=== PATIENT | male | born 1950 | race Caucasian/White ===

== ENCOUNTER 2025-05-24 04:13 | Emergency (ER) | payer MEDICARE, OTHER, SELFPAY ==
--- NOTE | ~2025-05-24 | XR_ITS ---
XR wrist LT min 3V 05/24/2025 06:44 Indication: Reduction left wrist fracture Procedure: 4 views left wrist Comparison: 05/24/2025 Findings: Slightly improved alignment of comminuted intra-articular fracture distal aspect of the radius status post reduction and placement of overlying cast. Ulnar styloid fracture present. No other fracture. Impression: 1: Partial reduction comminuted intra-articular fracture distal aspect of the radius with mild persistent dorsal displacement and angulation. 2: Ulnar styloid fracture. Reviewed, dictated and finalized at location O. Impression: 1: Partial reduction comminuted intra-articular fracture distal aspect of the r adius with mild persistent dorsal displacement and angulation. 2: Ulnar styloid fracture.
--- NOTE | ~2025-05-24 | CT_ITS ---
EXAMINATION: CT cervical spine wo con DATE: 05/24/2025 05:01 INDICATION: Status post fall. Neck pain. TECHNIQUE: Computed tomography (CT) of the cervical spine was performed without intravenous contrast. The dose-length product was 573 mGy-cm. Automated exposure control and iterative reconstruction technique were employed. COMPARISON: None FINDINGS: There are patchy groundglass opacities in the lung apices, most likely infectious/inflammatory. No significant pleural or pericardial effusion. Normal cervical alignment. Odontoid process is normal. Craniovertebral junction is normal. No evidence for perched facet. There is disc narrowing and endplate degenerative change at C5-6. There is mild-moderate multilevel uncinate and facet hypertrophy. There is carotid atherosclerosis. IMPRESSION: 1. No acute abnormality of the cervical spine. 2: Moderate cervical spondylosis. 3: Patchy groundglass opacities lung apices with areas of nodularity, most likely infectious/inflammatory. Recommend follow-up CT chest and 1-2 months to assess for resolution. Reviewed, dictated and finalized at location O. IMPRESSION: 1. No acute abnormality of the cervical spine. 2: Moderate cervical spondylosis. 3: Patchy groundglass opacities lung apices with areas of nodularity, most like ly infectious/inflammatory. Recommend follow-up CT chest and 1-2 months to asse ss for resolution.
--- NOTE | ~2025-05-24 | XR_ITS ---
XR wrist LT min 3V 05/24/2025 05:14 Indication: Left wrist pain Procedure: 3 views left wrist Comparison: No prior studies for comparison. Findings: There is a comminuted intra-articular fracture distal aspect of the radius with dorsal displacement and angulation. There is an ulnar styloid avulsion fracture. Mild soft tissue swelling. Impression: 1: Comminuted intra-articular fracture distal aspect of the radius with dorsal displacement and angulation. 2: Ulnar styloid avulsion. Reviewed, dictated and finalized at location O. Impression: 1: Comminuted intra-articular fracture distal aspect of the radius with dorsal displacement and angulation. 2: Ulnar styloid avulsion.
--- NOTE | ~2025-05-24 | CT_ITS ---
EXAMINATION: CT BRAIN W/O DATE: 05/24/2025 05:01 INDICATION: Head injury. TECHNIQUE: Computed tomography (CT) of the head was performed without intravenous contrast. The dose-length product was 681.00 mGy-cm. Automated exposure control and iterative reconstruction technique were employed. COMPARISON: No prior studies for comparison. FINDINGS: Normal brain parenchymal volume for age. Normal garcia-white differentiation. No acute intracranial hemorrhage, infarction, mass or mass effect. There is intracranial atherosclerosis. No ventriculomegaly or midline shift. Midline sagittal images demonstrate a normal corpus callosum, craniovertebral junction and sella turcica. Basilar cisterns are patent. Mild mucosal thickening of the maxillary and ethmoid sinuses. There are mucous retention cyst of the right maxillary sinus. Mastoids are pneumatized. No skull fractures. IMPRESSION: 1. No acute intracranial abnormality. Reviewed, dictated and finalized at location O.
[2025-05-24 04:24] VITALS: BP 101/67; PULSE 47; RESP 18; TEMP 36.7; O2SAT 94
--- OUTSIDE RECORDS SUMMARY | 2025-05-24 05:26 | XMS_ITS | Continuity of Care Document ---
Author Name [facility] Organization [facility] Care Team Providers Care Human Resources Officer Name Role Phone [facility] Unavailable Unavailable Medications Combined list of outpatient medications from Department of Defense and Veterans Affairs facilities.Medications provided include 1) outpatient medications from the last 15 months, and 2) patient-reported medications. Medication Details Route Status Patient Instructions Prescription Expires Prescription Number Last Dispense Date Ordering Provider Order Date Order Qty Source albuterol 90 mcg inhaler [8.5g] See Instruct ions, # 25.5 g, 1 total refill(s ), Soft Stop Ordered 5 2024 25.5 Ambulat ory Pharmac y allopurinol 300 mg tablet = 1 tab(s), Oral, Daily, # 90 EA, 3 total refill(s ), Soft Stop Oral (given by mouth) Ordered 5 2024 90.0 Ambulat ory Pharmac y allopurinol 300 mg tablet = 1 tab(s), Oral, Daily, # 90 EA, 3 total refill(s ), Hard Stop Oral (given by mouth) Discont inued 05/02/2025 5 2024 90.0 Ambulat ory Pharmac y allopurinol 300 mg tablet See Instruct ions, # 90 EA, 3 total refill(s ), Hard Stop Complet ed 03/10/2024 4 2023 90.0 Ambulat ory Pharmac y amLODIPine 5 mg tablet = 1 tab(s), Oral, Daily, # 90 EA, 3 total refill(s ), Hard Stop Oral (given by mouth) Complet ed 05/22/2025 5 2024 90.0 Ambulat ory Pharmac y AMOX TR-POTASSIU M CLAVULANATE (AMOXICILLI N/POTASSIUM CLAV), 875-125 MG, TABLET, ORAL, [employer], 20 ea. BOTTLE Cancele d [id number] : 2023 0 Pharmac y Data Transac tion Service Facilit y AMOX TR-POTASSIU M CLAVULANATE (AMOXICILLI N/POTASSIUM CLAV), 875-125 MG, TABLET, ORAL, [employer], 20 ea. BOTTLE Active [id number] 4 2023 20 Pharmac y Data Transac tion Service Facilit y apixaban 5 mg tablet = 1 tab(s), Oral, BID, # 180 EA, 3 total refill(s ), Soft Stop Oral (given by mouth) Ordered 5 2024 180.0 Ambulat ory Pharmac y apixaban 5 mg tablet = 1 tab(s), Oral, every 12 hr, # 180 EA, 0 total refill(s ), Soft Stop Oral (given by mouth) Discont inued 03/01/2025 5 2024 180.0 Ambulat ory Pharmac y diclofenac 1% gel [100g] See Instruct ions, # 100 g, 3 total refill(s ), Hard Stop Complet ed 07/31/2024 4 2023 100.0 Ambulat ory Pharmac y diclofenac 1% gel [100g] See Instruct ions, # 100 g, 3 total refill(s ), Hard Stop Ordered 08/27/2025 5 2024 100.0 Ambulat ory Pharmac y diclofenac 1% topical gel USE DOSING CARD TO APPLY 4 GRAMS TOPICALL Y FOUR TIMES A DAY DIRECTED , # 100 g, 1 total refill(s ), Acute Complet ed 05/25/2023 3 2022 100.0 Ambulat ory Pharmac y DOXYCYCLINE HYCLATE (doxycyclin e hyclate), 100 MG, CAPSULE, ORAL, [employer], 500 ea. BOTTLE Active [id number] 4 2023 20 Pharmac y Data Transac tion Service Facilit y empaglifloz in 10 mg tablet = 1 tab(s), Oral, Daily, # 90 EA, 3 total refill(s ), Soft Stop Oral (given by mouth) Discont inued 02/11/2025 5 2024 90.0 Ambulat ory Pharmac y empaglifloz in 25 mg tablet = 1 tab(s), Oral, Daily, # 90 EA, 3 total refill(s ), Soft Stop Oral (given by mouth) Ordered 5 2024 90.0 Ambulat ory Pharmac y escitalopra m 10 mg tablet = 1 tab(s), Oral, Daily, # 90 EA, 3 total refill(s ), Soft Stop Oral (given by mouth) Ordered 5 2024 90.0 Ambulat ory Pharmac y Fortesta 10 mg/0.5 g gel pump [60g] See Instruct ions, 0, # 120 g, 1 total refill(s ), Hard Stop Complet ed 01/28/2024 3 2023 120.0 Ambulat ory Pharmac y furosemide 40 mg tablet = 1 tab(s), Oral, Daily, # 90 EA, 3 total refill(s ), Soft Stop Oral (given by mouth) Ordered 5 2024 90.0 Ambulat ory Pharmac y gabapentin 300 mg capsule See Instruct ions, Oral, TID, # 270 EA, 3 total refill(s ), Hard Stop Oral (given by mouth) Complet ed 07/31/2024 4 2023 270.0 Ambulat ory Pharmac y gabapentin 300 mg capsule See Instruct ions, # 270 EA, 3 total refill(s ), Hard Stop Ordered 08/27/2025 5 2024 270.0 Ambulat ory Pharmac y gabapentin 300 mg capsule See Instruct ions, # 270 EA, 3 total refill(s ), Hard Stop Complet ed 03/10/2024 3 2023 270.0 Ambulat ory Pharmac y gabapentin 300 mg oral capsule TAKE ONE CAPSULE THREE TIMES DAILY NEEDED FOR PAIN, # 270 EA, 3 total refill(s ), Acute Complet ed 05/18/2023 2 2022 270.0 Ambulat ory Pharmac y hydroCHLORO thiazide 12.5 mg tablet See Instruct ions, # 90 EA, 3 total refill(s ), Hard Stop Discont inued 06/23/2023 3 2022 90.0 Ambulat ory Pharmac y Jardiance 10 mg tablet 10 mg, Oral, Daily, # 90 EA, 3 total refill(s ), Hard Stop Oral (given by mouth) Complet ed 12/25/2024 4 2024 90.0 Ambulat ory Pharmac y Jardiance 10 mg tablet See dose instruct ions in comments , # 90 EA, 3 total refill(s ), Acute Complet ed 12/22/2023 3 2023 90.0 Ambulat ory Pharmac y Jardiance 10 mg tablet 10 mg, Oral, Daily, # 90 EA, 3 total refill(s ), Hard Stop Oral (given by mouth) Complet ed 11/28/20242024 90.0 Ambulat ory Pharmac y magnesium oxide 400 mg tablet = 1 tab(s), Oral, Daily, # 90 EA, 3 total refill(s ), Soft Stop Oral (given by mouth) Ordered 5 2024 90.0 Ambulat ory Pharmac y magnesium oxide 400 mg tablet See Instruct ions, # 90 EA, 3 total refill(s ), Hard Stop Complet ed 03/10/2024 4 2023 90.0 Ambulat ory Pharmac y magnesium oxide 400 mg tablet See Instruct ions, # 90 EA, 3 total refill(s ), Hard Stop Discont inued 03/01/2025 5 2024 90.0 Ambulat ory Pharmac y metoprolol tartrate 50 mg tablet See Instruct ions, 0, 0, # 135 EA, 3 total refill(s ), Hard Stop Complet ed 03/10/2024 4 2023 135.0 Ambulat ory Pharmac y metoprolol tartrate 50 mg tablet See Instruct ions, 0, # 135 EA, 3 total refill(s ), Hard Stop Complet ed 03/26/2025 5 2024 135.0 Ambulat ory Pharmac y pantoprazol e EC 20 mg tablet 20 mg, Oral, Daily, # 90 EA, 0 total refill(s ), Hard Stop Oral (given by mouth) Discont inued 11/30/2023 4 2023 90.0 Ambulat ory Pharmac y pantoprazol e EC 20 mg tablet 20 mg, Oral, Daily, # 90 EA, 0 total refill(s ), Hard Stop Oral (given by mouth) Complet ed 08/28/2024 3 2023 90.0 Ambulat ory Pharmac y pantoprazol e EC 20 mg tablet = 1 tab(s), Oral, Daily, # 90 EA, 3 total refill(s ), Soft Stop Oral (given by mouth) Ordered 5 2024 90.0 Ambulat ory Pharmac y pantoprazol e EC 20 mg tablet 20 mg, Oral, Daily, # 90 EA, 3 total refill(s ), Hard Stop Oral (given by mouth) Complet ed 11/28/2024 4 2024 90.0 Ambulat ory Pharmac y pantoprazol e EC 20 mg tablet See Instruct ions, # 90 EA, 0 total refill(s ), Hard Stop Complet ed 05/24/2024 3 2023 90.0 Ambulat ory Pharmac y rOPINIRole 2 mg tablet = 2 tab(s), Oral, # 180 EA, 3 total refill(s ), Hard Stop Oral (given by mouth) Ordered 08/29/2025 5 2024 180.0 Ambulat ory Pharmac y rOPINIRole 2 mg tablet See Instruct ions, 0, # 135 EA, 3 total refill(s ), Hard Stop Complet ed 03/10/2024 4 2023 135.0 Ambulat ory Pharmac y rOPINIRole 2 mg tablet See Instruct ions, 0, # 135 EA, 3 total refill(s ), Hard Stop Complet ed 03/26/2025 4 2024 135.0 Ambulat ory Pharmac y rosuvastati n 10 mg tablet = 1 tab(s), Oral, Daily, # 90 EA, 3 total refill(s ), Hard Stop Oral (given by mouth) Discont inued 07/11/2024 4 2023 90.0 Ambulat ory Pharmac y rosuvastati n 20 mg tablet See Instruct ions, # 90 EA, 3 total refill(s ), Hard Stop Ordered 07/09/2025 5 2024 90.0 Ambulat ory Pharmac y rosuvastati n 5 mg tablet See Instruct ions, # 90 EA, 3 total refill(s ), Hard Stop Complet ed 03/10/2024 4 2023 90.0 Ambulat ory Pharmac y rosuvastati n 5 mg tablet See Instruct ions, # 90 EA, 3 total refill(s ), Hard Stop Discont inued 05/22/2024 4 2023 90.0 Ambulat ory Pharmac y sildenafil 100 mg oral tablet TAKE 1 TABLET BY MOUTH NEEDED FOR ERECTILE DYSFUNCT ION, # 30 EA, 1 total refill(s ), Acute Complet ed 08/24/2023 3 2022 30.0 Ambulat ory Pharmac y sildenafil 100 mg tablet See Instruct ions, # 30 EA, 2 total refill(s ), Hard Stop Complet ed 07/31/2024 4 2023 30.0 Ambulat ory Pharmac y testosteron e 10 mg/actuatio n transdermal gel PLACE 3 PUMPS ON THE SKIN DAILY, # 120 g, 1 total refill(s ), Acute Complet ed 06/20/2023 3 2022 120.0 Ambulat ory Pharmac y traMADol 50 mg tablet See Instruct ions, # 120 EA, 2 total refill(s ), Soft Stop Ordered 5 2024 120.0 Ambulat ory Pharmac y traMADol 50 mg tablet 100 mg, Oral, every 8 hr, # 120 EA, 2 total refill(s ), Hard Stop Oral (given by mouth) Discont inued 05/29/2024 4 2023 120.0 Ambulat ory Pharmac y traMADol 50 mg tablet See Instruct ions, Oral, # 120 EA, 2 total refill(s ), Soft Stop Oral (given by mouth) Discont inued 05/22/2025 5 2024 120.0 Ambulat ory Pharmac y traMADol 50 mg tablet See Instruct ions, # 120 EA, 0 total refill(s ), Hard Stop Complet ed 01/28/2024 3 2023 120.0 Ambulat ory Pharmac y traMADol 50 mg tablet 100 mg, Oral, every 8 hr, # 120 EA, 0 total refill(s ), Hard Stop Oral (given by mouth) Complet ed 03/20/2024 4 2023 120.0 Ambulat ory Pharmac y traMADol 50 mg tablet = 2 tab(s), Oral, every 8 hr, # 120 EA, 2 total refill(s ), Hard Stop Oral (given by mouth) Discont inued 11/15/2024 4 2024 120.0 Ambulat ory Pharmac y traMADol 50 mg tablet See Instruct ions, # 120 EA, 0 total refill(s ), Hard Stop Complet ed 02/25/2024 3 2023 120.0 Ambulat ory Pharmac y traMADol 50 mg tablet 100 mg, Oral, every 8 hr, # 120 EA, 2 total refill(s ), Hard Stop Oral (given by mouth) Complet ed 05/27/2024 4 2023 120.0 Ambulat ory Pharmac y traMADol 50 mg tablet = 2 tab(s), Oral, every 8 hr, # 120 EA, 2 total refill(s ), Hard Stop Oral (given by mouth) Discont inued 02/11/2025 5 2024 120.0 Ambulat ory Pharmac y traMADol 50 mg tablet See Instruct ions, # 120 EA, 2 total refill(s ), Hard Stop Discont inued 05/25/2023 3 2022 120.0 Ambulat ory Pharmac y traMADol 50 mg tablet 100 mg, Oral, every 8 hr, # 120 EA, 0 total refill(s ), Hard Stop Oral (given by mouth) Complet ed 05/05/2024 4 2023 120.0 Ambulat ory Pharmac y traMADol 50 mg tablet 100 mg, Oral, every 8 hr, # 120 EA, 0 total refill(s ), Hard Stop Oral (given by mouth) Complet ed 12/20/2023 3 2023 120.0 Ambulat ory Pharmac y traMADol 50 mg tablet See Instruct ions, # 120 EA, 0 total refill(s ), Hard Stop Discont inued 06/24/2023 3 2022 120.0 Ambulat ory Pharmac y Tramadol Hydrochlori de 50 mg Tablet, Oral (Major) May cause drowsine ss.Obtai n advice for OTCs.[place] law prohibit s transfer of prescrip tion. 08/14/2024 [id number] 4 2023 120 [employer] [facility] [place] [place] [place] TRULICITY (dulaglutid e), 3 MG/0.5ML, PEN INJCTR, SUBCUT, [employer] .5 ml SYRINGE Cancele d [id number] : 2023 0 Pharmac y Data Transac tion Service Facilit y Trulicity Pen 1.5 mg/0.5 mL [4EA=2mL] See dose instruct ions in comments , # 2 mL, 1 total refill(s ), Acute Complet ed 01/25/2024 3 2023 2.0 Ambulat ory Pharmac y Trulicity Pen 3 mg/0.5 mL [4EA=2mL] See Instruct ions, # 2 mL, 11 total refill(s ), Hard Stop Complet ed 04/17/2024 4 2023 2.0 Ambulat ory Pharmac y Trulicity Pen 3 mg/0.5 mL [4EA=2mL] See Instruct ions, # 2 mL, 11 total refill(s ), Hard Stop, NOEMY Notes: refriger ate Complet ed 05/22/2025 5 2024 2.0 Ambulat ory Pharmac y Trulicity Pen 3 mg/0.5 mL [4EA=2mL] See Instruct ions, # 2 mL, 11 total refill(s ), Hard Stop Notes: refriger ate Discont inued 06/20/2024 4 2023 2.0 Ambulat ory Pharmac y Allergies, Adverse Reactions, Alerts Combined list of allergies from Department of Defense and Veterans Affairs facilities. It does not include entries that were removed or entered in error. Substance Category Reaction Severity Reaction type Status Date Reported Comments Source No Known Allergies Drug allergy (disorder) active 04/19/2011 [facility] [place] [place] Immunizations Combined list of available immunizations from the Department of Defense and Veterans Affairs facilities. 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 (MOD) Not Given COVID-19, mRNA, LNP-S, PF, 100 mcg or 50 mcg dose DoD COVID Vaccine Moderna 2020 207 complet ed COVID Vaccine Moderna 07/27/21 Given Ambulat ory Pharmac y COVID-19, mRNA, LNP-S, PF, 100 mcg or 50 mcg dose 2020 QUIRIN, Modern[employer] (MOD) Not Given COVID-19, mRNA, LNP-S, PF, 100 mcg or 50 mcg dose DoD influenza, high-dose seasonal, quad, pf 2020 197 sanofi pasteur complet ed influenza , high-dose seasonal, quad, pf 06/22/21 Given Ambulat ory Pharmac y influenza, high-dose, quadrivalent 2020 BUCHHEIT, () Not Given influenza , high-dose , quadrival ent DoD COVID Vaccine Moderna 2020 207 complet ed COVID Vaccine Moderna 12/06/20 Given Ambulat ory Pharmac y COVID-19, mRNA, LNP-S, PF, 100 mcg or 50 mcg dose 2020 BRIGHT, Moderna [employer] (MOD) Not Given COVID-19, mRNA, LNP-S, PF, 100 mcg or 50 mcg dose DoD COVID Vaccine Moderna 2020 207 complet ed COVID Vaccine Moderna 11/08/20 Given Ambulat ory Pharmac y influenza, high-dose, quadrivalent 2019 ALUL, () Not Given influenza , high-dose , quadrival ent DoD influenza virus vaccine,split 2006 zzLef t Arm [id number] 15 GlaxoSmithK[employer] ne complet ed influenza virus vaccine,s plit 10/02/06 Given Ambulat ory Pharmac y influenza virus vaccine,split 2006 [id number] 15 [employer]oSmith[employer] ne complet ed influenza virus vaccine,s plit 10/02/06 Given Ambulat ory Pharmac y influenza virus vaccine, split virus (incl. purified surface antigen)-reti red CODE 1 2006 Unknown, Provider [id number] 15 [facility] ([facility]) complet ed influenza virus vaccine, split virus (incl. purified surface antigen)- retired CODE DoD varicella virus vaccine 2005 zzLef t Arm [id number] 21 [employer] Inc complet ed varicella virus vaccine 04/11/06 Given Ambulat ory Pharmac y varicella virus vaccine 2005 [id number] 21 [employer] Inc complet ed varicella virus vaccine 04/11/06 Given Ambulat ory Pharmac y varicella virus vaccine 1 2005 Unknown, Provider [id number] 21 Merck (MSD) complet ed varicella virus vaccine DoD typhoid vaccine, inactivated 2005 zzLef t Arm [id number] sanofi pasteur complet ed typhoid vaccine, inactivat ed 10/16/05 Given Ambulat ory Pharmac y tetanus-dipht h toxoids (Td) adult/adol 2005 zzLef t Arm [id number] 09 sanofi pasteur complet ed tetanus-d iphth toxoids (Td) adult/ado l 10/16/05 Given Ambulat ory Pharmac y typhoid vaccine, inactivated 2005 [id number] sanofi pasteur complet ed typhoid vaccine, inactivat ed 10/16/05 Given Ambulat ory Pharmac y tetanus-dipht h toxoids (Td) adult/adol 2005 [id number] 09 sanofi pasteur complet ed tetanus-d iphth toxoids (Td) adult/ado l 10/16/05 Given Ambulat ory Pharmac y tetanus and diphtheria toxoids, adsorbed, preservative free, for adult use (2 Lf of tetanus toxoid and 2 Lf of diphtheria toxoid) 2005 Unknown, Provider [id number] Sanofi Pasteur ([facility]) complet ed tetanus and diphtheri a toxoids, adsorbed, preservat sharita free, for adult use (2 Lf of tetanus toxoid and 2 Lf of diphtheri a toxoid) DoD typhoid vaccine, parenteral, other than acetone-kille d, dried 2005 Unknown, Provider [id number] Sanofi Pasteur ([facility]) complet ed typhoid vaccine, parentera l, other than acetone-k illed, dried DoD typhoid vaccine, inactivated 2005 Dima t Tito [id number] sanofi pasteur complet ed typhoid vaccine, inactivat ed 10/02/05 Given Ambulat ory Pharmac y tetanus-dipht h toxoids (Td) adult/adol 2005 Russelef t Arm [id number] 09 sanofi pasteur complet ed tetanus-d iphth toxoids (Td) adult/ado l 10/02/05 Given Ambulat ory Pharmac y typhoid vaccine, inactivated 2005 [id number] sanofi pasteur complet ed typhoid vaccine, inactivat ed 10/02/05 Given Ambulat ory Pharmac y tetanus-dipht h toxoids (Td) adult/adol 2005 [id number] 09 sanofi pasteur complet ed tetanus-d iphth toxoids (Td) adult/ado l 10/02/05 Given Ambulat ory Pharmac y tetanus and diphtheria toxoids, adsorbed, preservative free, for adult use (2 Lf of tetanus toxoid and 2 Lf of diphtheria toxoid) 2005 Unknown, Provider [id number] 09 Sanofi Pasteur ([facility]) complet ed tetanus and diphtheri a toxoids, adsorbed, preservat sharita free, for adult use (2 Lf of tetanus toxoid and 2 Lf of diphtheri a toxoid) DoD typhoid vaccine, parenteral, other than acetone-kille d, dried 1 2005 Unknown, Provider [id number] 41 Sanofi Pasteur ([facility]) complet ed typhoid vaccine, parentera l, other than acetone-k illed, dried DoD influenza virus vaccine,split 2004 zzLef t Arm [id number] 15 sanofi pasteur complet ed influenza virus vaccine,s plit 08/29/05 Given Ambulat ory Pharmac y influenza virus vaccine,split 2004 [id number] sanofi pasteur complet ed influenza virus vaccine,s plit 08/29/05 Given Ambulat ory Pharmac y influenza virus vaccine, split virus (incl. purified surface antigen)-reti red CODE 1 2004 Unknown, Provider [id number] 15 Sanofi Pasteur ([facility]) complet ed influenza virus vaccine, split virus (incl. purified surface antigen)- retired CODE DoD influenza virus vaccine, whole virus 2004 zzL t Arm [id number] 16 sanofi pasteur complet ed influenza virus vaccine, whole virus 11/14/04 Given Ambulat ory Pharmac y influenza virus vaccine, whole virus 2004 [id number] 16 sanofi pasteur complet ed influenza virus vaccine, whole virus 11/14/04 Given Ambulat ory Pharmac y influenza virus vaccine, whole virus 1 2004 Unknown, Provider [id number] 16 Sanofi Pasteur ([facility]) complet ed influenza virus vaccine, whole virus DoD influenza virus vaccine, whole virus 2004 [id number] [employer] comple t ed influenza virus vaccine, whole virus 10/03/04 Given Ambulat ory Pharmac y influenza virus vaccine, whole virus 1 2004 Unknown, Provider [id number] [employer] ([facility]) complet ed influenza virus vaccine, whole virus DoD [facility]rax [facility] [id number] [employer] complet ed anthrax vaccine 05/02/04 Given Ambulat ory Pharmac y anthrax vaccine 2003 [id number] [employer] complet ed anthrax vaccine 05/02/04 Given Ambulat ory Pharmac y anthrax vaccine 4 2003 Unknown, Provider [id number] [employer] ([facility]) complet ed anthrax vaccine DoD anthrax vaccine 2003 zzLef t Arm [id number] [employer] complet ed anthrax vaccine 11/19/03 Given Ambulat ory Pharmac y anthrax vaccine 3 2003 Unknown, Provider [id number] [employer] ([facility]) complet ed anthrax vaccine DoD anthrax vaccine 2003 zzLef t Arm [id number] [employer] complet ed anthrax vaccine 11/03/03 Given Ambulat ory Pharmac y anthrax vaccine 2003 [id number] [employer] complet ed anthrax vaccine 11/03/03 Given Ambulat ory Pharmac y anthrax vaccine 2 2003 Unknown, Provider [id number] [employer] ([facility]) complet ed anthrax vaccine DoD typhoid vaccine, inactivated 2003 zzLef t Arm [id number] sanofi pasteur complet ed typhoid vaccine, inactivat ed 10/19/03 Given Ambulat ory Pharmac y anthrax vaccine 2003 zzLef t Arm [id number] [employer] complet ed anthrax vaccine 10/19/03 Given Ambulat ory Pharmac y typhoid vaccine, inactivated 2003 [id number] sanofi pasteur complet ed typhoid vaccine, inactivat ed 10/19/03 Given Ambulat ory Pharmac y anthrax vaccine 2003 [id number] [employer] complet ed anthrax vaccine 10/19/03 Given Ambulat ory Pharmac y anthrax vaccine 1 2003 Unknown, Provider [id number] [employer] ([facility]) complet ed anthrax vaccine DoD typhoid vaccine, parenteral, other than acetone-kille d, dried 1 2003 Unknown, Provider [id number] Sanofi Pasteur ([facility]) complet ed typhoid vaccine, parentera l, other than acetone-k illed, dried DoD influenza virus vaccine, whole virus 2002 zzLef t Arm [id number] 16 sanofi pasteur complet ed influenza virus vaccine, whole virus 07/27/03 Given Ambulat ory Pharmac y influenza virus vaccine, whole virus 2002 [id number] 16 sanofi pasteur complet ed influenza virus vaccine, whole virus 07/27/03 Given Ambulat ory Pharmac y influenza virus vaccine, whole virus 1 2002 Unknown, Provider [id number] 16 Sanofi Pasteur ([facility]) complet ed influenza virus vaccine, whole virus DoD influenza virus vaccine, whole virus [facility] [id number] 16 sanofi pasteur complet ed influenza virus vaccine, whole virus 07/28/02 Given Ambulat ory Pharmac y influenza virus vaccine, whole virus 2001 [id number] 16 sanofi pasteur complet ed influenza virus vaccine, whole virus 07/28/02 Given Ambulat ory Pharmac y influenza virus vaccine, whole virus 1 2001 Unknown, Provider [id number] 16 Sanofi Pasteur ([facility]) complet ed influenza virus vaccine, whole virus DoD meningococcal polysaccharid e (MPSV4) [facility] [id number] 32 sanofi pasteur complet ed meningoco ccal polysacch aride (MPSV4) 06/30/02 Given Ambulat ory Pharmac y meningococcal polysaccharid e (MPSV4) 2001 [id number] 32 sanofi pasteur complet ed meningoco ccal polysacch aride (MPSV4) 06/30/02 Given Ambulat ory Pharmac y meningococcal polysaccharid e vaccine (MPSV4) 1 2001 Unknown, Provider [id number] 32 Sanofi Pasteur ([facility]) complet ed meningoco ccal polysacch aride vaccine (MPSV4) [facility] typhoid vaccine, inactivated 2001 [facility] t Arm [id number] sanofi pasteur complet ed typhoid vaccine, inactivat ed 10/29/01 Given Ambulat ory Pharmac y typhoid vaccine, inactivated 2001 [id number] sanofi pasteur complet ed typhoid vaccine, inactivat ed 10/29/01 Given Ambulat ory Pharmac y typhoid vaccine, parenteral, other than acetone-kille d, dried 1 2001 Unknown, Provider [id number] Sanofi Pasteur ([facility]) complet ed typhoid vaccine, parentera l, other than acetone-k illed, dried [facility] influenza virus vaccine, whole virus 2001 [facility] [id number] 16 sanofi pasteur complet ed influenza virus vaccine, whole virus 10/10/01 Given Ambulat ory Pharmac y influenza virus vaccine, whole virus 2001 [id number] 16 sanofi pasteur complet ed influenza virus vaccine, whole virus 10/10/01 Given Ambulat ory Pharmac y influenza virus vaccine, whole virus 1 2001 Unknown, Provider [id number] 16 [facility] ([facility]) complet ed influenza virus vaccine, whole virus DoD influenza virus vaccine, whole virus 2000 [id number] 16 [facility], whole virus 10/01/00 Given Ambulat ory Pharmac y influenza virus vaccine, whole virus 2000 [id number] 16 [facility] vaccine, whole virus 10/01/00 Given Ambulat ory Pharmac y influenza virus vaccine, whole virus 1 2000 Unknown, [facility] [id number] [facility], whole virus DoD yellow fever vaccine 1999 [id number] [facility] ed yellow fever vaccine 04/03/00 Given Ambulat ory Pharmac y yellow fever vaccine 1999 [id number] [facility] yellow fever vaccine 04/03/00 Given Ambulat ory Pharmac y yellow fever vaccine 1 1999 Unknown, Provider [id number] [facility] ed yellow fever vaccine DoD influenza virus vaccine, whole virus 1998 [id number] 16 [facility] influenza virus vaccine, whole virus 08/01/99 Given Ambulat ory Pharmac y influenza virus vaccine, whole virus 1 1998 Unknown, Provider [id number] 16 [facility] ed influenza virus vaccine, whole virus DoD typhoid vaccine, inactivated 1998 [id number] sanofi pasteur complet ed typhoid vaccine, inactivat ed 06/28/99 Given Ambulat ory Pharmac y typhoid vaccine, parenteral, other than acetone-kille d, dried 1 1998 Unknown, Provider [id number] Sanofi Pasteur ([facility]) complet ed typhoid vaccine, parentera l, other than acetone-k illed, dried DoD influenza virus vaccine, whole virus 1997 [id number] 16 [facility] complet ed influenza virus vaccine, whole virus 06/21/98 Given Ambulat ory Pharmac y influenza virus vaccine, whole virus 1997 [id number] 16 [facility] complet ed influenza virus vaccine, whole virus 06/21/98 Given Ambulat ory Pharmac y influenza virus vaccine, whole virus 1 1997 Unknown, Provider [id number] A 16 [facility] ([facility]) complet ed influenza virus vaccine, whole virus DoD influenza virus vaccine, whole virus [id number] [employer] complet ed influenza virus vaccine, whole virus 06/29/97 Given Ambulat ory Pharmac y influenza virus vaccine, whole virus [id number] P[employer] complet ed influenza virus vaccine, whole virus 06/29/97 Given Ambulat ory Pharmac y influenza virus vaccine, whole virus 2 1996 Unknown, Provider [id number] [employer] (Inactive) (ND) complet ed influenza virus vaccine, whole virus DoD hepatitis A adult vaccine [id number] [employer] complet ed hepatitis A adult vaccine 02/06/96 Given Ambulat ory Pharmac y hepatitis A adult vaccine [id number] 52 [employer] complet ed hepatitis A adult vaccine 02/06/96 Given Ambulat ory Pharmac y hepatitis A vaccine, adult dosage 2 1995 Unknown, Provider [id number] [employer] (Inactive) (ND) complet ed hepatitis A vaccine, adult dosage DoD typhoid, parenteral, AKD [id number] 53 P[employer] complet ed typhoid, parentera l, AKD 01/14/96 Given Ambulat ory Pharmac y typhoid, parenteral, AKD [id number] 53 P[employer] complet ed typhoid, parentera l, AKD 01/14/96 Given Ambulat ory Pharmac y typhoid vaccine, parenteral, acetone-kille d, dried ([place] ) 3 1995 Unknown, Provider [id number] [employer] (Inactive) (ND) complet ed typhoid vaccine, parentera l, acetone-k illed, dried ([place] ) [facility] meningococcal polysaccharid e (MPSV4) 1995 [id number] [facility] complet ed meningoco ccal polysacch aride (MPSV4) 11/05/95 Given Ambulat ory Pharmac y meningococcal polysaccharid e (MPSV4) 1995 [id number] [facility] complet ed meningoco ccal polysacch aride (MPSV4) 11/05/95 Given Ambulat ory Pharmac y meningococcal polysaccharid e vaccine (MPSV4) 1 1995 Unknown, Provider [id number] [place] (CON) complet ed meningoco ccal polysacch aride vaccine (MPSV4) DoD tetanus-dipht h toxoids (Td) adult/adol 1995 09 complet ed tetanus-d iphth toxoids (Td) adult/ado l 10/16/95 Given Ambulat ory Pharmac y tetanus and diphtheria toxoids, adsorbed, preservative free, for adult use (2 Lf of tetanus toxoid and 2 Lf of diphtheria toxoid) 3 1995 Unknown, Provider 09 () complet ed tetanus and diphtheri a toxoids, adsorbed, preservat sharita free, for adult use (2 Lf of tetanus toxoid and 2 Lf of diphtheri a toxoid) DoD influenza virus vaccine, whole virus 1993 16 complet ed influenza virus vaccine, whole virus 08/01/94 Given Ambulat ory Pharmac y influenza virus vaccine, whole virus 1 1993 Unknown, Provider 16 () complet ed influenza virus vaccine, whole virus DoD hepatitis B adult vaccine [id number] 43 [employer] complet ed hepatitis B adult vaccine 02/28/94 Given Ambulat ory Pharmac y hepatitis B adult vaccine [id number] 43 [employer] complet ed hepatitis B adult vaccine 02/28/94 Given Ambulat ory Pharmac y hepatitis B vaccine, adult dosage 3 1993 Unknown, Provider [id number] [employer] (Inactive) (ND) complet ed hepatitis B vaccine, adult dosage DoD immune globulin, unspecified formulation 1 1992 Unknown, Provider 14 () complet ed immune globulin, unspecifi ed formulati on DoD yellow fever vaccine [id number] 37 [employer] complet ed yellow fever vaccine 01/28/90 Given Ambulat ory Pharmac y yellow fever vaccine [id number] 37 [employer] complet ed yellow fever vaccine 01/28/90 Given Ambulat ory Pharmac y yellow fever vaccine 1 1989 Unknown, Provider [id number] [employer] (Inactive) (ND) complet ed yellow fever vaccine DoD measles/mumps /rubella virus vaccine 1987 03 complet ed measles/m umps/rube lla virus vaccine 07/04/88 Given Ambulat ory Pharmac y measles virus vaccine 1987 05 complet ed measles virus vaccine 07/04/88 Given Ambulat ory Pharmac y measles virus vaccine 1987 05 complet ed measles virus vaccine 07/04/88 Given Ambulat ory Pharmac y measles/mumps /rubella virus vaccine 1987 03 complet ed measles/m umps/rube lla virus vaccine 07/04/88 Given Ambulat ory Pharmac y measles virus vaccine 1 1987 Unknown, Provider 05 () complet ed measles virus vaccine DoD measles, mumps and rubella virus vaccine 1 1987 Unknown, Provider 03 () complet ed measles, mumps and rubella virus vaccine DoD poliovirus vaccine, live, oral 1984 02 complet ed polioviru s vaccine, live, oral 12/31/84 Given Ambulat ory Pharmac y poliovirus vaccine, live, oral 1984 02 complet ed polioviru s vaccine, live, oral 12/31/84 Given Ambulat ory Pharmac y trivalent poliovirus vaccine, live, oral 1 1984 Unknown, Provider 02 () complet ed trivalent polioviru s vaccine, live, oral DoD Encounters Combined list of: 1) Encounters from [facility] facilities going backup to the last 18 months, not all [place] inpatient encounters are included; 2) 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 Location Location Details Encounter Type Encounter Number Reason For Visit Attending Provider ADM Date DC Date Status Disposition Source [facility] Outpatient Encounter [id number] 07/04 [facility] Procedures Combined list of: 1) Procedures from Department of [facility] facilities going back up to thelast 18 months, not all [place] non-surgical procedures are included; 2) All procedures from the [facility] of Defense facilities. Procedure Procedure Type Code Date Perfomer Comments Sourc e No data available for this section Ambulatory Pharmacy CARDIOVASCULAR STRESS TEST USING MAXIMAL OR SUBMAXIMAL TREADMILL OR BICYCLE EXERCISE,CONTINUOUS ELECTROCARDIOGRAPHIC MONITORING,AND/OR PHARMACOLOGICAL STRESS;W SUPERVISION,INTERPRETATIO N AND REPORT 4 DoD Social History Combined list of available smoking, tobacco, and other social history from [facility] and [facility] facilities. Social History Type Response Date Comment Sour e This section is an empty social history section. DoD Assessment and Plan Combined list of future care activities from [facility] of Defense and [facility] facilities (e.g., assessment and plan notes, appointments, orders, and referrals). Additional future care activities may be listed in the Plan of Care section. Result Assessment and Plan Date Source Assessment and Plan No data available for this section 05/24/2025 Ambulatory Pharmacy Functional Status Combined list of recent functional and cognitive assessments recorded at [facility] ([place] Functional Fannin Measurement (FIM) Scale: 1 = Total Assistance (Subject = 0% +), 2 = Maximal Assistance (Subject = 25% +), 3 = Moderate Assistance (Subject = 50% +), 4 = Minimal Assistance (Subject = 75% +), 5 = Supervision, 6 = Modified Fannin (Device), 7 = Complete Fannin (Timely, Safely). Assessment Date/Time Source Assessment Type Assessment Skill Assessment Score Assessment Details No data available for this section
--- NOTE | 2025-05-24 05:28 | ED.GENADULT ---
HPI - General Adult General Chief complaint: Head Injury Stated complaint: Fall-head lac History of Present Illness HPI narrative: This is a 74-year-old male presenting after ground level fall. Patient said he and his got up to use the restroom in the middle night, they bumped into each other in the kitchen and he lost his balance falling backwards striking the back of his head. Patient states he takes blood thinners although he does not know which ones. He did not lose consciousness. He did land on his left wrist and has significant pain in his wrist. Related Data Allergies Allergy/AdvReac Type Severity Reaction Status Date / Time No Known Allergies Allergy Verified 05/24/25 05:50 Exam Narrative: APPEARANCE: No apparent distress. Head: 2 cm vertical laceration to posterior scalp requiring repair EYES: EOMI, NOSE: Atraumatic NECK: Trachea midline RESPIRATORY: No increased rate of breathing CARDIOVASCULAR: RRR, ABDOMINAL: Non-distended MUSCULOSKELETAl: No obvious deformities NEURO: Alert. Cranial nerves 2-12 grossly intact. Sensation light touch, motor function cerebellar function intact for 4 extremities. Gait exam was normal. SKIN:: Warm, dry. Normal color PSYCHIATRIC: Normal affect Course Vital Signs Vital signs: Vital Signs Temperature 98.0 F 05/24/25 04:24 Pulse Rate 47 L 05/24/25 04:24 Respiratory Rate 18 05/24/25 04:24 Blood Pressure 101/67 05/24/25 04:24 Pulse Oximetry 94 05/24/25 04:24 Oxygen Delivery Room Air 05/24/25 04:24 Temperature 98.0 F 05/24/25 04:24 Pulse Rate 47 L 05/24/25 04:24 Respiratory Rate 18 05/24/25 04:24 Blood Pressure 101/67 05/24/25 04:24 Pulse Oximetry 94 05/24/25 04:24 Oxygen Delivery Room Air 05/24/25 04:24 Procedures Laceration Laceration 1: Date: 05/24/25 Time: 05:31 Site: scalp Side (If applicable): left Size (cm): 2 Description: linear Depth: simple, single layer Local Anesthetic: lidocaine 1% Amount of anesthesia used (mL): 5 Pre-repair: wound explored and irrigated ====== Skin Level ====== Skin layer closed with: berenice Number of sutures: 5 ====== Subcutaneous Layer ====== ====== Muscle Layer ====== ====== Tendon Layer ====== Medical Decision Making MDM Narrative Medical decision making narrative: -Course: 74-year-old male presenting after a ground fall. Patient has 2 cm laceration to the posterior scalp was repaired with berenice. His left wrist shows comminuted intra-articular radial fracture. Hematoma block was performed and wrist was reduced and splinted. Patient will be given follow-up with Orthopedics. -DDX includes but is not limited to: Intracranial hemorrhage, closed head injury, scalp laceration, wrist fracture Vital Signs Vital Signs: Vital Signs Temperature 98.0 F 05/24/25 04:24 Pulse Rate 47 L 05/24/25 04:24 Respiratory Rate 18 05/24/25 04:24 Blood Pressure 101/67 05/24/25 04:24 Pulse Oximetry 94 05/24/25 04:24 Oxygen Delivery Room Air 05/24/25 04:24 Temperature 98.0 F 05/24/25 04:24 Pulse Rate 47 L 05/24/25 04:24 Respiratory Rate 18 05/24/25 04:24 Blood Pressure 101/67 05/24/25 04:24 Pulse Oximetry 94 05/24/25 04:24 Oxygen Delivery Room Air 05/24/25 04:24 Discharge Plan Discharge Clinical Impression: Laceration of scalp Patient Disposition: Home Condition: Stable Instructions: Antibiotic Form, Wrist Fracture in Adults (ED), Staple Care (ED) Additional Instructions: You were seen in the emergency department after a fall. The berenice in your scalp must be removed in 7 days by any medical professional. You also fractured her wrist. Please call the orthopedic clinic listed below and arrange follow-up within the next 3-5 days. If develops severe pain in her wrist or numbness your fingers please return emergency department immediately. Patient Language: Cape Verdean Prescriptions: New ibuprofen 800 mg tablet 800 mg PO TID PRN (Reason: pain) 7 Days Qty: 21 0RF acetaminophen 500 mg tablet 1,000 mg PO TID PRN (Reason: rachel) 7 Days Qty: 42 0RF tramadol 50 mg tablet 50 mg PO Q6H PRN (Reason: pain) Qty: 10 0RF Follow-up/Referrals: Manny Moreno MD [Physician, Orthopedics] - 1 Day Referral Note: Wrist fracture Tomi,ADIA Espinoza [Primary Care Provider, Unknown]
--- OUTSIDE RECORDS SUMMARY | 2025-05-24 05:28 | XMS_ITS | Patient Health Record ---
Author Organization [facility] As [employer] Address [address] [facility] [address] [place] [address] Care Team Providers Care Licensed Loan Officer Assistant Name Role Phone Butch Rai Unavailable [phone] Reason For Referral No Information Plan Of Treatment No Information Insurance Providers Payer Name Payer Address Payer Phone Subscriber Number Group Number Insured Name Patient Relationship to Insured Coverage Start Date Coverage End Date Medicare-I l Medicare [address] [place] [phone] [id number] JANE SORENSEN Self - patient is the insured
--- OUTSIDE RECORDS SUMMARY | 2025-05-24 05:28 | XMS_ITS | Encounter Summary ---
Author Organization [facility] Healthcare Address [address] [place] [address] Care Team Providers Care Production Support Engineer Name Role Phone Alexis Krishna Primary Care Provider [phone] Pedrito Liz MD Unavailable [phone] Brandon Jon DPEan Unavailable + [phone] Encounter Details Date Type Department Care Team (Late st Contact Info) Description 05/21/2025 Results Follow-Up [facility] Family Medicine at [address] [place] [address] Alexis Krishna PA [address] [place] [address] [address] [place], [place] [id number] Stool DNA - Cologuard Social History Tobacco Use Types Packs/Day Years Used Date Smoking Tobacco: Never Smokeless Tobacco: Never Alcohol Use Standard Drinks/Week Comments Never 0 (1 standard drink = 0.6 oz pur e alcohol) [facility] Utilities Answer Date Recorded In the past 12 months has e electric, gas, oil, or water company threatened to shut off services in your home? No 12/21/2024 Humiliation, Afraid, Rape, and Kick questionnair e Answer Date Recorded Within the last year, have y ou been afraid of your partner or ex-partner? No 02/01/2022 Within the last year, have y ou been humiliated or emotionally abused in other ways by your partner or ex-partner? No Within the last year, have y ou been kicked, hit, slapped, or otherwise physically hurt by your partner or ex-partner? No 02/01/2022 Within the last year, have y ou been raped or forced to have any kind of sexual activity by your partner or ex-partner? No 02/01/2022 Social Connection and Isolation Panel Answer Date Recorded In a typical week, how many times do you talk on the phone with family, friends, or neighbors? Once a week 12/22/19 How often do you get togethe r with friends or relatives? Once a week 12/21/2024 How often do you attend chur ch or anabaptist services? 1 to 4 times per year 12/21/2024 Do you belong to any clubs o r organizations such as congregation groups, unions, fraternal or athletic groups, or school groups? Yes 12/21/2024 How often do you attend meet ings of the clubs or organizations you belong to? 1 to 4 times per year 12/21/2024 Are you , , di vorced, , never , or living with a partner? 12/21/2024 Overall Financial Resource Strain (CARDIA) Answe r Date Recorded How hard is it for you to pa y for the very basics like food, housing, medical care, and heating? Not very hard 12/21/2024 PHQ-2 Answer Date Recorded PHQ-2 Total Score (If total score is 3 or more points, staff should administer the PHQ-9) 0 05/06/2025 [facility] - Occupational Stress Questionnaire Answer Date Recorded Do you feel stress - tense, restless, nervous, or anxious, or unable to sleep at night because your mind is troubled all the time - these days? Not at all 02/01/2022 Exercise Vital Sign Answer Date Recorde d On average, how many days pe r week do you engage in moderate to strenuous exercise (like a brisk walk)? 2 days 02/01/2022 On average, how many minutes do you engage in exercise at this level? 30 min 02/01/2022 Hunger Vital Sign Answer Date Recorded Within the past 12 months, y ou worried that your food would run out before you got the money to buy more. Never true 12/22/19 25 Within the past 12 months, t he food you bought just didn't last and you didn't have money to get more. Never true 12/21/2024 PRAPARE - Transportation Answer Date Re corded In the past 12 months, has l ack of transportation kept you from medical appointments or from getting medications? No 11/25 In the past 12 months, has l ack of transportation kept you from meetings, work, or from getting things needed for daily living? No 12/21/2024 Housing Stability Vital Sign Answer Bony e Recorded In the last 12 months, was t here a time when you were not able to pay the mortgage or rent on time? No 12/21/2024 In the past 12 months, how m any times have you moved where you were living? 0 12/21/2024 At any time in the past [address] [facility], were you homeless or living in a halfway (including now)? No 12/21/2024 AUDIT-C Answer Date Recorded Q1: How often do you have a drink containing alcohol? Never 05/14/2025 Q2: How many drinks containi ng alcohol do you have on a typical day when you are drinking? Patient does not drink Q3: How often do you have si x or more drinks on one occasion? Never 05/14/2025 Personal Safety Answer Date Recorded Have you ever been in or are you currently in a harmful physical or emotional relationship or is someone making you feel afraid or unsafe? 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 [place] [address] Consulting Physician Pulmonary Disease 08/17/23 Brandon Jon DPM [address] [place] [address] Consulting Physician Orthopedic Surgery 08/17/23 documented as of this encounter
--- OUTSIDE RECORDS SUMMARY | 2025-05-24 05:28 | XMS_ITS | Encounter Summary ---
Author Organization [facility] Facility Care Team Providers Care Computer Engineering Professor Name Role Phone Yonathan Vega MD Primary Care Provider [phone] Emy Sampson LPN Unavailable [phone] Alexis Krishna Primary Care Provider [phone] Pedrito Liz MD Unavailable [phone] Brandon Jon DPM Unavailable [phone] Minnie Jorge RN Unavailable Encounter Details Date Type Department Care Team (Latest Contact Info) Description 08/24/2016 Orders Only [facility]INCONV Provider, MD Rosi [address] [place] [id number] Social History Tobacco Use Types Packs/Day Years Used Date Smoking Tobacco: Never Assessed Sex and Gender Information Value Date Recorded Sex Assigned at Not on file 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 05/05/2020 05/13/2021 5:00 AM CDT COVID: Suspected 12/17/2024 12/17/2024 12/17/2024 10:13 AM CDT documented as of this encounter Care Teams Computer Engineering Professor Relationship Specialty Start Date End Date Yonathan Vega MD PCP - General 11/09/18 06/21/22 Alexis Krishna PA PCP - General Family Medicine 06/22/22 Emy Sampson LPN Special Machine Operator 05/08/20 05/08/20 Pedrito Liz MD [address] [facility] [address] [place] [address] Consulting Physician Pulmonary Disease 08/17/23 Brandon Jon DPM [address] [facility] [address] [place] [address] Consulting Physician Orthopedic Surgery 08/17/23 Minnie Jorge, RN [address] [place] [address] [address] [place] [address] Special Machine Operator 12/21/24 01/07/25 documented as of this encounter
--- OUTSIDE RECORDS SUMMARY | 2025-05-24 05:28 | XMS_ITS | Clinical Summary ---
Author Organization [address] Address [address] [place] [id number] Care Team Providers Care Readers' Advisory Service Librarian Name Role Phone Alexis Krishna Primary Care Provider [phone] Pedrito Liz MD Unavailable [phone] Brandon Jon DPM Unavailable [phone] Allergies Active Allergy Reactions Criticality Noted Date Comments Lisinopril Other (See comments) Medium 02/19/2020 hyperkalemia Olmesartan Other (See comments) Medium 05/06/2020 Hyperkalemia Medications cholecalciferol (VITAMIN D-3) 5,000 unit capsule Take 1 capsule (5,000 Units total) by mouth daily Active miscellaneous medical supply miscIndications:OS A (obstructive sleep apnea) Nasal pillows for cpap machine 1 each 1 10/07/19 22 Active sildenafiL (VIAGRA) 100 mg tabletIndications: Drug-induced erectile dysfunction Take 1 tablet (100 mg total) by mouth as needed for erectile dysfunction 30 tablet 2 08/01/20 23 Active Trulicity 3 mg/0.5 mL pen injectorIndication s:Type 2 DM with CKD stage 3 and hypertension (HCC) Inject 0.5 mL (3 mg total) under the skin once a week 6 mL 3 05/22/20 24 Active amLODIPine (NORVASC) 5 mg tabletIndications: Essential (primary) hypertension Take 1 tablet (5 mg total) by mouth daily 90 tablet 3 05/22/20 24 Active rosuvastatin (CRESTOR) 20 mg tablet Take 1 tablet (20 mg total) by mouth nightly 90 tablet 3 07/09/20 24 Active gabapentin (NEURONTIN) 300 mg capsuleIndications :Polyneuropathy, unspecified Take 1 capsule (300 mg total) by mouth 3 (three) times a day as needed (for pain) 270 capsule 3 08/27/20 24 Active rOPINIRole (Requip) 2 mg tabletIndications: RLS (restless legs syndrome) Take 2 tablets (4 mg total) by mouth nightly 180 tablet 3 08/29/20 24 Active escitalopram (LEXAPRO) 10 mg tabletIndications: Mild episode of recurrent major depressive disorder Take 1 tablet (10 mg total) by mouth daily 90 tablet 3 11/29/[address] (PROTONIX) 20 mg EC tabletIndications: Gastroesophageal reflux disease without esophagitis Take 1 tablet (20 mg total) by mouth daily 90 tablet 3 11/30/19 25 Active multivitamin tablet Take 1 tablet by mouth daily Active albuterol HFA (Ventolin HFA) 90 mcg/actuation inhalerIndications :Centrilobular emphysema (HCC) Inhale 2 puffs every 4 (four) hours as needed for wheezing or shortness of breath 3 each 1 12/25/19 25 Active metoprolol tartrate (LOPRESSOR) 25 mg immediate release tabletIndications: Atrial Arrhythmia Take 0.5 tablets (12.5 mg total) by mouth 2 (two) times a day Active cyclobenzaprine (FLEXERIL) 5 mg tablet Take 1 tablet (5 mg total) by mouth 3 (three) times a day as needed for muscle spasms 60 tablet 01/19/20 25 Active empagliflozin (JARDIANCE) 25 mg tabletIndications: Type 2 DM with CKD stage 3 and hypertension (HCC),Acute congestive heart failure, unspecified heart failure type (HCC) Take 1 tablet (25 mg total) by mouth daily 90 tablet 3 02/09/20 25 Active apixaban (ELIQUIS) 5 mg tabletIndications: atrial fibrillation Take 1 tablet (5 mg total) by mouth every 12 (twelve) hours 180 tablet 3 02/29/20 25 Active furosemide (LASIX) 40 mg tablet Take 1 tablet (40 mg total) by mouth daily 90 tablet 3 02/29/20 25 Active magnesium oxide (MAG-OX) 400 mg (241.3 mg elemental magnesium) tablet Take 1 tablet (400 mg total) by mouth daily 90 tablet 3 02/29/20 25 Active sodium bicarbonate 650 mg tablet TAKE 1 TABLET(650 MG) BY MOUTH DAILY 90 tablet 1 04/03/20 25 Active allopurinoL (ZYLOPRIM) 300 mg tabletIndications: Gout, unspecified cause, unspecified chronicity, unspecified site Take 1 tablet (300 mg total) by mouth daily 90 tablet 3 05/01/20 25 Active cephalexin (KEFLEX) 250 mg capsule Take 1 capsule (250 mg total) by mouth 4 (four) times a day for 10 days 40 capsule 05/14/20 25 025 Active metOLazone (ZAROXOLYN) 2.5 mg tabletIndications: Acute congestive heart failure, unspecified heart failure type (HCC) Take 1 tablet (2.5 mg total) by mouth daily for 7 days 7 tablet 05/14/20 25 Active mupirocin (BACTROBAN) 2 % ointment Apply topically 3 (three) times a day 22 g 05/15/20 25 Active traMADoL (ULTRAM) 50 mg tabletIndications: Primary osteoarthritis of both shoulders Take 1-2 tablets (50-100 mg total) by mouth every 8 (eight) hours as needed for pain 120 tablet 2 05/20/20 25 Active allopurinoL (ZYLOPRIM) 300 mg tabletIndications: Gout, unspecified cause, unspecified chronicity, unspecified site Take 1 tablet (300 mg total) by mouth daily 90 tablet 3 05/24/20 24 025 Discontinu ed(Reorder ) traMADoL (ULTRAM) 50 mg tabletIndications: Primary osteoarthritis of both shoulders Take 1-2 tablets (50-100 mg total) by mouth every 8 (eight) hours as needed for pain 120 tablet 2 02/09/20 25 025 Discontinu ed(Reorder ) doxycycline (VIBRAMYCIN) 100 mg capsule Take 1 tablet/capsule (100 mg total) by mouth 2 (two) times a day for 7 days 14 tablet/caps ule 04/23/20 25 025 mupirocin (BACTROBAN) 2 % ointment Apply topically 3 (three) times a day 22 g 04/23/20 25 025 Discontinu ed(Reorder ) clindamycin (CLEOCIN) 300 mg capsuleIndications :MRSA (methicillin resistant staph aureus) culture positive Take 1 capsule (300 mg total) by mouth 3 (three) times a day for 10 days 30 capsule 05/06/20 25 025 furosemide (LASIX) 40 mg tabletIndications: Acute congestive heart failure, unspecified heart failure type (HCC) Take 2 tablets (80 mg total) by mouth daily for 7 days 14 tablet 05/06/20 25 025 Discontinu ed(Therapy completed) potassium chloride ER (KLOR-CON) 10 mEq CR tabletIndications: Acute congestive heart failure, unspecified heart failure type (HCC) Take 1 tablet/capsule (10 mEq total) by mouth daily for 7 days 7 tablet/caps ule 05/06/20 25 025 Discontinu ed(Reorder ) potassium chloride ER (KLOR-CON) 10 mEq CR tabletIndications: Acute congestive heart failure, unspecified heart failure type (HCC) Take 1 tablet/capsule (10 mEq total) by mouth daily for 7 days 7 tablet/caps ule 05/14/20 25 025 Hospital, Clinic, or Other Facility Administered Medication Ordered Dose Route Frequency Start Date End Date Status cefTRIAXone (ROCEPHIN) 350 mg/mL intramuscular injection 1,000 mgIndications:Other (complete free text reason below) 1000 mg IM Once 05/06/2025 05/06/2025 Ended Active Problems Problem Noted Date Diagnosed Date Other spondylosis with radiculopathy, lumbar reg ion 03/05/2025 Persistent atrial fibrillation 12/24/2024 Acute congestive heart failu re, unspecified heart failure type 12/17/2024 Bilateral pneumonia 12/17/2024 Acute respiratory failure with hypoxia Bradycardia with 41-50 beats per minute 12/18/19 25 Mild episode of recurrent major depressive disor roosevelt 11/28/2024 Assessment & Plan (11/28/2024 10:03 AM ART EDUCATOR): Chronic not well controlled with increase stress of caring of severe autistic grandchild they care for. Start lexapro 10mg Renal cyst, left 10/01/2024 Assessment & Plan (10/01/2024 11:46 AM ART EDUCATOR): Chronic and slight worsening with internal septation and calification Refer to urology Avascular necrosis of bone of left hip 5 History of DVT (deep vein thrombosis) 02/16/2024 Hidradenitis axillaris 11/24/2022 Assessment & Plan (11/24/2022 10:58 AM ART EDUCATOR): Currently asymptomatic with no recent exacerbation or abscess will continue to monitor at this point. Gastroesophageal reflux disease without esophagi tis 08/25/2022 Assessment & Plan (03/28/2023 12:30 PM CDT): Chronic stable and well controlled Continue protonix Assessment & Plan (08/25/2022 10:42 AM ART EDUCATOR): Chronic stable and well controlled Continue and refill pantroprazole. Primary osteoarthritis of left shoulder 05/26/20 Assessment & Plan (05/26/2022 10:54 AM CDT): Chronic condition worsening Give initial injection left shoulder. RISKS AND BENEFITS OF PROCEDURE WERE EXPLAINED TO PATIENT AND CONSENT FORM WAS SIGNED. AREA WAS PREPPED WITH BETADINE TO SKIN AND DRAPED IN A STERILE MANOR. 1 1/2CC kenolog AND 1 1/2 CC LIDOCAINE WAS INJECTED INTO left shoulder JOINT WITH LATERAL APPROACH. PATIENT TOLERATED PROCEDURE WELL WITHOUT COMPLICATION. APPROPRIATE BANDAGE APPLIED. PATIENT ADVISED TO CALL WITH ANY CONCERNS/COMPLICATIONS. Other age-related cataract 02/01/2022 Hypogonadism male 02/01/2022 Assessment & Plan (11/17/2023 10:36 AM ART EDUCATOR): Chronic condition Continue testosterone topical Order testosterone CBC PSA in 3 months Assessment & Plan (05/26/2022 10:54 AM CDT): Chronic condition stable well controlled continue with testosterone injection at this point Assessment & Plan (04/01/2022 9:25 AM CDT): Chronic Elevated Reduce to 3 pumps a day Recheck testosterone cbc and psa in 3mo quest Assessment & Plan (02/01/2022 10:59 AM CDT): Chronic Uncontrolled Order testosterone level Start testosterone supplement Class 3 severe obesity due t o excess calories with serious comorbidity and body mass index (BMI) of 40.0 to 44.9 in adult 12/23/2021 Assessment & Plan (11/28/2024 10:19 AM ART EDUCATOR): Chronic uncontrolled, reduce processed carb/starch, exercise as mihir, whole foods Assessment & Plan (02/16/2024 9:57 AM CDT): Chronic uncontrolled, reduce processed carb/starch, exercise as mihir, whole foods Assessment & Plan (03/28/2023 12:44 PM CDT): Chronic uncontrolled, reduce processed carb/starch, exercise as mihir, whole foods Centrilobular emphysema 07/30/2020 Assessment & Plan (12/02/2021 3:11 PM ART EDUCATOR): The patient has Combivent/albuterol that he may use on a p.r.n. basis and up to 4 times a day as needed for symptom control. Assessment & Plan (03/11/2021 2:08 PM CDT): The patient was provided a prescription for Combivent 1 puff 4 times a day in replace of Anoro for treatment of COPD.. The patient also has an albuterol inhaler that he may use p.r.n. up to 4 times a day as needed for symptom control. Assessment & Plan (03/10/2021 11:33 AM CDT): Dr. Liz. Assessment & Plan (09/03/2020 2:20 PM ART EDUCATOR): I did give the patient a sample of Anoro to try to see if this will help with his breathing. The patient will continue to use his albuterol inhaler as needed 4 times a day for shortness of breath. If the patient does like the Anoro the patient will call back in for prescription. Assessment & Plan (09/03/2020 1:31 PM ART EDUCATOR): Dr. Liz. Albuterol inhaler. Assessment & Plan (08/12/2020 11:31 AM ART EDUCATOR): Start alb hfa rescue inhaler Continue f/u with dr liz Patient unable to tolerate maintenance therapy associated with Assessment & Plan (07/30/2020 2:02 PM ART EDUCATOR): I did give this patient a sample Brextri to try. Nonrheumatic aortic valve stenosis 05/22/2020 Assessment & Plan (03/10/2021 11:32 AM CDT): The echo Doppler 05/07/2020 showed normal ejection fraction. Mild aortic valve stenosis with a peak gradient 22, mean gradient 14, aortic valve area 1.56 centimeter squared. Assessment & Plan (09/02/2020 8:23 AM ART EDUCATOR): The echo Doppler 05/07/2020 showed normal ejection fraction. Mild aortic valve stenosis with a peak gradient 22, mean gradient 14, aortic valve area 1.56 centimeter squared. Assessment & Plan (05/22/2020 11:58 AM CDT): The echo Doppler on 05/07/2020 showed normal ejection fraction. Mild aortic valve stenosis with a peak gradient 22, mean gradient 14, aortic valve area 1.56 centimeter sq. Low magnesium level 05/12/2020 Type 2 DM with CKD stage 3 and hypertension 04/26 Assessment & Plan (11/28/2024 10:01 AM ART EDUCATOR): Chronic stable and A1c at goal Continue with jardiance and trulicity Continue low carb/starch diet Assessment & Plan (10/01/2024 11:52 AM ART EDUCATOR): Chronic stable and A1c at goal Continue with jardiance and trulicity Assessment & Plan (05/22/2024 10:25 AM CDT): Chronic stable and A1c at goal Continue with jardiance and trulicity Assessment & Plan (02/16/2024 9:58 AM CDT): Chronic stable and A1c at goal Continue with jardiance and trulicity Renal function stable Assessment & Plan (11/17/2023 10:35 AM ART EDUCATOR): Chronic stable and A1c at goal Continue with jardiance and trulicity Renal function stable GFR 43 Assessment & Plan (03/28/2023 12:39 PM CDT): Chronic stable and A1c at goal Continue with jardiance and trulicity Increase trulicity 3mg Assessment & Plan (11/24/2022 10:50 AM ART EDUCATOR): chornic worsening with a1c at 7.7 Start raisa Repeat a1c in 3 mo Assessment & Plan (05/26/2022 10:54 AM CDT): Chronic condition improved with the route improvement in A1c will continue with current regimen continue to monitor Assessment & Plan (04/01/2022 9:25 AM CDT): Order cmp, a1c quest 3mo Chronic conditon Stable and well controlled with a1c 7.1 Assessment & Plan (02/01/2022 11:03 AM CDT): Start jardiance 10mg Chronic and uncontrolled Assessment & Plan (12/30/2021 12:00 PM CDT): Chronic condition Uncontrolled recently with diet choices Patient to start with better diet and to get a1c Assessment & Plan (05/19/2021 11:58 AM CDT): Chronic condition Not well controlled Order hgba1c Assessment & Plan (03/11/2021 1:21 PM CDT): A1c 02/01/21 was 9.1. Assessment & Plan (02/16/2021 1:45 PM CDT): Chronic condition Stabl Order a1c, cmp quest. Assessment & Plan (11/18/2020 3:41 PM ART EDUCATOR): Chronic stable a1c 7.3% Continue current regimen Assessment & Plan (09/02/2020 8:24 AM ART EDUCATOR): A1c on 05/09/2020 was 7.2. Assessment & Plan (08/12/2020 11:42 AM ART EDUCATOR): Start janumet 50/500 mg every day hgba1c in 3mo Assessment & Plan (05/22/2020 11:36 AM CDT): The A1c was 7.2 on 05/09/2020. Exercise. Lose weight. Avoid sugars. Assessment & Plan (05/12/2020 11:10 AM CDT): New diagnosis patient will start lifestyle modifications with diet exercise. Will recheck in 3 months to determine need for medication. Hypertensive kidney disease with stage 3 chronic kidney disease 01/14/2020 Assessment & Plan (05/12/2020 10:58 AM CDT): Refer to nephrology Assessment & Plan (01/14/2020 9:32 AM CDT): Maintain hydration. Avoid processed foods. Recheck chem 7 as ordered. Patient aware Primary osteoarthritis of both shoulders 019 Assessment & Plan (08/27/2024 11:46 AM ART EDUCATOR): Chronic worsening with increaese activity Patient requesting injections as he has benefited from them yesterday RISKS AND BENEFITS OF PROCEDURE WERE EXPLAINED TO PATIENT AND CONSENT FORM WAS SIGNED. AREA WAS PREPPED WITH BETADINE TO SKIN AND DRAPED IN A STERILE MANOR. 1 1/2CC kenolog AND 1 1/2 CC LIDOCAINE WAS INJECTED INTO left shoulder JOINT WITH LATERAL APPROACH. PATIENT TOLERATED PROCEDURE WELL WITHOUT COMPLICATION. APPROPRIATE BANDAGE APPLIED. PATIENT ADVISED TO CALL WITH ANY CONCERNS/COMPLICATIONS. Assessment & Plan (02/16/2024 9:59 AM CDT): Chronic worsening with increaese activity Patient requesting injections as he has benefited from them yesterday RISKS AND BENEFITS OF PROCEDURE WERE EXPLAINED TO PATIENT AND CONSENT FORM WAS SIGNED. AREA WAS PREPPED WITH BETADINE TO SKIN AND DRAPED IN A STERILE MANOR. 1 1/2CC kenolog AND 1 1/2 CC LIDOCAINE WAS INJECTED INTO right and left shoulder JOINT WITH LATERAL APPROACH. PATIENT TOLERATED PROCEDURE WELL WITHOUT COMPLICATION. APPROPRIATE BANDAGE APPLIED. PATIENT ADVISED TO CALL WITH ANY CONCERNS/COMPLICATIONS. Assessment & Plan (11/24/2022 10:46 AM ART EDUCATOR): Chronic persistent Continue and refill tramadol Assessment & Plan (08/25/2022 10:40 AM ART EDUCATOR): Chronic persistent Continue and refill tramadol Assessment & Plan (05/26/2022 10:54 AM CDT): Chronic persistent Refill Voltaren gel. Assessment & Plan (12/30/2021 11:59 AM CDT): Chronic condition Stable but persistent symptoms Increase tramadol 120 per month Assessment & Plan (01/31/2020 10:58 AM CDT): Refill tramadol Assessment & Plan (11/01/2019 4:12 PM ART EDUCATOR): RISKS AND BENEFITS OF PROCEDURE WERE EXPLAINED TO PATIENT AND CONSENT FORM WAS SIGNED. AREA WAS PREPPED WITH BETADINE TO SKIN AND DRAPED IN A STERILE MANOR. 1 1/2CC kenolog AND 1 1/2 CC LIDOCAINE WAS INJECTED INTO right shoulder JOINT WITH LATERAL APPROACH. PATIENT TOLERATED PROCEDURE WELL WITHOUT COMPLICATION. APPROPRIATE BANDAGE APPLIED. PATIENT ADVISED TO CALL WITH ANY CONCERNS/COMPLICATIONS. Assessment & Plan (08/20/2019 11:46 AM ART EDUCATOR): RISKS AND BENEFITS OF PROCEDURE WERE EXPLAINED TO PATIENT AND CONSENT FORM WAS SIGNED. AREA WAS PREPPED WITH BETADINE TO SKIN AND DRAPED IN A STERILE MANOR. 1 1/2CC kenolog AND 1 1/2 CC LIDOCAINE WAS INJECTED INTO right shoulder JOINT WITH LATERAL APPROACH. PATIENT TOLERATED PROCEDURE WELL WITHOUT COMPLICATION. APPROPRIATE BANDAGE APPLIED. PATIENT ADVISED TO CALL WITH ANY CONCERNS/COMPLICATIONS. Assessment & Plan (05/21/2019 11:35 AM CDT): RISKS AND BENEFITS OF PROCEDURE WERE EXPLAINED TO PATIENT AND CONSENT FORM WAS SIGNED. AREA WAS PREPPED WITH BETADINE TO SKIN AND DRAPED IN A STERILE MANOR. 1 1/2CC kenolog AND 1 1/2 CC LIDOCAINE WAS INJECTED INTO right and left shoulder JOINT WITH LATERAL APPROACH. PATIENT TOLERATED PROCEDURE WELL WITHOUT COMPLICATION. APPROPRIATE BANDAGE APPLIED. PATIENT ADVISED TO CALL WITH ANY CONCERNS/COMPLICATIONS. RLS (restless legs syndrome) 01/29/2019 Assessment & Plan (04/03/2025 10:20 AM CDT): Due to ongoing symptoms, the patient is going to continue gabapentin 600 mg at bedtime. He is going to continue ropinirole 4 mg nightly. I did express concerns about the ropinirole being at 4 mg due to his complaints of augmentation of symptoms. Due to the recent research studies and recommendations from [employer], I have asked the patient to decrease the ropinirole slowly with the hopes of coming off that medication. The patient states he would like contact his primary care physician in regards to medication management. Primary care has ordered the medication recently. Assessment & Plan (03/28/2024 3:01 PM CDT): I have increase the Requip to 4 mg. The patient will continue with gabapentin 300 mg that is prescribed by his primary care provider. Assessment & Plan (01/05/2023 10:03 AM CDT): Patient continue to use Requip to 3 mg nightly. The patient is also taking Neurontin 300 mg as ordered by primary care. Assessment & Plan (06/30/2022 2:46 PM CDT): Patient continue to use Requip to 3 mg nightly. The patient is also taking Neurontin 300 mg as ordered by primary care. I have also ordered an iron and ferritin level. Assessment & Plan (12/02/2021 3:10 PM ART EDUCATOR): Due to the patient having symptoms, I have increased the Requip to 3 mg nightly. The patient is also taking Neurontin 300 mg as ordered by primary care. Assessment & Plan (03/11/2021 2:09 PM CDT): The patient will continue with Requip 2 mg p.o. at bedtime to treat restless legs syndrome. Essential (primary) hypertension 01/07/2016 Assessment & Plan (11/28/2024 9:58 AM ART EDUCATOR): Chronic stable and well controlled Continue metoprolol and amlodipine Assessment & Plan (10/01/2024 11:53 AM ART EDUCATOR): Chronic stable and well controlled Continue metoprolol and amlodipine Assessment & Plan (05/22/2024 10:22 AM CDT): Chronic not at goal Continue metoprolol Start amlodipine 5mg Assessment & Plan (02/16/2024 9:58 AM CDT): Chronic stable Well controlled at goal Continue metoprolol and hctz. Assessment & Plan (03/28/2023 12:32 PM CDT): Chronic stable Well controlled at goal Continue metoprolol and hctz. Assessment & Plan (08/25/2022 10:39 AM ART EDUCATOR): Chronic stable and well controlled continuewith metoprolol and hctz Assessment & Plan (04/01/2022 9:26 AM CDT): Chronic condition Stable with home reading today 136/80 Continue metoprolol Assessment & Plan (12/30/2021 11:59 AM CDT): Chronic condition Stable and well controlled Assessment & Plan (05/19/2021 11:58 AM CDT): Chronic condition stable and well controlled at goal Continue with metoprolol and hctz Assessment & Plan (03/11/2021 1:19 PM CDT): Salt restriction. Hydrochlorothiazide. Metoprolol. Blood pressure 126/70. Assessment & Plan (02/16/2021 1:39 PM CDT): Chronic condition stable and well controlled At goal Assessment & Plan (12/18/2020 3:12 PM CDT): Chronic condition well-controlled continue with metoprolol. Assessment & Plan (11/18/2020 3:38 PM ART EDUCATOR): Chronic condition Stable and continue current regimen Assessment & Plan (09/03/2020 1:31 PM ART EDUCATOR): Blood pressure 120/74. Salt restriction. Continue the current regimen. Assessment & Plan (08/12/2020 11:36 AM ART EDUCATOR): Well controlled on current regimen, no rx changes needed. Continue lifestyle modifications Assessment & Plan (05/22/2020 11:33 AM CDT): Blood pressure 108/70. Salt restriction. Continue the current regimen. Assessment & Plan (05/12/2020 11:10 AM CDT): DC hydralazine Start metoprolol tartrate 50 mg b.i.d.. Will have Nephrology consult Assessment & Plan (02/14/2020 10:50 AM CDT): Well controlled on current regimen, no rx changes needed. Continue lifestyle modifications Continue current regimen and await labs to be drawn tomorrow Assessment & Plan (01/31/2020 11:03 AM CDT): D/c hctz Start lisinopril 40mg Needs chem 7 in 10 days Assessment & Plan (01/14/2020 9:33 AM CDT): Increase metoprolol xl 100mg Advised patient to call in 2 weeks if bp not < 140/90 Assessment & Plan (01/10/2020 11:39 AM CDT): Typically well controlled. This is most likely secondary to pain and illness. Continue to monitor and call us if remains elevated Assessment & Plan (10/04/2019 10:09 AM ART EDUCATOR): Start metoprolol Start hctz Assessment & Plan (05/21/2019 11:36 AM CDT): Well controlled on current regimen, no rx changes needed. Continue lifestyle modifications Mixed hyperlipidemia 01/07/2016 Assessment & Plan (05/22/2024 10:21 AM CDT): Chronic not at goal Increase crestor 10mg Assessment & Plan (11/17/2023 10:35 AM ART EDUCATOR): Chronic conditon On crestor Order lipid panel LDL at goal less than 70 Assessment & Plan (12/30/2021 11:58 AM CDT): Chronic conditon On crestor Order lipid panel Assessment & Plan (03/10/2021 11:31 AM CDT): Dyslipidemia of diabetes mellitus. Low-fat low-cholesterol diet. Crestor. 11/07/2020 triglycerides 179, LDL 60. Assessment & Plan (11/18/2020 3:42 PM ART EDUCATOR): Well controlled on current regimen, no rx changes needed. Continue lifestyle modifications Chronic. Stable at goal Assessment & Plan (05/22/2020 11:35 AM CDT): Low-fat low-cholesterol diet. Crestor 5 mg bedtime daily per. LDL at target. Assessment & Plan (05/21/2019 11:36 AM CDT): Well controlled on current regimen, no rx changes needed. 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 Denied need for supplies. DME [facility] Assessment & Plan (03/28/2024 3:01 PM CDT): Patient continue to wear his CPAP at 10 cm water pressure while sleeping. His DME is [facility]. Assessment & Plan (01/05/2023 10:04 AM CDT): The patient will continue to wear CPAP at 10 cm water pressure while sleeping. His DME is [facility]. Assessment & Plan (06/30/2022 2:47 PM CDT): The patient will continue to wear CPAP at 10 cm water pressure while sleeping. His DME will be switched to [facility]. I did advise the patient that he can use [place] gel in his nasal passages to help with the dryness. Assessment & Plan (12/02/2021 3:11 PM ART EDUCATOR): The patient will resume CPAP therapy at 10 cm water pressure once his oral cavity heals from having teeth pulled. The patient will continue with positional therapy while healing. Patient received order for full set of supplies and an F 30 mask. DME [facility] Assessment & Plan (03/11/2021 2:08 PM CDT): The patient will continue with CPAP therapy at 10 cm water pressure to treat obstructive sleep apnea. The patient did receive an order for new supplies. DME [facility]. The patient is benefitting from CPAP therapy. Assessment & Plan (05/30/2020 9:16 AM CDT): The patient continues to benefit from CPAP at 10 cm water pressure and he states that he did get a new CPAP unit earlier this year. His AHI is 5.0. He uses [facility] as his DME. Assessment & Plan (02/14/2020 11:33 AM CDT): Compliant with cpap nightly and tolerating well. Recommend that she continue the use of cpap Polyneuropathy, unspecified 01/07/2016 Assessment & Plan (08/27/2024 11:19 PM ART EDUCATOR): Chronic persistent Continue gabapentin Start tramadol prn Order b1 b6 b12 iron panel tsh Resolved Problems Problem Noted Date Diagnosed Date Resolved Date H. pylori infection 02/01/2022 02/16/20 24 Assessment & Plan (02/01/2022 10:42 AM CDT): Advised to contact gi who completed egd and discuss pathology and treatment. Morbid (severe) obesity due to excess calories 12/23/2021 02/16/2024 Assessment & Plan (03/28/2023 12:44 PM CDT): Chronic uncontrolled, reduce processed carb/starch, exercise as mihir, whole foods Dysphasia 07/30/2020 02/16/2024 Assessment & Plan (07/30/2020 2:04 PM ART EDUCATOR): The patient states that he would like to hold off on a speech evaluation at this time. He he feels that he may not be chewing his food well. He will call back in if he would like an evaluation ordered. Acute renal failure syndrome 05/12/2020 02/16/2024 Assessment & Plan (03/10/2021 11:37 AM CDT): Dr. Houston follows . Assessment & Plan (09/02/2020 8:21 AM ART EDUCATOR): Renal insufficiency with hyperkalemia 05/06/2020. Dr. Houston follows. Assessment & Plan (05/22/2020 11:33 AM CDT): Renal insufficiency with hyperkalemia 05/06/2020. Dr. Houston follows. Dyspnea 05/12/2020 02/16/2024 Assessment & Plan (03/10/2021 11:34 AM CDT): Negative cardiac workup. No cardiac explanation for the dyspnea. Probably related to the COPD and to the weight. Assessment & Plan (09/03/2020 1:31 PM ART EDUCATOR): The echo showed normal ejection fraction. The Lexiscan stress test April 2020 was negative for ischemia. No cardiac explanation for the dyspnea. Mostly weight related. Assessment & Plan (05/30/2020 9:17 AM CDT): The patient has dyspnea with walking short distances. I will start with full PFTs and a 6 minutes walk test. His chest CT was performed last month. I did recommend that he try to lose weight. Assessment & Plan (05/22/2020 11:39 AM CDT): Echo showed normal ejection fraction. Lexiscan stress test April 2020 was negative for ischemia. The today shows normal sinus rhythm, first-degree AV block, mild interval occur [place] delay, poor R progression from V1 to V4, T-wave changes. Acute deep vein thrombosis ( DVT) of popliteal vein of left lower extremity 10/04/2019 02/16/2024 Assessment & Plan (03/10/2021 11:33 AM CDT): Remote history of DVT and pulmonary embolism. Xarelto. The Xarelto could be discontinued. Assessment & Plan (09/03/2020 1:30 PM ART EDUCATOR): Remote history of DVT and pulmonary embolism. The Xarelto. One episode more than a year ago. Xarelto could be discontinued. I told him to discuss with his primary care provider. If he has another episode, he will require lifelong anticoagulation. Assessment & Plan (05/22/2020 11:32 AM CDT): Remote history of DVT and pulmonary embolism. Xarelto. Assessment & Plan (01/31/2020 11:02 AM CDT): Lasix 40mg every day kcl 10meq every day Both new start Send to naren Assessment & Plan (01/14/2020 9:36 AM CDT): Repeat left lower extremity venous Doppler for DVT Assessment & Plan (10/04/2019 10:09 AM ART EDUCATOR): Continue xarelto Hyperkalemia 10/04/2019 02/16/2024 Assessment & Plan (03/10/2021 11:35 AM CDT): Nephrology follows. Assessment & Plan (09/02/2020 8:23 AM ART EDUCATOR): Potassium on 05/06/2020 was 6.4. Nephrology following. Assessment & Plan (05/22/2020 11:34 AM CDT): Potassium 6.4 on 05/06/2020. Nephrology following. Assessment & Plan (05/12/2020 11:11 AM CDT): Recheck potassium in 2 weeks. Assessment & Plan (02/14/2020 10:50 AM CDT): Monitor with labs to be taken tomorrow Encounters Date Type Department Care Team Description 05/21/2025 Results Follow-Up [facility] Family Medicine at [address] [place] [address] Alexis rKishna PA Stool DNA - Cologuard 05/20/2025 Telephone [facility] Family Medicine at [address] [place] [address] Alexis Krishna PA Surgical Clearance 05/16/2025 Telephone [facility] Neurosurgery [address] [facility] [address] [place] [address] Alex Ashby PA 05/14/2025 2:30 PM CDT Office Visit [facility] at [address] [place] [address] Alexis Krishna PA Acute congestive heart failure, unspecified heart failure type (HCC) 05/14/2025 Nurse Triage [facility] at [address] [place] [address] Alexis Kirshna PA 05/07/2025 1:15 PM CDT - 05/07/2025 11:59 PM CDT Hospital Encounter [facility] Orthopedic [facility] MRI [address] [place] [address] Spinal stenosis of lumbar region, unspecified whether neurogenic claudication present; Spondylosis with myelopathy Discharge Disposition: Discharge to home or self care 05/07/2025 1:15 PM CDT - 05/07/2025 11:59 PM CDT Hospital Encounter [facility] Orthopedic [facility] MRI [address] [place] [address] Spondylosis with myelopathy Discharge Disposition: Discharge to home or self care 05/07/2025 Orders Only [facility] Family Medicine at [address] [address] Alexis Krishna PA 05/06/2025 3:55 PM CDT - 05/06/2025 11:59 PM CDT Hospital Encounter [facility] Medical Office Bld[address] OP Lab [address] [place] [address] MRSA (methicillin resistant staph aureus) culture positive Discharge Disposition: Discharge to home or self care 05/06/2025 2:30 PM CDT Office Visit [facility] at [address] [address] Alexis Krishna PA MRSA (methicillin resistant staph aureus) culture positive (Primary Dx); Colon cancer screening; Acute congestive heart failure, unspecified heart failure type (HCC) 04/23/2025 12:00 PM CDT Office Visit [facility] at [address] [address] Linda Todd PA Rash (Primary Dx) 04/10/2025 [facility] Accountable Care Organization [address] [place] [id number] Jesenia Morrow 04/03/2025 10:00 AM CDT Office Visit [facility] Pulmonology [address] [place] [phone] Linda Lewis NP DOLORES (obstructive sleep apnea) (Primary Dx); RLS (restless legs syndrome) 03/26/2025 10:00 AM CDT [facility] [address] [facility] [address] [place] [address] Alex Ashby PA Spondylosis with myelopathy (Primary Dx); Spinal stenosis of lumbar region, unspecified whether neurogenic claudication present 03/26/2025 9:06 AM CDT - 03/26/2025 11:59 PM CDT Hospital Encounter [facility] [address] [place] [address] [address] [place] [phone] Lumbar pain Discharge Disposition: Discharge to home or self care 03/26/2025 Telephone [facility] Medicine Neurosurgery [address] [place] [address] [address] [facility] [address] [place] [address] Alex Ashby PA 03/25/2025 Orders Only [facility] Medicine Neurosurgery [address] [place] [address] [address] [place] [address] Alex Ashby PA Lumbar pain (Primary Dx) 03/25/2025 Orders Only [facility] Medical Group Family Medicine at [address] [place] [address] Alexis Krishna PA 03/22/2025 Results Follow-Up [facility] Medical Group Family Medicine at [address] [place] [address] Alexis Krishna PA XR Knee Left 4 or More Views 03/22/2025 Telephone [facility] Medicine Scheduling [facility] [place] [address] Katty Gannon 03/20/2025 2:30 PM CDT - 03/20/2025 11:59 PM CDT Hospital Encounter [facility] Diagnostic Imaging [address] [place] [address] Chronic pain of left knee; Neck pain, chronic Discharge Disposition: Discharge to home or self care 03/12/2025 Results Follow-Up [facility] Medical Group Family Medicine at [address] [place] [address] Lumbar Spine WO Contrast 03/05/2025 9:00 AM CDT Office Visit [facility] Medical [facility] Family Medicine at [address] [place] [address] Alexis Krishna PA History of colon polyps (Primary Dx); Essential (primary) hypertension; Mixed hyperlipidemia; Type 2 DM with CKD stage 3 and hypertension (HCC); Neck pain, chronic; Chronic pain of left knee 02/23/2025 5:29 PM CDT - 02/23/2025 11:59 PM CDT Hospital Encounter [facility] [address] [place] [address] Lumbar spondylosis; Lumbar radiculopathy Discharge Disposition: Discharge to home or self care from Last 3 Months Immunizations Immunization Administration Dates Next Due Anthrax 05/02/2004, 4,11/03/2003,10/19 Gamma Globulin 05/09/1993 Hep A, Adult 02/06/1996 Hep B Vaccine 02/28/1994 Influenza, Quad, Adjuvantate d, Intramuscular 06/16/2023 Influenza, Quadrivalent, Hig h Dose, Preservative Free, Intrr 07/21/2022,06/22/2021,07/25/2020 Influenza, Split 10/02/2006,08/29/2005 Influenza, Trivalent, Adjuva nted, Intramuscular 10/23/2017 Influenza, Trivalent, High D ose, Split, Preservative Free, Intramuscular 10/24/2017,07/12/2016 Influenza, Unspecified 07/02/2024,06/16/2023 Influenza, Whole 11/14/2004, 5,07/27/2003,07/28,10/10/2001,10/01/2000,08/01/1999 ,06/21/1998,06/29/1997,08/01/1994 MMR 07/04/1988 Meningococcal Polysaccharide (Menomune) 06/30/2002,11/05/1995 Moderna SARS-CoV-2 Monovalen t Vaccination (12+ YRS) 11/08/2020 OPV 12/31/1984 Pneumococcal Conjugate PCV 13 07/20/2016 Pneumococcal Polysaccharide PPV23 10/24/2017 RSV, Bivalent, Protein Subun it Rsvpref, Diluent (Abrysvo) 06/16/2023 Td, adsorbed 10/16/2005,10/02/2005,10/16/1995 Typhoid H-P SQ/ID 10/16/2005,10/02/2005,06/28/19 99 Typhoid Inactivated 10/19/2003,10/29/2001 Typohid AKD SQ 01/14/1996 Varicella 04/11/2006 Yellow Fever 04/03/2000,01/28/1990 Surgical History Surgery Date Site/Laterality Comments HERNIA REPAIR BACK SURGERY SPINAL FUSION COLONOSCOPY CATARACT EXTRACTION Medical History Medical History Date Comments DOLORES (obstructive sleep apnea) Hypertension Hyperlipidemia ED (erectile dysfunction) Polyneuropathy Eustachian tube dysfunction, left Gout MRSA (methicillin resistant Staphylococcus aureu s) Neuropathy in diabetes Chronic kidney disease Broken toe Third toe on lef t foot COPD (chronic obstructive pulmonary disease) Type 2 diabetes mellitus Colon polyp Dysphagia Clotting disorder Arthritis Cataract Family History Medical History Relation Name Comments Alcohol abuse Brother 4 Myles COPD Brother 5 Chong Prasad No Known Problems Daughter Alcohol abuse Father Philip Prasad Arthritis Father Philip Prasad Gout Father Philip Prasad Heart disease Father Philip Prasad Arthritis Mother Catarina Prasad Cancer Mother Catarina Prasad Diabetes Mother Catarina Prasad Heart disease Mother Catarina Prasad Hypertension Mother Catarina Prasad Depression Sister 3 Emmy Camacho No Known Problems Son Relation Name Status Comments Brother 1 Brother 2 Brother 3 Brother 4 Myles Brother 5 Chong Prasad Alive Daughter Alive Father Philip Prasad Mother Catarina Prasad Sister 1 Sister 2 Sister 3 Emmy Sauer Alive Son Alive Social History Tobacco Use Types Packs/Day Years Used Date Smoking Tobacco: Never Smokeless Tobacco: Never Tobacco Cessation:Counseling Given: Not Answered Alcohol Use Standard Drinks/Week Comments Never 0 (1 standard drink = 0.6 oz pur e alcohol) [facility] Utilities Answer Date Recorded In the past 12 months has e electric, gas, oil, or water [employer] threatened to shut off services in your [...] often do you attend chur ch or orthodoxy services? 1 to 4 times per year 12/21/2024 Do you belong to any clubs o r organizations such as protestant groups, unions, fraternal or athletic groups, or [...] staff should administer the PHQ-9) 0 05/06/2025 [facility] Occupat ional Health - Occupational Stress Questionnaire Answer Date Recorded [...] any time in the past 12 m [facility], were you homeless or living in a penitentiary (including now)? No 12/21/2024 AUDIT-C Answer Date [...] on file Legal Sex Male 6:38 PM ART EDUCATOR Gender Identity Male 05/21/2020 12:59 PM CDT Sexual Orientation Straight 05/21/2020 12 :59 PM CDT Obstetrics History Last Filed Vital Signs Vital Sign Reading Time Taken Comments Blood Pressure 116/70 05/14/2025 3:11 PM CDT Pulse 56 05/14/2025 3:11 PM CDT Temperature 36.5 C (97.7 F) 05/14/2025 3:11 PM CDT Respiratory Rate 16 05/14/2025 3:11 PM CDT Oxygen Saturation 97% 05/14/2025 3:11 PM CDT Inhaled Oxygen Concentration - - Weight 106.4 kg (234 lb 9.6 oz) 05/14/2025 3:11 PM CDT Height 170.2 cm (5' 7) 05/14/2025 3:11 PM CDT Body Mass Index 36.74 05/14/2025 3:11 PM CDT Plan of Treatment Health Maintenance Due Date Last Done Comments Foot Exam 1950 DTaP/Tdap/Td Vaccine (1 - Tdap) 10/17/2005 10/16/2005, 10/02/2005, 10/16/1995 Zoster Vaccine (1 of 2) 06/06/2006 Covid-19 Vaccine (2023-2 5 season) 2024 06/16/2023, 09/05/2022, 01/13/2022, Additional history exists Colon Cancer Screening-Colonoscopy 11/17/2024 11/17/2021, 11/13/2021, 03/08/2016 Influenza Vaccine (#1) 2025 , 06/16/2023, 06/16/2023, Additional history exists Hemoglobin A1C 08/24/2025 02/21/2025, 10/27, 08/20/2024, Additional history exists Well Visit 65+ 08/27/2025 08/27/2024, 07/28, 02/01/2022, Additional history exists Albumin Creatinine Ratio, Urine 11/14/2025 11/14/2024, 11/14/2023, 11/19/2022, Additional history exists Fall Risk Assessment 12/20/2025 12/20/2024, 08/27/2024, 08/17/2023, Additional history exists Lipid Panel 02/21/2026 02/21/2025, 10/27, 08/20/2024, Additional history exists eGFR 02/21/2026 02/21/2025, 11/25, 12/19/2024, Additional history exists Dilated Eye Exam 04/30/2026 04/30/2025, , 11/01/2023, Additional history exists Depression Screening 05/06/2026 05/06/2025, 08/27/2024, 08/17/2023, Additional history exists Hepatitis B Screening Completed 02/28/1994 Pneumococcal vaccine 65+ Completed 10/24/2017, 06/27 Hepatitis C Screening Completed 09/05/2019 Colon Cancer Screening-CT Colonography Discontinued 11/17/2021, 03/08/2016 Colon Cancer Screening-Sigmoidoscopy Discontinued 11/17/2021, 03/08/2016 Prostate Cancer Screening-PSA Discontinued , 06/22/2022, 01/04/2022, Additional history exists Colon Cancer Screening-DNA Stool Discontinued 05/15/2025, 11/17/2021, 03/08/2016 Colon Cancer Screening-FIT Discontinued 05/15, 11/17/2021, 03/08/2016 Medical Devices Implanted Type Area Graphic Design Professor Device Identifier Shelf Expiration Date Model / Serial / Lot Quentin Other - see comments N/A: Back Procedures Procedure Name Priority Date/Time Associated Diagnosis Comments STOOL DNA COLOGUARD Routine 05/15/2025 1:00 PM CDT Colon cancer screening MRI LUMBAR SPINE WO CONTRAST Schedule Routine, Read Routine (OP Routine) 05/07/2025 3:00 PM CDT Spinal stenosis of lumbar region, unspecified whether neurogenic claudication present Spondylosis with myelopathy MRI CERVICAL SPINE WO CONTRAST Schedule Routine, Read Routine (OP Routine) 05/07/2025 2:25 PM CDT Spondylosis with myelopathy MSSA/MRSA (STAPHYLOCOCCUS AUREUS) CULTURE Routine 05/06/2025 3:42 PM CDT MRSA (methicillin resistant staph aureus) culture positive DIABETIC EYE EXAM Routine 04/30/2025 XR SCOLIOSIS 6 OR MORE VIEWS Schedule Routine, Read Routine (OP Routine) 03/26/2025 9:24 AM CDT Lumbar pain XR SPINE CERVICAL COMPLETE 4 OR 5 VW Schedule Routine, Read Routine (OP Routine) 03/20/2025 3:16 PM CDT Neck pain, chronic XR KNEE LEFT 4 OR MORE VIEWS Schedule Routine, Read Routine (OP Routine) 03/20/2025 3:16 PM CDT Chronic pain of left knee DIABETIC EYE EXAM Routine 03/19/2025 CT LUMBAR SPINE WO CONTRAST Schedule Routine, Read Routine (OP Routine) 02/23/2025 5:36 PM CDT Lumbar spondylosis Lumbar radiculopathy LIPID PANEL Routine 02/21/2025 7:13 AM CDT Persistent atrial fibrillation (HCC) Essential (primary) hypertension Type 2 DM with CKD stage 3 and hypertension (HCC) COMPREHENSIVE METABOLIC PANEL Routine 02/21/2025 7:13 AM CDT Persistent atrial fibrillation (HCC) Essential (primary) hypertension Type 2 DM with CKD stage 3 and hypertension (HCC) CBC WITH AUTO DIFFERENTIAL Routine 02/21/2025 7:13 AM CDT Persistent atrial fibrillation (HCC) Essential (primary) hypertension Type 2 DM with CKD stage 3 and hypertension (HCC) HEMOGLOBIN A1C Routine 02/21/2025 7:13 AM CDT Type 2 DM with CKD stage 3 and hypertension (HCC) PRO B-TYPE NATRIURETIC PEPTIDE Routine 02/21/2025 7:13 AM CDT Acute congestive heart failure, unspecified heart failure type (HCC) ALBUMIN CREATININE RATIO, URINE Routine 11/14/2024 8:09 AM ART EDUCATOR Type 2 DM with CKD stage 3 and hypertension (HCC) PSA SCREEN Routine 06/20/2023 8:22 AM CDT Prostate cancer screening COLONOSCOPY Routine 11/17/2021 HEPATITIS C ANTIBODY Routine 09/05/2019 8:47 AM ART EDUCATOR Need for hepatitis C screening test from Last 3 Months or Most Recently Relevant to Health Maintenance Results * (ABNORMAL) Stool DNA - Cologuard (05/15/2025 1:00 PM CDT) Stool DNA - Cologuard Positive( A) Negative [employer] (CLIA #:[id number]) Comment: The Cologuard (TM) test was performed on this specimen. POSITIVE TEST RESULT. A positive Cologuard result should be followed with a colonoscopy or visual examination of the colon. The normal value (reference range) for this assay is negative. TEST DESCRIPTION: Composite algorithmic analysis of stool DNA-biomarkers with hemoglobin immunoassay. Quantitative values of individual biomarkers are not reportable and are not associated with individual biomarker result reference ranges. Cologuard is intended for colorectal cancer screening of adults of either sex, 45 years or older, who are at average-risk for colorectal cancer (CRC). Cologuard has been approved for use by the U.S. FDA. The performance of Cologuard was established in a cross sectional study of average-risk adults aged 50-84. Cologuard performance in patients ages 45 to 49 years was estimated by sub-group analysis of near-age groups. Colonoscopies performed for a positive result may find as the most clinically significant lesion: colorectal cancer [4.0%], advanced adenoma (including sessile serrated polyps greater than or equal to 1cm diameter) [20%] or non- advanced adenoma [31%]; or no colorectal neoplasia [45%]. These estimates are derived from a prospective cross-sectional screening study of 10,000 individuals at average risk for colorectal cancer who were screened with both Cologuard and colonoscopy. (Azam Shankar al, N Engl J Med 2014;370(14):6088-4726.) Cologuard may produce a false negative or false positive result (no colorectal cancer or precancerous polyp present at colonoscopy follow up). A negative Cologuard test result does not guarantee the absence of CRC or advanced adenoma (pre-cancer). The current Cologuard screening interval is every 3 years. ([place] [employer] and U.S. Multi-Society Task Force). Cologuard performance data in a 10,000 patient pivotal study using colonoscopy as the reference method can be accessed at the following location: www.[employer]/results. Additional description of the Cologuard test process, warnings and precautions can be found at www.cologuard.com. Stool 05/15/2025 1:00 PM CDT 05/16/2025 12:39 PM CDT us Alexis [facility] BODY FLUIDS AND STOOLS CRESENCIO RUIZ Final Result [employer] (CLIA #:[id number]) [address] [place] [address] * MRI Lumbar Spine WO Contrast (05/07/2025 3:00 PM CDT) Anatomical Region Laterality Modality Spine N/A Magnetic Resonan ce 05/08/2025 9:19 AM CDT Narrative 05/08/2025 9:29 AM CDT EXAM DESCRIPTION: MRI LUMBAR SPINE WO CONTRAST REASON FOR STUDY: Low back pain, symptoms persist with > 6 wks treatment No injury; hx lumbar surgery 10 years ago; low back pain with pain radiating down into bilateral legs (L>R) x 20 years; TECHNIQUE: Sagittal and Axial imaging includes T1, T2, STIR sequences. COMPARISON: CT 02/23/2025. FINDINGS: SEGMENTATION: No transitional anatomy. The lowest well-developed disc space is labeled L5-S1. ALIGNMENT: Mild L1 on L2, L2 on L3 and L3 on L4 retrolisthesis. Grade 1 trace L5 on S1 anterolisthesis VERTEBRAE: Minimal type 1 L2-L3 Modic endplate change. No MR evidence for recent fracture or ligamentous injury grossly. Tinnitus clinical concern for fracture, CT could be performed. Few small chronic Schmorl's nodes are noted. DISC HEIGHT: Unchanged multilevel degenerative disc disease, severe at L1-L2 and moderate at L3-L4 HARDWARE: L4-L5 posterior instrumented fusion and laminectomy is redemonstrated. CORD/CAUDA: Normal in size and signal intensity. Conus at the T12-L1 level. LOWER THORACIC: Incompletely imaged. No stenosis seen. INDIVIDUAL DISC LEVELS: T11-12: Minimal disc bulge. Moderate right and mild left facet arthropathy. Mild bilateral neural foraminal stenosis. No significant spinal canal stenosis T12-L1: Minimal disc bulge. Mild bilateral facet arthropathy. No neural foraminal or spinal canal stenosis L1-2: Disc bulge with superimposed inferiorly extending central through subarticular disc extrusion. Moderate bilateral facet arthropathy with facet joint effusions. Ligamentum flavum thickening. Severe spinal canal stenosis. Moderate left and [id number] right neural foraminal stenosis L2-3: Disc bulge. Prominent dorsal epidural fat. Ligamentum flavum thickening. Moderate bilateral facet arthropathy. Moderate bilateral neural foraminal stenosis. Moderate to severe spinal canal stenosis L3-4: Disc bulge. Severe bilateral facet arthropathy.. Moderate left and moderate right neural foraminal stenosis. Moderate spinal canal stenosis with bilateral lateral recess stenosis. Ligamentum flavum thickening is present. L4-5: Disc bulge. Facet hypertrophy. Postoperative level.. Mild right neural foraminal stenosis. No significant spinal canal stenosis L5-S1: Disc bulge. Laminectomy. Severe right and moderate left facet arthropathy with right facet joint effusion. Moderate bilateral neural foraminal stenosis. No significant spinal canal stenosis. SACRUM: Visualized upper sacrum intact. VISUALIZED UPPER ABDOMEN: Partially visualized large cysts in the kidneys. Better evaluated on CT of 10/09/2024. OTHER: No other significant findings. IMPRESSION: 1. L4-L5 posterior instrumented fusion and laminectomy. 2. Multilevel degenerative disc and joint disease in the lumbar spine, as detailed level by level above. There is severe spinal canal stenosis at L1-L2, moderate to severe spinal canal stenosis at L2-L3 and moderate spinal canal stenosis at L3-L4 with lateral recess stenosis. Multilevel neural foraminal stenosis, up to moderate. THIS IS AN ELECTRONICALLY VERIFIED FINAL REPORT 05/08/2025 9:29 AM - Electronically signed by Sander FLOOD T: Report ID: [id number] Reading Location: [id number] Procedure Note Sander Mcarthur MD - 05/08/2025 EXAM DESCRIPTION: MRI LUMBAR SPINE WO CONTRAST REASON FOR STUDY: Low back pain, symptoms persist with > 6 wks treatment No injury; hx lumbar surgery 10 years ago; low back pain with painradiating down into bilateral legs (L>R) x 20 years; TECHNIQUE: Sagittal and Axial imaging includes T1, T2, STIR sequences. COMPARISON: CT 02/23/2025. FINDINGS: SEGMENTATION: No transitional anatomy. The lowestwell-developed disc space is labeled L5-S1. ALIGNMENT: Mild L1 on L2, L2 on L3 and L3 on L4 retrolisthesis. Grade 1 trace L5 on S1 anterolisthesis VERTEBRAE: Minimal type 1 L2-L3 Modic endplate change. No MR evidencefor recent fracture or ligamentous injury grossly. Tinnitus clinical concernfor fracture, CT could be performed. Few small chronic Schmorl's nodes arenoted. DISC HEIGHT: Unchanged multilevel degenerative disc disease, severe atL1-L2 and moderate at L3-L4 HARDWARE: L4-L5 posterior instrumented fusion and laminectomy is redemonstrated. CORD/CAUDA: Normal in size and signal intensity. Conus at the [id number]. LOWER THORACIC: Incompletely imaged. No stenosis seen. INDIVIDUAL DISC LEVELS: T11-12: Minimal disc bulge. Moderate right and mild left facetarthropathy. Mild bilateral neural foraminal stenosis. No significant spinal canal stenosis T12-L1: Minimal disc bulge. Mild bilateral facet arthropathy. No neural foraminal or spinal canal stenosis L1-2: Disc bulge with superimposed inferiorly extending central through subarticular disc extrusion. Moderate bilateral facet arthropathy withfacet joint effusions. Ligamentum flavum thickening. Severe spinal canalstenosis. Moderate left and chpi-nn-vedoyjzp right neural foraminal stenosis L2-3: Disc bulge. Prominent dorsal epidural fat. Ligamentum flavum thickening. Moderate bilateral facet arthropathy. Moderate bilateralneural foraminal stenosis. Moderate to severe spinal canal stenosis L3-4: Disc bulge. Severe bilateral facet arthropathy.. Moderate leftand moderate right neural foraminal stenosis. Moderate spinal canal stenosiswith bilateral lateral recess stenosis. Ligamentum flavum thickening ispresent. L4-5: Disc bulge. Facet hypertrophy. Postoperative level.. Mild right neural foraminal stenosis. No significant spinal canal stenosis L5-S1: Disc bulge. Laminectomy. Severe right and moderate left facet arthropathy with right facet joint effusion. Moderate bilateral neural foraminal stenosis. No significant spinal canal stenosis. SACRUM: Visualized upper sacrum intact. VISUALIZED UPPER ABDOMEN: Partially visualized large cysts in thekidneys. Better evaluated on CT of 10/09/2024. OTHER: No other significant findings. IMPRESSION: 1. L4-L5 posterior instrumented fusion and laminectomy. 2. 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 There is severe spinal canal stenosis atL1-L2, moderate to severe spinal canal stenosis at L2-L3 and moderate spinalcanal stenosis at L3-L4 with lateral recess stenosis. Multilevel neuralforaminal stenosis, up to moderate. THIS IS AN ELECTRONICALLY VERIFIED FINAL REPORT 05/08/2025 9:29 AM - Electronically signed by Sander FLOOD T: Report ID: [id number] Reading Location: [place] [id number] us Alex [facility] IM[facility] MRI PROCEDURES Fin al Result * MRI Cervical Spine WO Contrast (05/07/2025 2:25 PM CDT) Anatomical Region Laterality Modality Spine N/A Magnetic Resonan ce 05/08/2025 9:07 AM CDT Narrative 05/08/2025 9:27 AM CDT EXAM DESCRIPTION: MRI CERVICAL SPINE WO CONTRAST REASON FOR STUDY: Myelopathy, chronic, cervical spine Chronic neck pain, no surgery, no trauma. Neck pain with LT arm tingling x 6 months TECHNIQUE: Sagittal and Axial imaging includes T1, T2, STIR and gradient echo sequences. COMPARISON: Cervical spine radiographs 03/20/2025 FINDINGS: ALIGNMENT: Trace retrolisthesis C3-C4. Trace anterolisthesis C4-C5. VERTEBRAE: Normal vertebral body heights. Type 1 Modic endplate changes at C4-C5. STIR hyperintensity of the left C4-C5 facet joint may represent acute facet synovitis in the appropriate clinical setting. Type 2 Modic endplate changes of the T2 superior endplate. DISCS: Moderate disc space height loss C5-C6. Mild disc space height loss at the other levels. Disc desiccation. CORD: Normal in size and signal intensity. INDIVIDUAL LEVELS: C2-C3: The disc is normal in configuration. There is mild facet arthropathy. There is no uncovertebral joint disease. There is no neuroforaminal stenosis. There is no spinal canal stenosis. C3-C4: Posterior disc osteophyte complex. There is moderate bilateral facet arthropathy. There is mild bilateral uncovertebral joint disease. There is mild bilateral neuroforaminal stenosis. There is no spinal canal stenosis. C4-C5: Posterior disc osteophyte complex. There is severe left and moderate right facet arthropathy. There is mild bilateral uncovertebral joint disease. There is severe bilateral neuroforaminal stenosis. There is no spinal canal stenosis. C5-C6: Posterior disc osteophyte complex. There is severe right and moderate left facet arthropathy. There is moderate bilateral uncovertebral joint disease. There is severe right, mild left neuroforaminal stenosis. There is no spinal canal stenosis. C6-C7: Posterior disc osteophyte complex. There is moderate bilateral facet arthropathy. There is minimal bilateral uncovertebral joint disease. There is no neuroforaminal stenosis. There is no spinal canal stenosis. C7-T1: The disc is normal in configuration. There is no facet arthropathy. There is no uncovertebral joint disease. There is no neuroforaminal stenosis. There is no spinal canal stenosis. BASE OF BRAIN: No significant finding. UPPER THORACIC: Incompletely imaged. No significant spinal stenosis or foraminal stenosis. OTHER: No other significant finding. IMPRESSION: 1. Multilevel degenerative changes of the cervical spine, as described in detail above, with up to severe neural foraminal stenosis at C4-C5 and C5-C6. No significant spinal canal stenosis. 2. STIR hyperintensity of the left C4-C5 facet joint may represent acute facet synovitis in the appropriate clinical setting. THIS IS AN ELECTRONICALLY VERIFIED FINAL REPORT 05/08/2025 9:27 AM - Electronically signed by Hamilton Arce M.D. MM T: Report ID: [id number] Reading Location: [id number] Procedure Note Hamilton Arce MD - 05/08/2025 EXAM DESCRIPTION: MRI CERVICAL SPINE WO CONTRAST REASON FOR STUDY: Myelopathy, chronic, cervical spine Chronic neck pain, no surgery, no trauma. Neck pain with LT arm tinglingx 6 months TECHNIQUE: Sagittal and Axial imaging includes T1, T2, STIR and gradientecho sequences. COMPARISON: Cervical spine radiographs 03/20/2025 FINDINGS: ALIGNMENT: Trace retrolisthesis C3-C4. Trace anterolisthesis C4-C5. VERTEBRAE: Normal vertebral body heights. Type 1 Modic endplate changesat C4-C5. STIR hyperintensity of the left C4-C5 facet joint may representacute facet synovitis in the appropriate clinical setting. Type 2 Modicendplate changes of the T2 superior endplate. DISCS: Moderate disc space height loss C5-C6. Mild disc space heightloss at the other levels. Disc desiccation. CORD: Normal in size and signal intensity. INDIVIDUAL LEVELS: C2-C3: The disc is normal in configuration. There is mild facet arthropathy. There is no uncovertebral joint disease. There is no neuroforaminal stenosis. There is no spinal canal stenosis. C3-C4: Posterior disc osteophyte complex. There is moderate bilateral facet arthropathy. There is mild bilateral uncovertebral joint disease. There is mild bilateral neuroforaminal stenosis. There is no spinalcanal stenosis. C4-C5: Posterior disc osteophyte complex. There is severe left andmoderate right facet arthropathy. There is mild bilateral uncovertebral joint disease. There is severe bilateral neuroforaminal stenosis. There is no spinal canal stenosis. C5-C6: Posterior disc osteophyte complex. There is severe right and moderate left facet arthropathy. There is moderate bilateraluncovertebral joint disease. There is severe right, mild left neuroforaminal stenosis. There is no spinal canal stenosis. C6-C7: Posterior disc osteophyte complex. There is moderate bilateral facet arthropathy. There is minimal bilateral uncovertebral jointdisease. There is no neuroforaminal stenosis. There is no spinal canalstenosis. C7-T1: The disc is normal in configuration. There is no facetarthropathy. There is no uncovertebral joint disease. There is no neuroforaminal stenosis. There is no spinal canal stenosis. BASE OF BRAIN: No significant finding. UPPER THORACIC: Incompletely imaged. No significant spinal stenosis or foraminal stenosis. OTHER: No other significant finding. IMPRESSION: 1. Multilevel degenerative changes of the cervical spine, as describedin detail above, with up to severe neural foraminal stenosis at C4-C5 andC5-C6. No significant spinal canal stenosis. 2. STIR hyperintensity of the left C4-C5 facet joint may represent acute facet synovitis in the appropriate clinical setting. THIS IS AN ELECTRONICALLY VERIFIED FINAL REPORT 05/08/2025 9:27 AM - Electronically signed by Hamilton FortuneD. MM T: Report ID: [id number] Reading Location: [id number] [facility] MRI PROCEDURES Fin al Result * MSSA/MRSA (Staphylococcus aureus) Culture Nasal (05/06/2025 3:42 PM CDT) Report Final Report: Negative Comment:Testing performed by : [facility], [address] [place]., [address] Nasal 05/06/2025 3:42 PM CDT 05/06/2025 8:31 PM CDT Narrative [facility] 05/08/2025 5:06 PM CDT Testing performed by [facility] ([phone]). [facility] Final Result Performing Organization Address City/State/[facility] Co de Phone Number [facility] [address] [facility] Department [place] [address] * Diabetic Eye Exam (04/30/2025) Historical Provider HEALTH MAINTENANCE Final Result * XR Scoliosis 6 or More Views (03/26/2025 9:24 AM CDT) Anatomical Region Laterality Modality Spine N/A Computed Radiogr aphy 03/26/2025 5:33 PM CDT Impressions 03/26/2025 5:34 PM CDT 1. L4-L5 posterior decompression and instrumented fusion with moderate degenerative disc disease at the unfused lumbar segments and mild L3-L4 retrolisthesis. Dictated by: Mikael Barry MD The radiology attending physician has personally reviewed this study, and had reviewed and/or edited this written report and agrees with it. Electronically signed by: Du Farah M.D. Narrative 03/26/2025 5:34 PM CDT EXAMINATION: XR SCOLIOSIS 6 OR MORE VIEWS HISTORY: Lumbar pain COMPARISON: Radiograph 03/20/2025 FINDINGS: Upright frontal and lateral radiographs of the entire spine using the EOS system, with dedicated views of the lumbar spine are submitted for interpretation. There is normal coronal balance. There is mild anterior sagittal imbalance. There is minimal dextrocurvature of the cervicothoracic spine, and hyperkyphosis of the upper thoracic spine. There is no pelvic tilt. The left shoulder is raised above the right. Multilevel degenerative changes are seen in the imaged spine, predominantly involving the lower thoracic and thoracolumbar junction, with evidence of diffuse idiopathic skeletal hyperostosis. In the lumbar spine, there is multilevel facet arthropathy, and multilevel disc height loss, greatest and moderate at L1-L2. Postsurgical changes of instrumented spinal fusion and decompression from L4-L5 are noted. There is multilevel lumbar facet arthropathy. There is normal coronal alignment of the lumbar spine. There is mild fixed stepwise retrolisthesis L1-L4 on L4 with flexion and extension. There is bilateral hip osteoarthritis. Aortic atherosclerotic ossifications are noted. Procedure Note Du Farah MD - 03/26/2025 EXAMINATION: XR SCOLIOSIS 6 OR MORE VIEWS HISTORY: Lumbar pain COMPARISON: Radiograph 03/20/2025 FINDINGS: Upright frontal and lateral radiographs of the entire spine using the EOS system, with dedicated views of the lumbar spine are submitted for interpretation. There is normal coronal balance. There is mild anterior sagittal imbalance. There is minimal dextrocurvature of the cervicothoracic spine, and hyperkyphosis of the upper thoracic spine. There is no pelvic tilt. The left shoulder is raised above the right. Multilevel degenerative changes are seen in the imaged spine, predominantly involving the lower thoracic and thoracolumbar junction, with evidence of diffuse idiopathic skeletal hyperostosis. In the lumbar spine, there is multilevel facet arthropathy, and multilevel disc height loss, greatest and moderate at L1-L2. Postsurgical changes of instrumented spinal fusion and decompression from L4-L5 are noted. There is multilevel lumbar facet arthropathy. There is normal coronal alignment of the lumbar spine. There is mild fixed stepwise retrolisthesis L1-L4 on L4 with flexion and extension. There is bilateral hip osteoarthritis. Aortic atherosclerotic ossifications are noted. IMPRESSION: 1. L4-L5 posterior decompression and instrumented fusion with moderate degenerative disc disease at the unfused lumbar segments and mild L3-L4 retrolisthesis. Dictated by: Mikael Barry MD The radiology attending physician has personally reviewed this study, and had reviewed and/or edited this written report and agrees with it. Electronically signed by: Du Farah M.D. [facility] XR PROCEDURES Sasha l Result * XR Knee Left 4 or More Views (03/20/2025 3:16 PM CDT) Anatomical Region Laterality Modality Lower Extremities, Knee Left Computed Radiography 03/21/2025 10:3 2 PM CDT Narrative 03/21/2025 10:36 PM CDT EXAM DESCRIPTION: 1. XR KNEE LEFT 4 OR MORE VIEWS; 2. XR SPINE CERVICAL COMPLETE 4 OR 5 VW REASON FOR STUDY: Left knee and neck pain. Pain progressively worsening over past 6 months no injury FINDINGS: Four views left knee and four views cervical spine submitted without comparison. Cervical spine: No acute fracture. Mild anterolisthesis of C4-C6. Mild C3-C5 and acap-bd-yzusiwio C5-C6 degenerative disc disease. Severe bilateral mid cervical facet osteoarthritis. Right-sided C5-C6 and left-sided C3-C6 foraminal impingement. Left knee: No acute fracture. Alignment is normal. Severe medial predominant left knee osteoarthritis. Small knee effusion. Mild soft tissue swelling. IMPRESSION: 1. Mild C3-C5 and elyw-oz-tgvrpzfu C5-C6 degenerative disc disease with severe bilateral mid cervical facet osteoarthritis. 2. Right-sided C5-C6 and left-sided C3-C6 foraminal impingement. 3. Severe medial predominant left knee osteoarthritis with a small effusion. THIS IS AN ELECTRONICALLY VERIFIED FINAL REPORT 03/21/2025 10:36 PM - Electronically signed by Jaya Akins M.D. T: Report ID: [id number] Reading Location: [id number] Procedure Note Jaya Akins MD - 03/21/2025 EXAM DESCRIPTION: 1. XR KNEE LEFT 4 OR MORE VIEWS; 2. XR SPINE CERVICAL COMPLETE 4 OR 5 VW REASON FOR STUDY: Left knee and neck pain. Pain progressively worsening over past 6 months no injury FINDINGS: Four views left knee and four views cervical spine submittedwithout comparison. Cervical spine: No acute fracture. Mild anterolisthesis of C4-C6. Mild C3-C5 and wlvj-sl-xjbfszpk C5-C6 degenerative disc disease. Severe bilateral mid cervical facet osteoarthritis. Right-sided C5-C6 and left-sided C3-C6 foraminal impingement. Left knee: No acute fracture. Alignment is normal. Severe medial predominant leftknee osteoarthritis. Small knee effusion. Mild soft tissue swelling. IMPRESSION: 1. Mild C3-C5 and qvkl-cl-ydptkuga C5-C6 degenerative disc disease with severe bilateral mid cervical facet osteoarthritis. 2. Right-sided C5-C6 and left-sided C3-C6 foraminal impingement. 3. Severe medial predominant left knee osteoarthritis with a smalleffusion. THIS IS AN ELECTRONICALLY VERIFIED FINAL REPORT 03/21/2025 10:36 PM - Electronically signed by Jaya Akins M.D. T: Report ID: [id number] Reading Location: [id number] us Alex[facility] XR PROCEDURES Final Result * XR Spine Cervical Complete 4 or 5 Views (03/20/2025 3:16 PM CDT) Anatomical Region Laterality Modality Spine N/A Computed Radiogr aphy 03/21/2025 10:3 2 PM CDT Narrative 03/21/2025 10:36 PM CDT EXAM DESCRIPTION: 1. XR KNEE LEFT 4 OR MORE VIEWS; 2. XR SPINE CERVICAL COMPLETE 4 OR 5 VW REASON FOR STUDY: Left knee and neck pain. Pain progressively worsening over past 6 months no injury FINDINGS: Four views left knee and four views cervical spine submitted without comparison. Cervical spine: No acute fracture. Mild anterolisthesis of C4-C6. Mild C3-C5 and hztq-ba-ujcwhhyj C5-C6 degenerative disc disease. Severe bilateral mid cervical facet osteoarthritis. Right-sided C5-C6 and left-sided C3-C6 foraminal impingement. Left knee: No acute fracture. Alignment is normal. Severe medial predominant left knee osteoarthritis. Small knee effusion. Mild soft tissue swelling. IMPRESSION: 1. Mild C3-C5 and vwen-bq-kntgaajp C5-C6 degenerative disc disease with severe bilateral mid cervical facet osteoarthritis. 2. Right-sided C5-C6 and left-sided C3-C6 foraminal impingement. 3. Severe medial predominant left knee osteoarthritis with a small effusion. THIS IS AN ELECTRONICALLY VERIFIED FINAL REPORT 03/21/2025 10:36 PM - Electronically signed by Jaya Akins M.D. T: Report ID: [id number] Reading Location: [place] [id number] Procedure Note Jaya Akins MD - 03/21/2025 EXAM DESCRIPTION: 1. XR KNEE LEFT 4 OR MORE VIEWS; 2. XR SPINE CERVICAL COMPLETE 4 OR 5 VW REASON FOR STUDY: Left knee and neck pain. Pain progressively worsening over past 6 months no injury FINDINGS: Four views left knee and four views cervical spine submittedwithout comparison. Cervical spine: No acute fracture. Mild anterolisthesis of C4-C6. Mild C3-C5 and fhbv-bq-fquscisv C5-C6 degenerative disc disease. Severe bilateral mid cervical facet osteoarthritis. Right-sided C5-C6 and left-sided C3-C6 foraminal impingement. Left knee: No acute fracture. Alignment is normal. Severe medial predominant leftknee osteoarthritis. Small knee effusion. Mild soft tissue swelling. IMPRESSION: 1. Mild C3-C5 and gcyn-nx-ogkjfzpm C5-C6 degenerative disc disease with severe bilateral mid cervical facet osteoarthritis. 2. Right-sided C5-C6 and left-sided C3-C6 foraminal impingement. 3. Severe medial predominant left knee osteoarthritis with a smalleffusion. THIS IS AN ELECTRONICALLY VERIFIED FINAL REPORT 03/21/2025 10:36 PM - Electronically signed by Jaya Akins M.D. T: Report ID: [id number] Reading Location: [place] [id number] Alex[facility] XR PROCEDURES Final Result * Diabetic Eye Exam (03/19/2025) Historical Provider HEALTH MAINTENANCE Final Result * CT Lumbar Spine WO Contrast (02/23/2025 5:36 PM CDT) Anatomical Region Laterality Modality Spine N/A Computed Tomogra phy 03/11/2025 12:1 5 PM CDT Narrative 03/11/2025 8:38 PM CDT EXAM DESCRIPTION: CT LUMBAR SPINE WO CONTRAST REASON FOR STUDY: pain Previous back surgery- pain going down both legs Worse the past 2 months TECHNIQUE: Axial images acquired through the lumbar spine without intravenous contrast. Reconstructed coronal and sagittal MPR images reviewed. All images stored on PACS. Automated exposure control was used as a dose optimization technique for this examination. COMPARISON: Lumbar spine radiographs dated 02/15/2025 and relevant portions of the CT abdomen and pelvis dated 10/09/2024. FINDINGS: SEGMENTATION: 5 ytt-rlp-renlqsb lumbar type vertebral bodies. ALIGNMENT: Levoconvex curvature. Mild retrolisthesis of L1 on L2 through L3 on L4. VERTEBRAE: Unfused level endplate degenerative changes ranging up to moderate to severe. Few scattered Schmorl's nodes. The L3 vertebral body anterior margin focal sclerotic lesion is nonspecific and presumed to be a bone island in a patient without history of malignancy. DISC HEIGHT: Diffuse intervertebral disc height loss ranging up to moderate to severe. There are multiple levels of vacuum disc phenomenon. HARDWARE: Posterior instrumentation at L4-L5 with bilateral vertical rods and transpedicular screws as seen on the lumbar spine radiographs dated 02/15/2025. INDIVIDUAL DISC LEVELS: Suboptimally evaluated by non myelographic CT technique. L1-L2: Disc bulge with marginal spur formation. Focus of gas in the right subarticular zone could be a herniated disc with vacuum phenomenon or a complex synovial cyst. Thickened/calcified ligamentum flavum and facet arthropathy. Severe osseous spinal canal and lateral recess narrowing. Severe left and moderate to severe right osseous neural foraminal narrowing. L2-L3: Retrolisthesis of L2 on L3 with unroofing of the disc and marginal spur formation. Thickened ligamentum flavum and facet arthropathy. Proliferation of dorsal epidural fat. Moderate osseous spinal canal stenosis and lateral recess narrowing on both sides. Moderate osseous neural foraminal narrowing. L3-L4: Retrolisthesis of L3 on L4 with unroofing of the disc and marginal spur formation. Thickened ligamentum flavum and facet arthropathy. Moderate to severe osseous spinal canal stenosis and severe lateral recess narrowing. Severe osseous neural foraminal narrowing. L4-L5: Surgical level. Laminectomy related changes. The evaluation is limited by metal related artifact. Disc bulge with marginal spur formation or other postoperative change. Bilateral facet arthropathy. No significant osseous spinal canal stenosis. Lateral recess effacement on both sides. Moderate to severe proximal right and viwz-ib-pvxgnfsr left osseous neural foraminal narrowing. L5-S1: Surgical level. Previous laminectomy. Disc bulge with marginal spur formation. Bilateral facet arthropathy. No gross osseous spinal canal stenosis. Qjsz-mz-pobqfiyi osseous neural foraminal narrowing. SOFT TISSUES: The renal lesions are better assessed on the dedicated multiphasic CT abdomen and pelvis dated 10/09/2024. Nonobstructing right renal calculi are again seen. Calcified plaque in the abdominal aorta and major branch vessels. OTHER: Sacroiliac joints with degenerative changes of the partial osseous fusion on both sides. IMPRESSION: 1. The L4-L5 posterior instrumentation and L4-L5 and L5-S1 laminectomies as seen on the lumbar spine radiographs dated 02/15/2025. 2. Non operative level disc degeneration ranging up to moderate to severe with thickened ligamentum flavum and facet arthropathy as described. Osseous spinal canal stenosis is most noticeable at L1-L2, L2-L3 and L3-L4. 3. Osseous neural foraminal stenosis ranging up to severe and additional findings as above. THIS IS AN ELECTRONICALLY VERIFIED FINAL REPORT 03/11/2025 8:38 PM - Electronically signed by Chan Bolanos D.O. AP: AP Report ID: [id number] Reading Location: [id number] Procedure Note Chan Bolanos, DO - 03/11/2025 EXAM DESCRIPTION: CT LUMBAR SPINE WO CONTRAST REASON FOR STUDY: pain Previous back surgery- pain going down both legs Worse the past 2 months TECHNIQUE: Axial images acquired through the lumbar spine withoutintravenous contrast. Reconstructed coronal and sagittal MPR images reviewed. Allimages stored on PACS. Automated exposure control was used as a dose optimization technique forthis examination. COMPARISON: Lumbar spine radiographs dated 02/15/[address] the CT abdomen and pelvis dated 10/09/2024. FINDINGS: SEGMENTATION: 5 ljv-oty-xoxndgz lumbar type vertebral bodies. ALIGNMENT: Levoconvex curvature. Mild retrolisthesis of L1 on J4aakezch L3 on L4. VERTEBRAE: Unfused level endplate degenerative changes ranging up to moderate to severe. Few scattered Schmorl's nodes. The L3 vertebral body anterior margin focal sclerotic lesion is nonspecific and presumed to be a bone island in a patient without history of malignancy. DISC HEIGHT: Diffuse intervertebral disc height loss ranging up tomoderate to severe. There are multiple levels of vacuum disc phenomenon. HARDWARE: Posterior instrumentation at L4-L5 with bilateral verticalrods and transpedicular screws as seen on the lumbar spine radiographs dated 02/15/2025. INDIVIDUAL DISC LEVELS: Suboptimally evaluated by non myelographic CT technique. L1-L2: Disc bulge with marginal spur formation. Focus of gas in the right subarticular zone could be a herniated disc with vacuum phenomenon or a complex synovial cyst. Thickened/calcified ligamentum flavum and facet arthropathy. Severe osseous spinal canal and lateral recess narrowing. Severe left and moderate to severe right osseous neural foraminalnarrowing. L2-L3: Retrolisthesis of L2 on L3 with unroofing of the disc and marginalspur formation. Thickened ligamentum flavum and facet arthropathy.Proliferation of dorsal epidural fat. Moderate osseous spinal canal stenosis andlateral recess narrowing on both sides. Moderate osseous neural foraminalnarrowing. L3-L4: Retrolisthesis of L3 on L4 with unroofing of the disc and marginalspur formation. Thickened ligamentum flavum and facet arthropathy. Moderateto severe osseous spinal canal stenosis and severe lateral recess narrowing. Severe osseous neural foraminal narrowing. L4-L5: Surgical level. Laminectomy related changes. The evaluation is limited by metal related artifact. Disc bulge with marginal spurformation or other postoperative change. Bilateral facet arthropathy. No significant osseous spinal canal stenosis. Lateral recess effacement on both sides. Moderate to severe proximal right and [id number]-[id number] left osseous neural foraminal narrowing. L5-S1: Surgical level. Previous laminectomy. Disc bulge with marginalspur formation. Bilateral facet arthropathy. No gross osseous spinal canal stenosis. Rsnb-tn-vknezeuk osseous neural foraminal narrowing. SOFT TISSUES: The renal lesions are better assessed on the dedicated multiphasic CT abdomen and pelvis dated 10/09/2024. Nonobstructing right renal calculi are again seen. Calcified plaque in the abdominal aorta and major branch vessels. OTHER: Sacroiliac joints with degenerative changes of the partialosseous fusion on both sides. IMPRESSION: 1. The L4-L5 posterior instrumentation and L4-L5 and L5-S1 laminectomiesas seen on the lumbar spine radiographs dated 02/15/2025. 2. Non operative level disc degeneration ranging up to moderate tosevere with thickened ligamentum flavum and facet arthropathy as described.Osseous spinal canal stenosis is most noticeable at L1-L2, L2-L3 and L3-L4. 3. Osseous neural foraminal stenosis ranging up to severe and additional findings as above. THIS IS AN ELECTRONICALLY VERIFIED FINAL REPORT 03/11/2025 8:38 PM - Electronically signed by Chan Bolanos D.O. AP: AP Report ID: [id number] Reading Location: [place] [address] [address] PROCEDURES Final Result * (ABNORMAL) Pro B-type natriuretic peptide (02/21/2025 7:13 AM CDT) Pathologist [facility] NT PROBNP 512(H) <125 pg/mL [facility] Blood 02/21/2025 7:13 AM CDT 02/21/2025 7:13 AM CDT Narrative [facility] - 02/22/2025 8:20 AM CDT FASTING:YES FASTING: YES us Alexis CHEEK LAB BLOOD ORDERABLES Final Resu lt [facility] [address] [place] [address] * CBC with auto differential (02/21/2025 7:13 AM CDT) Pathologist [facility] WBC 7.9 3.8 - 10.8 Thousand/u L [facility] RBC, POC 4.97 4.20 - 5.80 Million/uL [facility] Hgb 14.7 13.2 - 17.1 g/dL [facility] Hct 45.7 38.5 - 50.0 % [facility] MCV 92.0 80.0 - 100.0 fL [facility] MCH 29.6 27.0 - 33.0 pg [facility] MCHC 32.2 32.0 - 36.0 g/dL [facility] Comment: For adults, a slight decrease in the calculated MCHC value (in the range of 30 to 32 g/dL) is most likely not clinically significant; however, it should be interpreted with caution in correlation with other red cell parameters and the patient's clinical condition. Rdw 13.9 11.0 - 15.0 % [facility] Platelets 224 140 - 400 Thousand/u L [facility] MPV 10.2 7.5 - 12.5 fL [facility] Neutrophils, abs 5,111 1,500 - 7,800 cells/uL [facility] Lymphocytes, abs 1,770 850 - 3,900 cells/uL [facility] Monocyte abs 798 200 - 950 cells/uL [facility] Eosinophils, abs 182 15 - 500 cells/uL [facility] Basophils, abs 40 0 - 200 cells/uL [facility] Neutrophils 64.7 % [facility] Lymphocyte pct 22.4 % [facility] Monocytes 10.1 % [facility] Eosinophils 2.3 % [facility] Basophils 0.5 % [facility] Blood 02/21/2025 7:13 AM CDT 02/21/2025 7:13 AM CDT Narrative [facility] - 02/22/2025 8:20 AM CDT FASTING:YES FASTING: YES us Alexis CHEEK LAB BLOOD ORDERABLES Final Resu lt [facility] [address] [place] [address] * (ABNORMAL) Hemoglobin A1c (02/21/2025 7:13 AM CDT) Hgb A1C 6.4(H) <5.7 % of total Hgb [facility] Comment: For someone without known diabetes, a hemoglobin A1c value between 5.7% and 6.4% is consistent with prediabetes and should be confirmed with a follow-up test. For someone with known diabetes, a value <7% indicates that their diabetes is well controlled. A1c targets should be individualized based on duration of diabetes, age, comorbid conditions, and other considerations. This assay result is consistent with an increased risk of diabetes. Currently, no consensus exists regarding use of hemoglobin A1c for diagnosis of diabetes for children. Blood 02/21/2025 7:13 AM CDT 02/21/2025 7:13 AM CDT Narrative [facility] - 02/22/2025 8:20 AM CDT FASTING:YES FASTING: YES us Alexis CHEEK LAB BLOOD ORDERABLES Final Resu lt [facility] [address] [place] [address] * Lipid panel (02/21/2025 7:13 AM CDT) [facility] Cholesterol 124 <200 mg/dL [facility] HDL 46 > OR = 40 mg/dL [facility] Triglycerides 126 <150 mg/dL [facility] LDL 57 mg/dL (calc) [facility] Comment: Reference range: <100 Desirable range <100 mg/dL for primary prevention; <70 mg/dL for patients with CHD or diabetic patients with > or = 2 CHD risk factors. LDL-C is now calculated using the Brendan-Aspen calculation, which is a validated novel method providing better accuracy than the Friedewald equation in the estimation of LDL-C. Brendan SS et al. NOHEMY. 2013;310(19): 9842-0180 (http://education.GOintegro.ShopSpot/faq/OUP382) Chol/HDL ratio 2.7 <5.0 (calc) [facility] Non-HDL, (LDL+VLDL) 78 <130 mg/dL (calc) [facility] Comment: For patients with diabetes plus 1 major ASCVD risk factor, treating to a non-HDL-C goal of <100 mg/dL (LDL-C of <70 mg/dL) is considered a therapeutic option. Blood 02/21/2025 7:13 AM CDT 02/21/2025 7:13 AM CDT Narrative [facility] - 02/22/2025 8:20 AM CDT FASTING:YES FASTING: YES Alexis CHEEK LAB BLOOD ORDERABLES Final Resu lt [facility] [address] [place] [address] * (ABNORMAL) Comprehensive metabolic panel (02/21/2025 7:13 AM CDT) Glucose 105(H) 65 - 99 mg/dL [facility] Comment: Fasting reference interval For someone without known diabetes, a glucose value between 100 and 125 mg/dL is consistent with prediabetes and should be confirmed with a follow-up test. BUN 26(H) 7 - 25 mg/dL [facility] Creatinine 1.85(H) 0.70 - 1.28 mg/dL [facility] eGFR 38(L) > OR = 60 mL/min/1.7 3m2 [facility] BUN/creat ratio 14 6 - 22 (calc) [facility] Sodium 140 135 - 146 mmol/L [facility] Potassium, pl 3.8 3.5 - 5.3 mmol/L [facility] Chloride 101 98 - 110 mmol/L [facility] CO2 28 20 - 32 mmol/L [facility] Calcium 9.7 8.6 - 10.3 mg/dL [facility] Protein, sr 6.8 6.1 - 8.1 g/dL [facility] Albumin 4.0 3.6 - 5.1 g/dL [facility] GLOBULIN 2.8 1.9 - 3.7 g/dL (calc) [facility] Alb/glob ratio 1.4 1.0 - 2.5 (calc) [facility] Bilirubin, total 0.8 0.2 - 1.2 mg/dL [facility] Alk phos 94 35 - 144 U/L [facility] AST 30 10 - 35 U/L [facility] ALT (SGPT) 22 9 - 46 U/L [facility] Blood 02/21/2025 7:13 AM CDT 02/21/2025 7:13 AM CDT Narrative [facility] - 02/22/2025 8:20 AM CDT FASTING:YES FASTING: YES us Alexis CHEEK LAB BLOOD ORDERABLES Final Resu lt [facility] [address] [place] [address] * (ABNORMAL) Albumin Creatinine Ratio, Urine (11/14/2024 8:09 AM ART EDUCATOR) Creatinine, ur 152 20 - 320 mg/dL [facility] Microalbumin, ur 32.6 See Note: mg/dL [facility] Comment: Reference Range: Reference Range Not established Results verified by repeat analysis on dilution. Microalbumin/creat ratio 214(H) <30 mg/g creat [facility] Comment: The ADA defines abnormalities in albumin excretion as follows: Albuminuria Category Result (mg/g creatinine) Normal to Mildly increased <30 Moderately increased 30-299 Severely increased > OR = 300 The ADA recommends that at least two of three specimens collected within a 3-6 month period be abnormal before considering a patient to be within a diagnostic category. Urine 11/14/2024 8:09 AM ART EDUCATOR 11/14/2024 8:10 AM ART EDUCATOR Narrative [facility] - 11/21/2024 5:03 PM ART EDUCATOR FASTING:YES FASTING: YES Alexis CHEEK LAB URINE ORDERABLES Final Resu lt [facility] [address] [address] [address] * PSA screen (06/20/2023 8:22 AM CDT) PSA 1.45 < OR = 4.00 ng/mL [facility] Comment: The total PSA value from this assay system is standardized against the WHO standard. The test result will be approximately 20% lower when compared to the equimolar-standardized total PSA (Keo [place]). Comparison of serial PSA results should be interpreted with this fact in mind. This test was performed using the Siemens chemiluminescent method. Values obtained from different assay methods cannot be used interchangeably. PSA levels, regardless of value, should not be interpreted as absolute evidence of the presence or absence of disease. Blood 06/20/2023 8:22 AM CDT 06/20/2023 8:23 AM CDT Alexis CHEEK LAB BLOOD ORDERABLES Final Resu lt [facility] [address] [place] [address] * Colonoscopy (11/17/2021) Anatomical Region Laterality Modality Other Historical Provider MD ENDOSCOPY PROCEDURES Edit ed Result - Final * Hepatitis C antibody (09/05/2019 8:47 AM ART EDUCATOR) Hep C Ab NON-REACT RICO NON-REACT RICO [facility] [place] SIGNAL TO CUT-OFF 0.01 <1.00 [facility] [place] Comment: HCV antibody was non-reactive. There is no laboratory evidence of HCV infection. In most cases, no further action is required. However, if recent HCV exposure is suspected, a test for HCV RNA (test code 38446) is suggested. For additional information please refer to http://education.CureTech/faq/WCX62n3 (This link is being provided for informational/ educational purposes only.) Blood specimen (specimen) 09/05/2019 8:47 AM ART EDUCATOR 09/05/2019 8:48 AM ART EDUCATOR Narrative [facility] - 09/06/2019 10:20 AM ART EDUCATOR FASTING:YES FASTING: YES Resulting Agency Comment Performing Organization Information: Site ID: [place] Name: [facility] Address: [address] [place] [address] Director: Jonathon Llanes D.O., MPH us Alexis CHEEK LAB MICROBIOLOGY - GENERAL CRESENCIO RUIZ Final Result [facility] LE[facility]O Ramos from Last 3 Months or Most Recently Relevant to Health Maintenance Insurance FOR LIFE [facility] MEDICARE ADVANTAGE [facility] Address: [facility] [address] [place] [address] FOR LIFE [facility] MEDICARE ADVANTAGE [facility] Address: [address] [address] [place] [address] FOR LIFE [facility] MEDICARE ADVANTAGE [facility]IC[facility] Address: [address] [address] [place] [address] Advance Directives For more information, please contact: [phone] Documents on File Type Date Recorded Patient Costume Shop Manager Expl anation ADVANCE DIRECTIVE 12/18/2024 11:17 AM Peter r of Brand Ambassador-Medical * Full Code (Latest Code Status on File) Date Activated Date Inactivated Comments 12/17/2024 12:51 PM 12/20/2024 8:31 PM Care Teams Readers' Advisory Service Librarian Relationship Specialty Start Date End Date Alexis Krishna PA PCP - General Family Medicine 06/22/22 Pedrito Liz MD [address] [place] [address] Consulting Physician Pulmonary Disease 08/17/23 Brandon Jon DPM [address] [place] [address] Consulting Physician Orthopedic Surgery 08/17/23
--- OUTSIDE RECORDS SUMMARY | 2025-05-24 05:28 | XMS_ITS | Clinical Summary ---
Author Organization [facility] [employer] Address [address] [place] [address] Care Team Providers Care Livestock Caretaker Name Role Phone Yonathan Vega MD Primary Care Provider [phone] Source Comments [facility] [employer],non-owned Affiliates and Associated Physician Practices is amultiple site organization consisting of ambulatory clinics and hospital sitesin [place], [place], [place] and [place]. This disclosure is being madepursuant to the Care Everywhere program and may not contain all information available regarding this patient. Last updated 18.[facility] [employer] Allergies No known active allergies Medications * Be aware that medications may not be up to date on this document. Alwaysverify current medications with the patient. pregabalin (LYRICA) 75 MG capsule 01/07/2016 Active LISINOPRIL PO Active ROPINIRole HCl (REQUIP PO) Active ALLOPURINOL PO Activ e SIMVASTATIN PO Activ e Active Problems No known active problems Social History Tobacco Use Types Packs/Day Years Used Date Smoking Tobacco: Never Smokeless Tobacco: Never Tobacco Cessation:Counseling Given: Yes Sex and Gender Information Value Date Recorded Sex Assigned at Male 01/02/2022 9:20 AM CDT Legal Sex Male 9:45 AM CDT Gender Identity Male 01/02/2022 9:20 AM CDT Sexual Orientation Straight 01/02/2022 9: 20 AM CDT Last Filed Vital Signs Vital Sign Reading Time Taken Comments Blood Pressure 108/54 06/25/2018 12:33 PM CDT Pulse 103 06/25/2018 12:33 PM CDT Temperature 36.7 C (98.1 F) 06/25/2018 12:33 PM CDT Respiratory Rate 20 06/25/2018 12:33 PM CDT Oxygen Saturation 98% 06/25/2018 12:33 PM CDT Inhaled Oxygen Concentration - - Weight 117.9 kg (260 lb) 06/25/2018 12:33 PM CDT Height 170.2 cm (5' 7) 06/25/2018 12:33 PM CDT Body Mass Index 40.72 06/25/2018 12:33 PM CDT Plan of Treatment Health Maintenance Due Date Last Done Comments COLOGUARD (AGES 45-75) - COL ON CA SCREENING 1950 COLON MONITORING 1950 COLONOSCOPY - COLON CA SCREENING 1950 CT COLONOGRAPHY - COLON CA SCREENING 1950 Colorectal Cancer Screening 1950 FIT - COLON CA SCREENING 1950 FLEX SIG - COLON CA SCREENING 1950 HEPATITIS C SCREENING 09/30/1968 DTAP/TDAP/TD VACCINES (1 - Tdap) 1969 PNEUMOCOCCAL VACCINE 50+ (1 of 1 - PCV) 2000 ZOSTER VACCINE (1 of 2) 2000 SCREENING FOR DIABETES 06/25/2018 COVID-19 VACCINE (1 - 2023-2 5 season) 2024 DEPRESSION SCREENING 09/26/2024 INFLUENZA VACCINE (#1) 2025 Respiratory Syncytial Virus (RSV) Vaccine Pt: or over 60 yrs (1 - 1-dose 75+ series) 2025 HEPATITIS B VACCINE Aged Out No longe r eligible based on patient's age to complete this topic HIB VACCINE Aged Out No longer eligi ble based on patient's age to complete this topic HPV VACCINE Aged Out No longer eligi ble based on patient's age to complete this topic MENINGOCOCCAL (Group B) VACC INE SHARED DECISION-MAKING Aged Out No longer eligibl e based on patient's age to complete this topic MENINGOCOCCAL GROUPS A/C/Y/W VACCINE Aged Out No longer eligible b ased on patient's age to complete this topic Insurance MEDICARE Care Teams Livestock Caretaker Relationship Specialty Start Date End Date Yonathan Vega MD [address] [place] [address] PCP - General Family Medicine 12/28/16
--- OUTSIDE RECORDS SUMMARY | 2025-05-24 05:28 | XMS_ITS | Encounter Summary ---
Author Organization [facility] Facility Care Team Providers Care Sas Programmer Analyst Name Role Phone Yonathan Vega MD Primary Care Provider [phone] Emy Sampson LPN Unavailable [phone] Alexis Krishna Primary Care Provider [phone] Pedrito Liz MD Unavailable [phone] Brandon Jon DPM Unavailable [phone] Minnie Jorge RN Unavailable Encounter Details Date Type Department Care Team (Latest Contact Info) Description 07/15/2018 Orders Only [facility] CLINCONV Provider, MD Rosi [address] [place] [address] Social History Tobacco Use Types Packs/Day Years Used Date Smoking Tobacco: Never Assessed Sex and Gender Information Value Date Recorded Sex Assigned at Not on file Legal Sex Male 6:38 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 us Historical Provider Final Res ult * SCAN - LABS (07/17/2018 12:00 AM CDT) Narrative 07/17/2018 12:00 AM CDT Ordered by an unspecified provider. 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 05/05/2020 05/13/2021 5:00 AM CDT COVID: Suspected 12/17/2024 12/17/2024 12/17/2024 10:13 AM CDT documented as of this encounter Care Teams Sas Programmer Analyst Relationship Specialty Start Date End Date Yonathan Vega MD PCP - General 11/09/18 06/21/22 Alexis Krishna PA PCP - General Family Medicine 06/22/22 Emy Sampson LPN President & Ceo 05/08/20 05/08/20 Pedrito Liz MD [address] [place] [address] Consulting Physician Pulmonary Disease 08/17/23 Brandon Jon DPM [address] [place] [address] Consulting Physician Orthopedic Surgery 08/17/23 Minnie Jorge RN [address] [place] [address] [address] [place] [address] President & Ceo 12/21/24 01/07/25 documented as of this encounter
--- OUTSIDE RECORDS SUMMARY | 2025-05-24 05:28 | XMS_ITS | Encounter Summary ---
Author Organization [facility] Facility Care Team Providers Care Hearing Therapist Name Role Phone Yonathan Vega MD Primary Care Provider [phone] Emy Sampson LPN Unavailable [phone] Alexis Krishna Primary Care Provider [phone] Pedrito Liz MD Unavailable [phone] Brandon Jon DPM Unavailable [phone] Minnie Jorge RN Unavailable [phone] Encounter Details Date Type Department Care Team (Latest Contact Info) Description 03/05/2016 Orders Only [facility] CLINCONV Provider, MD Rosi [address] [place] [address] Social History Tobacco Use Types Packs/Day Years Used Date Smoking Tobacco: Never Assessed Sex and Gender Information Value Date Recorded Sex Assigned at Not on file Legal Sex Male 6:38 PM [place] Gender Identity Male 05/21/2020 12:59 PM CDT Sexual Orientation Straight 05/21/2020 12 :59 PM CDT documented as of this encounter Plan of Treatment Not on file documented as of this encounter Procedures Procedure Name Priority Date/Time Associated Diagnosis Comments SCAN - PATHOLOGY 03/08/2016 12:0 0 AM CDT documented in this encounter Results * SCAN - PATHOLOGY (03/08/2016 12:00 AM CDT) Narrative 03/08/2016 12:00 AM CDT Ordered by an unspecified provider. 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 05/05/2020 05/13/2021 5:00 AM CDT COVID: Suspected 12/17/2024 12/17/2024 12/17/2024 10:13 AM CDT documented as of this encounter Care Teams Hearing Therapist Relationship Specialty Start Date End Date Yonathan Vega MD PCP - General 11/09/18 06/21/22 Alexis Krishna PA PCP - General Family Medicine 06/22/22 Emy Sampson LPN Carton Inspector 05/08/20 05/08/20 Pedrito Liz MD [address] [facility] [facility] [address] [place] [address] Consulting Physician Pulmonary Disease 08/17/23 Brandon Jon DPM [address] [address] [facility] [address] [facility] [address] [place] [address] Consulting Physician Orthopedic Surgery 08/17/23 Minnie Jorge, RN [address] [place] [address] [address] [place] [address] Carton Inspector 12/21/24 01/07/25 documented as of this encounter
--- OUTSIDE RECORDS SUMMARY | 2025-05-24 05:28 | XMS_ITS | Encounter Summary ---
Author Organization [facility] Facility Care Team Providers Care Bronc Buster Name Role Phone Yonathan Vega MD Primary Care Provider [phone] Emy Sampson LPN Unavailable [phone] Alexis Krishna Primary Care Provider [phone] Pedrito Liz MD Unavailable [phone] Brandon Jon DPM Unavailable [phone] Minnie Jorge RN Unavailable Encounter Details Date Type Department Care Team (Latest Contact Info) Description 06/28/2018 Orders Only [facility] CLINCONV Provider, MD Rosi [address] [place] [address] Social History Tobacco Use Types Packs/Day Years Used Date Smoking Tobacco: Never Assessed Sex and Gender Information Value Date Recorded Sex Assigned at Not on file 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 05/05/2020 05/13/2021 5:00 AM CDT COVID: Suspected 12/17/2024 12/17/2024 12/17/2024 10:13 AM CDT documented as of this encounter Care Teams Bronc Buster Relationship Specialty Start Date End Date Yonathan Vega MD PCP - General 11/09/18 06/21/22 Alexis Krishna PA PCP - General Family Medicine 06/22/22 Emy Sampson LPN Stripper And Opaquer Apprentice 05/08/20 05/08/20 Pedrito Liz MD [address] [place] [address] Consulting Physician Pulmonary Disease 08/17/23 Brandon Jon DPM [address] [place] [address] Consulting Physician Orthopedic Surgery 08/17/23 Minnie Jorge, RN [address] [place] [address] [address] [place] [address] Stripper And Opaquer Apprentice 12/21/24 01/07/25 documented as of this encounter
[2025-05-24] MEDS: HYDROcodone/acetaminophen (*CRX) 5-325 MG TABLET 1 TAB PO (05:43)
== END 2025-05-24 08:54 | disposition home or self-care (01) ==
PROVIDERS: Emergency Provider Emergency Medicine; PCP Physician Assistant Medical
DX: S01.01XA Laceration without foreign body of scalp, initial encounter (principal); S52.572A Other intraarticular fracture of lower end of left radius, initial encounter for closed fracture; S52.612A Displaced fracture of left ulna styloid process, initial encounter for closed fracture; M47.812 Spondylosis without myelopathy or radiculopathy, cervical region; R91.8 Other nonspecific abnormal finding of lung field; W03.XXXA Other fall on same level due to collision with another person, initial encounter
CPT/HCPCS: 12001; 25605; 70450; 72125; 73110; 99284; 99285; A4565; A9270

== ENCOUNTER 2025-05-31 03:14 | Day surgery (SDC) | payer MEDICARE, OTHER, SELFPAY ==
[2025-05-30 09:11] VITALS: BMI 38.9
--- NOTE | 2025-05-30 09:44 | PC.NURSE ---
Report to the Outpatient Waiting Room, entrance under the green pavilion located off [facility], at time ___10:00AM____ on date ___05/31/25____. Planned Procedure Time: ___12:00PM .? Time changes happen often and if your time is changed the preop area will call you the afternoon before. - You and your visitor will be asked to self-screen and do not enter if you have any COVID symptoms. Please call surgeon if you need to reschedule. - A mask is optional within the hospital at this time. Patients may have clear liquids (water, carbonated beverages, clear teas, apple juice) until 3 hours prior to surgery (9:00AM) with a maximum of 20 ounces. - No food from midnight until time of surgery and no smoking, or chewing tobacco (or any form of nicotine). No chewing gum, candy or mints. - Infants may have breast milk until 4 hours before surgery, infant formula 6 hours prior to surgery. - Children will be allowed to drink immediately following surgery.? If applicable, please bring a bottle or sippy cup to assist with drinking. Juice, water, soda, and popsicles are readily available.? For infants on formula, please bring formula the day of surgery.? Pacifiers are allowed. Take only the following medications with a SIP of water on the morning of surgery: ____AMLODIPINE, ESCITALOPRAM, GABAPENTIN, METOPROLOL, BACTRIM MAY TAKE TRAMADOL AND ALBUTEROL INHALER NEEDED DO NOT STOP ANY OF YOUR OTHER PRESCRIPTION MEDICATIONS PRIOR TO SURGERY EXCEPT THE FOLLOWING Hold all vitamins and supplements for 3 days per anesthesiologist.-STARTING NOW. Medications to discontinue per physician ___HOLD ELIQUIS AND NSAIDS (IBUPROFEN AND DICLOFENAC GEL) STARTING NOW____ Date to take last dose 05/30/25 Please no make-up, nail irish, hairspray, perfume, deodorant, or body powder the day of surgery.? No jewelry (including any body piercings) or valuables the day of surgery, leave them at home.? Please take a shower or bath the night before, or the morning of, surgery with an antibacterial soap.? Wear comfortable, loose fitting clothing.? Children are encouraged to wear pajamas. - Jewelry must be removed prior to entering the operating room.? Rings and piercings that are not removed may be cut off. - The hospital will not accept responsibility for valuables.? - Please leave all valuables, including medications, at home the day of surgery. If you are going home after surgery, a licensed ross carrier driver must drive you home.? - NO public transportation without another adult if you receive anesthesia. - We recommend that an adult stay with you for 24 hours following discharge. - We also recommend that you do not drive, make important decision, drink alcoholic beverages, or take any drugs that were not prescribed by your health care provider for at least 24 hours after your discharge time. For Pediatric surgeries, we recommend two adults accompany the child home. Follow any additional instructions given to you from your surgeon. Telephone instructions given to ____PATIENT and asked if any additional questions and then verbalized understanding. Patient advised to call surgeon office or pre surgery nurse liaison [phone] if any additional questions.
[2025-05-31] VITALS (11 sets, daily range): BP systolic 100–120; BP diastolic 55–72; PULSE 55–71; RESP 8–20; TEMP 36.6–36.9; O2SAT 92–99; BMI 40.8
--- NOTE | ~2025-05-31 | XR_ITS ---
XR surgery orthopedic Indication: ORIF left wrist fracture TECHNIQUE: Fluoroscopy used during ORIF left wrist fracture performed by [Manny Moreno MD] on 05/31/2025. 14 seconds of fluoroscopy with 3 fluoroscopic images captured. FINDINGS: Correlate with procedure note. IMPRESSION: Fluoroscopy used during ORIF left wrist fracture. Fracture fragments in near-anatomic alignment post reduction. Reviewed, dictated and finalized at location O. IMPRESSION: Fluoroscopy used during ORIF left wrist fracture. Fracture fragment s in near-anatomic alignment post reduction.
--- OUTSIDE RECORDS SUMMARY | 2025-05-31 03:19 | XMS_ITS | Encounter Summary ---
Author Organization [facility] Healthcare Address [address] [place] [address] Care Team Providers Care Mail Teller Name Role Phone Alexis Krishna Primary Care Provider [phone] Pedrito Liz MD Unavailable [phone] Brandon Jon DPEan Unavailable + [phone] Reason for Visit * Reason Onset Date Comments Appointment Request 05/24/2025 Encounter Details Date Type Department Care Team (Late st Contact Info) Description 05/24/2025 Telephone [facility] Family Medicine at [address] [place] [address] Alexis Krishna PA [address] [place] [address] Appointment Request Social History Tobacco Use Types Packs/Day Years Used Date Smoking Tobacco: Never Smokeless Tobacco: Never Alcohol Use Standard Drinks/Week Comments Never 0 (1 standard drink = 0.6 oz pur e alcohol) [facility] Utilities Answer Date Recorded In the [...] often do you attend chur ch or holiness services? 1 to 4 times per year 12/21/2024 Do you belong to any clubs o r organizations such as anglican groups, unions, fraternal or athletic groups, or [...] staff should administer the PHQ-9) 0 05/06/2025 [facility] - Occupational Stress Questionnaire Answer Date [...] any time in the past 12 m [facility], were you homeless or living in a senior living (including now)? 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 Please call pt to schedule an appt. FIRE INSPECTOR also informed him of RX sent topharmacy this morning. Does message need to be routed? Yes-Action Needed * Telephone Encounter - Analilia Rock - 05/28/2025 8:18 AM CDT Called could not LVM to schedule appt * Telephone Encounter - Lore Ayoub - 05/24/2025 2:31 PM CDT Appointment Request What visit type does the patient need? Visit Type: Established Patient What is the reason for the visit? Patient was seen in [facility] in [place]. He was seen for a fall, broken left wrist, and has laceration of left side of head. He has 5 berenice that must beremoved in 7 days. There are no appointments until 06/03/2025. Please call patient if office can accommodate his request to be seen sooner. What is the reason we were unable to schedule the appointment? Current appointment availability didnot meet patient's need. If applicable, were all members of the patient's PCP care team offered (e.g., nurse practioner(s), physician life enrichment assistant(s)) ? Yes Additional Comments: none Does message need to be routed? Yes-Action Needed documented in this encounter Plan of Treatment Not on file documented as of this encounter Visit Diagnoses Not on filedocumented in this encounter Care Teams Mail Teller Relationship Specialty Start Date End Date Alexis Krishna PA PCP - General Family Medicine 06/22/22 Pedrito Liz MD [address] [place] [address] Consulting Physician Pulmonary Disease 08/17/23 Brandon Jon DPM [address] [place] [address] Consulting Physician Orthopedic Surgery 08/17/23 documented as of this encounter
--- OUTSIDE RECORDS SUMMARY | 2025-05-31 03:19 | XMS_ITS | Encounter Summary ---
Author Organization [facility] Healthcare Address [address] [place] [address] Care Team Providers Care Hospice Social Worker Name Role Phone Alexis Krishna Primary Care Provider [phone] Pedrito Liz MD Unavailable [phone] Brandon Jon DPM Unavailable + [phone] Encounter Details Date Type Department Care Team (Late st Contact Info) Description 05/30/2025 Results Follow-Up [facility] Family Medicine at [address] [place] [address] Alexis Krishna PA [address] [place] [address] [address] [place], [place] [id number] SCAN - RADIOLOGY/IMAGING Social History Tobacco Use Types Packs/Day Years Used Date Smoking Tobacco: Never Smokeless Tobacco: Never Alcohol Use Standard Drinks/Week Comments Never 0 (1 standard drink = 0.6 oz pur e alcohol) [facility] Utilities Answer Date Recorded In the past [...] often do you attend chur ch or sikh services? 1 to 4 times per year 12/21/2024 Do you belong to any clubs o r organizations such as anabaptism groups, unions, fraternal or athletic groups, or [...] staff should administer the PHQ-9) 0 05/06/2025 [facility] - Occupational Stress Questionnaire Answer Date Recorded [...] any time in the past 12 m [facility], were you homeless or living in a snf (including now)? 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 Gender Identity Male 05/21/2020 12:59 PM CDT Sexual Orientation Straight 05/21/2020 12 :59 PM CDT documented as of this encounter Plan of Treatment Not on file documented as of this encounter Visit Diagnoses Not on filedocumented in this encounter Care Teams Hospice Social Worker Relationship Specialty Start Date End Date Alexis Krishna PA PCP - General Family Medicine 06/22/22 Pedrito Liz MD [address] [place] [address] Consulting Physician Pulmonary Disease 08/17/23 Brandon Jon DPM [address] [place] [address] Consulting Physician Orthopedic Surgery 08/17/23 documented as of this encounter
--- OUTSIDE RECORDS SUMMARY | 2025-05-31 03:19 | XMS_ITS | Encounter Summary ---
Author Organization [facility] Healthcare Address [address] [place] [address] Care Team Providers Care Car Servicer Name Role Phone Alexis Krishna Primary Care Provider [phone] Pedrito Liz MD Unavailable [phone] Brandon Jon DPEan Unavailable [phone] Encounter Details Date Type Department Care Team (Late st Contact Info) Description 05/21/2025 Results Follow-Up [facility] Medical [facility] Family Medicine at [address] [place] [address] Alexis Krishna PA [address] [place] [address] [address] [place], [place] [id number] Stool DNA - Cologuard Social History Tobacco Use Types Packs/Day Years Used Date Smoking Tobacco: Never Smokeless Tobacco: Never Alcohol Use Standard Drinks/Week Comments Never 0 (1 standard drink = 0.6 oz pur e alcohol) [facility] Utilities Answer Date Recorded In the past [...] often do you attend chur ch or rastafarian services? 1 to 4 times per year 12/21/2024 Do you belong to any clubs o r organizations such as roman catholic groups, unions, fraternal or athletic groups, or [...] staff should administer the PHQ-9) 0 05/06/2025 [facility] - Occupational Stress Questionnaire Answer Date [...] any time in the past 12 m [facility], were you homeless or living in a retirement (including now)? 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 Gender Identity Male 05/21/2020 12:59 PM CDT Sexual Orientation Straight 05/21/2020 12 :59 PM CDT documented as of this encounter Plan of Treatment Not on file documented as of this encounter Visit Diagnoses Diagnosis Positive colorectal cancer screening using Cologuard test- Primary documented in this encounter Care Teams Car Servicer Relationship Specialty Start Date End Date Alexis Krishna PA PCP - General Family Medicine 06/22/22 Pedrito Liz MD [address] [place] [address] Consulting Physician Pulmonary Disease 08/17/23 Brandon Jon DPM [address] [place] [address] Consulting Physician Orthopedic Surgery 08/17/23 documented as of this encounter
--- OUTSIDE RECORDS SUMMARY | 2025-05-31 03:19 | XMS_ITS | Encounter Summary ---
Author Organization [facility] Healthcare Address [address] [place] [address] Care Team Providers Care Restorer Paper And Prints Name Role Phone Alexis Krishna Primary Care Provider [phone] Pedrito Liz MD Unavailable [phone] Brandon Jon DPEan Unavailable [phone] Reason for Visit * Reason Onset Date Comments 1st No Show Letter sent to patient 05/30/2025 Encounter Details Date Type Department Care Team (Late st Contact Info) Description 05/30/2025 Telephone [facility] Medical [facility] Family Medicine at [address] [place] [address] Alexis Krishna PA [address] [place] [address] [address] [place] [address] 1st No Show Letter sent to patient Social History Tobacco Use Types Packs/Day Years Used Date Smoking Tobacco: Never Smokeless Tobacco: Never Alcohol Use Standard Drinks/Week Comments Never 0 (1 standard drink = 0.6 oz pur e alcohol) [facility] Utilities Answer Date Recorded In the past 12 months has e [employer], gas, oil, or water company threatened to [...] 12/21/2024 How often do you attend chur or zoroastrianism services? 1 to 4 times per year 12/21/2024 Do you belong to any clubs o r organizations such as restoration groups, unions, fraternal or athletic groups, or [...] staff should administer the PHQ-9) 0 05/06/2025 [facility] - Occupational Stress Questionnaire Answer [...] any time in the past 12 m [facility], were you homeless or living in a group home (including now)? 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 Gender Identity Male 05/21/2020 12:59 PM CDT Sexual Orientation Straight 05/21/2020 12 :59 PM CDT documented as of this encounter Miscellaneous Notes * Telephone Encounter - Vandana Tejeda - 05/30/2025 11:25 AM CDT 1st No Show Letter sent to patient documented in this encounter Plan of Treatment Not on file documented as of this encounter Visit Diagnoses Not on filedocumented in this encounter Care Teams Restorer Paper And Prints Relationship Specialty Start Date End Date Alexis Krishna PA PCP - General Family Medicine 06/22/22 Pedrito Liz MD [address] [facility] [place] [address] Consulting Physician Pulmonary Disease 08/17/23 Brandon Jon DPM [address] [place] [address] Consulting Physician Orthopedic Surgery 08/17/23 documented as of this encounter
--- OUTSIDE RECORDS SUMMARY | 2025-05-31 03:19 | XMS_ITS | Encounter Summary ---
Author Organization [facility] Care Team Providers Care Agency Sales Director Name Role Phone Yonathan Vega MD Primary Care Provider [phone] Emy Sampson LPN Unavailable [phone] Alexis Krishna Primary Care Provider [phone] Pedrito Liz MD Unavailable [phone] Brandon Jon DPM Unavailable + [phone] Minnie Jorge RN Unavailable Encounter Details Date Type Department Care Team (Latest Contact Info) Description 03/05/2016 Orders Only [facility] CLINCONV Provider, MD Rosi [address] [place] [id number] Social History Tobacco Use Types Packs/Day Years Used Date Smoking Tobacco: Never Assessed Sex and Gender Information Value Date Recorded Sex Assigned at Not on file Legal Sex Male 6:38 PM BSW Gender Identity Male 05/21/2020 12:59 PM CDT [...] documented as of this encounter Care Teams Agency Sales Director Relationship Specialty Start Date End Date Yonathan Vega MD PCP - General 11/09/18 06/21/22 Alexis Krishna PA PCP - General Family Medicine 06/22/22 Emy Sampson LPN Hide Examiner 05/08/20 05/08/20 Pedrito Liz MD [address] [place] [address] Consulting Physician Pulmonary Disease 08/17/23 Brandon Jon DPM [address] [place] [address] Consulting Physician Orthopedic Surgery 08/17/23 Minnie Jorge, RN [address] [place] [address] [address] [place] [address] Hide Examiner 12/21/24 01/07/25 documented as of this encounter
--- OUTSIDE RECORDS SUMMARY | 2025-05-31 03:19 | XMS_ITS | Encounter Summary ---
Author Organization [facility] Care Team Providers Care Support Specialist Name Role Phone Yonathan Vega MD Primary Care Provider [phone] Emy Sampson LPN Unavailable [phone] Alexis Krishna Primary Care Provider [phone] Pedrito Liz MD Unavailable [phone] Brandon Jon DPM Unavailable + [phone] Minnie Jorge RN Unavailable [phone] Encounter Details Date Type Department Care Team (Latest Contact Info) Description 07/15/2018 Orders Only [facility] Provider, MD Rosi [address] [place] [address] Social History Tobacco Use Types Packs/Day Years Used Date Smoking Tobacco: Never Assessed Sex and Gender Information Value Date Recorded Sex Assigned at Not on file 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 Gender Identity Male 05/21/2020 12:59 PM CDT [...] documented as of this encounter Care Teams Support Specialist Relationship Specialty Start Date End Date Yonathan Vega MD PCP - General 11/09/18 06/21/22 Alexis Krishna PA PCP - General Family Medicine 06/22/22 Emy Sampson LPN Press Feeder [place]roomcorn 05/08/20 05/08/20 Pedrito Liz MD [address] [facility] [address] [place] [address] Consulting Physician Pulmonary Disease 08/17/23 Brandon Jon DPM [address] [facility] [address] [place] [address] Consulting Physician Orthopedic Surgery 08/17/23 Minnie Jorge RN [address] [place] [address] [address] [place] [address] Press Feeder Broomcorn 12/21/24 01/07/25 documented as of this encounter
--- OUTSIDE RECORDS SUMMARY | 2025-05-31 03:19 | XMS_ITS | Encounter Summary ---
Author Organization [facility] Care Team Providers Care Inspector Crystal Name Role Phone Yonathan Vega MD Primary Care Provider [phone] Emy Sampson LPN Unavailable [phone] Alexis Krishna Primary Care Provider [phone] Pedrito Liz MD Unavailable [phone] Brandon Jon DPM Unavailable [phone] Minnie Jorge RN Unavailable Encounter Details Date Type Department Care Team (Latest Contact Info) Description 06/28/2018 Orders Only [facility] CLINCONV Provider, MD Rosi [address] [place] [address] Social History Tobacco Use Types Packs/Day Years Used Date Smoking Tobacco: Never Assessed Sex and Gender Information Value Date Recorded Sex Assigned at Not on file 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 Gender Identity Male 05/21/2020 12:59 PM CDT [...] documented as of this encounter Care Teams Inspector Crystal Relationship Specialty Start Date End Date Yonathan Vega MD PCP - General 11/09/18 06/21/22 Alexis Krishna PA PCP - General Family Medicine 06/22/22 Emy Sampson LPN Supervisor Prop Making 05/08/20 05/08/20 Pedrito Liz MD [address] [facility] [address] [place] [address] Consulting Physician Pulmonary Disease 08/17/23 Brandon Jon DPM [address] [facility] [address] [place] [address] Consulting Physician Orthopedic Surgery 08/17/23 Minnie Jorge, RN [address] [place] [address] [address] [place] [address] Supervisor Prop Making 12/21/24 01/07/25 documented as of this encounter
--- OUTSIDE RECORDS SUMMARY | 2025-05-31 03:19 | XMS_ITS | Encounter Summary ---
Author Organization [facility] Facility Care Team Providers Care Head Swamper Name Role Phone Yonathan Vega MD Primary Care Provider [phone] Emy Sampson LPN Unavailable [phone] Alexis Krishna Primary Care Provider [phone] Pedrito Liz MD Unavailable [phone] Brandon Jon DPM Unavailable [phone] Minnie Jorge RN Unavailable Encounter Details Date Type Department Care Team (Latest Contact Info) Description 08/24/2016 Orders Only [facility] CLINCONV Provider, MD Rosi [address] [place] [address] Social History Tobacco Use Types Packs/Day Years Used Date Smoking Tobacco: Never Assessed Sex and Gender Information Value Date Recorded Sex Assigned at Not on file Legal 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 05/05/2020 05/13/2021 5:00 AM CDT COVID: Suspected 12/17/2024 12/17/2024 12/17/2024 10:13 AM CDT documented as of this encounter Care Teams Head Swamper Relationship Specialty Start Date End Date Yonathan Vega MD PCP - General 11/09/18 06/21/22 Alexis Krishna PA PCP - General Family Medicine 06/22/22 Emy Sampson LPN Solar Electric Installer 05/08/20 05/08/20 Pedrito Liz MD [address] [facility] [address] [place] [address] Consulting Physician Pulmonary Disease 08/17/23 Brandon Jon DPM [address] [facility] [address] [place] [address] Consulting Physician Orthopedic Surgery 08/17/23 Minnie Jorge, RN [address] [place] [address] [address] [place] [address] Solar Electric Installer 12/21/24 01/07/25 documented as of this encounter
--- OUTSIDE RECORDS SUMMARY | 2025-05-31 03:19 | XMS_ITS | Patient Health Record ---
Author Organization [facility] Address [address] [facility] [address] [place] [address] [address] Team Prov[address] Care [address] Scientist Name Role Phone Butch Rai Unavailable [phone] Reason For Referral No Information Plan Of Treatment No Information Insurance Providers Payer Name Payer Address Payer Phone Subscriber Number Group Number Insured Name Patient Relationship to Insured Coverage Start Date Coverage End Date Medicare-I l Medicare [address] [place] [id number] JANE SORENSEN Self - patient is the insured
--- OUTSIDE RECORDS SUMMARY | 2025-05-31 03:19 | XMS_ITS | Clinical Summary ---
Author Organization [facility] Address [address] [place] [place] [address] Care Team Providers Care Claims Service Representative Name Role Phone Yonathan Vega MD Primary Care Provider [phone] Source Comments [facility],non-owned Affiliates and Associated Physician Practices is amultiple site organization consisting of ambulatory clinics and hospital sitesin [place], [place] and [place]. This disclosure is being madepursuant to the Care Everywhere program and may not contain all information available regarding this patient. Last updated 18.[facility] Allergies No known active allergies Medications * [...] of 2) 2000 SCREENING FOR DIABETES 06/25/2018 DEPRESSION SCREENING 09/26/2024 COVID-19 VACCINE (1 - 2023-2 5 season) 2025 INFLUENZA VACCINE (#1) 2025 Respiratory Syncytial Virus [...] complete this topic Insurance MEDICARE Care Teams Claims Service Representative Relationship Specialty Start Date End Date Yonathan Vega MD [address] [facility] [address] [place] [address] PCP - General Family Medicine 12/28/16
--- OUTSIDE RECORDS SUMMARY | 2025-05-31 03:19 | XMS_ITS | Clinical Summary ---
Author Organization [place] [id number] [facility] Address [address] [place] [phone] Care Team Providers Care Child Welfare Assistant Name Role Phone Alexis Krishna Primary Care Provider [phone] Pedrito Liz MD Unavailable [phone] Brandon Jon DPM Unavailable [phone] Allergies Active Allergy Reactions Criticality Noted Date [...] dysfunction 30 tablet 2 08/01/20 23 Active amLODIPine (NORVASC) 5 mg tabletIndications: Essential [...] daily 90 tablet 3 05/01/20 25 Active metOLazone (ZAROXOLYN) 2.5 mg tabletIndications: Acute [...] pain 120 tablet 2 05/20/20 25 Active sulfamethoxazole-t rimethoprim (BACTRIM DS) 800-160 mg per tablet Take 1 tablet by mouth 2 (two) times a day for 10 days 20 tablet 05/28/20 25 025 Active Trulicity 3 mg/0.5 mL pen injectorIndication s:Type 2 DM with CKD stage 3 and hypertension (HCC) Inject 0.5 mL (3 mg total) under the skin once a week 6 mL 3 05/30/20 25 Active Trulicity 3 mg/0.5 mL pen injectorIndication s:Type 2 DM with CKD stage 3 and hypertension (HCC) Inject 0.5 mL (3 mg total) under the skin once a week 6 mL 3 05/22/20 24 025 Discontinu ed(Reorder ) traMADoL (ULTRAM) 50 mg tabletIndications: Primary osteoarthritis of both shoulders Take 1-2 tablets (50-100 mg total) by mouth every 8 (eight) hours as needed for pain 120 tablet 2 02/09/20 25 025 Discontinu ed(Reorder ) mupirocin (BACTROBAN) 2 % ointment Apply topically [...] ule 05/06/20 25 025 Discontinu ed(Reorder ) cephalexin (KEFLEX) 250 mg capsule Take 1 capsule (250 mg total) by mouth 4 (four) times a day for 10 days 40 capsule 05/14/20 25 025 potassium chloride ER (KLOR-CON) 10 mEq CR [...] 11/28/2024 Assessment & Plan (11/28/2024 10:03 AM MED SURG NURSE): Chronic not well controlled with increase stress of caring of severe autistic grandchild they care for. Start lexapro 10mg Renal cyst, left 10/01/2024 Assessment & Plan (10/01/2024 11:46 AM MED SURG NURSE): Chronic and slight worsening with internal septation and calification Refer to urology Avascular necrosis of bone of left hip History of DVT (deep vein thrombosis) 02/16/2024 Hidradenitis axillaris 11/24/2022 Assessment & Plan (11/24/2022 10:58 AM MED SURG NURSE): Currently asymptomatic with no recent exacerbation or abscess will continue to monitor at this point. Gastroesophageal reflux disease without esophagi tis 08/25/2022 Assessment & Plan (03/28/2023 12:30 PM CDT): Chronic stable and well controlled Continue protonix Assessment & Plan (08/25/2022 10:42 AM MED SURG NURSE): Chronic stable and well controlled Continue and [...] 02/01/2022 Assessment & Plan (11/17/2023 10:36 AM MED SURG NURSE): Chronic condition Continue testosterone topical Order testosterone [...] 12/23/2021 Assessment & Plan (11/28/2024 10:19 AM MED SURG NURSE): Chronic uncontrolled, reduce processed carb/starch, exercise as mihir, whole foods Assessment & Plan (02/16/2024 9:57 AM CDT): Chronic uncontrolled, reduce processed carb/starch, exercise as mihir, whole foods Assessment & Plan (03/28/2023 12:44 PM CDT): Chronic uncontrolled, reduce processed carb/starch, exercise as mihir, whole foods Centrilobular emphysema 07/30/2020 Assessment & Plan (12/02/2021 3:11 PM MED SURG NURSE): The patient has Combivent/albuterol that he may [...] Liz. Assessment & Plan (09/03/2020 2:20 PM MED SURG NURSE): I did give the patient a sample of Anoro to try to see if this will help with his breathing. The patient will continue to use his albuterol inhaler as needed 4 times a day for shortness of breath. If the patient does like the Anoro the patient will call back in for prescription. Assessment & Plan (09/03/2020 1:31 PM MED SURG NURSE): Dr. Liz. Albuterol inhaler. Assessment & Plan (08/12/2020 11:31 AM MED SURG NURSE): Start alb hfa rescue inhaler Continue f/u with dr liz Patient unable to tolerate maintenance therapy associated with Assessment & Plan (07/30/2020 2:02 PM MED SURG NURSE): I did give this patient a sample Brextri to try. Nonrheumatic aortic valve stenosis 05/22/2020 Assessment & Plan (03/10/2021 11:32 AM CDT): The echo Doppler 05/07/2020 showed normal ejection fraction. Mild aortic valve stenosis with a peak gradient 22, mean gradient 14, aortic valve area 1.56 centimeter squared. Assessment & Plan (09/02/2020 8:23 AM MED SURG NURSE): The echo Doppler 05/07/2020 showed normal ejection [...] 04/26 Assessment & Plan (11/28/2024 10:01 AM MED SURG NURSE): Chronic stable and A1c at goal Continue with jardiance and trulicity Continue low carb/starch diet Assessment & Plan (10/01/2024 11:52 AM MED SURG NURSE): Chronic stable and A1c at goal Continue with jardiance and trulicity Assessment & Plan (05/22/2024 10:25 AM CDT): Chronic stable and A1c at goal Continue with jardiance and trulicity Assessment & Plan (02/16/2024 9:58 AM CDT): Chronic stable and A1c at goal Continue with jardiance and trulicity Renal function stable Assessment & Plan (11/17/2023 10:35 AM MED SURG NURSE): Chronic stable and A1c at goal Continue with jardiance and trulicity Renal function stable GFR 43 Assessment & Plan (03/28/2023 12:39 PM CDT): Chronic stable and A1c at goal Continue with jardiance and trulicity Increase trulicity 3mg Assessment & Plan (11/24/2022 10:50 AM MED SURG NURSE): chornic worsening with a1c at 7.7 Start [...] quest. Assessment & Plan (11/18/2020 3:41 PM MED SURG NURSE): Chronic stable a1c 7.3% Continue current regimen Assessment & Plan (09/02/2020 8:24 AM MED SURG NURSE): A1c on 05/09/2020 was 7.2. Assessment & Plan (08/12/2020 11:42 AM MED SURG NURSE): Start janumet 50/500 mg every day [id number] [...] 019 Assessment & Plan (08/27/2024 11:46 AM MED SURG NURSE): Chronic worsening with increaese activity Patient requesting [...] CONCERNS/COMPLICATIONS. Assessment & Plan (11/24/2022 10:46 AM MED SURG NURSE): Chronic persistent Continue and refill tramadol Assessment & Plan (08/25/2022 10:40 AM MED SURG NURSE): Chronic persistent Continue and refill tramadol Assessment & Plan (05/26/2022 10:54 AM CDT): Chronic persistent Refill Voltaren gel. Assessment & Plan (12/30/2021 11:59 AM CDT): Chronic condition Stable but persistent symptoms Increase tramadol 120 per month Assessment & Plan (01/31/2020 10:58 AM CDT): Refill tramadol Assessment & Plan (11/01/2019 4:12 PM MED SURG NURSE): RISKS AND BENEFITS OF PROCEDURE WERE EXPLAINED [...] CONCERNS/COMPLICATIONS. Assessment & Plan (08/20/2019 11:46 AM MED SURG NURSE): RISKS AND BENEFITS OF PROCEDURE WERE EXPLAINED [...] level. Assessment & Plan (12/02/2021 3:10 PM MED SURG NURSE): Due to the patient having symptoms, I have increased the Requip to 3 mg nightly. The patient is also taking Neurontin 300 mg as ordered by primary care. Assessment & Plan (03/11/2021 2:09 PM CDT): The patient will continue with Requip 2 mg p.o. at bedtime to treat restless legs syndrome. Essential (primary) hypertension 01/07/2016 Assessment & Plan (11/28/2024 9:58 AM MED SURG NURSE): Chronic stable and well controlled Continue metoprolol and amlodipine Assessment & Plan (10/01/2024 11:53 AM MED SURG NURSE): Chronic stable and well controlled Continue metoprolol [...] hctz. Assessment & Plan (08/25/2022 10:39 AM MED SURG NURSE): Chronic stable and well controlled continuewith metoprolol [...] metoprolol. Assessment & Plan (11/18/2020 3:38 PM MED SURG NURSE): Chronic condition Stable and continue current regimen Assessment & Plan (09/03/2020 1:31 PM MED SURG NURSE): Blood pressure 120/74. Salt restriction. Continue the current regimen. Assessment & Plan (08/12/2020 11:36 AM MED SURG NURSE): Well controlled on current regimen, no rx [...] elevated Assessment & Plan (10/04/2019 10:09 AM MED SURG NURSE): Start metoprolol Start hctz Assessment & Plan (05/21/2019 11:36 AM CDT): Well controlled on current regimen, no rx changes needed. Continue lifestyle modifications Mixed hyperlipidemia 01/07/2016 Assessment & Plan (05/22/2024 10:21 AM CDT): Chronic not at goal Increase crestor 10mg Assessment & Plan (11/17/2023 10:35 AM MED SURG NURSE): Chronic conditon On crestor Order lipid panel LDL at goal less than 70 Assessment & Plan (12/30/2021 11:58 AM CDT): Chronic conditon On crestor Order lipid panel Assessment & Plan (03/10/2021 11:31 AM CDT): Dyslipidemia of diabetes mellitus. Low-fat low-cholesterol diet. Crestor. 11/07/2020 triglycerides 179, LDL 60. Assessment & Plan (11/18/2020 3:42 PM MED SURG NURSE): Well controlled on current regimen, no rx [...] 6 Assessment & Plan (08/25/2022 10:43 AM MED SURG NURSE): Chronic Start viagra DOLORES (obstructive sleep apnea) 01/07/2016 Assessment & Plan (04/03/2025 10:19 AM CDT): Due to ongoing symptoms, the patient will continue CPAP at 10 cm water pressure. Denied need for supplies. DME [facility] Assessment & Plan (03/28/2024 3:01 PM CDT): Patient continue to wear his CPAP at 10 cm water pressure while sleeping. His DME is [facility]. Assessment & Plan (01/05/2023 10:04 [...] advise the patient that he can use Tolleson gel in his nasal passages to help with the dryness. Assessment & Plan (12/02/2021 3:11 PM MED SURG NURSE): The patient will resume CPAP therapy at 10 cm water pressure once his oral cavity heals from having teeth pulled. The patient will continue with positional therapy while healing. Patient received order for full set of supplies and an F 30 mask. DME Pets are family too [facility] Assessment & Plan (03/11/2021 2:08 PM CDT): The patient will continue with CPAP therapy at 10 cm water pressure to treat obstructive sleep apnea. The patient did receive an order for new supplies. DME Pets are family too [facility]. The patient is benefitting from CPAP therapy. Assessment & Plan (05/30/2020 9:16 AM CDT): The patient continues to benefit from CPAP at 10 cm water pressure and he states that he did get a new CPAP unit earlier this year. His AHI is 5.0. He uses [facility] as his DME. Assessment & Plan (02/14/2020 11:33 AM CDT): Compliant with cpap nightly and tolerating well. Recommend that she continue the use of cpap Polyneuropathy, unspecified 01/07/2016 Assessment & Plan (08/27/2024 11:19 PM MED SURG NURSE): Chronic persistent Continue gabapentin Start tramadol prn [...] 02/16/2024 Assessment & Plan (07/30/2020 2:04 PM MED SURG NURSE): The patient states that he would like [...] . Assessment & Plan (09/02/2020 8:21 AM MED SURG NURSE): Renal insufficiency with hyperkalemia 05/06/2020. Dr. Houston follows. Assessment & Plan (05/22/2020 11:33 AM CDT): Renal insufficiency with hyperkalemia 05/06/2020. Dr. Houston follows. Dyspnea 05/12/2020 02/16/2024 Assessment & Plan (03/10/2021 11:34 AM CDT): Negative cardiac workup. No cardiac explanation for the dyspnea. Probably related to the COPD and to the weight. Assessment & Plan (09/03/2020 1:31 PM MED SURG NURSE): The echo showed normal ejection fraction. The [...] discontinued. Assessment & Plan (09/03/2020 1:30 PM MED SURG NURSE): Remote history of DVT and pulmonary embolism. [...] DVT Assessment & Plan (10/04/2019 10:09 AM MED SURG NURSE): Continue xarelto Hyperkalemia 10/04/2019 02/16/2024 Assessment & Plan (03/10/2021 11:35 AM CDT): Nephrology follows. Assessment & Plan (09/02/2020 8:23 AM MED SURG NURSE): Potassium on 05/06/2020 was 6.4. Nephrology following. Assessment & Plan (05/22/2020 11:34 AM CDT): Potassium 6.4 on 05/06/2020. Nephrology following. Assessment & Plan (05/12/2020 11:11 AM CDT): Recheck potassium in 2 weeks. Assessment & Plan (02/14/2020 10:50 AM CDT): Monitor with labs to be taken tomorrow Encounters Date Type Department Care Team Description 05/30/2025 Results Follow-Up [facility] at [address] [place] [phone] Alexis Krishna PA SCAN - RADIOLOGY/IMAGING 05/30/2025 Telephone [facility] at [address] [place] [phone] Alexis Krishna PA 1st No Show Letter sent to patient 05/24/2025 Orders Only [facility] Health Information Management [address] [place] [address] Alexis Krishna PA 05/24/2025 Telephone [facility] at [address] [place] [phone] Alexis Krishna PA Recommendation Request 05/24/2025 Telephone [facility] at [address] [place] [phone] Alexis Krishna PA Appointment Request 05/21/2025 Results Follow-Up [facility] at [address] [place] [address] Alexis Krishna PA Stool DNA - Cologuard 05/20/2025 Telephone [facility] at [address] [place] [address] Alexis Krishna PA Surgical Clearance 05/16/2025 Telephone [facility] Neurosurgery [address] [facility] Medical Office Building [address] [place] [address] Alex Ashby PA 05/14/2025 2:30 PM CDT Office Visit [facility] at [address] [place] [address] Alexis Krishna PA Acute congestive heart failure, unspecified heart failure type (HCC) 05/14/2025 Nurse Triage [facility] at [address] [place] [address] Alexis Krishna PA 05/07/2025 1:15 PM CDT - 05/07/2025 11:59 PM CDT Hospital Encounter [facility] Orthopedic [facility] [address] [address] Spinal stenosis of lumbar region, unspecified whether neurogenic claudication present; Spondylosis with myelopathy Discharge Disposition: Discharge to home or self care 05/07/2025 1:15 PM CDT - 05/07/2025 11:59 PM CDT Hospital Encounter [facility] Orthopedic [facility] [address] [address] Spondylosis with myelopathy Discharge Disposition: Discharge to home or self care 05/07/2025 Orders Only [facility] at [address] [place] [phone] Alexis Krishna PA 05/06/2025 3:55 PM CDT - 05/06/2025 11:59 PM CDT Hospital Encounter [facility] Medical Office Bldg 3 OP Lab [address] [facility] [address] [place] [address] MRSA (methicillin resistant staph aureus) culture positive Discharge Disposition: Discharge to home or self care 05/06/2025 2:30 PM CDT Office Visit [facility] [place] [address] [facility] [address] [place] [address] Alexis Krishna PA MRSA (methicillin resistant staph aureus) culture positive (Primary Dx); Colon cancer screening; Acute congestive heart failure, unspecified heart failure type (HCC) 04/23/2025 12:00 PM CDT Office Visit [facility] [place] [address] [place] [phone] Linda Todd PA Rash (Primary Dx) 04/10/[address] [facility] Accountable Care Organization [address] [place] [phone] Jesenia Morrow 04/03/2025 10:00 AM CDT Office Visit [facility] Medical [facility] Pulmonology [address] [facility] [address] [place] [address] Linda Lewis NP DOLORES (obstructive sleep apnea) (Primary Dx); RLS (restless legs syndrome) 03/26/2025 10:00 AM CDT [facility] [facility] [address] [place] [phone] Alex Ashby PA Spondylosis with myelopathy (Primary Dx); Spinal stenosis of lumbar region, unspecified whether neurogenic claudication present 03/26/2025 9:06 AM CDT - 03/26/2025 11:59 PM CDT Hospital Encounter [facility] [address] [place] [address] [address] [place] [address] Lumbar pain Discharge Disposition: Discharge to home or self care 03/26/2025 [facility]phone [facility] [address] [place] [address] Medical Office Building [address] [place] [phone] Alex Ashby PA 03/25/2025 Orders Only [facility] [address] [facility] [address] [place] [phone] Alex Ashby PA Lumbar pain (Primary Dx) 03/25/2025 Orders Only [facility] at [address] [place] [address] Alexis Krishna PA 03/22/2025 Results Follow-Up [facility] at [address] [place] [address] Alexis Krishna PA XR Knee Left 4 or More Views 03/22/2025 Telephone [facility] Scheduling [address] [place] [address] Katty Gannon 03/20/2025 2:30 PM CDT - 03/20/2025 11:59 PM CDT Hospital Encounter [facility] Diagnostic Imaging [address] [place] [address] Chronic pain of left knee; Neck pain, chronic Discharge Disposition: Discharge to home or self care 03/12/2025 Results Follow-Up [facility] at [address] [place] [address] Lumbar Spine WO Contrast 03/05/2025 9:00 AM CDT Office Visit [facility] Medicine at [address] [place] [address] Alexis Krishna PA History of colon polyps (Primary Dx); Essential (primary) hypertension; Mixed hyperlipidemia; Type 2 DM with CKD stage 3 and hypertension (HCC); Neck pain, chronic; Chronic pain of left knee from Last 3 Months Immunizations Immunization Administration [...] Brother 4 Myles COPD Brother 5 Chong Prsaad No Known Problems Daughter Alcohol abuse Father Philip Prasad Arthritis Father Philip Prasad Gout Father Philip Prasad Heart disease Father Philip Prasad Arthritis Mother Catarina Prasad Cancer Mother Catarina Prasad Diabetes Mother Catarina Prasad Heart disease Mother Catarina Prasad Hypertension Mother Catarina Prasad Depression Sister 3 Emmy Sauer No Known Problems Son Relation Name Status [...] drink = 0.6 oz pur e alcohol) [facility] Utilities Answer Date Recorded In the past 12 months has e [place], gas, oil, or water Pets are family too threatened to shut off services in your [...] any clubs o r organizations such as scientology groups, unions, fraternal or athletic groups, or [...] staff should administer the PHQ-9) 0 05/06/2025 [facility] - Occupational Stress Questionnaire Answer Date Recorded [...] any time in the past 12 m [facility], were you homeless or living in a long-term (including now)? No 12/21/2024 AUDIT-C Answer Date [...] on file Legal Sex Male 6:38 PM MED SURG NURSE Gender Identity Male 05/21/2020 12:59 PM CDT [...] 10/16/1995 Zoster Vaccine (1 of 2) 06/06/2006 Colon Cancer Screening-Colonoscopy 11/17/2024 11/17/2021, 11/13/2021, 03/08/2016 Covid-19 Vaccine (2024-2 6 season) 2025 06/16/2023, 09/05/2022, 01/13/2022, Additional history exists Influenza Vaccine (#1) 2025 , 06/16/2023, 06/16/2023, [...] 11/17/2021, 03/08/2016 Medical Devices Implanted Type Area Coining Press Operator Device Identifier Shelf Expiration Date Model / Serial / Lot Quentin Other - see comments N/A: Back Procedures Procedure Name Priority Date/Time Associated Diagnosis Comments XR WRIST LEFT 3 OR MORE VIEWS Schedule Routine, Read Routine (OP Routine) 05/28/2025 8:42 AM CDT SCAN - RADIOLOGY/IMAGING 05/24/2025 STOOL DNA COLOGUARD Routine 05/15/2025 1:00 PM [...] left knee DIABETIC EYE EXAM Routine 03/19/2025 COMPREHENSIVE METABOLIC PANEL Routine 02/21/2025 7:13 AM CDT Persistent atrial fibrillation (HCC) Essential (primary) hypertension Type 2 DM with CKD stage 3 and hypertension (HCC) HEMOGLOBIN A1C Routine 02/21/2025 7:13 AM CDT Type 2 DM with CKD stage 3 and hypertension (HCC) LIPID PANEL Routine 02/21/2025 7:13 AM CDT Persistent atrial fibrillation (HCC) Essential (primary) hypertension Type 2 DM with CKD stage 3 and hypertension (HCC) ALBUMIN CREATININE RATIO, URINE Routine 11/14/2024 8:09 AM MED SURG NURSE Type 2 DM with CKD stage 3 and hypertension (HCC) PSA SCREEN Routine 06/20/2023 8:22 AM CDT Prostate cancer screening COLONOSCOPY Routine 11/17/2021 HEPATITIS C ANTIBODY Routine 09/05/2019 8:47 AM MED SURG NURSE Need for hepatitis C screening test from Last 3 Months or Most Recently Relevant to Health Maintenance Results * XR Wrist Left 3 or More Views (05/28/2025 8:42 AM CDT) Anatomical Region Laterality Modality Upper Extremities, Wrist Left Radiogr aphic Imaging Historical Provider IMLashae XR PROCEDURES Final R esult * SCAN - RADIOLOGY/IMAGING (05/24/2025) Anatomical Region Laterality Modality Other Alexis CHEEK Edited Result - Final * (ABNORMAL) Stool DNA - Cologuard (05/15/2025 1:00 PM CDT) Stool DNA - Cologuard Positive( A) Negative [facility] (CLIA #:[id number]) Comment: The Cologuard (TM) test was performed [...] (Azam Shankar al, N Engl J Med 2014;370(14):6573-0060.) Cologuard may produce a false negative or false positive result (no colorectal cancer or precancerous polyp present at colonoscopy follow up). A negative Cologuard test result does not guarantee the absence of CRC or advanced adenoma (pre-cancer). The current Cologuard screening interval is every 3 years. ([employer] and U.S. Multi-Society Task Force). Cologuard performance data in a 10,000 patient pivotal study using colonoscopy as the reference method can be accessed at the following location: www.[employer]results. Additional description of the Cologuard test process, warnings and precautions can be found at [email or web address] [email or web address]. Stool 05/15/2025 1:00 PM CDT 05/16/2025 12:39 PM CDT us Alexis CHEEK LAB BODY FLUIDS AND STOOLS CRESENCIO RUIZ Final Result [email or web address] (CLIA #:[id number]) [address] [place] [address] * MRI Lumbar Spine WO Contrast (05/07/2025 [...] Severe spinal canal stenosis. Moderate left and srte-qq-ttwblizk right neural foraminal stenosis L2-3: Disc bulge. [...] 9:29 AM - Electronically signed by Sander Mcarthur M.D. MZ T: Report ID: [id number] Reading Location: [id number] Procedure Note Sander Mcarthur MD - 05/08/2025 [...] size and signal intensity. Conus at the [id number]. LOWER THORACIC: Incompletely imaged. No stenosis seen. [...] thickening. Severe spinal canalstenosis. Moderate left and sfqu-wx-yciwrivg right neural foraminal stenosis L2-3: Disc bulge. [...] 9:29 AM - Electronically signed by Sander Mcarthur M.D. MZ T: Report ID: [id number] Reading Location: [place] [address] us Alex CHEEK IMG MRI PROCEDURES Fin [...] Hamilton Arce M.D. MM T: Report ID: [id number] Reading Location: [id number] Procedure Note Hamilton Arce MD - 05/08/2025 [...] Hamilton Arce M.D. MM T: Report ID: [id number] Reading Location: [id number] us Alex CHEEK IMG MRI PROCEDURES Fin al Result * MSSA/MRSA (Staphylococcus aureus) Culture Nasal (05/06/2025 3:42 PM CDT) Report Final Report: Negative Comment:Testing performed by : [facility], [address] [facility] [place]., [address] Nasal 05/06/2025 3:42 PM CDT 05/06/2025 8:31 PM CDT Narrative LILIBETH - 05/08/2025 5:06 PM CDT Testing performed by [facility] Laboratory ([phone]). us Alexis CHEEK LAB MICROBIOLOGY - GENERAL CRESENCIO RUIZ Final Result LILIBETH [address] [facility] Department [place] [address] * Diabetic Eye Exam (04/30/2025) us Historical Provider [facility] Final Result * XR Scoliosis 6 or [...] it. Electronically signed by: Du Farah M.D. us Alex CHEEK IMG XR PROCEDURES Sasha l Result [...] Mild anterolisthesis of C4-C6. Mild C3-C5 and nioz-cj-czcquars C5-C6 degenerative disc disease. Severe bilateral mid cervical facet osteoarthritis. Right-sided C5-C6 and left-sided C3-C6 foraminal impingement. Left knee: No acute fracture. Alignment is normal. Severe medial predominant left knee osteoarthritis. Small knee effusion. Mild soft tissue swelling. IMPRESSION: 1. Mild C3-C5 and ssoq-lo-nnthhbje C5-C6 degenerative disc disease with severe bilateral mid cervical facet osteoarthritis. 2. Right-sided C5-C6 and left-sided C3-C6 foraminal impingement. 3. Severe medial predominant left knee osteoarthritis with a small effusion. THIS IS AN ELECTRONICALLY VERIFIED FINAL REPORT 03/21/2025 10:36 PM - Electronically signed by Jaya Akins M.D. T: Report ID: [id number] Reading Location: [id number] Procedure Note Jaya Akins MD - 03/21/2025 [...] Mild anterolisthesis of C4-C6. Mild C3-C5 and ktig-ja-uyinndfg C5-C6 degenerative disc disease. Severe bilateral mid cervical facet osteoarthritis. Right-sided C5-C6 and left-sided C3-C6 foraminal impingement. Left knee: No acute fracture. Alignment is normal. Severe medial predominant leftknee osteoarthritis. Small knee effusion. Mild soft tissue swelling. IMPRESSION: 1. Mild C3-C5 and fwdn-yh-fwafewqh C5-C6 degenerative disc disease with severe bilateral mid cervical facet osteoarthritis. 2. Right-sided C5-C6 and left-sided C3-C6 foraminal impingement. 3. Severe medial predominant left knee osteoarthritis with a smalleffusion. THIS IS AN ELECTRONICALLY VERIFIED FINAL REPORT 03/21/2025 10:36 PM - Electronically signed by Jaya Akins M.D. T: Report ID: [id number] Reading Location: [id number] Alexis ANDRES XR PROCEDURES Final Result * XR Spine [...] Mild anterolisthesis of C4-C6. Mild C3-C5 and pgnt-bv-fkxsnzwu C5-C6 degenerative disc disease. Severe bilateral mid cervical facet osteoarthritis. Right-sided C5-C6 and left-sided C3-C6 foraminal impingement. Left knee: No acute fracture. Alignment is normal. Severe medial predominant left knee osteoarthritis. Small knee effusion. Mild soft tissue swelling. IMPRESSION: 1. Mild C3-C5 and iyxt-yg-pjvawzyz C5-C6 degenerative disc disease with severe bilateral mid cervical facet osteoarthritis. 2. Right-sided C5-C6 and left-sided C3-C6 foraminal impingement. 3. Severe medial predominant left knee osteoarthritis with a small effusion. THIS IS AN ELECTRONICALLY VERIFIED FINAL REPORT 03/21/2025 10:36 PM - Electronically signed by Jaya Akins M.D. T: Report ID: [id number] Reading Location: [place] [address] Procedure Note Jaya Akins MD - 03/21/2025 [...] Mild anterolisthesis of C4-C6. Mild C3-C5 and rjin-ab-lhipptpd C5-C6 degenerative disc disease. Severe bilateral mid cervical facet osteoarthritis. Right-sided C5-C6 and left-sided C3-C6 foraminal impingement. Left knee: No acute fracture. Alignment is normal. Severe medial predominant leftknee osteoarthritis. Small knee effusion. Mild soft tissue swelling. IMPRESSION: 1. Mild C3-C5 and bfhj-ld-mxkzebtw C5-C6 degenerative disc disease with severe bilateral mid cervical facet osteoarthritis. 2. Right-sided C5-C6 and left-sided C3-C6 foraminal impingement. 3. Severe medial predominant left knee osteoarthritis with a smalleffusion. THIS IS AN ELECTRONICALLY VERIFIED FINAL REPORT 03/21/2025 10:36 PM - Electronically signed by Jaya Akins M.D. T: Report ID: [id number] Reading Location: [place] [address] Alexis CHEEK IMG XR PROCEDURES Final Result * Diabetic Eye Exam (03/19/2025) Historical Provider HEALTH MAINTENANCE Final Result * (ABNORMAL) Hemoglobin A1c (02/21/2025 7:13 AM CDT) Hgb A1C 6.4(H) <5.7 % of total Hgb [facility] Comment: For someone without known diabetes, a [...] CHEEK LAB BLOOD ORDERABLES Final Resu lt [facility] [address] [place] [address] * Lipid panel (02/21/2025 7:13 AM CDT) Cholesterol 124 <200 mg/dL [facility] HDL 46 > OR = 40 mg/dL [facility] Triglycerides 126 <150 mg/dL [facility] LDL 57 mg/dL (calc) [facility] Comment: Reference range: <100 Desirable range <100 mg/dL for primary prevention; <70 mg/dL for patients with CHD or diabetic patients with > or = 2 CHD risk factors. LDL-C is now calculated using the Reid calculation, which is a validated novel method providing better accuracy than the Friedewald equation in the estimation of LDL-C. Brendan DIEHL et al. NOHEMY. 2013;310(19): 3541-2485 (http://education.Regen/faq/WNL043) Chol/HDL ratio 2.7 <5.0 (calc) [facility] Non-HDL, (LDL+VLDL) 78 <130 mg/dL (calc) [facility] Comment: For patients with diabetes plus 1 major ASCVD risk factor, treating to a non-HDL-C goal of <100 mg/dL (LDL-C of <70 mg/dL) is considered a therapeutic option. Blood 02/21/2025 7:13 AM CDT 02/21/2025 7:13 AM CDT Narrative [facility] - 02/22/2025 8:20 AM CDT FASTING:YES FASTING: YES us Alexis CHEEK LAB BLOOD ORDERABLES Final Resu lt [facility] [address] [place] [address] * (ABNORMAL) Comprehensive metabolic panel (02/21/2025 7:13 AM CDT) Glucose 105(H) 65 - 99 mg/dL [facility] Comment: Fasting reference interval For someone without known diabetes, a glucose value between 100 and 125 mg/dL is consistent with prediabetes and should be confirmed with a follow-up test. BUN 26(H) 7 - 25 mg/dL [facility] Creatinine 1.85(H) 0.70 - 1.28 mg/dL [facility] eGFR 38(L) > OR = 60 mL/min/1.7 3m2 [facility] BUN/creat ratio 14 6 - 22 (calc) [facility] Sodium 140 135 - 146 mmol/L [facility] Potassium, pl 3.8 3.5 - 5.3 mmol/L [facility] Chloride 101 98 - 110 mmol/L [facility] CO2 28 20 - 32 mmol/L [facility] Calcium 9.7 8.6 - 10.3 mg/dL [facility] [employer] Protein, sr 6.8 6.1 - 8.1 g/dL [facility] Albumin 4.0 3.6 - 5.1 g/dL [facility] GLOBULIN 2.8 1.9 - 3.7 g/dL (calc) [facility] Alb/glob ratio 1.4 1.0 - 2.5 (calc) [facility] [facility] Bilirubin, total 0.8 0.2 - 1.2 mg/dL [facility] Alk phos 94 35 - 144 U/L [facility] AST 30 10 - 35 U/L [facility] ALT (SGPT) 22 9 - 46 U/L [facility] Blood 02/21/2025 7:13 AM CDT 02/21/2025 7:13 AM CDT Narrative [facility] - 02/22/2025 8:20 AM CDT FASTING:YES FASTING: YES us Alexis CHEEK LAB BLOOD ORDERABLES Final Resu lt [facility] [address] [place] [address] * (ABNORMAL) Albumin Creatinine Ratio, Urine (11/14/2024 8:09 AM MED SURG NURSE) Creatinine, ur 152 20 - 320 mg/dL [facility] Microalbumin, ur 32.6 See Note: mg/dL [facility] Comment: Reference Range: Reference Range Not established Results verified by repeat analysis on dilution. Microalbumin/creat ratio 214(H) <30 mg/g creat [facility] Comment: The ADA defines abnormalities in albumin excretion as follows: Albuminuria Category Result (mg/g creatinine) Normal to Mildly increased <30 Moderately increased 30-299 Severely increased > OR = 300 The ADA recommends that at least two of three specimens collected within a 3-6 month period be abnormal before considering a patient to be within a diagnostic category. Urine 11/14/2024 8:09 AM MED SURG NURSE 11/14/2024 8:10 AM MED SURG NURSE Narrative [facility] - 11/21/2024 5:03 PM MED SURG NURSE FASTING:YES FASTING: YES Alexis CHEEK LAB URINE ORDERABLES Final Resu lt Performing Organization Address [facility] Co de Phone Number [facility] [address] [place] [address] * PSA screen (06/20/2023 8:22 AM CDT) Pathologist [facility] PSA 1.45 < OR = 4.00 ng/mL [facility] Comment: The total PSA value from this assay system is standardized against the WHO standard. The test result will be approximately 20% lower when compared to the equimolar-standardized total PSA (Keo Demetris). Comparison of serial PSA results should be interpreted with this fact in mind. This test was performed using the Siemens chemiluminescent method. Values obtained from different assay methods cannot be used interchangeably. PSA levels, regardless of value, should not be interpreted as absolute evidence of the presence or absence of disease. Blood 06/20/2023 8:22 AM CDT 06/20/2023 8:23 AM CDT us Alexis CHEEK LAB BLOOD ORDERABLES Final Resu lt Performing Organization Address [facility] Co de Phone Number [facility] [address] [place] [address] * Colonoscopy (11/17/2021) Anatomical Region Laterality Modality Other [facility] Provider MD ENDOSCOPY PROCEDURES Edit ed Result - Final * Hepatitis C antibody (09/05/2019 8:47 AM MED SURG NURSE) Hep C Ab NON-REACT RICO NON-REACT RICO [facility] [place] SIGNAL TO CUT-OFF 0.01 <1.00 [facility] [place] Comment: HCV antibody was non-reactive. There is no laboratory evidence of HCV infection. In most cases, no further action is required. However, if recent HCV exposure is suspected, a test for HCV RNA (test code 72601) is suggested. For additional information please refer to http://education.Treehouse/faq/XNI13f8 (This link is being provided for informational/ educational purposes only.) Blood specimen (specimen) 09/05/2019 8:47 AM MED SURG NURSE 09/05/2019 8:48 AM MED SURG NURSE Narrative [facility] - 09/06/2019 10:20 AM MED SURG NURSE FASTING:YES FASTING: YES Resulting Agency Comment Performing Organization Information: Site ID: [id number] Name: Jewel Jones Address: [address] [place] [address] LEANDRO [place] [address] Director: Jonathon Llanes D.O., MPH Alexis [facility] LAB MICROBIOLOGY - GENERAL CRESNECIO RUIZ Final Result [facility] Ramos from Last 3 Months or Most Recently Relevant to Health Maintenance Insurance [employer] [facility] [place] [address] FOR LIFE [facility] [place] [address] FOR LIFE [employer] MEDICARE ADVANTAGE Advance Directives For more information, please contact: [phone] Documents on File Type Date Recorded Patient Doper Expl anation ADVANCE DIRECTIVE 12/18/2024 11:17 AM Peter r of Director Of Accounts Receivable-Medical * Full Code (Latest Code Status on File) Date Activated Date Inactivated Comments 12/17/2024 12:51 PM 12/20/2024 8:31 PM Care Teams Child Welfare Assistant Relationship Specialty Start Date End Date Alexis Krishna PA PCP - General Family Medicine 06/22/22 Pedrito Liz MD [address] [facility] [address] [place] [address] Consulting Physician Pulmonary Disease 08/17/23 Brandon Jon DPM [address] [facility] [address] [place] [address] Consulting Physician Orthopedic Surgery 08/17/23
--- OUTSIDE RECORDS SUMMARY | 2025-05-31 03:19 | XMS_ITS | Encounter Summary ---
Author Organization [facility] Address [address] [place] [address] Care Team Providers Care Systems Software Specialist Name Role Phone Alexis Krishna Primary Care Provider [phone] Pedrito Liz MD Unavailable [phone] Brandon Jon DPEan Unavailable + [phone] Reason for Referral * Consultation (Urgent) - Authorized Specialty Diagnoses / Procedures Referred By Contac t Referred To Contact Orthopedic Surgery Diagnoses Closed nondisplaced fracture of styloid process of left ulna, initial encounter Other closed intra-articular fracture of distal end of left radius, initial encounter Alexis Krishna PA [address] [place] [address] [address] [place] [address] Phone: tel: fax: Rima Gutierrez MD [address] [place] [address] [address] [place] [address] Phone: tel: fax: Referral ID Status Reason Start Date Expiration Date Visits Requested Visits Authorized [id number] Authorized Specialty Services Required 05/29/2025 06/28/2026 1 1 Question Answer Please select the performing region: [facility] [[id number]] Please select the performing department: [facility] [[id number]] To Provider NOTE: we will do our best to honor your provider preference, but scheduling the patient in a timely manner in our clinic will take precedence. RIMA GUTIERREZ [[id number]] # of visits: 1 Reason for Visit * Reason Onset Date Comments Recommendation Request 05/24/2025 Encounter Details Date Type Department Care Team (Late st Contact Info) Description 05/24/2025 Telephone [facility] Family Medicine at [address] [place] [address] Alexis Krishna PA [address] [place] [address] [address] [place] [address] Recommendation Request Social History Tobacco Use Types Packs/Day Years Used Date Smoking Tobacco: Never Smokeless Tobacco: Never Alcohol Use Standard Drinks/Week Comments Never 0 (1 standard drink = 0.6 oz pur e alcohol) [facility] Utilities Answer Date Recorded In the past 12 months has e [employer], gas, oil, or water [employer] threatened to shut off services in your [...] week 12/21/2024 How often do you attend [facility] or quaker services? 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 Please see how quickly Dr. Gutierrez only can see patient. * Telephone Encounter - Alexis Krishna PA - 05/28/2025 9:45 PM CDT [facility] * Telephone Encounter - Lore Ayoub - 05/24/2025 2:36 PM CDT Recommendation Request Note: This request is for a specialty recommendation, not an insurance referral. Specialty: Orthopedist Why does the patient want to go to this specialist? Patient was seen in [facility] for a fall yesterday. He has a broken left wrist and would like a recommendation to see Ortho. Additional Comments/Concerns: none Does message need to be routed? Yes-Action Needed documented in this encounter Plan of Treatment Scheduled Referrals Name Type Priority Associated Diagnoses Orde r Schedule Ambulatory referral to Orthopedic Hand Outpatient Referral Urgent Closed nondisplaced fracture of styloid process of left ulna, initial encounter Other closed intra-articular fracture of distal end of left radius, initial encounter Expected: 05/29/2025 (Approximate), Expires: 05/29/2026 documented as of this encounter Procedures Procedure Name Priority Date/Time Associated Diagnosis Comments XR WRIST LEFT 3 OR MORE VIEWS Schedule Routine, Read Routine (OP Routine) 05/28/2025 8:42 AM CDT documented in this encounter Results * XR Wrist Left 3 or More Views (05/28/2025 8:42 AM CDT) Anatomical Region Laterality Modality Upper Extremities, Wrist Left Radiogr aphic Imaging us Historical Provider IMLashae XR PROCEDURES Final R esult documented in this encounter Visit Diagnoses Diagnosis Closed nondisplaced fracture of styloid process of left ulna, initial encounter- Primary Other closed intra-articular fracture of distal end of left radius, initial encounter documented in this encounter Care Teams Systems Software Specialist Relationship Specialty Start Date End Date Alexis Krishna PA PCP - General Family Medicine 06/22/22 Pedrito Liz MD [address] [facility] [address] [place] [address] Consulting Physician Pulmonary Disease 08/17/23 Brandon Jon DPM [address] [facility] [address] [place] [address] Consulting Physician Orthopedic Surgery 08/17/23 documented as of this encounter
--- NOTE | 2025-05-31 05:53 | ECG_ITS ---
Test Date: 2025-05-31 10:58:27 Measurements Intervals [place] Rate: 56 P: 0 AL: 0 QRS: -9 QRSD: 125 T: 70 QT: 465 QTc: 450 Interpretive Statements ATRIAL FIBRILLATION WITH SLOW VENTRICULAR RESPONSE INFERIOR MYOCARDIAL INFARCTION , PROBABLY OLD [40+ ms Q WAVE AND/OR ST/T ABNORMALITY IN II/aVF] No previous ECG available for comparison Electronically Signed On 05-31-2025 12:43:15 CDT by Yared Fitch M.D.
[2025-05-31 10:52] LABS: INR 1.4; Prothrombin Time 17.0 Seconds (11.1-14.7)
[2025-05-31 10:53] LABS: Partial Thromboplastin Time 44.3 Seconds (22.3-36.8)
[2025-05-31 10:58] LABS: Anion Gap 9 mmol/L (4-12); Blood Urea Nitrogen 38 mg/dL (9-20); Calcium 9.4 mg/dL (8.4-10.2); Carbon Dioxide 29 mmol/L (22-30); Chloride 98 mmol/L (98-107); Estimated CRCL calculation 32 ml/min; Estimated Glomerular Filt Rate 30; Glucose 109 mg/dL (65-110); Potassium 3.0 mmol/L (3.4-5.0); Sodium 136 mmol/L (137-145)
[2025-05-31] MEDS: ACETAMINOPHEN 500 MG TABLET 1000 MG PO (11:16)
[2025-05-31] MEDS: KETOROLAC 15 MG/ML VIAL (*BKC) IV PUSH (11:16)
--- NOTE | 2025-05-31 11:59 | WPDANESEPPF ---
Anes - Initial Pre Proc Eval Procedure: Operation Date: 05/31/25 12:00 Proposed Procedures p Open Reduction Internal Fixation Left Wrist Fracture - Manny Moreno MD Date/Time: 05/31/25 11:59 Surgeon: Manny Moreno MD Pre Op Diagnosis: Left Wrist Fx Patient Data Age: 74 Gender: M Height: 1.7 m Weight: 118.2 kg Last Vital Signs Temp 98.4 F 05/31/25 11:12 Pulse 64 05/31/25 11:12 BP 120/61 05/31/25 11:12 Pulse Ox 94 05/31/25 11:12 O2 Del Method Room Air 05/31/25 11:12 Allergies Allergy/AdvReac Type Severity Reaction Status Date / Time lisinopril AdvReac Unknown HYPERKALCEM Verified 05/31/25 09:50 IA olmesartan AdvReac HYPERKALCEM Verified 05/31/25 09:50 IA Home Medications ?Medication ?Instructions ?Recorded ?Confirmed ?Type acetaminophen 500 mg tablet 1,000 mg (2 x 500 mg) PO TID PRN 05/24/25 05/30/25 Rx pain 7 days #42 tabs tramadol 50 mg tablet 50 mg PO Q6H PRN pain #10 tabs 05/24/25 05/30/25 Rx albuterol sulfate 90 mcg/actuation 2 puff inhalation Q6-8H PRN 05/30/25 05/30/25 History aerosol inhaler shortness of breath or wheezing allopurinol 300 mg tablet 300 mg PO DAILY 05/30/25 05/30/25 History amlodipine 5 mg tablet 5 mg PO QAM 05/30/25 05/31/25 History apixaban 5 mg tablet (Eliquis) 5 mg PO BID 05/30/25 05/30/25 History diclofenac sodium 1 % topical gel 2.25 inch topical QID PRN pain 05/30/25 05/30/25 History dulaglutide 3 mg/0.5 mL 3 mg subcut WEEKLY 05/30/25 05/30/25 History subcutaneous pen injector (Trulicity) empagliflozin 25 mg tablet 25 mg PO DAILY 05/30/25 05/30/25 History (Jardiance) escitalopram oxalate 10 mg tablet 10 mg PO QAM 05/30/25 05/31/25 History furosemide 40 mg tablet 40 mg PO QAM 05/30/25 05/30/25 History gabapentin 300 mg capsule 600 mg PO HS 05/30/25 05/30/25 History ibuprofen 200 mg tablet (IBU-200) 400 mg PO Q6H PRN pain 05/30/25 05/30/25 History magnesium oxide 400 mg (241.3 mg 400 mg PO DAILY 05/30/25 05/30/25 History magnesium) tablet metoprolol tartrate 50 mg tablet 12.5 mg PO Q12H 05/30/25 05/31/25 History multivitamin (Daily Multi-Vitamin 1 tablet PO DAILY 05/30/25 05/30/25 History tablet) pantoprazole 20 mg tablet,delayed 20 mg PO DAILY 05/30/25 05/30/25 History release ropinirole 2 mg tablet 2 mg PO HS 05/30/25 05/30/25 History rosuvastatin 20 mg tablet 20 mg PO HS 05/30/25 05/30/25 History sodium bicarbonate 650 mg tablet 650 mg PO DAILY 05/30/25 05/30/25 History sulfamethoxazole 800 1 tablet PO BID 05/30/25 05/30/25 History mg-trimethoprim 160 mg tablet tadalafil 20 mg tablet (Cialis) 20 mg PO ONCE PRN sexual activity 05/30/25 05/30/25 History Laboratory Tests 05/31/25 10:23 PT 17.0 H Seconds (11.1-14.7) INR 1.4 APTT 44.3 H Seconds (22.3-36.8) Sodium 136 L mmol/L (137-145) Potassium 3.0 L mmol/L (3.4-5.0) Chloride 98 mmol/L (98-107) Carbon Dioxide 29 mmol/L (22-30) Anion Gap 9 mmol/L (4-12) BUN 38 H mg/dL (9-20) Creatinine 2.19 H mg/dL (0.7-1.3) Estim Creat Clear Calc 32 ml/min Estimated GFR 30 L (59 - ) Glucose 109 mg/dL (65-110) Calcium 9.4 mg/dL (8.4-10.2) Patient hx anesthesia problems: none Family hx anesthesia problems: none Results Review: All pre-operative results and documents have been reviewed as part of the pre-operative evaluation. [facility] Past Medical History Medical History (System 05/29/25 @ 14:33 by Marcella Villanueva) Fracture of left distal radius Social History Social History (System 05/29/25 @ 14:33 by Marcella Villanueva) Smoking status: Never smoker Living arrangements: with family Additional living arrangements comments: Spiritual care concerns: No Anes - Eval Final PreProcedure Day of Procedure 05/31/25 11:59 Patient weight: morbidly obese Heart: regular rate and rhythm Lungs: clear to auscultation Airway: Mallampati scale class II Neurological: alert and oriented Last oral intake: >/= 8 hours ASA classification: IV Emergent: no Anesthetic plan: proceed Anesthesia type and monitoring: general LMA and standard monitoring Results Review: All pre-operative results and documents have been reviewed as part of the pre-operative evaluation. Informed Consent: The patient's anesthetic plan and its attendant risks and benefits were discussed with the patient/family/POA. Questions were solicited and answers provided to the satisfaction of the patient/family/POA.
--- NOTE | 2025-05-31 12:04 | WPDHPUPDATE1 ---
History and Physical Update Update Date/Time: 05/31/25 12:04 History and Physical has been reviewed, including an updated exam of the patient. There are NO changes in the patient's condition. Risks, benefits, and alternatives have been discussed and questions answered. Patient agrees to proceed with procedure.
[2025-05-31] MEDS: ceFAZolin 2 GM in SODIUM CHLORIDE 0.9% IV 50 ML 100 ML IVPB (12:11)
[2025-05-31] MEDS: TRANEXAMIC ACID 1,000 MG/10 ML AMPUL 1000 MG IV PUSH (12:40)
[2025-05-31] MEDS: LACTATED RINGERS 1,000 ML 30 ML IV CONT ×2 (13:35)
--- NOTE | 2025-05-31 13:42 | P.OP_ITS ---
Procedure Note - Detailed Date of Procedure 05/31/25 Pre-op Diagnosis Left Wrist Fx Post-op Diagnosis Same (Left comminuted intra-articular distal radius fracture with multiple fragments) Procedure Performed Open reduction internal fixation left distal radius intra-articular comminuted fracture with fixation 6 fragments. Surgeon Manny Moreno MD Thread Tool Grinder Set Up Operator 1st resident care assistant Anesthesia General Indications 74-year-old who fell on his left hand and sustained a distal radius fracture with comminution and displacement. Who presents for operative treatment. Findings Comminuted fracture with intra-articular extension distal radius with 5 f ragments. Description of Procedure After informed consent the operative extremity was marked in the preoperative holding area. Patient received intravenous antibiotics. Patient taken to the operating room where they underwent general anesthesia. Positioned supine on operating table. Time-out performed confirming the patient, patient's site of logan rgery and the plan. Left upper extremity prepped and draped in the usual sterile surgical fashion using a ChloraPrep skin solution. Hand and wrist exsanguinated and arm tourniquet inflated to 225 mmHg. Standard volar flexor carpi radialis incision utilized. Fifteen blade knife used to make longitudinal incision. Flexor carpi radialis tendon identified tendon sheath incised in line with skin incision. Tendon retracted to protect the neurovascular elements. Floor of the tendon sheath incised with a 15 blade knife. Flexor pollicis retracted medial. pronator quadratus then divided off the watershed line and reflected ulnarward to expose the distal radius and the fracture. Combination the fracture was noted with multiple fragments. These were mobilized. Fracture was then reduced and provisionally pinned. Image intensification confirm reduction. Fixation achieved with the distal radius volar plate. This was provisionally pinned into place and confirmed with image intensification. Fixation to the proximal fragment with a 3.5 mm screw. Distal fracture fixation achieved with 2.0 mm locking pegs for the multiple fragments which were greater than 5 and 2.0 mm fully threaded locking screws for the radial styloid. Fixation was then completed proximally with the remaining 3.5 mm screws. Final reduction of the fracture, alignment of the wrist joint and placement of the hardware verified with image intensification. Wound thoroughly irrigated with antibiotic solution. Pronator repaired with 3 0 Monocryl interrupted suture. Skin closed with interrupted subcutaneous 000 Monocryl interrupted suture and running 4-0 nylon stitch. Local anesthetic with 0.5% Marcaine. Sterile dressing applied. Padded dressing and splint then applied. Tourniquet released and good capillary refill noted in the fingers and thumb. Patient awoke from anesthesia, extubated and taken to the recovery room in stable condition. All sponge and instrument counts correct at the end of case. Estimated Blood Loss 10 Tourniquet Time Total Tourniquet Time: 55 Drains No Packing No Pathology None sent Complications None Condition Stable Disposition PACU [facility] Billing Surgery - Charge Forward: Surgery Billing ([id number])
[2025-05-31] MEDS: fentaNYL CITRATE INJ (*CRX) 100 MCG/2 ML VIAL 25 MCG IV PUSH ×4 (14:05→14:25)
[2025-05-31] MEDS: oxyCODONE HCL (*CRX) 5 MG TAB IR PO (15:35)
== END 2025-05-31 16:35 | disposition home or self-care (01) ==
PROVIDERS: Anesthesiology; PCP Physician Assistant Medical; Visit Provider Orthopaedic Surgery
PROC: (CPT 25575; principal; 2025-05-31 12:00)
DX: S52.572A Other intraarticular fracture of lower end of left radius, initial encounter for closed fracture (principal); W19.XXXA Unspecified fall, initial encounter; Z79.01 Long term (current) use of anticoagulants; Z79.85 Long-term (current) use of injectable non-insulin antidiabetic drugs; Z79.84 Long term (current) use of oral hypoglycemic drugs; E66.01 Morbid (severe) obesity due to excess calories; Z68.41 Body mass index [BMI] 40.0-44.9, adult
CPT/HCPCS: 25609; 36415; 80048; 82948; 85610; 85730; 93005; 99199; J0690; A9270; C1713; J1596; J1885; J2003; J2405; J2704; J3010; J7120

== ENCOUNTER 2025-06-03 17:36 | Inpatient (IN) | payer MEDICARE, OTHER, SELFPAY ==
[2025-06-03] VITALS (12 sets, daily range): BP systolic 100–120; BP diastolic 48–97; PULSE 68–86; RESP 16–23; TEMP 37.7–38; O2SAT 84–100; BMI 41.8
--- NOTE | ~2025-06-03 | CT_ITS ---
EXAMINATION: CT brain wo con DATE: 06/03/2025 20:48 INDICATION: Status post fall. Trauma. TECHNIQUE: Computed tomography (CT) of the head was performed without intravenous contrast. The dose-length product was 605.33 mGy-cm. Automated exposure control and iterative reconstruction technique were employed. COMPARISON: CT dated 05/24/2025 FINDINGS: Brain parenchymal volume is normal for age. No acute infarction, hemorrhage, mass or mass effect. No ventriculomegaly or midline shift. Basilar cisterns are patent. There is intracranial atherosclerosis. There is a mucous retention cyst of the right maxillary sinus. Mastoids are pneumatized. No depressed skull fractures. IMPRESSION: 1. No acute intracranial abnormality. Reviewed, dictated and finalized at location O.
--- NOTE | ~2025-06-03 | XR_ITS ---
XR chest 1V portable 06/03/2025 18:16 Indication: Shortness of breath Procedure: AP portable chest Comparison: No prior studies for comparison. Findings: Cardiomegaly with mild interstitial edema. No significant effusion. No pneumothorax. No acute osseous abnormality. Impression: 1: Cardiomegaly with mild interstitial edema. Reviewed, dictated and finalized at location O. Impression: 1: Cardiomegaly with mild interstitial edema.
--- NOTE | ~2025-06-03 | US_ITS ---
EXAMINATION: US renal BI DATE: 06/04/2025 13:35 INDICATION: Acute on chronic kidney disease TECHNIQUE: Multiple ultrasound grayscale images of the kidneys were obtained. COMPARISON: Chest CT dated 06/03/2025 FINDINGS: The right kidney measures 12.8 x 6.5 x 5.6 cm. The left kidney measures 13.2 x 6.0 x 4.7 cm. The kidneys demonstrate normal echogenicity. There are bilateral anechoic renal cysts the largest on the right measuring 5.2 cm in maximal diameter. The largest cystic lesion at the upper pole the right kidney measures 10.1 cm with internal septation and portion which appears thickened to 3 mm. Which appears to correspond to a central calcification within the lesion seen on prior CT. There is no hydronephrosis in either kidney. No stones identified. The bladder is normal. IMPRESSION: 1. Bilateral simple appearing anechoic renal cysts as well as a 10.1 cm Bosniak 2F exophytic cystic lesion at the upper pole the left kidney which six-month follow-up pre and postcontrast MRI or CT would be recommended. Reviewed, dictated and finalized at location A. IMPRESSION: 1. Bilateral simple appearing anechoic renal cysts as well as a 10.1 cm [place] k 2F exophytic cystic lesion at the upper pole the left kidney which six-month follow-up pre and postcontrast MRI or CT would be recommended.
--- NOTE | ~2025-06-03 | CT_ITS ---
EXAMINATION: CTA chest PE protocol DATE: 06/03/2025 20:53 CDT INDICATION: Shortness of breath. Lower extremity edema. TECHNIQUE: Computed tomographic angiography (CTA) of the chest was performed with 100 mL Omnipaque-350 intravenous contrast. The dose-length product was 973.67 mGy-cm. Maximum intensity projection 3D-reconstructions of the aorta and other arteries were constructed by the technologist on a separate workstation. COMPARISON: None. FINDINGS: Study limited due to contrast bolus timing. No large central pulmonary embolism. Evaluation of the peripheral pulmonary arteries significantly limited. Borderline heart size. No significant pleural or pericardial effusion. The left kidney is incompletely visualized, although appears to be a focal cyst. Recommend correlation with ultrasound on a nonemergent basis. There are patchy bilateral groundglass opacities associated with interlobular septal thickening. There is small right pleural effusion. There is diffuse idiopathic skeletal hyperostosis (DISH) of the thoracic spine. No acute osseous abnormality. IMPRESSION: 1. No large central pulmonary embolism. Peripheral emboli cannot be excluded due to technical limitations. 2: Patchy groundglass opacities and interlobular septal thickening. Differential includes pulmonary edema, atypical/viral pneumonia and early interstitial lung disease. 3: Small right pleural effusion. 4: Probable left renal cyst. Recommend correlation with renal ultrasound for characterization on a nonemergent basis. Reviewed, dictated and finalized at location O. IMPRESSION: 1. No large central pulmonary embolism. Peripheral emboli cannot be excluded du e to technical limitations. 2: Patchy groundglass opacities and interlobular septal thickening. Differenti al includes pulmonary edema, atypical/viral pneumonia and early interstitial herlinda ng disease. 3: Small right pleural effusion. 4: Probable left renal cyst. Recommend correlation with renal ultrasound for ch aracterization on a nonemergent basis.
--- NOTE | ~2025-06-03 | XR_ITS ---
XR wrist LT min 3V 06/06/2025 13:24 Indication: Fracture of the distal aspect of the radius Procedure: 3 views left wrist Comparison: 05/24/2025 Findings: There is a comminuted intra-articular fracture distal aspect of the radius with displacement. There is persistent displacement of the ulnar aspect of the radius posteriorly. There is an ulnar styloid avulsion fracture. Status post internal fixation with sideplate and screws. Impression: 1: Comminuted intra-articular fracture distal aspect of the radius with persistent displacement of the largest fracture fragment dorsally. Side plate and screws are present transfixing the radial styloid and distal radius. Reviewed, dictated and finalized at location O. Impression: 1: Comminuted intra-articular fracture distal aspect of the radius with persist ent displacement of the largest fracture fragment dorsally. Side plate and scre ws are present transfixing the radial styloid and distal radius.
--- NOTE | ~2025-06-03 | XR_ITS ---
EXAMINATION: XR chest 1V portable 06/05/2025 16:57 INDICATION: CHF and shortness of breath TECHNIQUE:A single portable AP upright frontal image of the chest was obtained. COMPARISON: 06/03/2025 FINDINGS: Heart is enlarged, unchanged. No pneumothorax. No pleural effusion. No free air under the diaphragm. Moderate-sized Intersitial and Airspace opacities scattered throughout both lungs similar to the study from 06/03/2025. IMPRESSION: 1: Moderate-sized interstitial and airspace opacities scattered throughout both lungs similar to the study from 06/03/2025. Differential includes but is not limited to edema or pneumonia. Recommend follow-up to resolution. Reviewed, dictated and finalized at location Q. IMPRESSION: 1: Moderate-sized interstitial and airspace opacities scattered throughout bot h lungs similar to the study from 06/03/2025. Differential includes but is not li mited to edema or pneumonia. Recommend follow-up to resolution.
--- NOTE | 2025-06-03 17:49 | ECG_ITS ---
Test Date: 2025-06-03 18:00:23 Measurements Intervals [place] Rate: 74 P: 0 GA: 0 QRS: 13 QRSD: 117 T: 94 QT: 379 QTc: 422 Interpretive Statements ATRIAL FIBRILLATION MODERATE INTRAVENTRICULAR CONDUCTION DELAY [110+ ms QRS DURATION] NONSPECIFIC T-WAVE ABNORMALITY ABNORMAL ECG Compared to ECG 05/31/2025 10:58:27 I NO SIGNIFICANT CHANGE Electronically Signed On 06-05-2025 15:23:28 CDT by Jaya Strickland M.D.
[2025-06-03 19:12] LABS: Hematocrit 33.6 % (42.0-52.0); Hemoglobin 10.5 g/dL (14.0-18.0); Immature Granulocyte Percent A 0.4 % (0-0.5); Lymphocytes Absolute Auto 1.24 K/mm3 (0.9-3.2); Mean Corpuscular HGB Conc 31.3 g/dl (32-36); Mean Corpuscular Hemoglobin 27.6 pg (26-34); Mean Corpuscular Volume 88.4 fl (80-100); Nucleated Red Blood Cells Absolute Auto 0.000 K/mm3 (0.0-0.012); Nucleated Red Blood Cells Perc 0.0 % (0.0-0.2); Platelet Count Result 236 k/mm3 (150-375); Red Blood Count 3.80 M/mm3 (4.6-6.20); White Blood Count 12.3 K/mm3 (4.5-10.0)
--- NOTE | 2025-06-03 19:17 | PC.NURSE ---
Report given to Windy PICKARD, all questions answered
[2025-06-03 19:28] LABS: Alanine Aminotransferase 26 U/L (6-50); Albumin Level 3.7 g/dL (3.5-5.1); Alkaline Phosphatase 97 U/L (38-126); Anion Gap 10 mmol/L (4-12); Aspartate Amino Transferase 56 U/L (17-59); Bilirubin,Total 0.8 mg/dL (0.2-1.3); Blood Urea Nitrogen 51 mg/dL (9-20); Calcium 8.8 mg/dL (8.4-10.2); Carbon Dioxide 26 mmol/L (22-30); Chloride 98 mmol/L (98-107); Estimated CRCL calculation 25 ml/min; Estimated Glomerular Filt Rate 21; Glucose 117 mg/dL (65-110); Lipase 33 U/L (23-300); Magnesium 2.2 mg/dL (1.6-2.3); Potassium 3.7 mmol/L (3.4-5.0); Sodium 134 mmol/L (137-145); Total Protein 7.0 g/dL (6.3-8.2)
--- OUTSIDE RECORDS SUMMARY | 2025-06-03 19:28 | XMS_ITS | Encounter Summary ---
Author Organization [facility] Healthcare Address [address] [place] [address] Care Team Providers Care Wet Wheeler Name Role Phone Pedrito Liz MD Unavailable [phone] Brandon Jon DPM Unavailable [phone] Alexis Krishna Primary Care Provider [phone] Reason for Referral * Consultation (Urgent) - Authorized Specialty Diagnoses / Procedures Referred By Contac t Referred To Contact Orthopedic Surgery Diagnoses Closed nondisplaced fracture of styloid process of left ulna, initial encounter Other closed intra-articular fracture of distal end of left radius, initial encounter Alexis Krishna PA [address] [place] [address] [address] [place] [address] Phone: tel: fax: Rima Gutierrez MD [address] [place] [address] DR [address] [place] [address] Phone: tel: fax: Referral ID Status Reason Start Date Expiration Date Visits Requested Visits Authorized [id number] Authorized Specialty Services Required 05/29/2025 06/28/2026 1 1 Question Answer Please select the performing region: [facility] [[id number]] Please select the performing department: [facility] [[id number]] To Provider NOTE: we will do our best to honor your provider preference, but scheduling the patient in a timely manner in our clinic will take precedence. RIMA GUTIERREZ [[id number]] # of visits: 1 Reason for Visit * Reason Onset Date Comments Recommendation Request 05/24/2025 Encounter Details Date Type Department Care Team (Late st Contact Info) Description 05/24/2025 Telephone [facility] Family Medicine at [address] [place] [address] Alexis Krishna PA [address] [place] [address] [address] [place] [address] Recommendation Request Social History Tobacco Use Types Packs/Day Years Used Date Smoking Tobacco: Never Smokeless Tobacco: Never Alcohol Use Standard Drinks/Week Comments Never 0 (1 standard drink = 0.6 oz pur e alcohol) [facility] Utilities Answer Date Recorded In the past 12 months has e [employer], gas, oil, or water [employer] threatened to shut off services in your [...] week 12/21/2024 How often do you attend [facility] or muslim services? 1 to 4 times per year 12/21/2024 Do you belong to any clubs o r organizations such as yarsani groups, unions, fraternal or athletic groups, or [...] staff should administer the PHQ-9) 0 05/06/2025 [facility] - Occupational Stress Questionnaire Answer Date [...] any time in the past 12 m [facility], were you homeless or living in a residential (including now)? No 12/21/2024 AUDIT-C Answer Date [...] on file Legal Sex Male 6:38 PM [employer] Gender Identity Male 05/21/2020 12:59 PM CDT Sexual Orientation Straight 05/21/2020 12 :59 PM CDT documented as of this encounter Miscellaneous Notes * Telephone Encounter - Madai Shine - 06/03/2025 8:35 AM CDT LVM for Ortho to call back about patient. * Telephone Encounter - Madai Shine - 05/31/2025 12:38 PM CDT LVM on new patient scheduling line for Ortho to call back. * Telephone Encounter - Madai Shine - 05/29/2025 12:27 PM CDT Spoke with Ortho and referral was sent to Provider for review * Telephone Encounter - Rut Do RN - 05/29/2025 11:28 AM CDT Referral placed. Please see how quickly Dr. Gutierrez only can see patient. * Telephone Encounter - Alexis Krishna PA - 05/28/2025 9:45 PM CDT Refere to dr bella ornelas hand * Telephone Encounter - Lore Ayoub - 05/24/2025 2:36 PM CDT Recommendation Request Note: This request is for a specialty recommendation, not an insurance referral. Specialty: Orthopedist Why does the patient want to go to this specialist? Patient was seen in [facility] for a fall yesterday. He has [...] Left Radiogr aphic Imaging us Historical Provider MD ANDRES XR PROCEDURES Final R esult documented in this encounter Visit Diagnoses Diagnosis Closed nondisplaced fracture of styloid process of left ulna, initial encounter- Primary Other closed intra-articular fracture of distal end of left radius, initial encounter documented in this encounter Care Teams Wet Wheeler Relationship Specialty Start Date End Date Alexis Krishna PA [address] [facility] [place] [address] PCP - General Family Medicine 06/03/25 Pedrito Liz MD [address] [facility] [address] [place] [id number] Consulting Physician Pulmonary Disease 08/17/23 Brandon Jon DPM [address] [facility] [address] [place] [id number] Consulting Physician Orthopedic Surgery 08/17/23 documented as of this encounter
--- OUTSIDE RECORDS SUMMARY | 2025-06-03 19:28 | XMS_ITS | Clinical Summary ---
Author Organization [place] [id number] Address [address] [place] [id number] Care Team Providers Care Foreclosure Specialist Name Role Phone Pedrito Liz MD Unavailable [phone] Brandon Jon DPM Unavailable [phone] Alexis Krishna Primary Care Provider [phone] Allergies Active Allergy Reactions Criticality Noted Date [...] dysfunction 30 tablet 2 08/01/20 23 Active gabapentin (NEURONTIN) 300 mg capsuleIndications :Polyneuropathy, [...] breath 3 each 1 12/25/19 25 Active cyclobenzaprine (FLEXERIL) 5 mg tablet Take [...] week 6 mL 3 05/30/20 25 Active amLODIPine (NORVASC) 5 mg tabletIndications: Essential (primary) hypertension Take 1 tablet (5 mg total) by mouth daily 90 tablet 3 06/03/20 25 Active metoprolol tartrate (LOPRESSOR) 25 mg immediate release tabletIndications: Atrial Arrhythmia Take 0.5 tablets (12.5 mg total) by mouth 2 (two) times a day 90 tablet 3 06/03/20 25 Active rosuvastatin (CRESTOR) 20 mg tablet Take 1 tablet (20 mg total) by mouth nightly 90 tablet 3 06/03/20 25 Active Trulicity 3 mg/0.5 mL pen injectorIndication s:Type 2 DM with CKD stage 3 and hypertension (HCC) Inject 0.5 mL (3 mg total) under the skin once a week 6 mL 3 05/22/20 24 025 Discontinu ed(Reorder ) amLODIPine (NORVASC) 5 mg tabletIndications: Essential (primary) hypertension Take 1 tablet (5 mg total) by mouth daily 90 tablet 3 05/22/20 24 025 Discontinu ed(Reorder ) rosuvastatin (CRESTOR) 20 mg tablet Take 1 tablet (20 mg total) by mouth nightly 90 tablet 3 07/09/20 24 025 Discontinu ed(Reorder ) metoprolol tartrate (LOPRESSOR) 25 mg immediate release tabletIndications: Atrial Arrhythmia Take 0.5 tablets (12.5 mg total) by mouth 2 (two) times a day 025 Discontinu ed(Reorder ) traMADoL (ULTRAM) 50 [...] pneumonia 12/17/2024 Acute respiratory failure with hypoxia 5 Bradycardia with 41-50 beats per minute 12/18/19 25 Mild episode of recurrent major depressive disor roosevelt 11/28/2024 Assessment & Plan (11/28/2024 10:03 AM EQUIPMENT MONITOR PHOTOTYPESETTING): Chronic not well controlled with increase stress of caring of severe autistic grandchild they care for. Start lexapro 10mg Renal cyst, left 10/01/2024 Assessment & Plan (10/01/2024 11:46 AM EQUIPMENT MONITOR PHOTOTYPESETTING): Chronic and slight worsening with internal septation and calification Refer to urology Avascular necrosis of bone of left hip 5 History of DVT (deep vein thrombosis) 02/16/2024 Hidradenitis axillaris 11/24/2022 Assessment & Plan (11/24/2022 10:58 AM EQUIPMENT MONITOR PHOTOTYPESETTING): Currently asymptomatic with no recent exacerbation or abscess will continue to monitor at this point. Gastroesophageal reflux disease without esophagi tis 08/25/2022 Assessment & Plan (03/28/2023 12:30 PM CDT): Chronic stable and well controlled Continue protonix Assessment & Plan (08/25/2022 10:42 AM EQUIPMENT MONITOR PHOTOTYPESETTING): Chronic stable and well controlled Continue and refill pantroprazole. Primary osteoarthritis of left shoulder 05/26/20 22 Assessment & Plan (05/26/2022 10:54 AM CDT): [...] 02/01/2022 Assessment & Plan (11/17/2023 10:36 AM EQUIPMENT MONITOR PHOTOTYPESETTING): Chronic condition Continue testosterone topical Order testosterone [...] 12/23/2021 Assessment & Plan (11/28/2024 10:19 AM EQUIPMENT MONITOR PHOTOTYPESETTING): Chronic uncontrolled, reduce processed carb/starch, exercise as mihir, whole foods Assessment & Plan (02/16/2024 9:57 AM CDT): Chronic uncontrolled, reduce processed carb/starch, exercise as mihir, whole foods Assessment & Plan (03/28/2023 12:44 PM CDT): Chronic uncontrolled, reduce processed carb/starch, exercise as mihir, whole foods Centrilobular emphysema 07/30/2020 Assessment & Plan (12/02/2021 3:11 PM EQUIPMENT MONITOR PHOTOTYPESETTING): The patient has Combivent/albuterol that he may [...] Liz. Assessment & Plan (09/03/2020 2:20 PM EQUIPMENT MONITOR PHOTOTYPESETTING): I did give the patient a sample of Anoro to try to see if this will help with his breathing. The patient will continue to use his albuterol inhaler as needed 4 times a day for shortness of breath. If the patient does like the Anoro the patient will call back in for prescription. Assessment & Plan (09/03/2020 1:31 PM EQUIPMENT MONITOR PHOTOTYPESETTING): Dr. Liz. Albuterol inhaler. Assessment & Plan (08/12/2020 11:31 AM EQUIPMENT MONITOR PHOTOTYPESETTING): Start alb hfa rescue inhaler Continue f/u with dr liz Patient unable to tolerate maintenance therapy associated with Assessment & Plan (07/30/2020 2:02 PM EQUIPMENT MONITOR PHOTOTYPESETTING): I did give this patient a sample Brextri to try. Nonrheumatic aortic valve stenosis 05/22/2020 Assessment & Plan (03/10/2021 11:32 AM CDT): The echo Doppler 05/07/2020 showed normal ejection fraction. Mild aortic valve stenosis with a peak gradient 22, mean gradient 14, aortic valve area 1.56 centimeter squared. Assessment & Plan (09/02/2020 8:23 AM EQUIPMENT MONITOR PHOTOTYPESETTING): The echo Doppler 05/07/2020 showed normal ejection [...] 04/26 Assessment & Plan (11/28/2024 10:01 AM EQUIPMENT MONITOR PHOTOTYPESETTING): Chronic stable and A1c at goal Continue with jardiance and trulicity Continue low carb/starch diet Assessment & Plan (10/01/2024 11:52 AM EQUIPMENT MONITOR PHOTOTYPESETTING): Chronic stable and A1c at goal Continue with jardiance and trulicity Assessment & Plan (05/22/2024 10:25 AM CDT): Chronic stable and A1c at goal Continue with jardiance and trulicity Assessment & Plan (02/16/2024 9:58 AM CDT): Chronic stable and A1c at goal Continue with jardiance and trulicity Renal function stable Assessment & Plan (11/17/2023 10:35 AM EQUIPMENT MONITOR PHOTOTYPESETTING): Chronic stable and A1c at goal Continue with jardiance and trulicity Renal function stable GFR 43 Assessment & Plan (03/28/2023 12:39 PM CDT): Chronic stable and A1c at goal Continue with jardiance and trulicity Increase trulicity 3mg Assessment & Plan (11/24/2022 10:50 AM EQUIPMENT MONITOR PHOTOTYPESETTING): chornic worsening with a1c at 7.7 Start riasa Repeat a1c in 3 mo Assessment & [...] quest. Assessment & Plan (11/18/2020 3:41 PM EQUIPMENT MONITOR PHOTOTYPESETTING): Chronic stable a1c 7.3% Continue current regimen Assessment & Plan (09/02/2020 8:24 AM EQUIPMENT MONITOR PHOTOTYPESETTING): A1c on 05/09/2020 was 7.2. Assessment & Plan (08/12/2020 11:42 AM EQUIPMENT MONITOR PHOTOTYPESETTING): Start janumet 50/500 mg every day hgba1c [...] 019 Assessment & Plan (08/27/2024 11:46 AM EQUIPMENT MONITOR PHOTOTYPESETTING): Chronic worsening with increaese activity Patient requesting [...] CONCERNS/COMPLICATIONS. Assessment & Plan (11/24/2022 10:46 AM EQUIPMENT MONITOR PHOTOTYPESETTING): Chronic persistent Continue and refill tramadol Assessment & Plan (08/25/2022 10:40 AM EQUIPMENT MONITOR PHOTOTYPESETTING): Chronic persistent Continue and refill tramadol Assessment & Plan (05/26/2022 10:54 AM CDT): Chronic persistent Refill Voltaren gel. Assessment & Plan (12/30/2021 11:59 AM CDT): Chronic condition Stable but persistent symptoms Increase tramadol 120 per month Assessment & Plan (01/31/2020 10:58 AM CDT): Refill tramadol Assessment & Plan (11/01/2019 4:12 PM EQUIPMENT MONITOR PHOTOTYPESETTING): RISKS AND BENEFITS OF PROCEDURE WERE EXPLAINED [...] CONCERNS/COMPLICATIONS. Assessment & Plan (08/20/2019 11:46 AM EQUIPMENT MONITOR PHOTOTYPESETTING): RISKS AND BENEFITS OF PROCEDURE WERE EXPLAINED [...] level. Assessment & Plan (12/02/2021 3:10 PM EQUIPMENT MONITOR PHOTOTYPESETTING): Due to the patient having symptoms, I have increased the Requip to 3 mg nightly. The patient is also taking Neurontin 300 mg as ordered by primary care. Assessment & Plan (03/11/2021 2:09 PM CDT): The patient will continue with Requip 2 mg p.o. at bedtime to treat restless legs syndrome. Essential (primary) hypertension 01/07/2016 Assessment & Plan (11/28/2024 9:58 AM EQUIPMENT MONITOR PHOTOTYPESETTING): Chronic stable and well controlled Continue metoprolol and amlodipine Assessment & Plan (10/01/2024 11:53 AM EQUIPMENT MONITOR PHOTOTYPESETTING): Chronic stable and well controlled Continue metoprolol [...] hctz. Assessment & Plan (08/25/2022 10:39 AM EQUIPMENT MONITOR PHOTOTYPESETTING): Chronic stable and well controlled continuewith metoprolol [...] metoprolol. Assessment & Plan (11/18/2020 3:38 PM EQUIPMENT MONITOR PHOTOTYPESETTING): Chronic condition Stable and continue current regimen Assessment & Plan (09/03/2020 1:31 PM EQUIPMENT MONITOR PHOTOTYPESETTING): Blood pressure 120/74. Salt restriction. Continue the current regimen. Assessment & Plan (08/12/2020 11:36 AM EQUIPMENT MONITOR PHOTOTYPESETTING): Well controlled on current regimen, no rx [...] elevated Assessment & Plan (10/04/2019 10:09 AM EQUIPMENT MONITOR PHOTOTYPESETTING): Start metoprolol Start hctz Assessment & Plan (05/21/2019 11:36 AM CDT): Well controlled on current regimen, no rx changes needed. Continue lifestyle modifications Mixed hyperlipidemia 01/07/2016 Assessment & Plan (05/22/2024 10:21 AM CDT): Chronic not at goal Increase crestor 10mg Assessment & Plan (11/17/2023 10:35 AM EQUIPMENT MONITOR PHOTOTYPESETTING): Chronic conditon On crestor Order lipid panel LDL at goal less than 70 Assessment & Plan (12/30/2021 11:58 AM CDT): Chronic conditon On crestor Order lipid panel Assessment & Plan (03/10/2021 11:31 AM CDT): Dyslipidemia of diabetes mellitus. Low-fat low-cholesterol diet. Crestor. 11/07/2020 triglycerides 179, LDL 60. Assessment & Plan (11/18/2020 3:42 PM EQUIPMENT MONITOR PHOTOTYPESETTING): Well controlled on current regimen, no rx [...] 6 Assessment & Plan (08/25/2022 10:43 AM EQUIPMENT MONITOR PHOTOTYPESETTING): Chronic Start viagra DOLORES (obstructive sleep apnea) 01/07/2016 Assessment & Plan (04/03/2025 10:19 AM CDT): Due to ongoing symptoms, the patient will continue CPAP at 10 cm water pressure. Denied need for supplies. DME [facility] patient Assessment & Plan (03/28/2024 3:01 PM CDT): Patient continue to wear his CPAP at 10 cm water pressure while sleeping. His DME is [facility]. Assessment & Plan (01/05/2023 10:04 [...] advise the patient that he can use [employer] gel in his nasal passages to help with the dryness. Assessment & Plan (12/02/2021 3:11 PM EQUIPMENT MONITOR PHOTOTYPESETTING): The patient will resume CPAP therapy at 10 cm water pressure once his oral cavity heals from having teeth pulled. The patient will continue with positional therapy while healing. Patient received order for full set of supplies and an F 30 mask. DME company [facility] Assessment & Plan (03/11/2021 2:08 PM CDT): The patient will continue with CPAP therapy at 10 cm water pressure to treat obstructive sleep apnea. The patient did receive an order for new supplies. DME company [facility]. The patient is benefitting from CPAP therapy. Assessment & Plan (05/30/2020 9:16 AM CDT): The patient continues to benefit from CPAP at 10 cm water pressure and he states that he did get a new CPAP unit earlier this year. His AHI is 5.0. He uses [facility] as his DME. Assessment & Plan (02/14/2020 11:33 AM CDT): Compliant with cpap nightly and tolerating well. Recommend that she continue the use of cpap Polyneuropathy, unspecified 01/07/2016 Assessment & Plan (08/27/2024 11:19 PM EQUIPMENT MONITOR PHOTOTYPESETTING): Chronic persistent Continue gabapentin Start tramadol prn Order b1 b6 b12 iron panel tsh Resolved Problems Problem Noted Date Diagnosed Date Resolved Date H. pylori infection 02/01/2022 02/16/20 Assessment & Plan (02/01/2022 10:42 AM CDT): Advised to contact gi who completed egd and discuss pathology and treatment. Morbid (severe) obesity due to excess calories 12/23/2021 02/16/2024 Assessment & Plan (03/28/2023 12:44 PM CDT): Chronic uncontrolled, reduce processed carb/starch, exercise as mihir, whole foods Dysphasia 07/30/2020 02/16/2024 Assessment & Plan (07/30/2020 2:04 PM EQUIPMENT MONITOR PHOTOTYPESETTING): The patient states that he would like [...] . Assessment & Plan (09/02/2020 8:21 AM EQUIPMENT MONITOR PHOTOTYPESETTING): Renal insufficiency with hyperkalemia 05/06/2020. Dr. Houston follows. Assessment & Plan (05/22/2020 11:33 AM CDT): Renal insufficiency with hyperkalemia 05/06/2020. Dr. Houston follows. Dyspnea 05/12/2020 02/16/2024 Assessment & Plan (03/10/2021 11:34 AM CDT): Negative cardiac workup. No cardiac explanation for the dyspnea. Probably related to the COPD and to the weight. Assessment & Plan (09/03/2020 1:31 PM EQUIPMENT MONITOR PHOTOTYPESETTING): The echo showed normal ejection fraction. The [...] discontinued. Assessment & Plan (09/03/2020 1:30 PM EQUIPMENT MONITOR PHOTOTYPESETTING): Remote history of DVT and pulmonary embolism. [...] DVT Assessment & Plan (10/04/2019 10:09 AM EQUIPMENT MONITOR PHOTOTYPESETTING): Continue xarelto Hyperkalemia 10/04/2019 02/16/2024 Assessment & Plan (03/10/2021 11:35 AM CDT): Nephrology follows. Assessment & Plan (09/02/2020 8:23 AM EQUIPMENT MONITOR PHOTOTYPESETTING): Potassium on 05/06/2020 was 6.4. Nephrology following. Assessment & Plan (05/22/2020 11:34 AM CDT): Potassium 6.4 on 05/06/2020. Nephrology following. Assessment & Plan (05/12/2020 11:11 AM CDT): Recheck potassium in 2 weeks. Assessment & Plan (02/14/2020 10:50 AM CDT): Monitor with labs to be taken tomorrow Encounters Date Type Department Care Team Description 06/03/2025 Telephone [facility] Pulmonology [address] [place] [address] Pedrito iLz MD 05/30/2025 Results Follow-Up [facility] Family Medicine at [place] [id number] [place] [address] Alexis Krishna PA SCAN - RADIOLOGY/IMAGING 05/30/2025 Telephone [facility] Family Medicine at [address] [place] [address] Alexis Krishna PA 1st No Show Letter sent to patient 05/24/2025 Orders Only [facility] [place] Information Management [address] [place] [address] Alexis Krishna PA 05/24/2025 Telephone [facility] Family Medicine at [address] [place] [address] Alexis Krishna PA Recommendation Request 05/24/2025 Telephone [facility] Medicine at [address] [place] [address] Alexis Krishna PA Appointment Request 05/21/2025 Results Follow-Up [facility] Medicine at [address] [place] [address] Alexis Krishna PA Stool DNA - Cologuard 05/20/2025 Telephone [facility] Medicine at [address] [place] [address] Alexis Krishna PA Surgical Clearance 05/16/2025 Telephone [facility] Neurosurgery [address] [facility] Medical Office Building [address] [place] [phone] Alex Ashby PA 05/14/2025 2:30 PM CDT Office Visit [facility] Family Medicine at [address] [place] [address] Alexis Krishna PA Acute congestive heart failure, unspecified heart failure type (HCC) 05/14/2025 Nurse Triage [facility] Family Medicine at [address] [place] [address] Alexis Krishna PA 05/07/2025 1:15 PM CDT - 05/07/2025 11:59 PM CDT Hospital Encounter [facility] MRI [address] [place] [address] Spinal stenosis of lumbar region, unspecified whether neurogenic claudication present; Spondylosis with myelopathy Discharge Disposition: Discharge to home or self care 05/07/2025 1:15 PM CDT - 05/07/2025 11:59 PM CDT Hospital Encounter [facility] Neuroscience Center MRI [address] [place] [address] Spondylosis with myelopathy Discharge Disposition: Discharge to home or self care 05/07/2025 Orders Only [facility] Family Medicine at [address] [place] [address] Alexis Krishna PA 05/06/2025 3:55 PM CDT - 05/06/2025 11:59 PM CDT Hospital Encounter [facility] Medical Office Bldg [address] OP Lab [address] [place] [address] MRSA (methicillin resistant staph aureus) culture positive Discharge Disposition: Discharge to home or self care 05/06/2025 2:30 PM CDT Office Visit [facility] Family Medicine at [address] [place] [address] Alexis Krishna PA MRSA (methicillin resistant staph aureus) culture positive (Primary Dx); Colon cancer screening; Acute congestive heart failure, unspecified heart failure type (HCC) 04/23/2025 12:00 PM CDT Office Visit [facility] Con[facility]ient Care at [address] [address] Linda Todd PA Rash (Primary Dx) 04/10/2025 ACO Quality [facility] Accountable Care Organization [address] [place] [address] Jesenia Morrow 04/03/2025 10:00 AM CDT Office Visit [facility] Pulmonology [address] [place] [address] Linda Lewis NP DOLORES (obstructive sleep apnea) (Primary Dx); RLS (restless legs syndrome) 03/26/2025 10:00 AM CDT Office Visit [facility] Medicine Neurosurgery [address] [facility] Office [facility] [address] [place] [address] Alex Ashby PA Spondylosis with myelopathy (Primary Dx); Spinal stenosis of lumbar region, unspecified whether neurogenic claudication present 03/26/2025 9:06 AM CDT - 03/26/2025 11:59 PM CDT Hospital Encounter [facility] [address] [place] [address] [address] [place] [phone] Lumbar pain Discharge Disposition: Discharge to home or self care 03/26/2025 Telephone [facility] Medicine Neurosurgery [address] [place] [address] [address] [place] [phone] Alex Ashby PA 03/25/2025 Orders Only [facility] Medicine Neurosurgery [address] [place] [address] [address] [place] [address] Alex Ashby PA Lumbar pain (Primary Dx) 03/25/2025 Orders Only [facility] Family Medicine at [address] [place] [phone] Alexis Krishna PA 03/22/2025 Results Follow-Up [facility] Family Medicine at [address] [place] [address] Alexis Krishna PA XR Knee Left 4 or More Views 03/22/2025 Telephone [facility] Medicine Scheduling [address] [place] [address] Katty Gannon 03/20/2025 2:30 PM CDT - 03/20/2025 11:59 PM CDT Hospital Encounter [facility] Diagnostic Imaging [address] [place] [address] Chronic pain of left knee; Neck pain, chronic Discharge Disposition: Discharge to home or self care 03/12/2025 Results Follow-Up [facility] Family Medicine at [address] [place] [address] Lumbar Spine WO Contrast 03/05/2025 9:00 AM CDT Office Visit [facility] Family Medicine at [address] [place] [address] Alexis Krishna PA History of colon polyps [...] EXTRACTION Medical History Medical History Date Comments DOLORSE (obstructive sleep apnea) Hypertension Hyperlipidemia ED (erectile [...] Mother Catarina Prasad Depression Sister 3 Emmy Royaler No Known Problems Son Relation Name Status Comments Brother 1 Brother 2 Brother 3 Brother 4 Myles Brother 5 Chong Prasad Alive Daughter Alive Father Philip Prasad Mother Catarina Prasad Sister 1 Sister 2 Sister 3 mEmy Rayigler Alive Son Alive Social History Tobacco Use Types Packs/Day Years Used Date Smoking Tobacco: Never Smokeless Tobacco: Never Tobacco Cessation:Counseling Given: Not Answered Alcohol Use Standard Drinks/Week Comments Never 0 (1 standard drink = 0.6 oz pur e alcohol) [facility] Utilities Answer Date Recorded In the past 12 months has [facility] [employer], oil, or water [employer] threatened to shut off services in your [...] often do you attend chur ch or restorationism services? 1 to 4 times per year 12/21/2024 Do you belong to any clubs o r organizations such as zoroastrianism groups, unions, fraternal or athletic groups, or [...] staff should administer the PHQ-9) 0 05/06/2025 [facility] - Occupational Stress [...] any time in the past 12 m [facility], were you homeless or living in a care home (including now)? No 12/21/2024 AUDIT-C Answer [...] on file Legal Sex Male 6:38 PM EQUIPMENT MONITOR PHOTOTYPESETTING Gender Identity Male 05/21/2020 12:59 PM CDT [...] Screening-Colonoscopy 11/17/2024 11/17/2021, 11/13/2021, 03/08/2016 Covid-19 Vaccine (7 - 2024-2 6 season) 2025 06/16/2023, 09/05/2022, 01/13/2022, Additional [...] 11/17/2021, 03/08/2016 Medical Devices Implanted Type Area Resource Economist Device Identifier Shelf Expiration Date Model / [...] CREATININE RATIO, URINE Routine 11/14/2024 8:09 AM EQUIPMENT MONITOR PHOTOTYPESETTING Type 2 DM with CKD stage 3 and hypertension (HCC) PSA SCREEN Routine 06/20/2023 8:22 AM CDT Prostate cancer screening COLONOSCOPY Routine 11/17/2021 HEPATITIS C ANTIBODY Routine 09/05/2019 8:47 AM EQUIPMENT MONITOR PHOTOTYPESETTING Need for hepatitis C screening test from [...] Stool DNA - Cologuard Positive( A) Negative [employer] (CLIA #:[id number]) Comment: The Cologuard (TM) test was performed [...] (Azam Shankar al, N Engl J Med 2014;370(14):3902-2960.) Cologuard may produce a false negative or false positive result (no colorectal cancer or precancerous polyp present at colonoscopy follow up). A negative Cologuard test result does not guarantee the absence of CRC or advanced adenoma (pre-cancer). The current Cologuard screening interval is every 3 years. ([employer] and U.S. Multi-Society Task Force). Cologuard performance data in a 10,000 patient pivotal study using colonoscopy as the reference method can be accessed at the following location: www.[employer].com/results. Additional description of the Cologuard test process, warnings and precautions can be found at [email or web address]. Stool 05/15/2025 1:00 PM CDT 05/16/2025 12:39 PM CDT us Alexis [facility] BODY FLUIDS AND STOOLS CRESENCIO RUIZ Final Result [employer] (CLIA #:[id number]) [address] [place] [address] * MRI Lumbar Spine WO Contrast (05/07/2025 [...] Severe spinal canal stenosis. Moderate left and [id number] right neural foraminal stenosis L2-3: Disc bulge. [...] Sander Mcarthur M.D. MZ T: Report ID: [id number] Reading Location: [id number] Procedure Note Sander Mcarthur MD - 05/08/2025 [...] size and signal intensity. Conus at the [id number]. LOWER THORACIC: Incompletely imaged. No stenosis seen. [...] thickening. Severe spinal canalstenosis. Moderate left and pjty-vl-[id number] right neural foraminal stenosis L2-3: Disc bulge. [...] Sander Mcarthur M.D. MZ T: Report ID: [id number] Reading Location: [id number] us [facility] MRI PROCEDURES Fin al Result [...] Hamilton Arce M.D. MM T: Report ID: [id number] Reading Location: [place] [address] Procedure Note Hamilton Arce MD - 05/08/2025 [...] Hamilton Arce M.D. MM T: Report ID: [id number] Reading Location: [id number] Alex [facility] MRI PROCEDURES Fin al Result * MSSA/MRSA (Staphylococcus aureus) Culture Nasal (05/06/2025 3:42 PM CDT) Report Final Report: Negative Comment:Testing performed by : [facility], [address] [facility], [place]., [address] Nasal 05/06/2025 3:42 PM CDT 05/06/2025 8:31 PM CDT Narrative LILIBETH - 05/08/2025 5:06 PM CDT Testing performed by [facility]biology [facility] ([phone]). Alexis [facility] Final Result LIL[facility] [address] Department [place] [address] * Diabetic Eye Exam (04/30/2025) Historical Provider [...] Electronically signed by: Du Farah M.D. Alex [facility] XR PROCEDURES Sasha l [...] Mild anterolisthesis of C4-C6. Mild C3-C5 and awxn-yx-tefwgarf C5-C6 degenerative disc disease. Severe bilateral mid cervical facet osteoarthritis. Right-sided C5-C6 and left-sided C3-C6 foraminal impingement. Left knee: No acute fracture. Alignment is normal. Severe medial predominant left knee osteoarthritis. Small knee effusion. Mild soft tissue swelling. IMPRESSION: 1. Mild C3-C5 and pxbb-cl-fbkoikaf C5-C6 degenerative disc disease with severe bilateral mid cervical facet osteoarthritis. 2. Right-sided C5-C6 and left-sided C3-C6 foraminal impingement. 3. Severe medial predominant left knee osteoarthritis with a small effusion. THIS IS AN ELECTRONICALLY VERIFIED FINAL REPORT 03/21/2025 10:36 PM - Electronically signed by Jaya Akins M.D. T: Report ID: [id number] Reading Location: [place] [address] Procedure Note Jaya Akins MD - 03/21/2025 [...] Mild anterolisthesis of C4-C6. Mild C3-C5 and jqqf-dj-htmwtzll C5-C6 degenerative disc disease. Severe bilateral mid cervical facet osteoarthritis. Right-sided C5-C6 and left-sided C3-C6 foraminal impingement. Left knee: No acute fracture. Alignment is normal. Severe medial predominant leftknee osteoarthritis. Small knee effusion. Mild soft tissue swelling. IMPRESSION: 1. Mild C3-C5 and nlxp-hw-wqwslbcw C5-C6 degenerative disc disease with severe bilateral mid cervical facet osteoarthritis. 2. Right-sided C5-C6 and left-sided C3-C6 foraminal impingement. 3. Severe medial predominant left knee osteoarthritis with a smalleffusion. THIS IS AN ELECTRONICALLY VERIFIED FINAL REPORT 03/21/2025 10:36 PM - Electronically signed by Jaya ALVES T: Report ID: [id number] Reading Location: [id number] Alexis CHEEK IMG XR PROCEDURES Final Result [...] Mild anterolisthesis of C4-C6. Mild C3-C5 and ifdx-sv-mrldxsfr C5-C6 degenerative disc disease. Severe bilateral mid cervical facet osteoarthritis. Right-sided C5-C6 and left-sided C3-C6 foraminal impingement. Left knee: No acute fracture. Alignment is normal. Severe medial predominant left knee osteoarthritis. Small knee effusion. Mild soft tissue swelling. IMPRESSION: 1. Mild C3-C5 and lvfu-xi-dfveomzd C5-C6 degenerative disc disease with severe bilateral mid cervical facet osteoarthritis. 2. Right-sided C5-C6 and left-sided C3-C6 foraminal impingement. 3. Severe medial predominant left knee osteoarthritis with a small effusion. THIS IS AN ELECTRONICALLY VERIFIED FINAL REPORT 03/21/2025 10:36 PM - Electronically signed by Jaya Akins M.D. T: Report ID: [id number] Reading Location: [id number] Procedure Note Jaya Akins MD - 03/21/2025 [...] Mild anterolisthesis of C4-C6. Mild C3-C5 and qgrh-bu-jvepxawa C5-C6 degenerative disc disease. Severe bilateral mid cervical facet osteoarthritis. Right-sided C5-C6 and left-sided C3-C6 foraminal impingement. Left knee: No acute fracture. Alignment is normal. Severe medial predominant leftknee osteoarthritis. Small knee effusion. Mild soft tissue swelling. IMPRESSION: 1. Mild C3-C5 and uiiz-wm-lcfjhass C5-C6 degenerative disc disease with severe bilateral mid cervical facet osteoarthritis. 2. Right-sided C5-C6 and left-sided C3-C6 foraminal impingement. 3. Severe medial predominant left knee osteoarthritis with a smalleffusion. THIS IS AN ELECTRONICALLY VERIFIED FINAL REPORT 03/21/2025 10:36 PM - Electronically signed by Jaya Akins M.D. T: Report ID: [id number] Reading Location: [place] [address] Alexis CHEEK IMG XR PROCEDURES Final Result * Diabetic Eye Exam (03/19/2025) Historical Provider HEALTH MAINTENANCE Final Result * (ABNORMAL) Hemoglobin A1c (02/21/2025 7:13 AM CDT) Hgb A1C 6.4(H) <5.7 % of total Hgb [facility] Comment: For someone without known diabetes, [...] 8:20 AM CDT FASTING:YES FASTING: YES us Alexsi CHEEK LAB BLOOD ORDERABLES Final Resu lt [facility] [address] [place] [address] * Lipid panel (02/21/2025 7:13 AM CDT) [facility] Cholesterol 124 <200 mg/dL [facility] HDL 46 > OR = 40 mg/dL [facility] Triglycerides 126 <150 mg/dL [facility] [place] LDL 57 mg/dL (calc) [facility] Comment: Reference range: <100 Desirable range <100 mg/dL for primary prevention; <70 mg/dL for patients with CHD or diabetic patients with > or = 2 CHD risk factors. LDL-C is now calculated using the Brendan-Louise calculation, which is a validated novel method providing better accuracy than the Friedewald equation in the estimation of LDL-C. Brendan DIEHL et al. NOHEMY. 2013;310(19): 0738-2801 (http://education.SPHARES/faq/JNZ571) Chol/HDL ratio 2.7 <5.0 (calc) [facility] Non-HDL, (LDL+VLDL) 78 <130 mg/dL (calc) [facility] Comment: For patients with diabetes plus 1 major ASCVD risk factor, treating to a non-HDL-C goal of <100 mg/dL (LDL-C of <70 mg/dL) is considered a therapeutic option. Blood 02/21/2025 7:13 AM CDT 02/21/2025 7:13 AM CDT Narrative [facility] - 02/22/2025 8:20 AM CDT FASTING:YES FASTING: YES us Alexis CHEEK LAB BLOOD ORDERABLES Final Resu lt [facility] [address] [place] [address] * (ABNORMAL) Comprehensive metabolic panel (02/21/2025 7:13 AM CDT) Glucose 105(H) 65 - 99 mg/dL [facility] Comment: Fasting reference interval For someone without known diabetes, a glucose value between 100 and 125 mg/dL is consistent with prediabetes and should be confirmed with a follow-up test. BUN 26(H) 7 - 25 mg/dL [facility] Creatinine 1.85(H) 0.70 - 1.28 mg/dL [facility] eGFR 38(L) > OR = 60 mL/min/1.7 3m2 [facility] BUN/creat ratio 14 6 - 22 (calc) [facility] Sodium 140 135 - 146 mmol/L [facility] [place] Potassium, pl 3.8 3.5 - 5.3 mmol/L [facility] Chloride 101 98 - 110 mmol/L [facility] CO2 28 20 - 32 mmol/L [facility] Calcium 9.7 8.6 - 10.3 mg/dL [facility] Protein, sr 6.8 6.1 - 8.1 g/dL [facility] Albumin 4.0 3.6 - 5.1 g/dL [facility] GLOBULIN 2.8 1.9 - 3.7 g/dL (calc) [facility] Alb/glob ratio 1.4 1.0 - 2.5 (calc) [facility] Bilirubin, total 0.8 0.2 - 1.2 mg/dL [facility] Alk phos 94 35 - 144 U/L [facility] AST 30 10 - 35 U/L [facility] ALT (SGPT) 22 9 - 46 U/L [facility] Blood 02/21/2025 7:13 AM CDT 02/21/2025 7:13 AM CDT Narrative [facility] - 02/22/2025 8:20 AM CDT FASTING:YES FASTING: YES Alexis CHEEK LAB BLOOD ORDERABLES Final Resu lt Performing Organization Address [facility] Co de Phone Number [facility] [address] [place] [address] * (ABNORMAL) Albumin Creatinine Ratio, Urine (11/14/2024 8:09 AM EQUIPMENT MONITOR PHOTOTYPESETTING) Creatinine, ur 152 20 - 320 mg/dL [...] a diagnostic category. Urine 11/14/2024 8:09 AM EQUIPMENT MONITOR PHOTOTYPESETTING 11/14/2024 8:10 AM EQUIPMENT MONITOR PHOTOTYPESETTING Narrative [facility] - 11/21/2024 5:03 PM EQUIPMENT MONITOR PHOTOTYPESETTING FASTING:YES FASTING: YES Alexis CHEEK LAB URINE ORDERABLES Final Resu Performing Organization Address [facility] Co de Phone Number [facility] [address] [facility] [place] [address] * PSA screen (06/20/2023 8:22 AM CDT) PSA 1.45 < OR = 4.00 ng/mL [facility] Comment: The total PSA value from this assay system is standardized against the WHO standard. The test result will be approximately 20% lower when compared to the equimolar-standardized total PSA ([place]o [place]). Comparison of serial PSA results should be [...] ORDERABLES Final Resu lt Performing Organization Address City/[facility]/ZIP Co de Phone Number JEWEL [facility] [address] [place] [address] * Colonoscopy (11/17/2021) Anatomical Region Laterality Modality Other Historical Provider MD ENDOSCOPY PROCEDURES Edit ed Result - Final * Hepatitis C antibody (09/05/2019 8:47 AM EQUIPMENT MONITOR PHOTOTYPESETTING) Hep C Ab NON-REACT RICO NON-REACT RICO [facility] [place] SIGNAL TO CUT-OFF 0.01 <1.00 [facility] [place] Comment: HCV antibody was non-reactive. There is no laboratory evidence of HCV infection. In most cases, no further action is required. However, if recent HCV exposure is suspected, a test for HCV RNA (test code 86090) is suggested. For additional information please refer to http://education.Carrot Medical/faq/PRU98n3 (This link is being provided for informational/ educational purposes only.) Blood specimen (specimen) 09/05/2019 8:47 AM EQUIPMENT MONITOR PHOTOTYPESETTING 09/05/2019 8:48 AM EQUIPMENT MONITOR PHOTOTYPESETTING Narrative [facility] - 09/06/2019 10:20 AM EQUIPMENT MONITOR PHOTOTYPESETTING FASTING:YES FASTING: YES Resulting Agency Comment Performing Organization Information: Site ID: [place] Name: [facility] Address: [address] [address] Director: Jonathon Llanes D.O., MPH Alexis CHEEK LAB MICROBIOLOGY - GENERAL [facility] Final Result Performing Organization Address City/[facility]/ZIP Co de Phone Number [facility] - [place] Ramos from Last 3 Months or Most Recently Relevant to Health Maintenance Insurance [facility] [place] [address] [facility] MEDIC[facility] ADVANTAGE [employer] [facility] ADVANTAGE Advance Directives For more information, please contact: [phone] Documents on File Type Date Recorded Patient Therapy Aide Expl anation ADVANCE DIRECTIVE 12/18/2024 11:17 AM Peter napoles of Physician Anesthesiologist-Medical * Full Code (Latest Code Status on File) Date Activated Date Inactivated Comments 12/17/2024 12:51 PM 12/20/2024 8:31 PM Care Teams Foreclosure Specialist Relationship Specialty Start Date End Date Alexis Krishna PA [address] [facility] [address] [place] [address] PCP - General Family Medicine 06/03/25 Pedrito Liz MD [address] [address] [facility] [address] [place] [address] Consulting Physician Pulmonary Disease 08/17/23 Brandon Jon DPM [address] [address] [facility] [place] [address] Consulting Physician Orthopedic Surgery 08/17/23
--- OUTSIDE RECORDS SUMMARY | 2025-06-03 19:28 | XMS_ITS | Encounter Summary ---
Author Organization [facility] Healthcare Address [address] [place] [address] Care Team Providers Care Cargo Operations Agent Name Role Phone Pedrito Liz MD Unavailable [phone] Brandon Jon DPM Unavailable + [phone] Alexis Krishna Primary Care Provider [phone] Encounter Details Date Type Department Care Team (Late st Contact Info) Description 05/30/2025 Results Follow-Up [facility] Medical Group Family Medicine at [address] [place] [address] Alexis Krishna PA [address] [place] [address] [address] [place] [address] SCAN - RADIOLOGY/IMAGING Social History Tobacco Use Types Packs/Day Years Used Date Smoking Tobacco: Never Smokeless Tobacco: Never Alcohol Use Standard Drinks/Week Comments Never 0 (1 standard drink = 0.6 oz pur e alcohol) [facility] Utilities Answer Date Recorded In the [...] often do you attend chur ch or sikhism services? 1 to 4 times per year 12/21/2024 Do you belong to any clubs o r organizations such as hindu groups, unions, fraternal or athletic groups, or [...] staff should administer the PHQ-9) 0 05/06/2025 [facility] - Occupational Stress Questionnaire Answer Date [...] any time in the past 12 m [facility], were you homeless or living in a fpc (including now)? 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 Gender Identity Male 05/21/2020 12:59 PM CDT Sexual Orientation Straight 05/21/2020 12 :59 PM CDT documented as of this encounter Plan of Treatment Not on file documented as of this encounter Visit Diagnoses Not on filedocumented in this encounter Care Teams Cargo Operations Agent Relationship Specialty Start Date End Date Alexis Krishna PA [address] [place] [address] PCP - General Family Medicine 06/03/25 Pedrito Liz MD [address] [place] [address] Consulting Physician Pulmonary Disease 08/17/23 Brandon Jon DPM [address] [place] [address] Consulting Physician Orthopedic Surgery 08/17/23 documented as of this encounter
--- OUTSIDE RECORDS SUMMARY | 2025-06-03 19:28 | XMS_ITS | Encounter Summary ---
Author Organization [facility] Healthcare Address [address] [place] [address] Care Team Providers Care Agricultural Service Worker Name Role Phone Pedrito Liz MD Unavailable [phone] Brandon Jon DPM Unavailable + [phone] Alexis Krishna Primary Care Provider [phone] Encounter Details Date Type Department Care Team (Late st Contact Info) Description 05/21/2025 Results Follow-Up [facility] Medical Group Family Medicine at [address] [place] [address] Alexis Krishna PA [address] [place] [address] [address] [place] [address] Stool [facility] - Cologuard Social History Tobacco Use Types Packs/Day Years Used Date Smoking Tobacco: Never Smokeless Tobacco: Never Alcohol Use Standard Drinks/Week Comments Never 0 (1 standard drink = 0.6 oz pur e alcohol) [place] Utilities Answer Date Recorded In the past [...] often do you attend chur ch or adventist services? 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 Gender Identity Male 05/21/2020 12:59 PM CDT Sexual Orientation Straight 05/21/2020 12 :59 PM CDT documented as of this encounter Plan of Treatment Not on file documented as of this encounter Visit Diagnoses Diagnosis Positive colorectal cancer screening using Cologuard test- Primary documented in this encounter Care Teams Agricultural Service Worker Relationship Specialty Start Date End Date Alexis Krishna PA [address] [facility] [address] [facility] [address] [place] [address] PCP - General Family Medicine 06/03/25 Pedrito Liz MD [address] [facility] [address] [facility] [address] [place] [address] Consulting Physician Pulmonary Disease 08/17/23 Brandon Jon DPM [address] [facility] [address] [facility] [address] [place] [address] Consulting Physician Orthopedic Surgery 08/17/23 documented as of this encounter
--- OUTSIDE RECORDS SUMMARY | 2025-06-03 19:28 | XMS_ITS | Encounter Summary ---
Author Organization [facility] Healthcare Address [address] [place] [address] Care Team Providers Care Medical I D Sales Name Role Phone Pedrito Liz MD Unavailable [phone] Brandon Jon DPM Unavailable + [phone] Alexis Krishna Primary Care Provider [phone] Reason for Visit * Reason Onset Date Comments Appointment Request 05/24/2025 Encounter Details Date Type Department Care Team (Late st Contact Info) Description 05/24/2025 Telephone [facility] Medical Group Family Medicine at [address] [place] [address] Alexis Krishna PA [address] [place] [address] Appointment Request Social History Tobacco Use Types Packs/Day Years Used Date Smoking Tobacco: Never Smokeless Tobacco: Never Alcohol Use Standard Drinks/Week Comments Never 0 (1 standard drink = 0.6 oz pur e alcohol) [facility] Utilities Answer Date Recorded In [...] often do you attend chur ch or temple services? 1 to 4 times per year 12/21/2024 Do you belong to any clubs o r organizations such as jewish groups, unions, fraternal or athletic groups, or [...] staff should administer the PHQ-9) 0 05/06/2025 [facility] - Occupational Stress Questionnaire Answer Date [...] were you homeless or living in a chcf (including now)? 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 Please call pt to schedule an appt. BUILDING CONSTRUCTION SUPERVISOR also informed him of RX sent topharmacy [...] for the visit? Patient was seen in [facility] in [place]. He was seen for a fall, broken [...] care team offered (e.g., nurse practioner(s), physician assistant county attorney(s)) ? Yes Additional Comments: none Does message need to be routed? Yes-Action Needed documented in this encounter Plan of Treatment Not on file documented as of this encounter Visit Diagnoses Not on filedocumented in this encounter Care Teams Medical I D Sales Relationship Specialty Start Date End Date Alexis Krishna PA [address] [facility] [address] [place] [address] PCP - General Family Medicine 06/03/25 Pedrito Liz MD [address] [facility] [address] [place] [address] Consulting Physician Pulmonary Disease 08/17/23 Brandon Jon DPM [address] [facility] [address] [place] [address] Consulting Physician Orthopedic Surgery 08/17/23 documented as of this encounter
--- OUTSIDE RECORDS SUMMARY | 2025-06-03 19:29 | XMS_ITS | Encounter Summary ---
Author Organization [facility] Facility Care Team Providers Care [employer] Advisor Name Role Phone Yonathan Vega MD Primary Care Provider + [phone] Emy Sampson LPN Unavailable [phone] Pedrito Liz MD Unavailable [phone] Brandon Jon DPM Unavailable + [phone] Minnie Jorge RN Unavailable [phone] Alexis Krishna Primary Care Provider [phone] Encounter Details Date Type Department Care Team (Latest Contact Info) Description 03/05/2016 Orders Only [facility] CLINCONV Provider, MD Rosi [address] [place] [address] Social History Tobacco Use Types Packs/Day Years Used Date Smoking Tobacco: Never Assessed Sex and Gender Information Value Date Recorded Sex Assigned at Not on file 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 Gender Identity Male 05/21/2020 12:59 PM CDT [...] documented as of this encounter Care Teams [employer] Advisor Relationship Specialty Start Date End Date Yonathan Vega MD PCP - General 11/09/18 06/21/22 Alexis Krishna PA [facility] [address] [place] [address] PCP - General Family Medicine 06/03/25 Emy Sampson LPN Adviser Sales 05/08/20 05/08/20 Pedrito Liz MD [address] [facility] [address] [place] [address] Consulting Physician Pulmonary Disease 08/17/23 Brandon Jon DPM [address] [facility] [address] [place] [address] Consulting Physician Orthopedic Surgery 08/17/23 Minnie Jorge, RN [address] [facility] [facility] [address] [place] [address] Adviser Sales 12/21/24 01/07/25 documented as of this encounter
--- OUTSIDE RECORDS SUMMARY | 2025-06-03 19:29 | XMS_ITS | Patient Health Record ---
Author Organization [facility] [employer] Address [address] [facility] [address] [place] [address] Care Team Providers Care Public Health Sanitarian Name Role Phone Butch Rai Unavailable [phone] Reason For Referral No Information Plan Of Treatment No Information Insurance Providers Payer Name Payer Address Payer Phone Subscriber Number Group Number Insured Name Patient Relationship to Insured Coverage Start Date Coverage End Date Medicare-I l Medicare [address] [place] [address] [id number] JANE SORENSEN Self - patient is the insured
--- OUTSIDE RECORDS SUMMARY | 2025-06-03 19:29 | XMS_ITS | Encounter Summary ---
Author Organization [facility] Facility Care Team Providers Care Banking Services Clerk Name Role Phone Yonathan Vega MD Primary Care Provider + [phone] Emy Sampson LPN Unavailable [phone] Pedrito Liz MD Unavailable [phone] Brandon Jon DPM Unavailable [phone] Minnie Jorge RN Unavailable [phone] Alexis Krishna Primary Care Provider [phone] Encounter Details Date Type Department Care Team (Latest Contact Info) Description 06/28/2018 Orders Only [facility] CLINCONV Provider, MD Rosi [address] [place] [address] Social History Tobacco Use Types Packs/Day Years Used Date Smoking Tobacco: Never Assessed Sex and Gender Information Value Date Recorded Sex Assigned at Not on file Legal Sex Male 6:38 PM C APPLICATION DEVELOPER Gender Identity Male 05/21/2020 12:59 PM [...] documented as of this encounter Care Teams Banking Services Clerk Relationship Specialty Start Date End Date Yonathan Vega MD PCP - General 11/09/18 06/21/22 Alexis Krishna PA [facility] [address] [place] [address] PCP - General Family Medicine 06/03/25 Emy Sampson LPN Straddle Buggy Operator 05/08/20 05/08/20 Pedrito Liz MD [address] [facility] [address] [place] [address] Consulting Physician Pulmonary Disease 08/17/23 Brandon Jon DPM [address] [facility] [address] [place] [address] Consulting Physician Orthopedic Surgery 08/17/23 Minnie Jorge, RN [address] [place] [address] Straddle Buggy Operator 12/21/24 01/07/25 documented as of this encounter
--- OUTSIDE RECORDS SUMMARY | 2025-06-03 19:29 | XMS_ITS | Encounter Summary ---
Author Organization [facility] Healthcare Address [address] [place] [address] Care Team Providers Care Erp Specialist Name Role Phone Pedrito Liz MD Unavailable [phone] Brandon Jon DPM Unavailable + [phone] Alexis Krishna Primary Care Provider [phone] Encounter Details Date Type Department Care Team (Late st Contact Info) Description 06/03/2025 Telephone [facility] Medical Group Pulmonology [address] [facility] [place] [address] [place] [address] [place] [address] [address] [place] [address] Social History Tobacco Use Types Packs/Day Years Used Date Smoking Tobacco: Never Smokeless Tobacco: Never Alcohol Use Standard Drinks/Week Comments Never 0 (1 standard drink = 0.6 oz pur e alcohol) [facility] Utilities Answer Date Recorded In the [...] often do you attend chur ch or pentecostal services? 1 to 4 times per year 12/21/2024 Do you belong to any clubs o r organizations such as pentecostalism groups, unions, fraternal or athletic groups, or [...] should administer the PHQ-9) 0 05/06/2025 [facility] - Occupational Stress Questionnaire Answer Date Recorded [...] any time in the past 12 m onths, were you homeless or living in a fci (including now)? 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 He wanted us to be aware of why he has been non-compliant at this time. documented in this encounter Plan of Treatment Not on file documented as of this encounter Visit Diagnoses Not on filedocumented in this encounter Care Teams Erp Specialist Relationship Specialty Start Date End Date Alexis Krishna PA [address] [place] [address] PCP - General Family Medicine 06/03/25 Pedrito Liz MD [address] [place] [address] Consulting Physician Pulmonary Disease 08/17/23 Brandon Jon DPM [address] [place] [address] Consulting Physician Orthopedic Surgery 08/17/23 documented as of this encounter
--- OUTSIDE RECORDS SUMMARY | 2025-06-03 19:29 | XMS_ITS | Encounter Summary ---
Author Organization [facility] Facility Care Team Providers Care Driver/Guide Name Role Phone Yonathan Vega MD Primary Care Provider + [phone] Emy Sampson LPN Unavailable [phone] Pedrito Liz MD Unavailable [phone] Brandon Jon DPM Unavailable + [phone] Minnie Jorge RN Unavailable [phone] Alexis Krishna Primary Care Provider [phone] Encounter Details Date Type Department Care Team (Latest Contact Info) Description 08/24/2016 Orders Only [facility]IN[facility] Provider, MD Rosi [address] [place] [id number] Social History Tobacco Use Types Packs/Day Years Used Date Smoking Tobacco: Never Assessed Sex and Gender Information Value Date Recorded Sex Assigned at Not on file 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 05/05/2020 05/13/2021 5:00 AM CDT COVID: Suspected 12/17/2024 12/17/2024 12/17/2024 10:13 AM CDT documented as of this encounter Care Teams Driver/Guide Relationship Specialty Start Date End Date Yonathan Vega MD PCP - General 11/09/18 06/21/22 Alexis Krishna PA [address] [place] [address] PCP - General Family Medicine 06/03/25 Emy Sampson LPN Senior Mechanical Estimator 05/08/20 05/08/20 Pedrito Liz MD [facility] [facility] [facility] [place] [address] Consulting Physician Pulmonary Disease 08/17/23 Brandon Jon DPM [address] [place] [address] Consulting Physician Orthopedic Surgery 08/17/23 Minnie Jorge, RN [address] [place] [address] [address] [place] [address] Senior Mechanical Estimator 12/21/24 01/07/25 documented as of this encounter
--- OUTSIDE RECORDS SUMMARY | 2025-06-03 19:29 | XMS_ITS | Encounter Summary ---
Author Organization [facility] Facility Care Team Providers Care Rn Picu Name Role Phone Yonathan Vega MD Primary Care Provider [phone] Emy Sampson LPN Unavailable [phone] Pedrito Liz MD Unavailable [phone] Brandon Jon DPM Unavailable [phone] Minnie Jorge RN Unavailable [phone] Alexis Krishna Primary Care Provider [phone] Encounter Details Date Type Department Care Team (Latest Contact Info) Description 07/15/2018 Orders Only [facility]INCONV Provider, MD Rosi [address] [place], [place] [id number] Social History Tobacco Use Types Packs/Day Years Used Date Smoking Tobacco: Never Assessed Sex and Gender Information Value Date Recorded Sex Assigned at Not on file 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 Gender Identity Male 05/21/2020 12:59 PM CDT [...] documented as of this encounter Care Teams Rn Picu Relationship Specialty Start Date End Date Yonathan Vega MD PCP - General 11/09/18 06/21/22 Alexis Krishna PA [address] [facility] [place] [address] PCP - General Family Medicine 06/03/25 Emy Sampson LPN Communication And Outreach Manager 05/08/20 05/08/20 Pedrito Liz MD [address] [place] [address] Consulting Physician Pulmonary Disease 08/17/23 Brandon Jon DPM [address] [facility] [place] [address] Consulting Physician Orthopedic Surgery 08/17/23 Minnie Jorge, RN [address] [place] [address] [address] [place] [address] Communication And Outreach Manager 12/21/24 01/07/25 documented as of this encounter
[2025-06-03 19:52] LABS: Influenza A QL RT-PCR Negative (Negative); Influenza B QL RT-PCR Negative (Negative); RSV RNA, RT-PCR Negative (Negative); SARS-CoV-2 RNA PCR Negative (Negative)
--- NOTE | 2025-06-03 20:08 | ED.GENADULT ---
HPI - General Adult General Chief complaint: Shortness of Breath/Dyspnea Stated complaint: SOB Time Seen by Provider: 06/03/25 18:49 History of Present Illness HPI narrative: This is a 74-year-old male presenting with shortness of breath. Patient has had symptoms for 3 days. Patient has been febrile. He has had multiple falls at home because he short of breath. He believes he has hit his head but he did not have loss of conscious. He is on Eliquis. He did not seek medical attention. Patient denies chest pain abdominal pain nausea vomiting or diarrhea. No urinary symptoms. Patient had a ORIF of a left wrist on 05/[address] Layne. Patient is on Eliquis although the health his medication for the surgery. Patient has lower extremity edema worse on left than the right although the patient says this is chronic several years. Related Data Home Medications ?Medication ?Instructions ?Recorded ?Confirmed ?Last Taken ?Type albuterol sulfate 90 mcg/actuation 2 puff inhalation Q6-8H PRN 05/30/25 05/30/25 Unknown History aerosol inhaler shortness of breath or wheezing allopurinol 300 mg tablet 300 mg PO DAILY 05/30/25 05/30/25 Unknown History amlodipine 5 mg tablet 5 mg PO QAM 05/30/25 05/31/25 05/31/25 History apixaban 5 mg tablet (Eliquis) 5 mg PO BID 05/30/25 05/30/25 Unknown History diclofenac sodium 1 % topical gel 2.25 inch topical QID PRN pain 05/30/25 05/30/25 Unknown History dulaglutide 3 mg/0.5 mL 3 mg subcut WEEKLY 05/30/25 05/30/25 Unknown History subcutaneous pen injector (Trulicity) empagliflozin 25 mg tablet 25 mg PO DAILY 05/30/25 05/30/25 Unknown History (Jardiance) escitalopram oxalate 10 mg tablet 10 mg PO QAM 05/30/25 05/31/25 05/31/25 History furosemide 40 mg tablet 40 mg PO QAM 05/30/25 05/30/25 Unknown History gabapentin 300 mg capsule 600 mg PO HS 05/30/25 05/30/25 Unknown History ibuprofen 200 mg tablet (IBU-200) 400 mg PO Q6H PRN pain 05/30/25 05/30/25 Unknown History magnesium oxide 400 mg (241.3 mg 400 mg PO DAILY 05/30/25 05/30/25 Unknown History magnesium) tablet metoprolol tartrate 50 mg tablet 12.5 mg PO Q12H 05/30/25 05/31/25 05/31/25 History multivitamin (Daily Multi-Vitamin 1 tablet PO DAILY 05/30/25 05/30/25 Unknown History tablet) pantoprazole 20 mg tablet,delayed 20 mg PO DAILY 05/30/25 05/30/25 Unknown History release ropinirole 2 mg tablet 2 mg PO HS 05/30/25 05/30/25 Unknown History rosuvastatin 20 mg tablet 20 mg PO HS 05/30/25 05/30/25 Unknown History sodium bicarbonate 650 mg tablet 650 mg PO DAILY 05/30/25 05/30/25 Unknown History sulfamethoxazole 800 1 tablet PO BID 05/30/25 05/30/25 Unknown History mg-trimethoprim 160 mg tablet tadalafil 20 mg tablet (Cialis) 20 mg PO ONCE PRN sexual activity 05/30/25 05/30/25 Unknown History Allergies Allergy/AdvReac Type Severity Reaction Status Date / Time lisinopril AdvReac Unknown HYPERKALCEM Verified 06/03/25 17:50 IA olmesartan AdvReac HYPERKALCEM Verified 06/03/25 17:50 IA PMFSH Past Medical History Medical History Hypokalemia due to excessive renal loss of potassium Diabetes mellitus No insulin pump DOLORES (obstructive sleep apnea) MRSA (methicillin resistant staph aureus) culture positive DVT (deep venous thrombosis) Fracture of left distal radius Surgical History Surgical History H/O hernia repair H/O lumbosacral spine surgery Social History Social History Smoking status: Never smoker Living arrangements: with family Additional living arrangements comments: Spiritual care concerns: No Exam Narrative: APPEARANCE: No apparent distress. Head: atraumatic. EYES: EOMI, NOSE: Atraumatic NECK: Trachea midline RESPIRATORY: speaking in full sentences, 84% on RA, bibasilar crackles CARDIOVASCULAR: RRR, pitting edema of the left lower extremity greater than the right ABDOMINAL: Non-distended soft nontender MUSCULOSKELETAl: No obvious deformities NEURO: Alert. Moving 4/4 extremities SKIN:: Warm, dry. Normal color - surgical wound over the left wrist is clean dry intact without evidence of infection. Mild bruising around the site. PSYCHIATRIC: Normal affect Course Vital Signs Vital signs: Vital Signs Temperature 100.4 F H 06/03/25 17:31 Pulse Rate 78 06/03/25 17:31 Respiratory Rate 16 06/03/25 17:31 Blood Pressure 112/97 H 06/03/25 17:31 Pulse Oximetry 94 06/03/25 17:31 Oxygen Delivery Nasal Cannula 06/03/25 17:31 Oxygen Flow Rate 2 06/03/25 17:31 Temperature 100.4 F H 06/03/25 17:31 Pulse Rate 70 06/03/25 21:01 Respiratory Rate 23 H 06/03/25 21:01 Blood Pressure 100/51 L 06/03/25 21:01 Pulse Oximetry 94 06/03/25 21:01 Oxygen Delivery Nasal Cannula 06/03/25 18:07 Oxygen Flow Rate 2 06/03/25 18:07 Medical Decision Making [facility] Narrative Medical decision making narrative: -Course: 74-year-old male presenting 4 days after a surgery with fevers and shortness of breath. Patient is hypoxic on room air. Placed on supplemental oxygen. Physical exam showed bibasilar crackles. Patient has edema of the legs L > R. Patient is on Eliquis although he had to stop that for his surgery but believes he has resumed it. CT PE did not show any pulmonary embolism but did show ground-glass opacities which could be pneumonia versus pulmonary edema. Given he is febrile we'll covered for CAP/HAP pneumonia. BNP elevated at 5000 although the patient poor kidney function and may be falsely elevated. No echocardiogram in our system and patient denies hx of CHF. Blood pressures are 110/55 so try 1 L of fluid and then his volume can be reassessed. Patient will be admitted the hospital for further management of his hypoxic respiratory failure and pneumonia. -DDX includes but is not limited to: PE, pneumonia, viral syndrome, sepsis, UTI, wound infection Vital Signs Vital Signs: Vital Signs Temperature 100.4 F H 06/03/25 17:31 Pulse Rate 78 06/03/25 17:31 Respiratory Rate 16 06/03/25 17:31 Blood Pressure 112/97 H 06/03/25 17:31 Pulse Oximetry 94 06/03/25 17:31 Oxygen Delivery Nasal Cannula 06/03/25 17:31 Oxygen Flow Rate 2 06/03/25 17:31 Temperature 100.4 F H 06/03/25 17:31 Pulse Rate 70 06/03/25 21:01 Respiratory Rate 23 H 06/03/25 21:01 Blood Pressure 100/51 L 06/03/25 21:01 Pulse Oximetry 94 06/03/25 21:01 Oxygen Delivery Nasal Cannula 06/03/25 18:07 Oxygen Flow Rate 2 06/03/25 18:07 Lab Data 06/03/25 18:58 06/03/25 18:58 Labs: Lab Results 06/03/25 06/03/25 Range/Units 18:58 19:02 WBC 12.3 H (4.5-10.0) K/mm3 RBC 3.80 L (4.6-6.20) M/mm3 Hgb 10.5 L (14.0-18.0) g/dL Hct 33.6 L (42.0-52.0) % MCV 88.4 (80-100) fl MCH 27.6 (26-34) pg MCHC 31.3 L (32-36) g/dl RDW 15.6 H (11.5-14.5) % Plt Count 236 (150-375) k/mm3 MPV 9.9 (7.4-10.4) fl Immature Gran % (Auto) 0.4 (0-0.5) % Neut % (Auto) 76.3 H (45.5-73.1) % Lymph % (Auto) 10.1 L (18.3-44.2) % Schleicher % (Auto) 11.8 H (2.6-8.5) % Eos % (Auto) 1.2 (0-4.4) % Baso % (Auto) 0.2 (0.2-1.2) % Lymph # (Auto) 1.24 (0.9-3.2) K/mm3 Schleicher # (Auto) 1.5 H (0.1-0.6) K/mm3 Eos # (Auto) 0.2 (0-0.3) K/mm3 Baso # (Auto) 0.0 (0.0-0.1) K/mm3 Abs Immat Gran (auto) 0.05 H (0.00-0.031) K/mm3 Absolute Neuts (auto) 9.3 H (1.3-6.7) K/mm3 Absolute Nucleated RBC 0.000 (0.0-0.012) K/mm3 Nucleated RBC % 0.0 (0.0-0.2) % Sodium 134 L (137-145) mmol/L Potassium 3.7 (3.4-5.0) mmol/L Chloride 98 (98-107) mmol/L Carbon Dioxide 26 (22-30) mmol/L Anion Gap 10 (4-12) mmol/L BUN 51 H D (9-20) mg/dL Creatinine 2.91 H (0.7-1.3) mg/dL Estim Creat Clear Calc 25 ml/min Estimated GFR 21 L (59 - ) Glucose 117 H (65-110) mg/dL Lactic Acid 1.3 (0.7-2.0) mmol/L Calcium 8.8 (8.4-10.2) mg/dL Magnesium 2.2 (1.6-2.3) mg/dL Total Bilirubin 0.8 (0.2-1.3) mg/dL AST 56 (17-59) U/L ALT 26 (6-50) U/L Alkaline Phosphatase 97 (38-126) U/L NT-Pro-B Natriuret Pep 5330 H (19.9-100) pg/mL Total Protein 7.0 (6.3-8.2) g/dL Albumin 3.7 (3.5-5.1) g/dL Lipase 33 (23-300) U/L Influenza A (RT-PCR) Negative (Negative) Influenza B (RT-PCR) Negative (Negative) RSV (RT-PCR) Negative (Negative) SARS-CoV-2 RNA (RT-PCR) Negative (Negative) Critical Care Time Critical Care Time Critical Care Time: Yes Total Critical Care Time: 35 Discharge Plan Discharge Clinical Impression: Hypoxic respiratory failure, Pneumonia, Elevated brain natriuretic peptide (BNP) level, Edema of both lower extremities Patient Disposition: Home Condition: Stable Instructions: Antibiotic Form Patient Language: Bahamian Prescriptions: No Action acetaminophen 500 mg tablet 1,000 mg PO TID PRN (Reason: pain) 7 Days Qty: 42 0RF tramadol 50 mg tablet 50 mg PO Q6H PRN (Reason: pain) Qty: 10 0RF albuterol sulfate 90 mcg/actuation HFA aerosol inhaler 2 puff INHALATION Q6-8H PRN (Reason: shortness of breath or wheezing) allopurinol 300 mg tablet 300 mg PO DAILY amlodipine 5 mg tablet 5 mg PO QAM diclofenac sodium 1 % gel 2.25 inch TOPICAL QID PRN (Reason: pain) Trulicity 3 mg/0.5 mL pen injector 3 mg SUBCUT WEEKLY Patient Comments: TUESDAY Jardiance 25 mg tablet 25 mg PO DAILY furosemide 40 mg tablet 40 mg PO QAM gabapentin 300 mg capsule 600 mg PO HS magnesium oxide 400 mg (241.3 mg magnesium) tablet 400 mg PO DAILY multivitamin [Daily Multi-Vitamin] Tablet 1 tablet PO DAILY metoprolol tartrate 50 mg tablet 12.5 mg PO Q12H pantoprazole 20 mg tablet,delayed release (DR/EC) 20 mg PO DAILY ropinirole 2 mg tablet 2 mg PO HS rosuvastatin 20 mg tablet 20 mg PO HS tadalafil [Cialis] 20 mg tablet 20 mg PO ONCE PRN (Reason: sexual activity) sodium bicarbonate 650 mg tablet 650 mg PO DAILY ibuprofen [IBU-200] 200 mg tablet 400 mg PO Q6H PRN (Reason: pain) Eliquis 5 mg tablet 5 mg PO BID sulfamethoxazole-trimethoprim 800-160 mg tablet 1 tablet PO BID escitalopram oxalate 10 mg tablet 10 mg PO QAM hydrocodone-acetaminophen 5-325 mg tablet 1 tablet PO Q6H PRN (Reason: pain) Qty: 20 0RF potassium chloride [K-Tab] 20 mEq tablet extended release 20 meq PO BID Qty: 30 1RF Follow-up/Referrals: Tomi,ADIA Espinoza [Primary Care Provider, Unknown]
[2025-06-03 21:06] LABS: NT Pro B Type Natriuretic Pept 5330 pg/mL (19.9-100)
--- NOTE | 2025-06-03 22:07 | PC.NURSE ---
Pt refusing straight cath.
[2025-06-03] MEDS: VANCOMYCIN 1,750 MG/NS 500 ML 1,750 MG/500 ML BAG 250 MG IVPB (22:15)
[2025-06-03 22:26] LABS: Hemoglobin A1C 6.5 % (<5.7)
[2025-06-03 22:34] LABS: Procalcitonin 0.9 ng/mL
--- NOTE | 2025-06-03 22:55 | ADMGEN ---
This patient, Lionel Prasad, was admitted to Medical Room 260-. Patient/family oriented to hospital policies and general routines including ID bracelet, bed and alarms, visiting hours, pain management, procedures, bathroom and other care routines, personal items, smoking policy, room service/diet, and visiting hours. Information on how to activate the Rapid Response Team has been discussed. Patient/Family are encouraged to report perceived risks to care and to ask questions if they do not understand what they are told or what they should do.
[2025-06-03] MEDS: APIXABAN 5 MG TABLET PO (23:00)
[2025-06-03 23:01] LABS: MRSA (PCR) NOT DETECTED (NOT DETECTE)
[2025-06-03 23:06] LABS: CRP 26.1 mg/dL (<1.0)
[2025-06-03 23:40] LABS: Add Urine Microscopic? YES; Appearance Urine Clear (Clear); Glucose Urine UA 3+ mg/dL (Negative); Leukocyte Esterase Ur Negative LEU/UL (Negative); Nitrate Urine Negative (Negative); Non Pathogenic Casts 0-2; Specific Grav Ur 1.027 (1.001-1.035)
[2025-06-04] VITALS (13 sets, daily range): BP systolic 102–153; BP diastolic 35–113; PULSE 58–88; RESP 18–22; TEMP 36.6–36.9; O2SAT 93–99
--- NOTE | 2025-06-04 | ECHO_ITS ---
Patient Info Name: Lionel Prasad Age: 74 years : 1950 Gender: Male Ht: 66 in Wt: 271 lbs BSA: 2.46 m2 HR: 90 bpm BP: 130 / 63 mmHg Technical Quality: Fair Exam Date: 06/04/2025 9:21 AM Patient Status: I Admit Date: 06/03/2025 Exam Type: CA echo doppler color flow Complete two-dimensional, color flow and Doppler transthoracic echocardiogram is performed. Staff Referring Physician: Abi Aldrich Paint Prep Technician: Katerina Tejeda Attending Provider: Chevy Arredondo Summary 1. Complete two-dimensional, color flow and Doppler transthoracic echocardiogram is performed. 2. The left ventricle is normal in size and normal systolic function. There is moderate concentric left ventricular hypertrophy. The left ventricular ejection fraction is visually estimated to be 65-70%. 3. The right ventricle is mildly dilated with normal systolic function. 4. The aortic valve is trileaflet and calcified. There is moderate aortic stenosis. There is no aortic regurgitation. 5. Dilated inferior vena cava with <50% collapse upon inspiration consistent with significantly elevated right atrial pressure, 15 mmHg. Left Ventricle The left ventricle is normal in size and normal systolic function. There is moderate concentric left ventricular hypertrophy. The left ventricular ejection fraction is visually estimated to be 65-70%. Right Ventricle The right ventricle is mildly dilated with normal systolic function. Left Atria The left atrium is severely dilated. Right Atria The right atrium is severely dilated. Atrial Septum The atrial septum is not well visualized. Aortic Valve The aortic valve is trileaflet and calcified. There is moderate aortic stenosis. There is no aortic regurgitation. Pulmonic Valve The pulmonic valve is not well visualized. There is no pulmonic valve regurgitation by color Doppler. Mitral Valve The mitral valve is normal. There is mild mitral regurgitation. Tricuspid Valve The tricuspid valve is normal. There is mild tricuspid regurgitation. Pericardium/Pleural Pericardium is normal in appearance with no evidence for significant pericardial effusion. Inferior Vena Cava Dilated inferior vena cava with <50% collapse upon inspiration consistent with significantly elevated right atrial pressure, 15 mmHg. Aorta The aortic root at the level of the sinus of Valsalva measures 3.1 cm in diameter. Left Ventricular Outflow Tract Name Value Normal LVOT 2D LVOT Diameter 1.9 cm LVOT Doppler LVOT Peak Velocity 193 cm/s LVOT Peak Gradient 15 mmHg LVOT Mean Gradient 10 mmHg LVOT VTI 41 cm LVOT VTI/AV VTI Ratio 0.5 LVOT Stroke Volume 112 ml LVOT CO 25.6 l/min LVOT CI 10.4 l/min/m2 Pulmonic Valve Name Value Normal PV Doppler PV Peak Velocity 147 cm/s PV Peak Gradient 9 mmHg Mitral Valve Name Value Normal MV Doppler MV Peak Gradient 13 mmHg MV Mean Gradient 5 mmHg MV Area (Cont Eq VTI) 2.4 cm2 MV Diastolic Function MV E Peak Velocity 165 cm/s MV A Peak Velocity 10 cm/s MV E/A 16.6 MV Decel Time (PW) 185 ms MV Annular TDI MV E/e' (Septal) 17.3 MV E/e' (Lateral) 15.4 MV E/e' (Average) 16.3 Tricuspid Valve Name Value Normal TV Regurgitation Doppler TR Peak Velocity 340 cm/s TR Peak Gradient 46 mmHg Estimated PAP/RSVP RA Pressure 15 mmHg <=5 PA Systolic Pressure 61 mmHg <36 RV Systolic Pressure 61 mmHg <36 TV Annular TDI TV Lateral Shreya s' Velocity 11.6 cm/s >=9.5 Aorta Name Value Normal Ascending Aorta Ao Root Diameter (MM) 3.5 cm Ao Root Diam Index (MM) 1.4 cm/m2 Aortic Valve Name Value Normal AV Doppler AV Peak Velocity 424 cm/s AV Peak Gradient 72 mmHg AV Mean Gradient 37 mmHg AV VTI 80 cm AV Area (Cont Eq VTI) 1.4 cm2 >=3.0 AV Area (Cont Eq Joel) 1.3 cm2 AV DI (Joel) 0.45 AV Regurgitation 2D LVOT Area 2.8 cm2 Ventricles Name Value Normal LV Dimensions 2D/MM IVS Diastolic Thickness (2D) 1.5 cm 0.6-1.0 LVID Diastole (2D) 5.0 cm 4.2-5.8 LVIW Diastolic Thickness (2D) 1.5 cm 0.6-1.0 LVID Systole (2D) 2.8 cm 2.5-4.0 LVOT Diameter 1.9 cm LV Mass (2D Cubed) 335.84 g 88.00-224.00 LV Mass Index (2D Cubed) 137 g/m2 49-115 Relative Wall Thickness (2D) 0.61 <=0.42 LV Fractional Shortening/Ejection Fraction 2D/MM LV Fractional Shortening (2D) 45 % 25-43 LV EF (2D Teichholz) 76 % LV Diastolic Volume (4C MOD) 171 ml LV EF (4C MOD) 66 % LV Diastolic Volume (2C MOD) 145 ml LV EF (2C MOD) 76 % LV Diastolic Volume (BP MOD) 160 ml 62-150 LV Diastolic Volume Index (BP MOD) 65 ml/m2 34-74 LV Systolic Volume (BP MOD) 49 ml 21-61 LV Systolic Volume Index (BP MOD) 20 ml/m2 11-31 LV EF (BP MOD) 70 % 52-72 LV Diastolic Length (4C) 8.3 cm LV Systolic Length (4C) 6.9 cm LV Stroke Volume (4C MOD) 113 ml RV Dimensions 2D/MM RVID Diastole (2D) 5.0 cm 2.1-3.5 Atria Name Value Normal LA Dimensions LA Dimension (MM) 4.0 cm 3.0-4.0 LA Volume (4C A-L) 86 ml LA Volume (BP A-L) 105 ml RA Dimensions RA Systolic Major Gilbert Length (4C) 5.8 cm 2.1-2.7 RA Area (4C) 31.4 cm2 <=18.0 Report Signatures
[2025-06-04] MEDS: LACTATED RINGERS 1,000 ML 999 ML IV CONT (00:51)
[2025-06-04] MEDS: CEFEPIME 2 GM in SODIUM CHLORIDE 0.9% IV 50 ML 100 ML IVPB (00:51)
[2025-06-04] MEDS: DOXYCYCLINE IV 100 MG in SODIUM CHLORIDE 0.9% IV 100 ML IVPB ×2 (01:43→11:22)
[2025-06-04] MEDS: traMADol HCL (*CRX) 50 MG TABLET PO (02:26)
[2025-06-04] MEDS: CYCLOBENZAPRINE HCL 5 MG TABLET PO (02:27)
[2025-06-04 05:34] LABS: Hematocrit 36.0 % (42.0-52.0); Hemoglobin 11.5 g/dL (14.0-18.0); Immature Granulocyte Percent A 0.5 % (0-0.5); Lymphocytes Absolute Auto 0.93 K/mm3 (0.9-3.2); Mean Corpuscular HGB Conc 31.9 g/dl (32-36); Mean Corpuscular Hemoglobin 28.2 pg (26-34); Mean Corpuscular Volume 88.2 fl (80-100); Nucleated Red Blood Cells Absolute Auto 0.000 K/mm3 (0.0-0.012); Nucleated Red Blood Cells Perc 0.0 % (0.0-0.2); Platelet Count Result 243 k/mm3 (150-375); Red Blood Count 4.08 M/mm3 (4.6-6.20); White Blood Count 14.1 K/mm3 (4.5-10.0)
[2025-06-04 06:00] LABS: Albumin Level 3.7 g/dL (3.5-5.1); Anion Gap 12 mmol/L (4-12); Blood Urea Nitrogen 47 mg/dL (9-20); Calcium 9.1 mg/dL (8.4-10.2); Carbon Dioxide 23 mmol/L (22-30); Chloride 99 mmol/L (98-107); Estimated CRCL calculation 28 ml/min; Estimated Glomerular Filt Rate 24; Glucose 133 mg/dL (65-110); Magnesium 2.2 mg/dL (1.6-2.3); Potassium 3.8 mmol/L (3.4-5.0); Sodium 134 mmol/L (137-145)
[2025-06-04 06:12] LABS: Procalcitonin 0.9 ng/mL
[2025-06-04 06:56] LABS: CRP 30.0 mg/dL (<1.0)
--- NOTE | 2025-06-04 07:35 | PM.IMHP ---
H&P: HPI History of Present Illness Date/Time: 06/04/25 07:35 Chief Complaint: shortness of breath Narrative: Patient is a 74 year old male with PMH of DM type 2, DOLORES, history of DVT, gout, HTN, HLD and RLS. Patient presented to the ER with complaints of dyspnea. Patient reports he has been short of breath for 3 days. Patient reports multiple falls during this time as well. He reported he may have hit his head while falling, but did not lose consciousness. Per chart patient had an ORIF of the left wrist by Dr. Rob on 05/31/2025. In the ER the patient was febrile at 100.4. Patient's head CT showed no acute abnormalities. Patient's CXR showed Cardiomegaly with mild interstitial edema. Patient had a CTA of the lungs which showed 1. No large central pulmonary embolism. Peripheral emboli cannot be excluded due to technical limitations. 2: Patchy groundglass opacities and interlobular septal thickening. Differential includes pulmonary edema, atypical/viral pneumonia and early interstitial lung disease. 3: Small right pleural effusion. 4: Probable left renal cyst. Recommend correlation with renal ultrasound for characterization on a nonemergent basis. In the ER the patient was hypoxic and was started on supplemental oxygen. Patient's BNP was elevated at 5330 and patient has BLE edema L>R. Patient was given a 1 L bolus and IV antibiotics. Nephrology and Orthopedic surgery were consulted. Patient was admitted for further evaluation and treatment. Review of Systems Review of Systems: All systems reviewed & are unremarkable except as noted in HPI and below PMFSH Past Medical History Medical History (Updated 06/04/25 @ 14:08 by Mary Petty APRN) Essential hypertension History of DVT (deep vein thrombosis) Hypokalemia due to excessive renal loss of potassium Diabetes mellitus No insulin pump DOLORES (obstructive sleep apnea) MRSA (methicillin resistant staph aureus) culture positive DVT (deep venous thrombosis) Fracture of left distal radius Surgical History Surgical History H/O hernia repair H/O lumbosacral spine surgery Family History Family History (Updated 06/03/25 @ 23:04 by Shreya Mariano RN) Father Acute myocardial infarction Sibling Cerebrovascular accident Leukemia Hypertension Mother Diabetes mellitus Hypertension Social History Social History Smoking status: Never smoker Alcohol intake: never Substance use: never Lack of Transportation: No Lack of Food: Never True Current Housing: I Have Housing Concerned About Future Housing: No Difficulty Paying Gas/Electric Bills: No Difficulty Paying for Meds: No Currently Unemployed: No Education: Associate Degree Difficulty w/ Childcare or Family Care: No Living arrangements: with family Additional living arrangements comments: Spiritual care concerns: No Meds Home Medications and Allergies Home Medications ?Medication ?Instructions ?Recorded ?Confirmed ?Type acetaminophen 500 mg tablet 1,000 mg (2 x 500 mg) PO TID PRN 05/24/25 06/03/25 Rx pain 7 days #42 tabs albuterol sulfate 90 mcg/actuation 2 puff inhalation Q6-8H PRN 05/30/25 06/03/25 History aerosol inhaler shortness of breath or wheezing allopurinol 300 mg tablet 300 mg PO DAILY 05/30/25 06/03/25 History amlodipine 5 mg tablet 5 mg PO QAM 05/30/25 06/03/25 History apixaban 5 mg tablet (Eliquis) 5 mg PO BID 05/30/25 06/03/25 History dulaglutide 3 mg/0.5 mL 3 mg subcut WEEKLY 05/30/25 06/03/25 History subcutaneous pen injector (Trulicity) empagliflozin 25 mg tablet 25 mg PO DAILY 05/30/25 06/03/25 History (Jardiance) escitalopram oxalate 10 mg tablet 10 mg PO QAM 05/30/25 06/03/25 History furosemide 40 mg tablet 40 mg PO QAM 05/30/25 06/03/25 History gabapentin 300 mg capsule 600 mg PO HS 05/30/25 06/03/25 History ibuprofen 200 mg tablet (IBU-200) 400 mg PO Q6H PRN pain 05/30/25 06/03/25 History magnesium oxide 400 mg (241.3 mg 400 mg PO DAILY 05/30/25 06/03/25 History magnesium) tablet metoprolol tartrate 50 mg tablet 25 mg PO QAM 05/30/25 06/03/25 History multivitamin (Daily Multi-Vitamin 1 tablet PO DAILY 05/30/25 06/03/25 History tablet) pantoprazole 20 mg tablet,delayed 20 mg PO DAILY 05/30/25 06/03/25 History release ropinirole 2 mg tablet 4 mg PO HS 05/30/25 06/03/25 History rosuvastatin 20 mg tablet 20 mg PO HS 05/30/25 06/03/25 History sodium bicarbonate 650 mg tablet 650 mg PO DAILY 05/30/25 06/03/25 History sulfamethoxazole 800 1 tablet PO BID 05/30/25 06/03/25 History mg-trimethoprim 160 mg tablet tadalafil 20 mg tablet (Cialis) 20 mg PO ONCE PRN sexual activity 05/30/25 06/03/25 History potassium chloride 20 mEq 20 meq PO BID #30 tabs 05/31/25 06/03/25 Rx tablet,extended release (K-Tab) cyclobenzaprine 5 mg tablet 5 mg PO Q8H PRN muscle pain 06/03/25 06/03/25 History tramadol 50 mg tablet 50 mg PO Q8H PRN pain 06/03/25 06/03/25 History Allergies Allergy/AdvReac Type Severity Reaction Status Date / Time lisinopril AdvReac Unknown HYPERKALCEM Verified 06/03/25 17:50 IA olmesartan AdvReac HYPERKALCEM Verified 06/03/25 17:50 IA Vital Signs Vital Signs - 24 hr 06/03/25 17:31 06/03/25 17:50 06/03/25 17:50 Temperature 100.4 F H Pulse Rate 78 86 Respiratory Rate 16 Blood Pressure 112/97 H Pulse Oximetry 94 96 Oxygen Delivery Nasal Cannula Nasal Cannula Oxygen Flow Rate 2 2 06/03/25 18:04 06/03/25 18:07 06/03/25 19:02 Temperature Pulse Rate 77 69 Respiratory Rate 17 19 Blood Pressure 109/63 119/59 L Pulse Oximetry 98 96 93 Oxygen Delivery Nasal Cannula Oxygen Flow Rate 2 06/03/25 20:45 06/03/25 21:01 06/03/25 21:31 Temperature Pulse Rate 70 70 Respiratory Rate 23 H 20 Blood Pressure 100/51 L 110/55 L Pulse Oximetry 84 L 94 94 Oxygen Delivery Oxygen Flow Rate 06/03/25 22:21 06/03/25 22:50 06/03/25 23:00 Temperature 100 F H Pulse Rate 73 68 Respiratory Rate 22 H 20 Blood Pressure 120/70 112/48 L Pulse Oximetry 93 100 94 Oxygen Delivery Nasal Cannula Oxygen Flow Rate 06/03/25 23:11 06/04/25 00:00 06/04/25 00:58 Temperature Pulse Rate 73 Respiratory Rate 20 Blood Pressure Pulse Oximetry 100 93 Oxygen Delivery Nasal Cannula Nasal Cannula Oxygen Flow Rate 3 4 06/04/25 04:00 06/04/25 04:00 Temperature 98.5 F Pulse Rate 85 79 Respiratory Rate 20 Blood Pressure 130/63 Pulse Oximetry 94 Oxygen Delivery Oxygen Flow Rate Exam Narrative: APPEARANCE: No apparent distress. Head: NCAT EYES: EOMI, NOSE: Atraumatic NECK: Trachea midline RESPIRATORY: crackles at bases CARDIOVASCULAR: RRR, S1, S2, no murmurs ABDOMINAL: Non-distended, soft, non-tender, bowel sounds present in all quadrants MUSCULOSKELETAl: No obvious deformities, Right wrist in cast. NEURO: Alert. Cranial nerves 2-12 grossly intact. SKIN:: Warm, dry. Normal color PSYCHIATRIC: Normal affect H&P: Results Labs Labs: Short CBC 06/03/25 06/04/25 Range/Units 18:58 04:48 WBC 12.3 H 14.1 H (4.5-10.0) K/mm3 Hgb 10.5 L 11.5 L (14.0-18.0) g/dL Hct 33.6 L 36.0 L (42.0-52.0) % Plt Count 236 243 (150-375) k/mm3 [facility] 06/03/25 06/04/25 18:58 04:48 Sodium 134 L 134 L Potassium 3.7 3.8 Chloride 98 99 Carbon Dioxide 26 23 BUN 51 H D 47 H Creatinine 2.91 H 2.67 H Glucose 117 H 133 H Calcium 8.8 9.1 Liver Function 06/03/25 06/04/25 Range/Units 18:58 04:48 Total Bilirubin 0.8 (0.2-1.3) mg/dL AST 56 (17-59) U/L ALT 26 (6-50) U/L Alkaline Phosphatase 97 (38-126) U/L Albumin 3.7 3.7 (3.5-5.1) g/dL Urine 06/03/25 Range/Units 23:28 Urine Color Yellow (Yellow) Urine Appearance Clear (Clear) Urine pH 5.5 (5.0-9.0) Ur Specific [address] 1.027 (1.001-1.035) Urine Protein 1+ H (Negative) mg/dL Urine Glucose (UA) 3+ H (Negative) mg/dL Assessment and Plan Assessment and plan (1) Acute hypoxic respiratory failure: Code(s): J96.01 - Acute respiratory failure with hypoxia Status: Acute Assessment and Plan: patient presented with dyspnea x 3 days patient requiring oxygen by CA s/p CXR showed Cardiomegaly with mild interstitial edema. s/p CTA of the lungs which showed 1. No large central pulmonary embolism. Peripheral emboli cannot be excluded due to technical limitations. 2: Patchy groundglass opacities and interlobular septal thickening. Differential includes pulmonary edema, atypical/viral pneumonia and early interstitial lung disease. 3: Small right pleural effusion. 4: Probable left renal cyst. IV vancomycin, IV doxycycline, IV cefepime wean as tolerated (2) Pneumonia: Qualifiers: Laterality: unspecified laterality Lung location: unspecified part of lung Pneumonia type: due to unspecified organism Qualified Code(s): J18.9 - Pneumonia, unspecified organism Code(s): J18.9 - Pneumonia, unspecified organism Status: Acute Assessment and Plan: Patient presented with dyspnea x 3 days patient was febrile on presentation, leukocytosis patient had surgery on 05/31 for an ORIF of the left wrist Covering for both CAP and HCAP IV vancomycin, IV doxycycline, IV cefepime MRSA swab pending Legionella urine pending Respiratory panel ordered AM labs (3) Acute kidney injury: Code(s): N17.9 - Acute kidney failure, unspecified Status: Acute Assessment and Plan: patients creatinine on presentation 2.91, repeat 2.67 unsure what patients baseline creatinine is but from his home medication list he clearly has some CKD as he takes sodium bicarb Nephrology consulted avoid nephrotoxic medications as able BMP in AM (4) Elevated brain natriuretic peptide (BNP) level: Code(s): R79.89 - Other specified abnormal findings of blood chemistry Status: Acute Assessment and Plan: level was 5330, suspect due to underlying kidney disease only given 1L of fluid in the ER due to risk of fluid overload monitor (5) Leukocytosis: Code(s): D72.829 - Elevated white blood cell count, unspecified Status: Acute Assessment and Plan: wbc 12.3 on presentation, now 14.1 IV antibiotics f/u blood cultures AM labs (6) Edema of both lower extremities: Code(s): R60.0 - Localized edema Status: Acute Assessment and Plan: patient has edema to BLE, left > right per patient this has been present for years (7) Fracture of left distal radius: Qualifiers: Encounter type: initial encounter Fracture type: closed Fracture morphology: other intra-articular Qualified Code(s): S52.572A - Other intraarticular fracture of lower end of left radius, initial encounter for closed fracture Code(s): S52.502A - Unspecified fracture of the lower end of left radius, initial encounter for closed fracture Status: Acute Assessment and Plan: Patient had an ORIF of his left wrist on 05/31 as an outpatient Ortho consulted cast in place, encourage elevation (8) Type 2 diabetes mellitus: Code(s): E11.9 - Type 2 diabetes mellitus without complications Status: Acute Assessment and Plan: accu checks avoid hypoglycemia (9) History of DVT (deep vein thrombosis): Code(s): Z86.718 - Personal history of other venous thrombosis and embolism Status: Acute Assessment and Plan: continue home Eliquis (10) Essential hypertension: Code(s): I10 - Essential (primary) hypertension Status: Acute Assessment and Plan: BP appears stable continue home amlodipine Quality VTE Prophylaxis VTE prophylaxis: pharmacologic ordered
[2025-06-04] MEDS: POTASSIUM CHLORIDE 20 MEQ ER TABLET PO ×2 (09:09→17:47)
[2025-06-04] MEDS: ESCITALOPRAM OXALATE 10 MG TABLET PO (09:09)
[2025-06-04] MEDS: METOPROLOL TARTRATE 25 MG TABLET PO (09:09)
[2025-06-04] MEDS: MULTIVITAMINS THERAPEUTIC TAB (*BKC) 1 TABLET PO (09:10)
[2025-06-04] MEDS: MAGNESIUM OXIDE 400 MG TABLET PO (09:10)
[2025-06-04] MEDS: APIXABAN 5 MG TABLET PO ×2 (09:11→20:38)
[2025-06-04] MEDS: SODIUM BICARBONATE TAB 650 MG TABLET PO (09:11)
[2025-06-04] MEDS: EMPAGLIFLOZIN 25 MG TABLET PO (09:11)
--- NOTE | 2025-06-04 09:14 | PM.PNORT ---
Progress Note: A&P Assessment and Plan (1) Pneumonia: Qualifiers: Pneumonia type: due to unspecified organism Laterality: unspecified laterality Lung location: unspecified part of lung Qualified Code(s): J18.9 - Pneumonia, unspecified organism <Yael BurnetteGOMEZ GuevaraP - Last Filed: 06/04/25 12:36> Code(s): J18.9 - Pneumonia, unspecified organism <Yael BurnetteShi Elias MAGNETIC LOCATER - Last Filed: 06/04/25 12:36> Status: Acute <Yael BurnetteShi Elias MAGNETIC LOCATER - Last Filed: 06/04/25 12:36> Assessment and Plan: Patient is being treated for pneumonia versus CHF exacerbation in the postoperative setting. <GOMEZ RoyP - Last Filed: 06/04/25 12:36> (2) Edema of both lower extremities: Code(s): R60.0 - Localized edema <GOMEZ RoyP - Last Filed: 06/04/25 12:36> Status: Acute <Yaelsa uRkhsana Elias MAGNETIC LOCATER - Last Filed: 06/04/25 12:36> (3) Fracture of left distal radius: Qualifiers: Encounter type: initial encounter Fracture morphology: other intra-articular Fracture type: closed Qualified Code(s): S52.572A - Other intraarticular fracture of lower end of left radius, initial encounter for closed fracture <Yaelsa Rukhsana Elias MAGNETIC LOCATER - Last Filed: 06/04/25 12:36> Code(s): S52.502A - Unspecified fracture of the lower end of left radius, initial encounter for closed fracture <Yeal Rukhsana Elias MAGNETIC LOCATER - Last Filed: 06/04/25 12:36> Status: Acute <Yaelsa Rukhsana Elias MAGNETIC LOCATER - Last Filed: 06/04/25 12:36> Assessment and Plan: POD #4: Open reduction internal fixation left distal radius intra-articular comminuted fracture with fixation 6 fragments. Nonweightbearing, left upper extremity. Keep splint clean dry and intact. Ice. Elevate. Pain control. We will plan to transition to Velcro wrist plan prior to discharge pending his overall medical course. <Yael Elias MAGNETIC LOCATER - Last Filed: 06/04/25 12:36> POD #4: Open reduction internal fixation left distal radius intra-articular comminuted fracture. Nonweightbearing, left upper extremity. Keep splint clean dry and intact. Ice. Elevate. Pain control. We will plan to transition to Velcro wrist plan prior to discharge pending his overall medical course. <Manny Moreno MD - Last Filed: 06/04/25 12:45> Time Spent With Patient Time: Reviewed history, exam, radiographs and current labs with attending MD and covering surgeon, Dr. Moreno, who agrees with current plan as indicated above. No further recommendations from Dr. Moreno at this time. <LAILA Roy - Last Filed: 06/04/25 12:36> Subjective Subjective Date/Time Seen: 06/04/25 09:14 <LAILA Roy - Last Filed: 06/04/25 12:36> Post Op day: 4 <LAILA Roy - Last Filed: 06/04/25 12:36> Interval history: POD #4:Open reduction internal fixation left distal radius intra-articular comminuted fracture with fixation 6 fragments 74-year-old male admitted from the emergency room today for complaints of shortness of breath. He was initially seen in the orthopaedic clinic after a fall on 05/24/2025 which resulted in a left wrist fracture which was reduced and then splinted with a sling provided in the emergency room. He underwent an ORIF of the left distal radius fracture on 05/31. He then presented to the emergency room today with acute onset fever, falls and shortness of breath. He is chronically on Eliquis which was resumed postoperatively. <LAILA Roy - Last Filed: 06/04/25 12:36> Review of Systems Review of Systems: All systems reviewed & are unremarkable except as noted in HPI and below <LAILA Roy - Last Filed: 06/04/25 12:36> Exam Const: General: uncomfortable <LAILA Roy - Last Filed: 06/04/25 12:36> Resp: Effort & Inspection: able to speak in complete sentences <GOMEZ RoyP - Last Filed: 06/04/25 12:36> Cardio: Rate: regular rate <LAILA Roy - Last Filed: 06/04/25 12:36> Rhythm: regular rhythm <LAILA Roy - Last Filed: 06/04/25 12:36> GI: GI Palp: Yes Soft to palpation <LAILA Roy - Last Filed: 06/04/25 12:36> Neuro: Speech: normal speech <GOMEZ RoyP - Last Filed: 06/04/25 12:36> Sensory Exam: normal sensation <LAILA Roy - Last Filed: 06/04/25 12:36> Extrem: Other: Left wrist splint clean, dry and intact. Patient moves fingers. Sensation intact. <LAILA Roy - Last Filed: 06/04/25 12:36> Psych: Mental Status: mental status grossly normal <LAILA Roy - Last Filed: 06/04/25 12:36> Objective Data Vital Signs Vital Signs: Vital Signs - 24 hr 06/03/25 17:31 06/03/25 17:50 06/03/25 17:50 Temperature 38.0 C H Pulse Rate 78 86 Respiratory Rate 16 Blood Pressure 112/97 H Pulse Oximetry 94 96 Oxygen Delivery Nasal Cannula Nasal Cannula Oxygen Flow Rate 2 2 06/03/25 18:04 06/03/25 18:07 06/03/25 19:02 Temperature Pulse Rate 77 69 Respiratory Rate 17 19 Blood Pressure 109/63 119/59 L Pulse Oximetry 98 96 93 Oxygen Delivery Nasal Cannula Oxygen Flow Rate 2 06/03/25 20:45 06/03/25 21:01 06/03/25 21:31 Temperature Pulse Rate 70 70 Respiratory Rate 23 H 20 Blood Pressure 100/51 L 110/55 L Pulse Oximetry 84 L 94 94 Oxygen Delivery Oxygen Flow Rate 06/03/25 22:21 06/03/25 22:50 06/03/25 23:00 Temperature 37.7 C H Pulse Rate 73 68 Respiratory Rate 22 H 20 Blood Pressure 120/70 112/48 L Pulse Oximetry 93 100 94 Oxygen Delivery Nasal Cannula Oxygen Flow Rate 06/03/25 23:11 06/04/25 00:00 06/04/25 00:58 Temperature Pulse Rate 73 Respiratory Rate 20 Blood Pressure Pulse Oximetry 100 93 Oxygen Delivery Nasal Cannula Nasal Cannula Oxygen Flow Rate 3 4 06/04/25 04:00 06/04/25 04:00 06/04/25 08:00 Temperature 36.9 C Pulse Rate 85 79 71 Respiratory Rate 20 Blood Pressure 130/63 Pulse Oximetry 94 Oxygen Delivery Oxygen Flow Rate <LAILA Roy - Last Filed: 06/04/25 12:36> Intake/Output Intake/Output: Intake & Output 06/01/25 06/02/25 06/03/25 06/04/25 23:59 23:59 23:59 23:59 Intake Total 390 Output Total 0 750 Balance 0 -360 <LAILA Roy - Last Filed: 06/04/25 12:36> Meds/Results Medications: Active Medications Generic Name Dose Route Start Last Admin Trade Name Freq PRN Reason Stop Dose Admin Acetaminophen 1,000 mg 06/04/25 01:41 Acetaminophen 500 Mg Tablet PO Q8H PRN Pain Albuterol 2 puff 06/04/25 01:41 Albuterol Sulfate (*Sp) Aerosol 1 Puff INHALATION Q4HRT PRN Shortness Of Breath Or Wheezing Amlodipine Besylate 5 mg 06/04/25 09:00 Amlodipine Besylate 5 Mg Tablet PO QAM [facility] Apixaban 5 mg 06/04/25 09:00 Apixaban 5 Mg Tablet PO Q12HR [facility] Cyclobenzaprine HCl 5 mg 06/04/25 01:41 06/04/25 02:27 Cyclobenzaprine Hcl 5 Mg Tablet PO 5 mg Q8H PRN Administration muscle pain Dextrose 12.5 gm 06/03/25 21:44 Dextrose 50% 25 Gm/50 Ml Syringe IV PUSH PRN PRN Hypoglycemia Protocol Empagliflozin 25 mg 06/04/25 09:00 Empagliflozin 25 Mg Tablet PO DAILY [facility] Escitalopram Oxalate 10 mg 06/04/25 09:00 Escitalopram Oxalate 10 Mg Tablet PO QAM [facility] Glucagon 1 mg 06/03/25 21:44 Glucagon For Inj 1 Mg Vial IM PRN PRN Hypoglycemia Protocol Glucose 15 gm 06/03/25 21:44 Glucose Oral Gel 15 Gm Of Glucse In 37.5 Gm Tube PO PRN PRN Hypoglycemia Protocol Cefepime HCl 1 gm/ Sodium 50 mls @ 100 mls/hr 06/04/25 12:00 Chloride IVPB Q12H [facility] Doxycycline Hyclate 100 mg/ 100 mls @ 100 mls/hr 06/04/25 12:00 Sodium Chloride IVPB Q12H JOHNNY Dextrose 1,000 mls @ 100 mls/hr 06/03/25 21:44 Dextrose 5% 1,000 Ml IVPB PRN PRN Hypoglycemia Protocol Insulin Aspart 4 - 8 units 06/04/25 08:00 Insulin Aspart (*Bkc) 100 Units/Ml SUB-Q TIDWM [facility] Protocol Magnesium Oxide 400 mg 06/04/25 09:00 Magnesium Oxide 400 Mg Tablet PO DAILY [facility] Metoprolol Tartrate 50 mg 06/04/25 21:00 Metoprolol Tartrate 50 Mg Tab PO QHS [facility] Metoprolol Tartrate 25 mg 06/04/25 09:00 Metoprolol Tartrate 25 Mg Tablet PO QAM [facility] Multivitamins Therapeutic 1 tablet 06/04/25 09:00 Multivitamins Therapeutic Tab (*Bkc) PO DAILY [facility] Pantoprazole Sodium 20 mg 06/04/25 09:00 Pantoprazole Sod Sesquihydrate 20 Mg Tab PO DAILY [facility] Perflutren Lipid Microsphere 0 ml 06/03/25 21:39 Perflutren Lipid Microspheres 1.5 Ml Vial Diluted To 10 Ml Total Volume IV PUSH 06/06/25 21:40 ONCE PRN adequate visualization Protocol Potassium Chloride 20 meq 06/04/25 08:00 Potassium Chloride 20 Meq Er Tablet PO BIDWM [facility] Ropinirole HCl 4 mg 06/04/25 21:00 Ropinirole Hcl 1 Mg Tablet PO HS [facility] Rosuvastatin Calcium 20 mg 06/04/25 21:00 Rosuvastatin 20 Mg Tablet PO HS [facility] Sodium Bicarbonate 650 mg 06/04/25 09:00 Sodium Bicarbonate Tab 650 Mg Tablet PO DAILY [facility] Tramadol HCl 50 mg 06/04/25 01:41 06/04/25 02:26 Tramadol Hcl (*Crx) 50 Mg Tablet PO 50 mg Q8H PRN Administration Pain Rated 7-10 <Yael Elias, LAILA - Last Filed: 06/04/25 12:36> Radiology Results: ITS Impressions Chest X-Ray 06/03/25 18:21 Impression: 1: Cardiomegaly with mild interstitial edema. Head CT 06/03/25 20:49 IMPRESSION: 1. No acute intracranial abnormality. Chest CTA 06/03/25 20:53 IMPRESSION: 1. No large central pulmonary embolism. Peripheral emboli cannot be excluded due to technical limitations. 2: Patchy groundglass opacities and interlobular septal thickening. Differential includes pulmonary edema, atypical/viral pneumonia and early interstitial lung disease. 3: Small right pleural effusion. 4: Probable left renal cyst. Recommend correlation with renal ultrasound for characterization on a nonemergent basis. <LAILA Roy - Last Filed: 06/04/25 12:36> Labs Labs: Laboratory Results - last 24 hr 06/03/25 06/03/25 06/03/25 18:58 19:02 21:38 WBC 12.3 H RBC 3.80 L Hgb 10.5 L Hct 33.6 L MCV 88.4 MCH 27.6 MCHC 31.3 L RDW 15.6 H Plt Count 236 MPV 9.9 Immature Gran % (Auto) 0.4 Neut % (Auto) 76.3 H Lymph % (Auto) 10.1 L [place] % (Auto) 11.8 H Eos % (Auto) 1.2 Baso % (Auto) 0.2 Lymph # (Auto) 1.24 [place] # (Auto) 1.5 H Eos # (Auto) 0.2 Baso # (Auto) 0.0 Abs Immat Gran (auto) 0.05 H Absolute Neuts (auto) 9.3 H Absolute Nucleated RBC 0.000 Nucleated RBC % 0.0 ESR Sodium 134 L Potassium 3.7 Chloride 98 Carbon Dioxide 26 Anion Gap 10 BUN 51 H D Creatinine 2.91 H Estim Creat Clear Calc 25 Estimated GFR 21 L Glucose 117 H POC Capillary Glucose Hemoglobin A1c 6.5 H Lactic Acid 1.3 Calcium 8.8 Phosphorus Magnesium 2.2 Total Bilirubin 0.8 AST 56 ALT 26 Alkaline Phosphatase 97 C-Reactive Protein NT-Pro-B Natriuret Pep 5330 H Total Protein 7.0 Albumin 3.7 Lipase 33 Procalcitonin Urine Color Urine Appearance Urine pH Ur Specific [place] Urine Protein Urine Glucose (UA) Urine Ketones Ur Blood (Man) Urine Nitrate Urine Bilirubin Urine Urobilinogen Leukocyte Esterase Rfl Urine RBC Urine WBC Ur Squamous Epith Cells Urine Bacteria Urine Casts Nasal MRSA (PCR) Not detected Influenza A (RT-PCR) Negative Influenza B (RT-PCR) Negative RSV (RT-PCR) Negative SARS-CoV-2 RNA (RT-PCR) Negative Urine Pneumococcal Ag 06/03/25 06/03/25 06/04/25 21:55 23:28 04:48 WBC 14.1 H RBC 4.08 L Hgb 11.5 L Hct 36.0 L MCV 88.2 MCH 28.2 MCHC 31.9 L RDW 15.5 H Plt Count 243 MPV 10.0 Immature Gran % (Auto) 0.5 Neut % (Auto) 81.6 H Lymph % (Auto) 6.6 L [place] % (Auto) 10.9 H Eos % (Auto) 0.2 Baso % (Auto) 0.2 Lymph # (Auto) 0.93 [place] # (Auto) 1.5 H Eos # (Auto) 0.0 Baso # (Auto) 0.0 Abs Immat Gran (auto) 0.07 H Absolute Neuts (auto) 11.5 H Absolute Nucleated RBC 0.000 Nucleated RBC % 0.0 ESR 99 H 112 H Sodium 134 L Potassium 3.8 Chloride 99 Carbon Dioxide 23 Anion Gap 12 BUN 47 H Creatinine 2.67 H Estim Creat Clear Calc 28 Estimated GFR 24 L Glucose 133 H POC Capillary Glucose Hemoglobin A1c Lactic Acid 1.3 Calcium 9.1 Phosphorus 2.8 Magnesium 2.2 Total Bilirubin AST ALT Alkaline Phosphatase C-Reactive Protein 26.1 H Cancelled NT-Pro-B Natriuret Pep Total Protein Albumin Lipase Procalcitonin 0.9 Urine Color Yellow Urine Appearance Clear Urine pH 5.5 Ur Specific [place] 1.027 Urine Protein 1+ H Urine Glucose (UA) 3+ H Urine Ketones Negative Ur Blood (Man) 1+ H Urine Nitrate Negative Urine Bilirubin Negative Urine Urobilinogen 1.0 Leukocyte Esterase Rfl Negative Urine RBC 0-2 Urine WBC 0-5 Ur Squamous Epith Cells Occasional Urine Bacteria None seen Urine Casts 0-2 Nasal MRSA (PCR) Influenza A (RT-PCR) Influenza B (RT-PCR) RSV (RT-PCR) SARS-CoV-2 RNA (RT-PCR) Urine Pneumococcal Ag Cancelled 06/04/25 06/04/25 04:48 08:08 WBC RBC Hgb Hct MCV MCH MCHC RDW Plt Count MPV Immature Gran % (Auto) Neut % (Auto) Lymph % (Auto) [place] % (Auto) Eos % (Auto) Baso % (Auto) Lymph # (Auto) [place] # (Auto) Eos # (Auto) Baso # (Auto) Abs Immat Gran (auto) Absolute Neuts (auto) Absolute Nucleated RBC Nucleated RBC % ESR Sodium Potassium Chloride Carbon Dioxide Anion Gap BUN Creatinine Estim Creat Clear Calc Estimated GFR Glucose POC Capillary Glucose 154 H Hemoglobin A1c Lactic Acid Calcium Phosphorus Magnesium Total Bilirubin AST ALT Alkaline Phosphatase C-Reactive Protein 30.0 H NT-Pro-B Natriuret Pep Total Protein Albumin 3.7 Lipase Procalcitonin 0.9 Urine Color Urine Appearance Urine pH Ur Specific [place] Urine Protein Urine Glucose (UA) Urine Ketones Ur Blood (Man) Urine Nitrate Urine Bilirubin Urine Urobilinogen Leukocyte Esterase Rfl Urine RBC Urine WBC Ur Squamous Epith Cells Urine Bacteria Urine Casts Nasal MRSA (PCR) Influenza A (RT-PCR) Influenza B (RT-PCR) RSV (RT-PCR) SARS-CoV-2 RNA (RT-PCR) Urine Pneumococcal Ag <LAILA Roy - Last Filed: 06/04/25 12:36>
--- NOTE | 2025-06-04 10:05 | P.CONNP_ITS ---
Assessment and Plan Assessment and plan (1) Acute kidney injury: Code(s): N17.9 - Acute kidney failure, unspecified Status: Acute Assessment and Plan: * as noted by admission labs (creatinine 2.91mg/dL) * suspect multifactorial: * prerenal factors (+ fever) * hypoxia * pneumonia * CHF * NSAID use(?) * other(?) * check renal ultrasound, CPK, and urine studies * follow trend of repeat labs and UOP (2) Stage 3 chronic kidney disease: Code(s): N18.30 - Chronic kidney disease, stage 3 unspecified Status: Acute Assessment and Plan: * present as far back as 2018 * baseline creatinine seems to run ~ 1.4 - 1.9mg/dL * outpatient labs in January 2025 with a creatinine of 1.85mg/dL * thought to be secondary hypertension, diabetes, possibly vascular disease, and age-related change * follows with Dr. Cedric Houston for management of his known CKD * last seen in the office on 06/21/24 (3) Acute hypoxic respiratory failure: Code(s): J96.01 - Acute respiratory failure with hypoxia Status: Acute Assessment and Plan: * as noted on presentation * suspect multifactorial etiology: * CHF exacerbation * pneumonia * interstitial lung disease(?) * requiring supplemental oxygen in ER * imaging noted: * CXR with cardiomegaly with mild interstitial edema * CTA of the lungs which no large central pulmonary embolism, patchy groundglass opacities and interlobular septal thickening, and small right pleural effusion * continue current therapy/interventions * wean supplemental oxygen as tolerated (4) Pneumonia: Qualifiers: Laterality: unspecified laterality Lung location: unspecified part of lung Pneumonia type: due to unspecified organism Qualified Code(s): J18.9 - Pneumonia, unspecified organism Code(s): J18.9 - Pneumonia, unspecified organism Status: Acute Assessment and Plan: * as suggested by presentation * fever * elevated WBC * CXR/CT chest findings * follow culture data * on antibiotic therapy * follow respiratory status (5) CHF (congestive heart failure): Code(s): I50.9 - Heart failure, unspecified Status: Acute Assessment and Plan: * suspected given presentation/labs/imaging: * elevated BNP 5400 * crackles heard at lung bases * LE edema (acute on chronic) * CXR/CT chest resultes * follow-up on Echo * IV lasix PRN * follow volume status (6) Fracture of left distal radius: Qualifiers: Encounter type: initial encounter Fracture morphology: other intra- articular Fracture type: closed Qualified Code(s): S52.572A - Other intraarticular fracture of lower end of left radius, initial encounter for closed fracture Code(s): S52.502A - Unspecified fracture of the lower end of left radius, initial encounter for closed fracture Status: Acute Assessment and Plan: * s/p ORIF of his left wrist on 05/31 as an outpatient * cast in place, encourage elevation * Orthopedic consulted * pain management (7) Essential hypertension: Code(s): I10 - Essential (primary) hypertension Status: Chronic Assessment and Plan: * reasonable control at this time * pain (recent wrist fracture) likely playing a role * follow trend of hemodynamics (8) Type 2 diabetes mellitus: Code(s): E11.9 - Type 2 diabetes mellitus without complications Status: Acute Assessment and Plan: * follow accu-cheks * glycemic control per hospitalist I will continue to follow the patient with you while he remains hospitalized and make further recommendations as deemed necessary. Thank you for allowing me to participate in the care of this patient. L History of Present Illness Reason for Consult Consult date: 06/04/25 Reason for consult: acute renal failure (on chronic kidney disease) Chief Complaint Chief complaint: PNA History of Present Illness Narrative: The patient is a 74-year-old male with a past medical history as outlined below who presented to [facility] Emergency Room with complaints of shortness of breath. The patient had a recent ORIF of his left wrist and tolerated this outpatient procedure reasonably well. however, following this procedure, he has noted that his shortness of breath has progressively getting worse over last 2 or 3 days if not longer. Furthermore, he has noted himself to be unstable with several falls as well. He denies any head trauma or loss of consciousness with these falls. As his symptoms continued to progressively get worse, he presented to the emergency room for further assessment Workup and evaluation emergency room demonstrated the patient to be hemodynamically stable but he was febrile. Subsequent testing demonstrated a white blood cell count of 12.3, hemoglobin 10.5 hematocrit 33.6, platelet count of 236, sodium 134 potassium 3.7 bicarb 26 BUN 51 creatinine 2.91 with a glucose of 117 and a calcium of 8.8. His proBNP was 5330 with an albumin of 3.7 and a normal procalcitonin and lactic acid. His chest x-ray demonstrated cardiomegaly with mild interstitial edema but given the severity of his shortness of breath and the fact he was requiring supplemental oxygen emergency room, he underwent a CTA of his chest which demonstrated no large central pulmonary embolism but peripheral emboli could not be excluded due to technical limitations, patchy ground-glass opacities and interlobular septal thickening, small right pleural effusion, and a probable left renal cyst. He was subsequently given a 1 L normal saline bolus and after appropriate cultures were obtained, initiated on IV antibiotics for presumed pneumonia. He was subsequently admitted to the hospital for further evaluation and therapy. Since his admission, his renal function has improved slightly but he still hypoxic and required supplemental oxygen. No further fevers overnight. Renal consultation was requested due to his acute kidney injury/acute renal failure on top of his baseline chronic kidney disease. The patient has known chronic kidney disease is most likely secondary to his hypertension, diabetes, vascular disease, and age-related change. He follows with Dr. Cedric Houston for management of his known CKD. His baseline creatinine runs around 1.4 - 1.9 mg/dL from review of outpatient records. Interestingly, during his outpatient surgery for his left wrist fracture, his creatinine was mildly elevated at that time at 2.19 mg/dL. In spite of his fluctuations in his renal insufficiency, he had no critical electrolyte abnormalities, metabolic acidosis, or evidence of uremia but he did have evidence of mild volume overload as noted by his imaging studies. Currently, at the time my evaluation, he does not appear to be in any acute distress Review of Systems 2 Review of Systems: As per HPI. [facility] Past Medical History Medical History (Updated 06/06/25 @ 16:22 by Abi Aldrich MD) Essential hypertension History of DVT (deep vein thrombosis) Hypokalemia due to excessive renal loss of potassium Diabetes mellitus No insulin pump DOLORES (obstructive sleep apnea) MRSA (methicillin resistant staph aureus) culture positive DVT (deep venous thrombosis) Fracture of left distal radius Surgical History Surgical History H/O hernia repair H/O lumbosacral spine surgery Family History Family History (Updated 06/03/25 @ 23:04 by Shreya Mariano RN) Father Acute myocardial infarction Sibling Cerebrovascular accident Leukemia Hypertension Mother Diabetes mellitus Hypertension Social History Social History Smoking status: Never smoker Alcohol intake: never Substance use: never Lack of Transportation: No Lack of Food: Never True Current Housing: I Have Housing Concerned About Future Housing: No Difficulty Paying Gas/Electric Bills: No Difficulty Paying for Meds: No Currently Unemployed: No Education: Associate Degree Difficulty w/ Childcare or Family Care: No Living arrangements: with family Additional living arrangements comments: Spiritual care concerns: No Meds Home Medications and Allergies Home Medications ?Medication ?Instructions ?Recorded ?Confirmed ?Type acetaminophen 500 mg tablet 1,000 mg (2 x 500 mg) PO T ID PRN 05/24/25 06/03/25 Rx pain 7 days #42 tabs albuterol sulfate 90 mcg/actuation 2 puff inhalation Q 6-8H PRN 05/30/25 06/03/25 History aerosol inhaler shortness of breath or wheez ing allopurinol 300 mg tablet 300 mg PO DAILY 05/30/2505/20 History amlodipine 5 mg tablet 5 mg PO QAM 05/30/25 5 History apixaban 5 mg tablet (Eliquis) 5 mg PO BID 05/30/25 History dulaglutide 3 mg/0.5 mL 3 mg subcut WEEKLY 05/30/25 06/03/25 History subcutaneous pen injector (Trulicity) empagliflozin 25 mg tablet 25 mg PO DAILY 05/30/2505/20 History (Jardiance) escitalopram oxalate 10 mg tablet 10 mg PO QAM 5 06/03/25 History furosemide 40 mg tablet 40 mg PO QAM 05/30/25 History gabapentin 300 mg capsule 600 mg PO HS 05/30/25 History ibuprofen 200 mg tablet (IBU-200) 400 mg PO Q6H PRN pa in 05/30/25 06/03/25 History magnesium oxide 400 mg (241.3 mg 400 mg PO DAILY 05/3006/03/25 History magnesium) tablet metoprolol tartrate 50 mg tablet 25 mg PO QAM 05/30/25 06/03/25 History multivitamin (Daily Multi-Vitamin 1 tablet PO DAILY 06/03/25 History tablet) pantoprazole 20 mg tablet,delayed 20 mg PO DAILY 05/3006/03/25 History release ropinirole 2 mg tablet 4 mg PO HS 05/30/25 06/03/25 History rosuvastatin 20 mg tablet 20 mg PO HS 05/30/25 5 History sodium bicarbonate 650 mg tablet 650 mg PO DAILY 05/3006/03/25 History tadalafil 20 mg tablet (Cialis) 20 mg PO ONCE PRN sexu al activity 05/30/25 06/03/25 History potassium chloride 20 mEq 20 meq PO BID #30 tabs 05/3106/03/25 Rx tablet,extended release (K-Tab) cyclobenzaprine 5 mg tablet 5 mg PO Q8H PRN muscle rachel n 06/03/25 06/03/25 History tramadol 50 mg tablet 50 mg PO Q8H PRN pain 06/03/25 History acyclovir 400 mg tablet 800 mg (2 x 400 mg) PO 5 ODALIS ES 06/06/25 Rx DAILY #31 tabs amoxicillin 875 mg-potassium 1 tablet PO Q12H #12 tabs 06/06/25 Rx clavulanate 125 mg tablet doxycycline hyclate 100 mg tablet 100 mg PO DAILY #9 t abs 06/06/25 Rx Allergies Allergy/AdvReac Type Severity Reaction Status Date / Time lisinopril AdvReac Unknown HYPERKALCEM Verified 06/03/25 17:50 IA olmesartan AdvReac HYPERKALCEM Verified 06/03/25 17:50 IA Vital Signs Vital Signs Temp Pulse Resp BP Pulse Ox O2 Del Method O2 Flow Rate 06/04/25 09:09 71 06/04/25 08:00 94 Nasal Cannula 3 06/04/25 08:00 98.2 F 80 22 H 153/113 H 94 06/04/25 08:00 71 06/04/25 04:00 98.5 F 79 20 130/63 94 06/04/25 04:00 85 06/04/25 00:58 20 93 Nasal Cannula 4 06/04/25 00:00 73 06/03/25 23:11 100 Nasal Cannula 3 06/03/25 23:00 94 Nasal Cannula 06/03/25 22:50 100 F H 68 20 112/48 L 100 06/03/25 22:21 73 22 H 120/70 93 06/03/25 21:31 70 20 110/55 L 94 06/03/25 21:01 70 23 H 100/51 L 94 06/03/25 20:45 84 L 06/03/25 19:02 69 19 119/59 L 93 06/03/25 18:07 96 Nasal Cannula 2 06/03/25 18:04 77 17 109/63 98 06/03/25 17:50 96 Nasal Cannula 2 06/03/25 17:50 86 06/03/25 17:31 100.4 F H 78 16 112/97 H 94 Nasal Cannula 2 Exam 2 Narrative: GENERAL APPEARANCE: elderly but well developed well nourished male in no acute distress HEENT: normocephalic, atraumatic, normal conjunctiva and sclera, nares patient NECK: no lymphadenopathy, thyromegaly, or JVD MOUTH: normal lips, teeth, and gums CARDIOVASCULAR: RRR, normal S1 and S2, no rub detected RESPIRATORY: coarse with bibasilar crackles ABDOMEN: soft, nontender, nondistended, positive bowel sounds present EXTREMITIES: no evidence of cyanosis, clubbing, 1+ edema; right wrist in cast NEUROLOGICAL: alert and oriented x 3; CN II - XII intact bilaterally; no focal deficits noted Results Lab Results 06/06/25 04:38 06/06/25 04:38 Lab results: Most recent lab results Calcium 9.1 mg/dL (8.4-10.2) 06/04/25 04:48 Phosphorus 2.8 mg/dL (2.5-4.5) 06/04/25 04:48 Magnesium 2.2 mg/dL (1.6-2.3) 06/04/25 04:48
[2025-06-04] MEDS: PANTOPRAZOLE SOD SESQUIHYDRATE 20 MG TAB PO (10:38)
[2025-06-04] MEDS: CEFEPIME 1 GM in SODIUM CHLORIDE 0.9% IV 50 ML 100 ML IVPB ×2 (11:21→23:35)
--- NOTE | 2025-06-04 13:20 | PC.NURSE ---
To ultrasound per stretcher.
--- NOTE | 2025-06-04 13:37 | PC.NURSE ---
Return to room per stretcher from ultrasound.
--- NOTE | 2025-06-04 16:03 | PC.NURSE ---
On 06/04/25, the student, [Lourdes Guillen], provided care and completed [facility] documentation on this patient. I have reviewed the student's documentation and agree with the findings.
[2025-06-04 18:15] LABS: Total Protein Urine Random 76 mg/dL; Urea Random Urine 669 MG/DL
[2025-06-04 18:16] LABS: Total Protein Urine Random 76 mg/dL; Ur Ttl Prot Creatinine Ratio 1.04 mg/mg (0-0.20)
[2025-06-04 18:18] LABS: Urine Eos QC 2nd Tech Confirmed
[2025-06-04] MEDS: METOPROLOL TARTRATE 50 MG TAB PO (20:38)
[2025-06-04] MEDS: ROSUVASTATIN 20 MG TABLET PO (20:38)
[2025-06-04] MEDS: ALBUTEROL SULFATE (*SP) AEROSOL 1 PUFF 2 PUFF INHALATION (21:51)
--- NOTE | 2025-06-04 22:13 | ECG_ITS ---
Test Date: 2025-06-04 22:33:56 Measurements Intervals [place] Rate: 61 P: 0 ID: 0 QRS: 175 QRSD: 116 T: 151 QT: 447 QTc: 454 Interpretive Statements ATRIAL FIBRILLATION TRANSPOSITION OF RIGHT TO LEFT ARM LEAD NONSPECIFIC INTRAVENTRICULAR CONDUCTION DELAY ABNORMAL ECG Compared to ECG 06/03/2025 18:00:23 ARM LEAD TRANSPOSITION IS PRESENT Electronically Signed On 06-05-2025 16:12:49 CDT by Jaya Strickland M.D.
[2025-06-05] VITALS (17 sets, daily range): BP systolic 111–141; BP diastolic 57–82; PULSE 56–97; RESP 17–28; TEMP 36.3–36.8; O2SAT 91–96
[2025-06-05] MEDS: DOXYCYCLINE IV 100 MG in SODIUM CHLORIDE 0.9% IV 100 ML IVPB ×2 (00:07→11:50)
[2025-06-05 06:05] LABS: Hematocrit 38.7 % (42.0-52.0); Hemoglobin 12.1 g/dL (14.0-18.0); Immature Granulocyte Percent A 0.7 % (0-0.5); Lymphocytes Absolute Auto 1.04 K/mm3 (0.9-3.2); Mean Corpuscular HGB Conc 31.3 g/dl (32-36); Mean Corpuscular Hemoglobin 28.2 pg (26-34); Mean Corpuscular Volume 90.2 fl (80-100); Nucleated Red Blood Cells Absolute Auto 0.000 K/mm3 (0.0-0.012); Nucleated Red Blood Cells Perc 0.0 % (0.0-0.2); Platelet Count Result 279 k/mm3 (150-375); Red Blood Count 4.29 M/mm3 (4.6-6.20); White Blood Count 13.2 K/mm3 (4.5-10.0)
[2025-06-05 06:36] LABS: Albumin Level 3.5 g/dL (3.5-5.1); Anion Gap 11 mmol/L (4-12); Blood Urea Nitrogen 40 mg/dL (9-20); Calcium 9.3 mg/dL (8.4-10.2); Carbon Dioxide 23 mmol/L (22-30); Chloride 102 mmol/L (98-107); Creatine Kinase 218 U/L (55-170); Estimated CRCL calculation 35 ml/min; Estimated Glomerular Filt Rate 31; Glucose 149 mg/dL (65-110); Magnesium 2.3 mg/dL (1.6-2.3); Potassium 4.3 mmol/L (3.4-5.0); Sodium 136 mmol/L (137-145)
[2025-06-05 06:47] LABS: Procalcitonin 0.8 ng/mL
[2025-06-05 06:53] LABS: CRP 14.5 mg/dL (<1.0)
[2025-06-05] MEDS: MULTIVITAMINS THERAPEUTIC TAB (*BKC) 1 TABLET PO (09:47)
[2025-06-05] MEDS: APIXABAN 5 MG TABLET PO ×2 (09:47→20:51)
[2025-06-05] MEDS: MAGNESIUM OXIDE 400 MG TABLET PO (09:47)
[2025-06-05] MEDS: METOPROLOL TARTRATE 25 MG TABLET PO (09:47)
[2025-06-05] MEDS: traMADol HCL (*CRX) 50 MG TABLET PO ×2 (09:47→18:27)
[2025-06-05] MEDS: POTASSIUM CHLORIDE 20 MEQ ER TABLET PO ×2 (09:47→16:06)
[2025-06-05] MEDS: SODIUM BICARBONATE TAB 650 MG TABLET PO (09:47)
[2025-06-05] MEDS: ESCITALOPRAM OXALATE 10 MG TABLET PO (09:48)
[2025-06-05] MEDS: PANTOPRAZOLE SOD SESQUIHYDRATE 20 MG TAB PO (09:48)
[2025-06-05] MEDS: guaiFENesin 12 HR 600 MG TABCR 1200 MG PO ×2 (09:52→20:51)
[2025-06-05] MEDS: ACETAMINOPHEN 500 MG TABLET 1000 MG PO ×2 (11:49→22:13)
[2025-06-05] MEDS: CEFEPIME 1 GM in SODIUM CHLORIDE 0.9% IV 50 ML 100 ML IVPB (12:38)
--- NOTE | 2025-06-05 12:43 | P.PNNP_ITS ---
Progress Note: A&P Assessment and Plan (1) Acute kidney injury: Code(s): N17.9 - Acute kidney failure, unspecified Status: Acute Assessment and Plan: * slow improvement * as noted by admission labs (creatinine 2.91mg/dL) * suspect multifactorial: * prerenal factors (+ fever) * hypoxia * pneumonia * CHF * NSAID use(?) * other(?) * evaluation to date noted: * renal ultrasound without obstruction * urine electrolytes prerenal * CPK mildly elevated (but not enough to effect kidney function) * urine eosinophils negative * moderate proteinuria * follow trend of repeat labs and UOP (2) Stage 3 chronic kidney disease: Code(s): N18.30 - Chronic kidney disease, stage 3 unspecified Status: Acute Assessment and Plan: * present as far back as 2018 * baseline creatinine seems to run ~ 1.4 - 1.9mg/dL * outpatient labs in January 2025 with a creatinine of 1.85mg/dL * thought to be secondary hypertension, diabetes, possibly vascular disease, and age-related change * follows with Dr. Cedric Houston for management of his known CKD * last seen in the office on 06/21/24 (3) Acute hypoxic respiratory failure: Code(s): J96.01 - Acute respiratory failure with hypoxia Status: Acute Assessment and Plan: * as noted on presentation * suspect multifactorial etiology: * CHF exacerbation * pneumonia * interstitial lung disease(?) * requiring supplemental oxygen in ER * imaging noted: * CXR with cardiomegaly with mild interstitial edema * CTA of the lungs which no large central pulmonary embolism, patchy groundglass opacities and interlobular septal thickening, and small right pleural effusion * continue current therapy/interventions * wean supplemental oxygen as tolerated (4) Pneumonia: Qualifiers: Laterality: unspecified laterality Lung location: unspecified part of lung Pneumonia type: due to unspecified organism Qualified Code(s): J18.9 - Pneumonia, unspecified organism Code(s): J18.9 - Pneumonia, unspecified organism Status: Acute Assessment and Plan: * as suggested by presentation * fever * elevated WBC * CXR/CT chest findings * follow culture data * on antibiotic therapy * follow respiratory status (5) CHF (congestive heart failure): Code(s): I50.9 - Heart failure, unspecified Status: Acute Assessment and Plan: * suspected given presentation/labs/imaging: * elevated BNP 5400 * crackles heard at lung bases * LE edema (acute on chronic) * CXR/CT chest resultes * recent Echo ( on 06/04) noted: * left ventricular ejection fraction is visually estimated to be 65-70% * right ventricle is mildly dilated with normal systolic function * aortic valve is trileaflet and calcified * moderate aortic stenosis * no aortic regurgitation * dilated inferior vena cava with <50% collapse upon inspiration consistent with significantly elevated right atrial pressure, 15 mmHg * on IV lasix * follow volume status (6) Fracture of left distal radius: Qualifiers: Encounter type: initial encounter Fracture morphology: other intra- articular Fracture type: closed Qualified Code(s): S52.572A - Other intraarticular fracture of lower end of left radius, initial encounter for closed fracture Code(s): S52.502A - Unspecified fracture of the lower end of left radius, initial encounter for closed fracture Status: Acute Assessment and Plan: * s/p ORIF of his left wrist on 05/31 as an outpatient * cast in place, encourage elevation * Orthopedic recommendations noted * pain management (7) Essential hypertension: Code(s): I10 - Essential (primary) hypertension Status: Chronic Assessment and Plan: * reasonable control at this time * pain (recent wrist fracture and shingles) likely playing a role * follow trend of hemodynamics (8) Anemia: Code(s): D64.9 - Anemia, unspecified Status: Acute Assessment and Plan: * due to recent operative intervention, JAGDISH, CKD, and acute illness * follow trend of H/H (9) Shingles: Code(s): B02.9 - Zoster without complications Status: Acute Assessment and Plan: * right jaw line rash seems consistent * on acyclovir (10) Type 2 diabetes mellitus: Code(s): E11.9 - Type 2 diabetes mellitus without complications Status: Acute Assessment and Plan: * follow accu-cheks * glycemic control per hospitalist Will continue to follow. Subjective Date/time seen: 06/05/25 12:43 Interval history: Follow-up for acute kidney injury/acute renal failure on chronic kidney disease. No acute distress noted at the time of my visit; still with some intermittent pain around right ear/jaw with rash (suspected shingles); breathing/respiratory status seems to be doing better when seen; concern for CHF so started on IV diuretic therapy (although he reports his LE swelling has been there for the last year -- he states his FEET swelling is relatively new). Exam Narrative: General: elderly but WD/WN male in NAD Heart: normal S1 and S2; no rub Lungs: coarse breath sounds; few bibasilar crackles Abdomen: soft, nontender, nondistended, positive bowel sounds Extremities: no cyanosis or clubbing; 1+ edema; right wrist cast Skin: shingles rash right lower jawline near ear Objective Data Vital Signs Vital Signs: Vital Signs Temp Pulse Resp BP Pulse Ox O2 Del Method O2 Flow Rate 06/05/25 12:00 97.8 F 59 L 17 111/58 L 95 06/05/25 09:47 63 06/05/25 08:16 63 24 H 06/05/25 08:06 67 24 H 06/05/25 08:06 92 Nasal Cannula 2 06/05/25 08:00 62 06/05/25 08:00 92 Nasal Cannula 2 06/05/25 04:00 61 06/05/25 03:49 97.3 F L 56 L 20 138/57 L 91 06/05/25 01:42 69 28 H 06/05/25 00:00 63 06/04/25 23:47 97.9 F 58 L 20 123/35 L 93 06/04/25 21:52 79 18 06/04/25 20:38 81 06/04/25 20:00 73 06/04/25 19:41 98.4 F 81 18 140/59 L 93 Intake/Output Intake/Output: Intake & Output 06/02/25 06/03/25 06/04/25 06/05/25 23:59 23:59 23:59 23:59 Intake Total 1112 2466 Output Total 0 1350 2100 Balance 0 -238 366 Meds/Results Medications: Active Medications Generic Name Dose Route Start Last Admin Trade Name Freq PRN Reason Stop Dose Admin Acetaminophen 1,000 mg 06/04/25 01:41 06/05/25 11:49 Acetaminophen 500 Mg Tablet PO 1,000 mg Q8H PRN Administration Pain Acyclovir 800 mg 06/05/25 18:00 06/05/25 17:07 Acyclovir 400 Mg Tablet PO 800 mg 5 TIMES DAILY JOHNNY Administration Albuterol 2 puff 06/04/25 01:41 06/04/25 21:51 Albuterol Sulfate (*Sp) Aerosol 1 Puff INHALATION 2 puff Q4HRT PRN Administration Shortness Of Breath Or Wheezing Amlodipine Besylate 5 mg 06/04/25 09:00 06/05/25 09:47 Amlodipine Besylate 5 Mg Tablet PO 5 mg QAM JOHNNY Administration Apixaban 5 mg 06/04/25 09:00 06/05/25 09:47 Apixaban 5 Mg Tablet PO 5 mg Q12HR JOHNNY Administration Cyclobenzaprine HCl 5 mg 06/04/25 01:41 06/05/25 18:27 Cyclobenzaprine Hcl 5 Mg Tablet PO 5 mg Q8H PRN Administration muscle pain Dextrose 12.5 gm 06/03/25 21:44 Dextrose 50% 25 Gm/50 Ml Syringe IV PUSH PRN PRN Hypoglycemia Protocol Dextrose 12.5 gm 06/04/25 14:23 Dextrose 50% 25 Gm/50 Ml Syringe IV PUSH PRN PRN Hypoglycemia Protocol Escitalopram Oxalate 10 mg 06/04/25 09:00 06/05/25 09:48 Escitalopram Oxalate 10 Mg Tablet PO 10 mg QAM JOHNNY Administration Furosemide 40 mg 06/05/25 17:00 06/05/25 16:02 Furosemide Inj 40 Mg/4 Ml Vial IV PUSH 40 mg BID JOHNNY Administration Glucagon 1 mg 06/03/25 21:44 Glucagon For Inj 1 Mg Vial IM PRN PRN Hypoglycemia Protocol Glucose 15 gm 06/03/25 21:44 Glucose Oral Gel 15 Gm Of Glucse In 37.5 Gm Tube PO PRN PRN Hypoglycemia Protocol Guaifenesin 1,200 mg 06/05/25 09:10 06/05/25 09:52 Guaifenesin 12 Hr 600 Mg Tabcr PO 1,200 mg Q12HR JOHNNY Administration Cefepime HCl 1 gm/ Sodium 50 mls @ 100 mls/hr 06/04/25 12:00 06/05/25 13:08 Chloride IVPB Infused Q12H JOHNNY Infusion Doxycycline Hyclate 100 mg/ 100 mls @ 100 mls/hr 06/04/25 12:00 06/05/25 12:50 Sodium Chloride IVPB Infused Q12H JOHNNY Infusion Dextrose 1,000 mls @ 100 mls/hr 06/03/25 21:44 Dextrose 5% 1,000 Ml IVPB PRN PRN Hypoglycemia Protocol Insulin Aspart 4 - 8 units 06/04/25 08:00 06/05/25 16:58 Insulin Aspart (*Bkc) 100 Units/Ml SUB-Q Not Given TIDWM JOHNNY Protocol Levalbuterol HCl 0.63 mg 06/05/25 01:20 06/05/25 13:16 Levalbuterol Neb 1.25 Mg/3 Ml INHALATION 0.63 mg Q6HRT JOHNNY Administration Magnesium Oxide 400 mg 06/04/25 09:00 06/05/25 09:47 Magnesium Oxide 400 Mg Tablet PO 400 mg DAILY JOHNNY Administration Metoprolol Tartrate 50 mg 06/04/25 21:00 06/04/25 20:38 Metoprolol Tartrate 50 Mg Tab PO 50 mg QHS JOHNNY Administration Metoprolol Tartrate 25 mg 06/04/25 09:00 06/05/25 09:47 Metoprolol Tartrate 25 Mg Tablet PO 25 mg QAM JOHNNY Administration Multivitamins Therapeutic 1 tablet 06/04/25 09:00 06/05/25 09:47 Multivitamins Therapeutic Tab (*Bkc) PO 1 tablet DAILY JOHNNY Administration Pantoprazole Sodium 20 mg 06/04/25 09:00 06/05/25 09:48 Pantoprazole Sod Sesquihydrate 20 Mg Tab PO 20 mg DAILY JOHNNY Administration Perflutren Lipid Microsphere 0 ml 06/03/25 21:39 Perflutren Lipid Microspheres 1.5 Ml Vial Diluted To 10 Ml Total Volume IV PUSH 06/06/25 21:40 ONCE PRN adequate visualization Protocol Potassium Chloride 20 meq 06/04/25 08:00 06/05/25 16:06 Potassium Chloride 20 Meq Er Tablet PO 20 meq BIDWM JOHNNY Administration Ropinirole HCl 4 mg 06/04/25 21:00 06/04/25 20:38 Ropinirole Hcl 1 Mg Tablet PO 4 mg HS JOHNNY Administration Rosuvastatin Calcium 20 mg 06/04/25 21:00 06/04/25 20:38 Rosuvastatin 20 Mg Tablet PO 20 mg HS JOHNNY Administration Sodium Bicarbonate 650 mg 06/04/25 09:00 06/05/25 09:47 Sodium Bicarbonate Tab 650 Mg Tablet PO 650 mg DAILY JOHNNY Administration Tramadol HCl 50 mg 06/04/25 01:41 06/05/25 18:27 Tramadol Hcl (*Crx) 50 Mg Tablet PO 50 mg Q8H PRN Administration Pain Rated 7-10 Radiology Results: ITS Impressions Head CT 06/03/25 20:49 IMPRESSION: 1. No acute intracranial abnormality. Chest CTA 06/03/25 20:53 IMPRESSION: 1. No large central pulmonary embolism. Peripheral emboli cannot be excluded due to technical limitations. 2: Patchy groundglass opacities and interlobular septal thickening. Differential includes pulmonary edema, atypical/viral pneumonia and early interstitial lung disease. 3: Small right pleural effusion. 4: Probable left renal cyst. Recommend correlation with renal ultrasound for characterization on a nonemergent basis. Renal Ultrasound 06/04/25 13:39 IMPRESSION: 1. Bilateral simple appearing anechoic renal cysts as well as a 10.1 cm Bosniak 2F exophytic cystic lesion at the upper pole the left kidney which six-month follow-up pre and postcontrast MRI or CT would be recommended. Chest X-Ray 06/05/25 16:59 IMPRESSION: 1: Moderate-sized interstitial and airspace opacities scattered throughout both lungs similar to the study from 06/03/2025. Differential includes but is not limited to edema or pneumonia. Recommend follow-up to resolution. Labs Labs: Laboratory Tests 06/05/25 05:46 WBC 13.2 H Hgb 12.1 L Hct 38.7 L Plt Count 279 Sodium 136 L Potassium 4.3 Chloride 102 Carbon Dioxide 23 BUN 40 H Creatinine 2.10 H Estimated GFR 31 L Glucose 149 H Calcium 9.3 Phosphorus 3.2 Magnesium 2.3 Total Creatine Kinase 218 H Albumin 3.5 Procalcitonin 0.8
--- NOTE | 2025-06-05 13:50 | PC.NURSE ---
Removed 5 berenice from left side of head without difficulty.
--- NOTE | 2025-06-05 15:29 | P.PNIM_ITS ---
Progress Note: A&P Assessment and Plan (1) Acute hypoxic respiratory failure: Code(s): J96.01 - Acute respiratory failure with hypoxia Status: Acute Assessment and Plan: patient presented with dyspnea x 3 days , patient requiring oxygen by ME, CXR showed Cardiomegaly with mild interstitial edema. CTA of the lungs which showed 1. No large central pulmonary embolism. Peripheral emboli cannot be excluded due to technical limitations. 2: Patchy groundglass opacities and interlobular septal thickening. Differential includes pulmonary edema, atypical/viral pneumonia and early interstitial lung disease. 3: Small right pleural effusion. 4: Probable left renal cyst. Patient with recent hospitalization will treat pneumonia for HAP and CHF exacerbation * IV doxycycline, IV cefepime * wean oxygen as tolerated to maintain 92% (2) Pneumonia: Qualifiers: Laterality: unspecified laterality Lung location: unspecified part of lung Pneumonia type: due to unspecified organism Qualified Code(s): J18.9 - Pneumonia, unspecified organism Code(s): J18.9 - Pneumonia, unspecified organism Status: Acute Assessment and Plan: Patient presented with dyspnea x 3 days, patient was febrile on presentation, leukocytosis patient had surgery on 05/31 for an ORIF of the left wrist HCAP * IV doxycycline, IV cefepime * MRSA swab negative * Legionella urine pending * Bronchodilators. * incentive spirometry while awake. * sputum culture ordered * influenza/COVID/RSV negative * respiratory panel pending * CMP/CBC daily (3) Acute kidney injury: Code(s): N17.9 - Acute kidney failure, unspecified Status: Acute Assessment and Plan: patients creatinine on presentation 2.91, repeat 2.67, unsure what patients baseline creatinine is but from his home medication list he clearly has some CKD as he takes sodium bicarb * Nephrology consulted * avoid nephrotoxic medications as able * trend renal function (4) Fracture of left distal radius: Qualifiers: Encounter type: initial encounter Fracture type: closed Fracture morphology: other intra-articular Qualified Code(s): S52.572A - Other intraarticular fracture of lower end of left radius, initial encounter for c losed fracture Code(s): S52.502A - Unspecified fracture of the lower end of left radius, initial encounter for closed fracture Status: Acute Assessment and Plan: Patient had an ORIF of his left wrist on 05/31 as an outpatient * Ortho consulted * cast in place, encourage elevation * Pain management (5) Type 2 diabetes mellitus: Code(s): E11.9 - Type 2 diabetes mellitus without complications Status: Acute Assessment and Plan: Patient reports he takes Trulicity at home requesting a decrease in the amount of Accu-Cheks he does not use insulin * Will decrease Accu-Chek from a.c. HS to b.i.d. * SSI low-dose * Hypoglycemic protocol (6) History of DVT (deep vein thrombosis): Code(s): Z86.718 - Personal history of other venous thrombosis and embolism Status: Acute Assessment and Plan: * continue home Eliquis (7) Essential hypertension: Code(s): I10 - Essential (primary) hypertension Status: Acute Assessment and Plan: * continue home amlodipine * Monitor BP per unit protocol (8) CHF (congestive heart failure): Code(s): I50.9 - Heart failure, unspecified Status: Acute Assessment and Plan: Elevated BNP 5400, crackles heard at lung bases patient had 1 L fluids in the emergency department and had his oral Lasix on hold due to a bump in his renal function, however also with 2+ pitting edema BLE * Started IV Lasix b.i.d. * Echocardiogram showing left ventricular hypertrophy LVEF at 65-70% * Trend renal function during diuresis * Continue to wean oxygen as tolerated (9) Shingles: Code(s): B02.9 - Zoster without complications Status: Acute Assessment and Plan: Patient with noted rash to right lower jaw line reporting pustules he has been popping with sharp pain radiating up to the ear appears to be underlying shingles * 800 mg acyclovir p.o. 5 times a day Plan Code status: Full code per patient DVT prophylaxis: Jeanette Stress ulcer prophylaxis: NA PT/OT notes: NA Disposition: Patient continues admission to the medical unit currently being treated for pneumonia and CHF exacerbation will continue with current treatment plan started patient on treatment for possible shingles plan is for patient to return home when medically stable at discharge. Time Spent With Patient Time with patient: 15 - 25 minutes Subjective Date/time seen: 06/05/25 15:29 Interval history: Patient is a 74 year old male with PMH of DM type 2, DOLORES, history of DVT, gout, HTN, HLD and RLS. Patient presented to the ER with complaints of dyspnea. Patient reports he has been short of breath for 3 days. Patient reports multiple falls during this time as well. He reported he may have hit his head while falling, but did not lose consciousness. Per chart patient had an ORIF of the left wrist by Dr. Rob on 05/31/2025. Admitted for treatment of PNA. 06/05/2025: Patient not feeling well today still reporting moderate to severe pain that radiates to right ear from the rash with pustules patient reported that brought him to the ER. Patient states it feels likel needles poking him. Patient reports mild improvement to SOB denies CP, N/V. Review of Systems Review of Systems: All systems reviewed & are unremarkable except as noted in HPI and below Exam Narrative: APPEARANCE: No apparent distress. Head: NCAT EYES: EOMI, NOSE: Atraumatic NECK: Trachea midline RESPIRATORY: crackles at bases CARDIOVASCULAR: RRR, S1, S2, no murmurs ABDOMINAL: Non-distended, soft, non-tender, bowel sounds present in all quadrants MUSCULOSKELETAl: No obvious deformities, Right wrist in cast. NEURO: Alert. Cranial nerves 2-12 grossly intact. SKIN:: Warm, dry. Normal color, Rash to right lower jawline with pustules PSYCHIATRIC: Normal affect Objective Data Vital Signs Vital Signs: Vital Signs - 24 hr 06/04/25 16:00 06/04/25 16:00 06/04/25 19:41 Temperature 98 F 98.4 F Pulse Rate 63 88 81 Respiratory Rate 18 18 Blood Pressure 136/78 140/59 L Pulse Oximetry 94 93 Oxygen Delivery Oxygen Flow Rate 06/04/25 20:00 06/04/25 20:38 06/04/25 21:52 Temperature Pulse Rate 73 81 79 Respiratory Rate 18 Blood Pressure Pulse Oximetry Oxygen Delivery Oxygen Flow Rate 06/04/25 23:47 06/05/25 00:00 06/05/25 01:42 Temperature 97.9 F Pulse Rate 58 L 63 69 Respiratory Rate 20 28 H Blood Pressure 123/35 L Pulse Oximetry 93 Oxygen Delivery Oxygen Flow Rate 06/05/25 03:49 06/05/25 04:00 06/05/25 08:00 Temperature 97.3 F L Pulse Rate 56 L 61 Respiratory Rate 20 Blood Pressure 138/57 L Pulse Oximetry 91 92 Oxygen Delivery Nasal Cannula Oxygen Flow Rate 2 06/05/25 08:00 06/05/25 08:06 06/05/25 08:06 Temperature Pulse Rate 62 67 Respiratory Rate 24 H Blood Pressure Pulse Oximetry 92 Oxygen Delivery Nasal Cannula Oxygen Flow Rate 2 06/05/25 08:16 06/05/25 09:47 06/05/25 12:00 Temperature Pulse Rate 63 63 59 L Respiratory Rate 24 H Blood Pressure Pulse Oximetry Oxygen Delivery Oxygen Flow Rate 06/05/25 12:00 06/05/25 13:18 06/05/25 13:26 Temperature 97.8 F Pulse Rate 59 L 57 L 58 L Respiratory Rate 17 20 20 Blood Pressure 111/58 L Pulse Oximetry 95 Oxygen Delivery Oxygen Flow Rate Intake/Output Intake/Output: Intake & Output 06/02/25 06/03/25 06/04/25 06/05/25 23:59 23:59 23:59 23:59 Intake Total 1112 1694 Output Total 0 1350 700 Balance 0 -238 994 Meds/Results Medications: Active Medications Generic Name Dose Route Start Last Admin Trade Name Freq PRN Reason Stop Dose Admin Acetaminophen 1,000 mg 06/04/25 01:41 06/05/25 11:49 Acetaminophen 500 Mg Tablet PO 1,000 mg Q8H PRN Administration Pain Albuterol 2 puff 06/04/25 01:41 06/04/25 21:51 Albuterol Sulfate (*Sp) Aerosol 1 Puff INHALATION 2 puff Q4HRT PRN Administration Shortness Of Breath Or Wheezing Amlodipine Besylate 5 mg 06/04/25 09:00 06/05/25 09:47 Amlodipine Besylate 5 Mg Tablet PO 5 mg QAM JOHNNY Administration Apixaban 5 mg 06/04/25 09:00 06/05/25 09:47 Apixaban 5 Mg Tablet PO 5 mg Q12HR JOHNNY Administration Cyclobenzaprine HCl 5 mg 06/04/25 01:41 06/04/25 02:27 Cyclobenzaprine Hcl 5 Mg Tablet PO 5 mg Q8H PRN Administration muscle pain Dextrose 12.5 gm 06/03/25 21:44 Dextrose 50% 25 Gm/50 Ml Syringe IV PUSH PRN PRN Hypoglycemia Protocol Dextrose 12.5 gm 06/04/25 14:23 Dextrose 50% 25 Gm/50 Ml Syringe IV PUSH PRN PRN Hypoglycemia Protocol Escitalopram Oxalate 10 mg 06/04/25 09:00 06/05/25 09:48 Escitalopram Oxalate 10 Mg Tablet PO 10 mg QAM JOHNNY Administration Glucagon 1 mg 06/03/25 21:44 Glucagon For Inj 1 Mg Vial IM PRN PRN Hypoglycemia Protocol Glucose 15 gm 06/03/25 21:44 Glucose Oral Gel 15 Gm Of Glucse In 37.5 Gm Tube PO PRN PRN Hypoglycemia Protocol Guaifenesin 1,200 mg 06/05/25 09:10 06/05/25 09:52 Guaifenesin 12 Hr 600 Mg Tabcr PO 1,200 mg Q12HR JOHNNY Administration Cefepime HCl 1 gm/ Sodium 50 mls @ 100 mls/hr 06/04/25 12:00 06/05/25 13:08 Chloride IVPB Infused Q12H JOHNNY Infusion Doxycycline Hyclate 100 mg/ 100 mls @ 100 mls/hr 06/04/25 12:00 06/05/25 12:50 Sodium Chloride IVPB Infused Q12H JOHNNY Infusion Dextrose 1,000 mls @ 100 mls/hr 06/03/25 21:44 Dextrose 5% 1,000 Ml IVPB PRN PRN Hypoglycemia Protocol Insulin Aspart 4 - 8 units 06/04/25 08:00 06/05/25 12:12 Insulin Aspart (*Bkc) 100 Units/Ml SUB-Q Not Given TIDWM JOHNNY Protocol Levalbuterol HCl 0.63 mg 06/05/25 01:20 06/05/25 13:16 Levalbuterol Neb 1.25 Mg/3 Ml INHALATION 0.63 mg Q6HRT JOHNNY Administration Magnesium Oxide 400 mg 06/04/25 09:00 06/05/25 09:47 Magnesium Oxide 400 Mg Tablet PO 400 mg DAILY JOHNNY Administration Metoprolol Tartrate 50 mg 06/04/25 21:00 06/04/25 20:38 Metoprolol Tartrate 50 Mg Tab PO 50 mg QHS JOHNNY Administration Metoprolol Tartrate 25 mg 06/04/25 09:00 06/05/25 09:47 Metoprolol Tartrate 25 Mg Tablet PO 25 mg QAM JOHNNY Administration Multivitamins Therapeutic 1 tablet 06/04/25 09:00 06/05/25 09:47 Multivitamins Therapeutic Tab (*Bkc) PO 1 tablet DAILY JOHNNY Administration Pantoprazole Sodium 20 mg 06/04/25 09:00 06/05/25 09:48 Pantoprazole Sod Sesquihydrate 20 Mg Tab PO 20 mg DAILY JOHNNY Administration Perflutren Lipid Microsphere 0 ml 06/03/25 21:39 Perflutren Lipid Microspheres 1.5 Ml Vial Diluted To 10 Ml Total Volume IV PUSH 06/06/25 21:40 ONCE PRN adequate visualization Protocol Potassium Chloride 20 meq 06/04/25 08:00 06/05/25 09:47 Potassium Chloride 20 Meq Er Tablet PO 20 meq BIDWM JOHNNY Administration Ropinirole HCl 4 mg 06/04/25 21:00 06/04/25 20:38 Ropinirole Hcl 1 Mg Tablet PO 4 mg HS JOHNNY Administration Rosuvastatin Calcium 20 mg 06/04/25 21:00 06/04/25 20:38 Rosuvastatin 20 Mg Tablet PO 20 mg HS JOHNNY Administration Sodium Bicarbonate 650 mg 06/04/25 09:00 06/05/25 09:47 Sodium Bicarbonate Tab 650 Mg Tablet PO 650 mg DAILY JOHNNY Administration Tramadol HCl 50 mg 06/04/25 01:41 06/05/25 09:47 Tramadol Hcl (*Crx) 50 Mg Tablet PO 50 mg Q8H PRN Administration Pain Rated 7-10 Radiology Results: ITS Impressions Chest X-Ray 06/03/25 18:21 Impression: 1: Cardiomegaly with mild interstitial edema. Head CT 06/03/25 20:49 IMPRESSION: 1. No acute intracranial abnormality. Chest CTA 06/03/25 20:53 IMPRESSION: 1. No large central pulmonary embolism. Peripheral emboli cannot be excluded due to technical limitations. 2: Patchy groundglass opacities and interlobular septal thickening. Differential includes pulmonary edema, atypical/viral pneumonia and early interstitial lung disease. 3: Small right pleural effusion. 4: Probable left renal cyst. Recommend correlation with renal ultrasound for characterization on a nonemergent basis. Renal Ultrasound 06/04/25 13:39 IMPRESSION: 1. Bilateral simple appearing anechoic renal cysts as well as a 10.1 cm Bosniak 2F exophytic cystic lesion at the upper pole the left kidney which six-month follow-up pre and postcontrast MRI or CT would be recommended. Labs Labs: Laboratory Results - last 24 hr 06/04/25 06/04/25 06/04/25 16:43 17:45 17:45 WBC RBC Hgb Hct MCV MCH MCHC RDW Plt Count MPV Immature Gran % (Auto) Neut % (Auto) Lymph % (Auto) Callahan % (Auto) Eos % (Auto) Baso % (Auto) Lymph # (Auto) Callahan # (Auto) Eos # (Auto) Baso # (Auto) Abs Immat Gran (auto) Absolute Neuts (auto) Absolute Nucleated RBC Nucleated RBC % ESR Sodium Potassium Chloride Carbon Dioxide Anion Gap BUN Creatinine Estim Creat Clear Calc Estimated GFR Glucose POC Capillary Glucose 126 H Calcium Phosphorus Magnesium Total Creatine Kinase C-Reactive Protein Albumin Procalcitonin Urine Eosinophils None seen U Random Total Protein 76 76 Ur Random Sodium 34 Ur Random Urea 669 Urine Creatinine 73.4 Protein/Creat Ratio 2 06/04/25 06/04/25 06/05/25 17:45 19:28 03:46 WBC RBC Hgb Hct MCV MCH MCHC RDW Plt Count MPV Immature Gran % (Auto) Neut % (Auto) Lymph % (Auto) Callahan % (Auto) Eos % (Auto) Baso % (Auto) Lymph # (Auto) Callahan # (Auto) Eos # (Auto) Baso # (Auto) Abs Immat Gran (auto) Absolute Neuts (auto) Absolute Nucleated RBC Nucleated RBC % ESR Sodium Potassium Chloride Carbon Dioxide Anion Gap BUN Creatinine Estim Creat Clear Calc Estimated GFR Glucose POC Capillary Glucose 151 H 135 H Calcium Phosphorus Magnesium Total Creatine Kinase C-Reactive Protein Albumin Procalcitonin Urine Eosinophils U Random Total Protein Ur Random Sodium Ur Random Urea Urine Creatinine 72.6 Protein/Creat Ratio 2 1.04 H 06/05/25 06/05/25 06/05/25 05:46 08:03 12:09 WBC 13.2 H RBC 4.29 L Hgb 12.1 L Hct 38.7 L MCV 90.2 MCH 28.2 MCHC 31.3 L RDW 15.9 H Plt Count 279 MPV 9.9 Immature Gran % (Auto) 0.7 H Neut % (Auto) 82.9 H Lymph % (Auto) 7.9 L Callahan % (Auto) 8.1 Eos % (Auto) 0.2 Baso % (Auto) 0.2 Lymph # (Auto) 1.04 Callahan # (Auto) 1.1 H Eos # (Auto) 0.0 Baso # (Auto) 0.0 Abs Immat Gran (auto) 0.09 H Absolute Neuts (auto) 10.9 H Absolute Nucleated RBC 0.000 Nucleated RBC % 0.0 ESR 109 H Sodium 136 L Potassium 4.3 Chloride 102 Carbon Dioxide 23 Anion Gap 11 BUN 40 H Creatinine 2.10 H Estim Creat Clear Calc 35 Estimated GFR 31 L Glucose 149 H POC Capillary Glucose 120 H 123 H Calcium 9.3 Phosphorus 3.2 Magnesium 2.3 Total Creatine Kinase 218 H C-Reactive Protein 14.5 H Albumin 3.5 Procalcitonin 0.8 Urine Eosinophils U Random Total Protein Ur Random Sodium Ur Random Urea Urine Creatinine Protein/Creat Ratio 2 Quality VTE Prophylaxis VTE prophylaxis: pharmacologic ordered -Patient's previous records reviewed on admission -ER notes reviewed in detail on admission -discussed all findings and current treatment plan with patient/Family/POA -Consultations reviewed for recommendations -Patient's disposition for safe discharge discussed with disease case manager Dictation performed by [employer] direct speech recognition software, therefore calender worker helper variants and typographical errors may occur. Hospitalist MIPS Advance Care Plan I have confirmed that the patient's Advanced Care Plan is present, code status is documented, or surrogate decision maker is listed in patient medical record.: Yes Medication Reconciliation I have utilized all available resources to obtain, update and review the patients current medications (includes all prescriptions, OTC, herbals, cannabis, and nutritional supplements).: Yes The patient is not eligible for med reconciliation; the patient is in a emergent medical situation where delaying treatment would jeopardize the patients health.: No
[2025-06-05] MEDS: FUROSEMIDE INJ 40 MG/4 ML VIAL IV PUSH (16:02)
[2025-06-05] MEDS: ACYCLOVIR 400 MG TABLET 800 MG PO ×2 (17:07→20:51)
[2025-06-05] MEDS: CYCLOBENZAPRINE HCL 5 MG TABLET PO (18:27)
[2025-06-05] MEDS: ROSUVASTATIN 20 MG TABLET PO (20:51)
[2025-06-06] VITALS (10 sets, daily range): BP systolic 122–143; BP diastolic 66–70; PULSE 59–80; RESP 16–20; TEMP 36.4–36.7; O2SAT 96
[2025-06-06] MEDS: CEFEPIME 1 GM in SODIUM CHLORIDE 0.9% IV 50 ML 100 ML IVPB ×2 (00:22→11:56)
[2025-06-06] MEDS: DOXYCYCLINE IV 100 MG in SODIUM CHLORIDE 0.9% IV 100 ML IVPB ×2 (00:57→12:55)
--- NOTE | 2025-06-06 02:31 | PC.NURSE ---
Patient refused his Metoprolol evening dose - pt suffers from A.fib, was educated. RUBENS Nguyen was notified by phone.
[2025-06-06] MEDS: traMADol HCL (*CRX) 50 MG TABLET PO (02:58)
[2025-06-06] MEDS: CYCLOBENZAPRINE HCL 5 MG TABLET PO (02:58)
[2025-06-06 05:02] LABS: Hematocrit 37.2 % (42.0-52.0); Hemoglobin 11.9 g/dL (14.0-18.0); Immature Granulocyte Percent A 0.7 % (0-0.5); Lymphocytes Absolute Auto 1.70 K/mm3 (0.9-3.2); Mean Corpuscular HGB Conc 32.0 g/dl (32-36); Mean Corpuscular Hemoglobin 28.4 pg (26-34); Mean Corpuscular Volume 88.8 fl (80-100); Nucleated Red Blood Cells Absolute Auto 0.000 K/mm3 (0.0-0.012); Nucleated Red Blood Cells Perc 0.0 % (0.0-0.2); Platelet Count Result 295 k/mm3 (150-375); Red Blood Count 4.19 M/mm3 (4.6-6.20); White Blood Count 10.7 K/mm3 (4.5-10.0)
[2025-06-06 05:10] LABS: Albumin Level 3.5 g/dL (3.5-5.1); Anion Gap 12 mmol/L (4-12); Blood Urea Nitrogen 38 mg/dL (9-20); Calcium 9.3 mg/dL (8.4-10.2); Carbon Dioxide 21 mmol/L (22-30); Chloride 103 mmol/L (98-107); Estimated CRCL calculation 38 ml/min; Estimated Glomerular Filt Rate 34; Glucose 113 mg/dL (65-110); Magnesium 2.1 mg/dL (1.6-2.3); Potassium 3.7 mmol/L (3.4-5.0); Sodium 136 mmol/L (137-145)
[2025-06-06 05:26] LABS: CRP 17.9 mg/dL (<1.0)
[2025-06-06 05:27] LABS: Procalcitonin 0.6 ng/mL
[2025-06-06] MEDS: MAGNESIUM OXIDE 400 MG TABLET PO (08:11)
[2025-06-06] MEDS: POTASSIUM CHLORIDE 20 MEQ ER TABLET PO (08:11)
[2025-06-06] MEDS: ESCITALOPRAM OXALATE 10 MG TABLET PO (08:12)
[2025-06-06] MEDS: guaiFENesin 12 HR 600 MG TABCR 1200 MG PO (08:12)
[2025-06-06] MEDS: ACETAMINOPHEN 500 MG TABLET 1000 MG PO (08:13)
[2025-06-06] MEDS: ACYCLOVIR 400 MG TABLET 800 MG PO ×3 (08:14→15:14)
[2025-06-06] MEDS: APIXABAN 5 MG TABLET PO (08:15)
[2025-06-06] MEDS: PANTOPRAZOLE SOD SESQUIHYDRATE 20 MG TAB PO (08:15)
[2025-06-06] MEDS: METOPROLOL TARTRATE 25 MG TABLET PO (08:16)
[2025-06-06] MEDS: SODIUM BICARBONATE TAB 650 MG TABLET PO (08:16)
[2025-06-06] MEDS: MULTIVITAMINS THERAPEUTIC TAB (*BKC) 1 TABLET PO (08:16)
[2025-06-06] MEDS: FUROSEMIDE INJ 40 MG/4 ML VIAL IV PUSH (08:17)
--- NOTE | 2025-06-06 11:29 | PC.NURSE ---
On 06/06/25, the RN, Sofy Brennan, provided care and completed [facility] documentation on this patient. I have reviewed the RN's documentation and agree with the findings.
--- NOTE | 2025-06-06 12:48 | P.PNNP_ITS ---
Progress Note: A&P Assessment and Plan (1) Acute kidney injury: Code(s): N17.9 - Acute kidney failure, unspecified Status: Acute Assessment and Plan: * slow improvement * as noted by admission labs (creatinine 2.91mg/dL) * suspect multifactorial: * prerenal factors (+ fever) * hypoxia * pneumonia * CHF * NSAID use(?) * other(?) * evaluation to date noted: * renal ultrasound without obstruction * urine electrolytes prerenal * CPK mildly elevated (but not enough to effect kidney function) * urine eosinophils negative * moderate proteinuria * follow trend of repeat labs and UOP (2) Stage 3 chronic kidney disease: Code(s): N18.30 - Chronic kidney disease, stage 3 unspecified Status: Acute Assessment and Plan: * present as far back as 2018 * baseline creatinine seems to run ~ 1.4 - 1.9mg/dL * outpatient labs in January 2025 with a creatinine of 1.85mg/dL * thought to be secondary hypertension, diabetes, possibly vascular disease, and age-related change * follows with Dr. Cedric Houston for management of his known CKD * last seen in the office on 06/21/24 (3) Acute hypoxic respiratory failure: Code(s): J96.01 - Acute respiratory failure with hypoxia Status: Acute Assessment and Plan: * as noted on presentation * suspect multifactorial etiology: * CHF exacerbation * pneumonia * interstitial lung disease(?) * requiring supplemental oxygen in ER * imaging noted: * CXR with cardiomegaly with mild interstitial edema * CTA of the lungs which no large central pulmonary embolism, patchy groundglass opacities and interlobular septal thickening, and small right pleural effusion * continue current therapy/interventions * wean supplemental oxygen as tolerated (4) Pneumonia: Qualifiers: Laterality: unspecified laterality Lung location: unspecified part of lung Pneumonia type: due to unspecified organism Qualified Code(s): J18.9 - Pneumonia, unspecified organism Code(s): J18.9 - Pneumonia, unspecified organism Status: Acute Assessment and Plan: * as suggested by presentation * fever * elevated WBC * CXR/CT chest findings * follow culture data * on antibiotic therapy * follow respiratory status (5) CHF (congestive heart failure): Code(s): I50.9 - Heart failure, unspecified Status: Acute Assessment and Plan: * suspected given presentation/labs/imaging: * elevated BNP 5400 * crackles heard at lung bases * LE edema (acute on chronic) * CXR/CT chest resultes * recent Echo ( on 06/04) noted: * left ventricular ejection fraction is visually estimated to be 65-70% * right ventricle is mildly dilated with normal systolic function * aortic valve is trileaflet and calcified * moderate aortic stenosis * no aortic regurgitation * dilated inferior vena cava with <50% collapse upon inspiration consistent with significantly elevated right atrial pressure, 15 mmHg * on IV lasix * follow volume status (6) Fracture of left distal radius: Qualifiers: Encounter type: initial encounter Fracture type: closed Fracture morphology: other intra-articular Qualified Code(s): S52.572A - Other intraarticular fracture of lower end of left radius, initial encounter for closed fracture Code(s): S52.502A - Unspecified fracture of the lower end of left radius, initial encounter for closed fracture Status: Acute Assessment and Plan: * s/p ORIF of his left wrist on 05/31 as an outpatient * cast in place, encourage elevation * Orthopedic recommendations noted * pain management (7) Essential hypertension: Code(s): I10 - Essential (primary) hypertension Status: Chronic Assessment and Plan: * reasonable control at this time * pain (recent wrist fracture and shingles) likely playing a role * follow trend of hemodynamics (8) Anemia: Code(s): D64.9 - Anemia, unspecified Status: Acute Assessment and Plan: * due to recent operative intervention, JAGDISH, CKD, and acute illness * follow trend of H/H (9) Shingles: Code(s): B02.9 - Zoster without complications Status: Acute Assessment and Plan: * right jaw line rash seems consistent * on acyclovir (10) Type 2 diabetes mellitus: Code(s): E11.9 - Type 2 diabetes mellitus without complications Status: Acute Assessment and Plan: * follow accu-cheks * glycemic control per hospitalist Not opposed to discharge from renal perspective if otherwise medically stable -- he can follow-up with his primary oxygen therapist for ongoing management of his CKD. Will continue to follow. L Subjective Date/time seen: 06/06/25 12:48 Interval history: Follow-up for acute kidney injury/acute renal failure on chronic kidney disease. Seems to be doing reasonably well at the time of my visit; wean off supplemental oxygen with stable oxygenation; renal function/creatinine continues to slowly improve with current therapy/interventions; note plans for potential discharge later today. Exam 2 Narrative: General: elderly but WD/WN male in NAD Heart: normal S1 and S2; no rub Lungs: coarse breath sounds Abdomen: soft, nontender, nondistended, positive bowel sounds Extremities: no cyanosis or clubbing; 1+ edema; right wrist cast Skin: shingles rash right lower jawline near ear Objective Data Vital Signs Vital Signs: Vital Signs Temp Pulse Resp BP Pulse Ox O2 Del Method O2 Flow Rate 06/06/25 12:00 97.6 F 65 16 122/67 96 06/06/25 08:54 97.6 F 16 06/06/25 08:54 61 20 06/06/25 08:20 Room Air 06/06/25 08:20 70 143/70 H 96 06/06/25 08:16 70 06/06/25 08:00 70 06/06/25 04:00 80 06/06/25 03:56 98.1 F 60 16 133/66 96 06/06/25 02:34 64 20 06/06/25 02:26 59 L 20 06/06/25 00:00 63 06/05/25 23:41 98.3 F 75 18 141/65 H 94 06/05/25 21:00 60 20 06/05/25 20:52 93 Nasal Cannula 2 06/05/25 20:51 62 20 06/05/25 20:51 62 06/05/25 20:00 74 06/05/25 20:00 74 20 94 Room Air 06/05/25 20:00 98.3 F 97 20 140/82 94 Intake/Output Intake/Output: Intake & Output 06/03/25 06/04/25 06/05/25 06/06/25 23:59 23:59 23:59 23:59 Intake Total 1112 2466 1000 Output Total 0 1350 2100 2000 Balance 0 -238 366 -1000 Meds/Results Medications: Active Medications Generic Name Dose Route Start Last Admin Trade Name Freq PRN Reason Stop Dose Admin Acetaminophen 1,000 mg 06/04/25 01:41 06/05/25 11:49 Acetaminophen 500 Mg Tablet PO 1,000 mg Q8H PRN Administration Pain Acyclovir 800 mg 06/05/25 18:00 06/05/25 17:07 Acyclovir 400 Mg Tablet PO 800 mg 5 TIMES DAILY JOHNNY Administration Albuterol 2 puff 06/04/25 01:41 06/04/25 21:51 Albuterol Sulfate (*Sp) Aerosol 1 Puff INHALATION 2 puff Q4HRT PRN Administration Shortness Of Breath Or Wheezing Amlodipine Besylate 5 mg 06/04/25 09:00 06/05/25 09:47 Amlodipine Besylate 5 Mg Tablet PO 5 mg QAM JOHNNY Administration Apixaban 5 mg 06/04/25 09:00 06/05/25 09:47 Apixaban 5 Mg Tablet PO 5 mg Q12HR JOHNNY Administration Cyclobenzaprine HCl 5 mg 06/04/25 01:41 06/05/25 18:27 Cyclobenzaprine Hcl 5 Mg Tablet PO 5 mg Q8H PRN Administration muscle pain Dextrose 12.5 gm 06/03/25 21:44 Dextrose 50% 25 Gm/50 Ml Syringe IV PUSH PRN PRN Hypoglycemia Protocol Dextrose 12.5 gm 06/04/25 14:23 Dextrose 50% 25 Gm/50 Ml Syringe IV PUSH PRN PRN Hypoglycemia Protocol Escitalopram Oxalate 10 mg 06/04/25 09:00 06/05/25 09:48 Escitalopram Oxalate 10 Mg Tablet PO 10 mg QAM JOHNNY Administration Furosemide 40 mg 06/05/25 17:00 06/05/25 16:02 Furosemide Inj 40 Mg/4 Ml Vial IV PUSH 40 mg BID JOHNNY Administration Glucagon 1 mg 06/03/25 21:44 Glucagon For Inj 1 Mg Vial IM PRN PRN Hypoglycemia Protocol Glucose 15 gm 06/03/25 21:44 Glucose Oral Gel 15 Gm Of Glucse In 37.5 Gm Tube PO PRN PRN Hypoglycemia Protocol Guaifenesin 1,200 mg 06/05/25 09:10 06/05/25 09:52 Guaifenesin 12 Hr 600 Mg Tabcr PO 1,200 mg Q12HR JOHNNY Administration Cefepime HCl 1 gm/ Sodium 50 mls @ 100 mls/hr 06/04/25 12:00 06/05/25 13:08 Chloride IVPB Infused Q12H JOHNNY Infusion Doxycycline Hyclate 100 mg/ 100 mls @ 100 mls/hr 06/04/25 12:00 06/05/25 12:50 Sodium Chloride IVPB Infused Q12H JOHNNY Infusion Dextrose 1,000 mls @ 100 mls/hr 06/03/25 21:44 Dextrose 5% 1,000 Ml IVPB PRN PRN Hypoglycemia Protocol Insulin Aspart 4 - 8 units 06/04/25 08:00 06/05/25 16:58 Insulin Aspart (*Bkc) 100 Units/Ml SUB-Q Not Given TIDWM JOHNNY Protocol Levalbuterol HCl 0.63 mg 06/05/25 01:20 06/05/25 13:16 Levalbuterol Neb 1.25 Mg/3 Ml INHALATION 0.63 mg Q6HRT JOHNNY Administration Magnesium Oxide 400 mg 06/04/25 09:00 06/05/25 09:47 Magnesium Oxide 400 Mg Tablet PO 400 mg DAILY JOHNNY Administration Metoprolol Tartrate 50 mg 06/04/25 21:00 06/04/25 20:38 Metoprolol Tartrate 50 Mg Tab PO 50 mg QHS JOHNNY Administration Metoprolol Tartrate 25 mg 06/04/25 09:00 06/05/25 09:47 Metoprolol Tartrate 25 Mg Tablet PO 25 mg QAM JOHNNY Administration Multivitamins Therapeutic 1 tablet 06/04/25 09:00 06/05/25 09:47 Multivitamins Therapeutic Tab (*Bkc) PO 1 tablet DAILY JOHNNY Administration Pantoprazole Sodium 20 mg 06/04/25 09:00 06/05/25 09:48 Pantoprazole Sod Sesquihydrate 20 Mg Tab PO 20 mg DAILY JOHNNY Administration Perflutren Lipid Microsphere 0 ml 06/03/25 21:39 Perflutren Lipid Microspheres 1.5 Ml Vial Diluted To 10 Ml Total Volume IV PUSH 06/06/25 21:40 ONCE PRN adequate visualization Protocol Potassium Chloride 20 meq 06/04/25 08:00 06/05/25 16:06 Potassium Chloride 20 Meq Er Tablet PO 20 meq BIDWM JOHNNY Administration Ropinirole HCl 4 mg 06/04/25 21:00 06/04/25 20:38 Ropinirole Hcl 1 Mg Tablet PO 4 mg HS JOHNNY Administration Rosuvastatin Calcium 20 mg 06/04/25 21:00 06/04/25 20:38 Rosuvastatin 20 Mg Tablet PO 20 mg HS JOHNNY Administration Sodium Bicarbonate 650 mg 06/04/25 09:00 06/05/25 09:47 Sodium Bicarbonate Tab 650 Mg Tablet PO 650 mg DAILY JOHNNY Administration Tramadol HCl 50 mg 06/04/25 01:41 06/05/25 18:27 Tramadol Hcl (*Crx) 50 Mg Tablet PO 50 mg Q8H PRN Administration Pain Rated 7-10 Radiology Results: ITS Impressions Head CT 06/03/25 20:49 IMPRESSION: 1. No acute intracranial abnormality. Chest CTA 06/03/25 20:53 IMPRESSION: 1. No large central pulmonary embolism. Peripheral emboli cannot be excluded due to technical limitations. 2: Patchy groundglass opacities and interlobular septal thickening. Differential includes pulmonary edema, atypical/viral pneumonia and early interstitial lung disease. 3: Small right pleural effusion. 4: Probable left renal cyst. Recommend correlation with renal ultrasound for characterization on a nonemergent basis. Renal Ultrasound 06/04/25 13:39 IMPRESSION: 1. Bilateral simple appearing anechoic renal cysts as well as a 10.1 cm Bosniak 2F exophytic cystic lesion at the upper pole the left kidney which six-month follow-up pre and postcontrast MRI or CT would be recommended. Chest X-Ray 06/05/25 16:59 IMPRESSION: 1: Moderate-sized interstitial and airspace opacities scattered throughout both lungs similar to the study from 06/03/2025. Differential includes but is not limited to edema or pneumonia. Recommend follow-up to resolution. Labs Labs: Laboratory Tests 06/06/25 04:38 06/06/25 04:38 Calcium 9.3 Phosphorus 2.9 Magnesium 2.1 C-Reactive Protein 17.9 H Albumin 3.5 Procalcitonin 0.6 Microbiology 06/03/25 21:55 Blood Blood Culture - Preliminary 06/03/25 21:55 Blood Blood Culture - Preliminary 06/03/25 23:28 Urine - Clean Catch Midstream Legionella pneumophila Serogrp 1 Ag - Final
--- NOTE | 2025-06-06 14:39 | P.DS_ITS ---
DS: Admitting Diagnosis Discharge Date 06/06/2025 Admitting Diagnosis Acute respiratory failure with hypoxia secondary to pneumonia and CHF exacerbation DS: Discharge Diagnosis Discharge Diagnosis (1) Acute hypoxic respiratory failure: Code(s): J96.01 - Acute respiratory failure with hypoxia Status: Acute (2) Pneumonia: Qualifiers: Laterality: unspecified laterality Lung location: unspecified part of lung Pneumonia type: due to unspecified organism Qualified Code(s): J18.9 - Pneumonia, unspecified organism Code(s): J18.9 - Pneumonia, unspecified organism Status: Acute (3) Acute kidney injury: Code(s): N17.9 - Acute kidney failure, unspecified Status: Acute (4) Fracture of left distal radius: Qualifiers: Encounter type: initial encounter Fracture morphology: other intra- articular Fracture type: closed Qualified Code(s): S52.572A - Other intraarticular fracture of lower end of left radius, initial encounter for closed fracture Code(s): S52.502A - Unspecified fracture of the lower end of left radius, initial encounter for closed fracture Status: Acute (5) Type 2 diabetes mellitus: Code(s): E11.9 - Type 2 diabetes mellitus without complications Status: Acute (6) History of DVT (deep vein thrombosis): Code(s): Z86.718 - Personal history of other venous thrombosis and embolism Status: Acute (7) Essential hypertension: Code(s): I10 - Essential (primary) hypertension Status: Chronic (8) CHF (congestive heart failure): Code(s): I50.9 - Heart failure, unspecified Status: Acute (9) Shingles: Code(s): B02.9 - Zoster without complications Status: Acute DS: Summary Hospital Course Reason for hospitalization: Acute respiratory failure with hypoxia secondary to pneumonia and CHF exacerbation Hospital Course: Admission: Patient was a 74 year old male with PMH of DM type 2, DOLORES, history of DVT, gout, HTN, HLD and RLS. Patient presented to the ER with complaints of dyspnea. Patient reports he has been short of breath for 3 days. Patient reports multiple falls during this time as well. He reported he may have hit his head while falling, but did not lose consciousness. Per chart patient had an ORIF of the left wrist by Dr. Rob on 05/31/2025. In the ER the patient was febrile at 100.4. Patient's head CT showed no acute abnormalities. Patient's CXR showed Cardiomegaly with mild interstitial edema. Patient had a CTA of the lungs which showed 1. No large central pulmonary embolism. Peripheral emboli cannot be excluded due to technical limitations. 2: Patchy groundglass opacities and interlobular septal thickening. Differential includes pulmonary edema, atypical/viral pneumonia and early interstitial lung disease. 3: Small right pleural effusion. 4: Probable left renal cyst. Recommend correlation with renal ultrasound for characterization on a nonemergent basis. In the ER the patient was hypoxic and was started on supplemental oxygen. Patient's BNP was elevated at 5330 and patient has BLE edema L>R. Patient was given a 1 L bolus and IV antibiotics. Nephrology and Orthopedic surgery were consulted. Patient was admitted for further evaluation and treatment. Hospital Course: Patient was admitted to the medical unit and treated for acute respiratory failure with hypoxia secondary to Hospital acquired Pneumonia. He was started on Doxycycline and cefepime for ABX coverage, dunebs, mucinex and incentive spirometer. Patient during the admission also reported right sided rash with nerve pain and pustules at which time he was started on acyclovir for shingles. Patient had overall improvement with medical and was weaned back to room air. Patient seen on day of discharge requesting to return home. Labs improved and vitals stable with negative micro. Patient was discharged back to home on oral ABX for pneumonia and will have follow-up with orthopedics outpatient. Patient in no acute distress at time of assessment and felt close to his baseline. Patient acknowledged and agreed with discharge plan. Status at Discharge Functional status at discharge: independent ambulation Overall status at discharge: patient is progressing back to baseline Time Spent with Patient Time attestation: Total time spent providing and/or coordinating discharge services: Time spent: Greater than 30 minutes Exam Narrative: APPEARANCE: No apparent distress. Head: NCAT EYES: EOMI, NOSE: Atraumatic NECK: Trachea midline RESPIRATORY: crackles at bases CARDIOVASCULAR: RRR, S1, S2, no murmurs ABDOMINAL: Non-distended, soft, non-tender, bowel sounds present in all quadrants MUSCULOSKELETAl: No obvious deformities, Right wrist in cast. NEURO: Alert. Cranial nerves 2-12 grossly intact. SKIN:: Warm, dry. Normal color, Rash to right lower jawline with pustules PSYCHIATRIC: Normal affect DS: Data Data Completed and Pending Labs on day of discharge: Labs from last 24 hours 06/06/25 06/06/25 06/05/25 07:47 04:38 16:54 WBC 10.7 H RBC 4.19 L Hgb 11.9 L Hct 37.2 L MCV 88.8 MCH 28.4 MCHC 32.0 RDW 15.8 H Plt Count 295 MPV 9.5 Immature Gran % (Auto) 0.7 H Neut % (Auto) 69.4 Lymph % (Auto) 15.8 L [place] % (Auto) 12.1 H Eos % (Auto) 1.6 Baso % (Auto) 0.4 Lymph # (Auto) 1.70 [place] # (Auto) 1.3 H Eos # (Auto) 0.2 Baso # (Auto) 0.0 Abs Immat Gran (auto) 0.08 H Absolute Neuts (auto) 7.5 H Absolute Nucleated RBC 0.000 Nucleated RBC % 0.0 ESR 84 H Sodium 136 L Potassium 3.7 Chloride 103 Carbon Dioxide 21 L Anion Gap 12 BUN 38 H Creatinine 1.95 H Estim Creat Clear Calc 38 Estimated GFR 34 L Glucose 113 H POC Capillary Glucose 98 128 H Calcium 9.3 Phosphorus 2.9 Magnesium 2.1 C-Reactive Protein 17.9 H Albumin 3.5 Procalcitonin 0.6 Preliminary micro results at discharge 06/03/25 21:55 Blood Culture - Preliminary Blood 06/03/25 21:55 Blood Culture - Preliminary Blood Discharge Plan Discharge Attending physician on discharge: Juanita Torres Consulting providers: Manny Moreno; Abi Aldrich; Yael Elias; Jaya Strickland; Tim Fitch Maria N.; Roger Holcomb; Shahid Mandujano; Xu Javier Discharging Clinician: Milli Abdalla Anticipated Discharge Date/Time: 06/06/25 14:27 Patient Disposition: Home Activity: may shower and as tolerated Diet: low sodium Discharge Instructions: 1). Pneumonia * I have ordered oral antibiotic therapy doxycycline and Augmentin please take as indicated incomplete even if feeling better * Continue to use your incentive spirometer at home * Encourage activity and hydration 2). Fracture of left distal radius * Follow-up with orthopedics as scheduled 3). Shingles (rash on face) * I have ordered oral acyclovir please take as indicated incomplete even if rash has fully resolved 4). Congestive heart failure * Resume your oral Lasix at home * Encouraged low-sodium diet * Elevate lower extremities when at rest * Avtar wrap lower extremities when ambulating How can you care for yourself at home? ? Keep track of any new symptoms or changes in your symptoms. ? Rest until you feel better. ? Be safe with medicines. Take your medicines exactly as prescribed. Call your doctor if you think you are having a problem with your medicine. ? Do not drive after taking a prescription pain medicine. ? Ensure to follow-up with primary care physician as indicated and provide updated medication list provided to you at discharge. When should you call for help? Call 911 anytime you think you may need emergency care. For example, call if: ? You passed out (lost consciousness). Call your doctor now or seek immediate medical care if: ? You have new symptoms like fever, difficulty breathing, Chest pain, vomiting, or rash. ? You have new or different pain. ? You are confused and are having trouble thinking clearly. ? Your symptoms are getting worse. Watch closely for changes in your health, and be sure to contact your doctor if: ? You do not get better as expected. Patient Instructions: Antibiotic Form, Heart Failure (GEN), Shingles (DC), Community Acquired Pneumonia (DC), Blood Thinners (GEN) Patient Language: French Stand Alone Forms: General Discharge Information Follow-up/Referrals: Tomi,ADIA Espinoza [Primary Care Provider, Unknown] - 2 Weeks Discharge Medications: New acyclovir 400 mg Tablet 800 mg PO 5 TIMES DAILY Qty: 31 0RF amoxicillin-pot clavulanate 875-125 mg tablet 1 tablet PO Q12H Qty: 12 0RF doxycycline hyclate 100 mg tablet 100 mg PO DAILY Qty: 9 0RF Continued acetaminophen 500 mg tablet 1,000 mg PO TID PRN (Reason: pain) 7 Days Qty: 42 0RF albuterol sulfate 90 mcg/actuation HFA aerosol inhaler 2 puff INHALATION Q6-8H PRN (Reason: shortness of breath or wheezing) allopurinol 300 mg tablet 300 mg PO DAILY amlodipine 5 mg tablet 5 mg PO QAM Trulicity 3 mg/0.5 mL pen injector 3 mg SUBCUT WEEKLY Patient Comments: TUESDAY Jardiance 25 mg tablet 25 mg PO DAILY furosemide 40 mg tablet 40 mg PO QAM gabapentin 300 mg capsule 600 mg PO HS magnesium oxide 400 mg (241.3 mg magnesium) tablet 400 mg PO DAILY multivitamin [Daily Multi-Vitamin] Tablet 1 tablet PO DAILY metoprolol tartrate 50 mg tablet 25 mg PO QAM Patient Comments: 50mg po qpm pantoprazole 20 mg tablet,delayed release (DR/EC) 20 mg PO DAILY ropinirole 2 mg tablet 4 mg PO HS rosuvastatin 20 mg tablet 20 mg PO HS tadalafil [Cialis] 20 mg tablet 20 mg PO ONCE PRN (Reason: sexual activity) sodium bicarbonate 650 mg tablet 650 mg PO DAILY ibuprofen [IBU-200] 200 mg tablet 400 mg PO Q6H PRN (Reason: pain) Eliquis 5 mg tablet 5 mg PO BID escitalopram oxalate 10 mg tablet 10 mg PO QAM potassium chloride [K-Tab] 20 mEq tablet extended release 20 meq PO BID Qty: 30 1RF cyclobenzaprine 5 mg tablet 5 mg PO Q8H PRN (Reason: muscle pain) tramadol 50 mg tablet 50 mg PO Q8H PRN (Reason: pain) Discontinued sulfamethoxazole-trimethoprim 800-160 mg tablet 1 tablet PO BID Date of admission: 06/03/25 21:40 Primary Care Provider: Tomi,Alexis Admitting Provider: Chevy Arredondo Attending physician on admission: Milli Abdalla Condition: Stable Quality VTE Prophylaxis VTE prophylaxis: pharmacologic ordered
== END 2025-06-06 15:40 | disposition home or self-care (01) | DRG 193 ==
LOC: ANHED 21:39 → ANH2MED 22:01
PROVIDERS: Emergency Medicine; Internal Medicine Nephrology; Nurse Practitioner; Admitting Provider Internal Medicine; Emergency Provider Emergency Medicine; PCP Physician Assistant Medical; Visit Provider Nurse Practitioner Family
DX: J18.9 Pneumonia, unspecified organism (principal); I50.33 Acute on chronic diastolic (congestive) heart failure; J96.01 Acute respiratory failure with hypoxia; I13.0 Hypertensive heart and chronic kidney disease with heart failure and stage 1 through stage 4 chronic kidney disease, or unspecified chronic kidney disease; N17.9 Acute kidney failure, unspecified; Y95 Nosocomial condition; E11.22 Type 2 diabetes mellitus with diabetic chronic kidney disease; N18.30 Chronic kidney disease, stage 3 unspecified; B02.9 Zoster without complications; S52.572D Other intraarticular fracture of lower end of left radius, subsequent encounter for closed fracture with routine healing; W19.XXXD Unspecified fall, subsequent encounter; G47.33 Obstructive sleep apnea (adult) (pediatric); E78.5 Hyperlipidemia, unspecified; G25.81 Restless legs syndrome; N28.1 Cyst of kidney, acquired; I35.0 Nonrheumatic aortic (valve) stenosis; Z86.718 Personal history of other venous thrombosis and embolism; D63.1 Anemia in chronic kidney disease; D72.829 Elevated white blood cell count, unspecified; Z20.822 Contact with and (suspected) exposure to COVID-19
CPT/HCPCS: 36415; 70450; 71045; 71275; 73110; 76770; 80053; 80069; 81001; 81050; 82550; 82570; 82948; 83036; 83605; 83690; 83735; 83880; 84145; 84156; 84300; 84540; 85025; 85652; 85999; 86140; 87040; 87449; 87637; 87641; 93005; 93306; 94640; 96365; 96375; 99291; A9270; J0692; J1938; J3373; J7120; Q9967